=== PATIENT | female | born 1995 | race Caucasian/White ===

== ENCOUNTER 2021-07-30 08:45 | Outpatient (CLI) | payer BC, MEDICAID, SELFPAY ==
--- NOTE | 2021-07-30 08:56 | RAD_ITS ---
STUDY: X-RAY - RIGHT WRIST REASON FOR EXAM: Female, 25 years old. CONTUSION R WRIST -- PT IS TECHNIQUE: 3 view(s) of the wrist were obtained. COMPARISON: None. FINDINGS: Normal visualized distal radius and ulna. Normal radiocarpal articulation. Normal distal radioulnar articulation. Normal carpal bones. Normal carpal articulations. Normal carpometacarpal articulation of the thumb. Normal second through fifth carpometacarpal articulations. Normal visualized metacarpal bones. The soft tissue structures are unremarkable. RAD/Wrist min 3 Views IMPRESSION: Normal x-ray examination of the wrist. Electronically Signed: Josiah Holbrook MD at 13:45 EDT ,
== END 2021-07-30 23:59 | disposition home or self-care (01) ==
LOC: RAD 08:55
PROVIDERS: PCP Family Medicine; Referring Provider Family Medicine; Visit Provider Family Medicine
DX: S60.211A Contusion of right wrist, initial encounter (principal)
CPT/HCPCS: 73110

== ENCOUNTER 2021-08-25 17:00 | Outpatient (CLI) | payer BC, MEDICAID, SELFPAY ==
[2021-08-25] VITALS (13 sets, daily range): BP systolic 122–132; BP diastolic 64–77; PULSE 75–85; TEMP 37–37.7; O2SAT 98; BMI 29.4
[2021-08-25 18:02] LABS: Hematocrit 31.4 % (37-47); Hemoglobin 10.4 g/dL (12.0-15.0); Mean Corp Hgb Conc 33.1 g/dL (32-36); Mean Corpuscular Hgb 29.6 pg (27.0-32.0); Mean Corpuscular Volume 89.5 fL (81-99); Mean Platelet Vol. 10.8 fl (6.2-12.0); Platelet Count 175 K/mm3 (150-450); RBC Distribution Width CV 14.4 % (11.6-14.6); Red Blood Count 3.51 M/mm3 (4.2-5.4); White Blood Count 11.1 K/mm3 (4.4-11.0)
[2021-08-25 18:18] LABS: Protein, Urine (Random) 15.6 mg/dL (<11.9); Protein:Creat Ratio 164 mg/g CRE (0-200)
[2021-08-25 19:13] LABS: AST(SGOT) 20 U/L (15-37); Alanine Aminotransfer ALT/SGPT 19 U/L (13-56); Creatinine, Serum 0.42 mg/dL (0.55-1.02); EST Glomerular Filtration Rate 197 mL/min (>60); Est Glom Filt Rate - Afr Amer 238 mL/min (>60); Estimated Creatinine Clearance 195.02 ml/min; Uric Acid 3.7 mg/dL (2.6-6.0)
--- NOTE | 2021-08-28 09:17 | OB.TRI.HP_ITS ---
HPI - General HPI Narrative XIOMARA FRAGOSO, is a 25-year-old 1 para 0 who presented at 38-5/7 weeks for complete plaints of swelling in her hands and feet. She was sent to labor and delivery to rule out preeclampsia. Maternal Data Information Final [place]: 09/03/21 Gestational age: 38 5/7 PFSH PFSH Home Medications Prenatabs FA 1 tab PO/SL DAILY 08/25/21 [History Last Taken Unknown] iron 325 mg PO/SL QODAY 08/25/21 [History Last Taken Unknown] Allergy/AdvReac Type Severity Reaction Status Date / Time No Known Allergies Allergy Verified 08/08/15 13:10 Social History Smoking Status: Never smoker NST FHR Rate Baby A Baseline: 130 Variability:: Moderate Accelerations:: 15 x 15 Decelerations:: None NST Reactive:: Yes FHR Category:: Category I Uterine Activity:: irreg ctxs Assessment & Plan (1) 38 weeks gestation of : (2) Supervision of normal first in third trimester: PLAN: NST is reactive and category 1. No evidence of preeclampsia. P atient was discharged home to follow-up in the office as needed or as scheduled. (3) Edema during : QUALIFIERS: Trimester: third trimester Qualified Code(s): O12.03 - Gestational edema, third trimester
== END 2021-08-25 19:25 | disposition home or self-care (01) ==
LOC: WPOUT 17:06 → WP 17:07
PROVIDERS: PCP Family Medicine; Referring Provider Advanced Practice Midwife; Visit Provider Advanced Practice Midwife
DX: O12.03 Gestational edema, third trimester (principal); Z3A.38 38 weeks gestation of pregnancy
CPT/HCPCS: 36415; 59025; 59050; 82565; 82570; 84156; 84450; 84460; 84550; 85027; 99218; G0378

== ENCOUNTER 2021-09-05 16:05 | Outpatient (CLI) | payer BC, MEDICAID, SELFPAY ==
[2021-09-05 16:26] VITALS: BP 141/73; PULSE 88; TEMP 37.3; BMI 29.7
[2021-09-05 16:42] VITALS: BP 136/84; PULSE 93
--- NOTE | 2021-09-05 17:39 | OB.TRI.NOTE ---
HPI - General HPI Narrative XIOMARA FRAGOSO, is a 25 F at 40.2 weeks gestation who presents to triage with contractions. She reports having contractions every 6 minutes for the past couple of hours. Denies any loss of fluid or vaginal bleeding. Positive movement. Maternal Data Information [place] Calculator Estimated Delivery Date Method Current WG Current Estimate 09/03/21 Manual 40w 2d PFSH PFSH Home Medications Prenatabs FA 1 tab PO/SL DAILY 08/25/21 [History Last Taken Unknown] iron 325 mg PO/SL QODAY 08/25/21 [History Last Taken Unknown] Allergy/AdvReac Type Severity Reaction Status Date / Time No Known Allergies Allergy Verified 09/05/21 16:27 Social History Smoking Status: Never smoker ROS Eyes Eyes: Denies blurry vision Cardiovascular Cardiovascular: Reports none; Denies chest pain at rest, chest pain with activity or dizziness Respiratory/Chest Respiratory/Chest: Denies cough or dyspnea Gastrointestinal Gastrointestinal: Reports none and other; Denies diarrhea or vomiting Genitourinary Genitourinary: Denies dysuria Musculoskeletal Musculoskeletal: Reports none Integumentary Integumentary: Reports none; Denies rash Neurologic Neurologic: Denies dizziness, headache(s) or other visual disturbances Psychiatric Psychiatric: Reports none Physical Exam Const alert and no apparent distress General Appearance: cooperative Orientation / Consciousness: awake Exam Limitations: no limitations HEENT normocephalic Eyes General Eye: normal appearance of both eyes Neck full ROM Chest inspection of chest normal Resp normal respiratory effort and normal air movement Effort and Inspection: symmetric chest movement Auscultation: clear to auscultation bilaterally Cardio regular rate GI soft to palpation, non-tender and non-distended Inspection: and other Back/Spine normal ROM Extremity full ROM, normal capillary refill and no calf tenderness Skin no rashes or lesions noted Neuro oriented x3 and CN's II-XII intact bilaterally Psych mental status grossly normal NST FHR Rate Baby A Baseline: 155 Variability:: Moderate Accelerations:: None Decelerations:: None NST Reactive:: Yes FHR Category:: Category I Uterine Activity:: irregular Assessment & Plan (1) 40 weeks gestation of : (2) Anemia affecting : QUALIFIERS: Trimester: third trimester Qualified Code(s): O99.013 - Anemia complicating , third trimester (3) Rh negative state in antepartum period: PLAN: NST reactive- Cat. 1 tracing CE unchanged Labor precautions reviewed D/C home with follow up in office this week Dr. Britt notified and is collaborating physician
== END 2021-09-05 19:05 | disposition home or self-care (01) ==
LOC: WPOUT 16:18 → WP 16:19
PROVIDERS: PCP Family Medicine; Referring Provider Advanced Practice Midwife; Visit Provider Advanced Practice Midwife
DX: O99.013 Anemia complicating pregnancy, third trimester (principal); O48.0 Post-term pregnancy; Z3A.40 40 weeks gestation of pregnancy
CPT/HCPCS: 59025; 59050; 99218; G0378

== ENCOUNTER 2021-09-06 02:08 | Inpatient (IN) | payer BC, MEDICAID, SELFPAY ==
[2021-09-06] VITALS (44 sets, daily range): BP systolic 108–161; BP diastolic 57–91; PULSE 59–176; RESP 16; TEMP 36.2–37.7; O2SAT 82–100; BMI 30.4
[2021-09-06 02:06] LABS: ROM Internal Control Test YES-OK TO RESULT pt. (Internal QC)
[2021-09-06 02:08] LABS: ROM Patient Test POSITIVE (Negative)
[2021-09-06] MEDS: Lactated Ringers 1,000 ML 999 ML IV (02:25)
[2021-09-06] MEDS: fentaNYL 100 MCG/2 ML Ampul IV (02:47)
[2021-09-06] MEDS: Ondansetron 4 MG/2 ML Vial IV (02:47)
[2021-09-06 03:00] LABS: Absolute Lymphocyte Count 0.98 X10^3/uL (0.83-4.51); Absolute Neutrophil Count 8.1 X10^3/uL (2.0-7.7); Basophil# 0.03 X10^3/uL; Basophil% 0.3 % (0-1); Eosinophil# 0.03 X10^3/uL; Eosinophils% 0.3 % (0-5); Hematocrit 34.1 % (37-47); Hemoglobin 11.3 g/dL (12.0-15.0); Lymphocyte # 0.98 X10^3/ul (0.83-4.51); Lymphocyte % 9.4 % (19-41); Mean Corp Hgb Conc 33.1 g/dL (32-36); Mean Corpuscular Hgb 29.4 pg (27.0-32.0); Mean Corpuscular Volume 88.8 fL (81-99); Mean Platelet Vol. 11.4 fl (6.2-12.0); Monocyte# 1.17 X10^3/uL; Monocyte% 11.2 % (0-10); NRBC Flagged by Analyzer 0 % (0-5); Neutrophil # 8.08 X10^3/uL (2.7-7.7); Neutrophil % 77.5 % (47-70); Platelet Count 157 K/mm3 (150-450); RBC Distribution Width CV 14.7 % (11.6-14.6); RBC Distribution Width SD 46.7 fl (35.1-43.9); Red Blood Count 3.84 M/mm3 (4.2-5.4); White Blood Count 10.4 K/mm3 (4.4-11.0)
[2021-09-06 03:15] LABS: AST(SGOT) 21 U/L (15-37); Alanine Aminotransfer ALT/SGPT 20 U/L (13-56); Creatinine, Serum 0.55 mg/dL (0.55-1.02); EST Glomerular Filtration Rate 145 mL/min (>60); Est Glom Filt Rate - Afr Amer 175 mL/min (>60); Estimated Creatinine Clearance 143.15 ml/min; Uric Acid 3.5 mg/dL (2.6-6.0)
--- NOTE | 2021-09-06 03:30 | HP.PCM.OB_ITS ---
HPI - General General Date of Admission: 09/06/21 HPI Narrative XIOMARA FRAGOSO, is a 25 F at 40.3 who presents to triage with SROM. Patient discharged from triage earlier this evening for no cervical change and reports went home and felt large gush of fluid. Continues to have contractions every 3-5 minutes. Positive movement. Maternal Data Information [place] Calculator Estimated Delivery Date Method Current WG Current Estimate 09/03/21 Manual 40w 3d PFSH PFSH Medical History no medical history Home Medications Prenatabs FA 1 tab PO/SL DAILY 08/25/21 [History Last Taken Unknown] iron 325 mg PO/SL QODAY 08/25/21 [History Last Taken Unknown] Allergy/AdvReac Type Severity Reaction Status Date / Time No Known Allergies Allergy Verified 09/06/21 01:44 Surgical History no surgical history Social History Smoking Status: Never smoker History Elective abortions Hx Para 0 Spontaneous abortions Hx # Term Pregnancies Ectopic pregnancies Hx # Pregnancies Multiple births # of living children NST FHR Rate Baby A Baseline: 140 Variability:: Moderate Accelerations:: 15 x 15 Decelerations:: None NST Reactive:: Yes FHR Category:: Category I Uterine Activity:: 2-4 ROS Eyes Eyes: Denies blurry vision, change in vision or spots in vision ENT HEENT: Denies dizziness or headache(s) Cardiovascular Cardiovascular: Denies abdominal pain, chest pain or dyspnea Respiratory/Chest Respiratory/Chest: Denies cough, dyspnea, shortness of breath at rest or shortness of breath with exertion Gastrointestinal Gastrointestinal: Denies abdominal pain, diarrhea or vomiting Genitourinary Genitourinary: Denies change in urinary stream, difficulty urinating or dysuria Musculoskeletal Musculoskeletal: Reports none Integumentary Integumentary: Denies rash Neurologic Neurologic: Denies dizziness, headache(s), memory loss or weakness Psychiatric Psychiatric: Reports none Vital Signs Vital Signs Vital Signs: 09/06/21 01:28 09/06/21 01:33 09/06/21 01:59 Pulse Rate 83 73 67 Blood Pressure 148/91 H 161/90 H BP Systolic 148 161 BP Diastolic 91 90 Pulse Ox 99 97 09/06/21 02:12 09/06/21 02:57 09/06/21 03:23 Pulse Rate 66 69 81 Blood Pressure 140/89 H 156/84 H BP Systolic 140 156 BP Diastolic 89 84 Pulse Ox 99 09/06/21 03:28 Pulse Rate 74 Blood Pressure BP Systolic BP Diastolic Pulse Ox 98 Weight Weight: 183 lb Body Mass Index (BMI) 30.4 Physical Exam Const alert, oriented x3 and no apparent distress General Appearance: cooperative Orientation / Consciousness: awake Exam Limitations: no limitations HEENT normocephalic Head and Scalp: normal to inspection Eyes General Eye: normal appearance of both eyes Neck full ROM and no lymphadenopathy Lymph Lymphatic: no lymphadenopathy noted Chest inspection of chest normal Resp normal respiratory effort, normal air movement and clear to auscultation bi laterally Effort and Inspection: able to speak in complete sentences and symmetric chest movement Cardio regular rate and regular rhythm GI normal to inspection, nondistended, normoactive bowel sounds Manual OB Exam: presentation cephalic and dilated 4 Amniotic Fluid: clear amniotic fluid Back/Spine normal ROM Extremity full ROM and no calf tenderness Skin no rashes or lesions noted General Skin Exam: no breakdown Neuro oriented x3 and CN's II-XII intact bilaterally Psych mental status grossly normal and thought process normal Labs Labs Labs: Blood Type Pending Antibody Screen Pending Hct 34.1 % (37-47) L Hgb 11.3 g/dL (12.0-15.0) L Assessment & Plan (1) Rh negative state in antepartum period: (2) 40 weeks gestation of : (3) Spontaneous rupture of amniotic membranes: PLAN: ROM plus- positive Ce- 4/90/-2 Admit to labor and delivery Elevated BP readings- 156/84, 140/89- PIH labs ordered Start IV fluids and titrate per orders GBS negative Epidural when indicated Anticipate Dr. Carrera notified of admission and is collaborating physician (4) Elevated blood pressure reading:
[2021-09-06] MEDS: fentaNYL-bupivacaine (epidural) 100 ML BAG EPIDURAL ×3 (03:40→13:44)
[2021-09-06 05:53] LABS: Protein, Urine (Random) 22.9 mg/dL (<11.9); Protein:Creat Ratio 218 mg/g CRE (0-200)
[2021-09-06] MEDS: Lactated Ringers 1,000 ML 200 ML IV ×2 (06:09→10:48)
--- NOTE | 2021-09-06 10:33 | PN_ITS ---
Progress Note Patient seen at bedside. Comfortable with epidural. Denies any pain. Patient currently in isolation due to COVID-19 positive via rapid and PCR. She denies any symptoms at this time. Physical Exam Const alert and no apparent distress General Appearance: cooperative and comfortable Exam Limitations: no limitations HEENT normocephalic Eyes General Eye: normal appearance of both eyes Neck full ROM General: normal visual inspection Chest Chest: symmetrical chest wall rise Resp normal respiratory effort and normal air movement Effort and Inspection: symmetric chest movement Auscultation: clear to auscultation bilaterally Cardio regular rate and regular rhythm GI normal to inspection, nondistended, normoactive bowel sounds Back/Spine normal ROM Extremity full ROM and no calf tenderness General Extremity: normal exam except as noted Skin no rashes or lesions noted Neuro CN's II-XII intact bilaterally Psych mental status grossly normal Assessment & Plan Assessment/Plan (1) 40 weeks gestation of : (2) Rh negative state in antepartum period: (3) Spontaneous rupture of amniotic membranes: (4) COVID-19 virus RNA test result positive at limit of detection: PLAN: COVID POSITIVE- remain in isolation- 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 1 tracing- NST reactive Start pitocin 2 mu/min and increase per policy Anticipate Dr. Britt updated and is collaborating physician
[2021-09-06] MEDS: Oxytocin 30 units/NS 500 ml 30 UNITS/500 ML IV.SOLN IV (10:42)
[2021-09-06] MEDS: Oxytocin 30 units/NS 500 ml 30 UNITS/500 ML IV.SOLN 334 UNITS IV (14:38)
--- NOTE | 2021-09-06 15:00 | EX.PCM.OBRPT ---
Assessment & Plan (1) COVID-19 virus RNA test result positive at limit of detection: (2) Rh negative state in antepartum period: (3) (spontaneous vaginal delivery): (4) Laceration, obstetrical, first degree: Maternal Data Information [place] Calculator Estimated Delivery Date Method Current WG Current Estimate 09/03/21 Manual 40w 3d Vaginal Delivery Maternal Presentation Maternal Presentation: Spontaneous Rupture of Membranes Maternal Presentation: G1 Po at 40.3 that presented triage with spontaneous rupture of membranes. Labor was augmented with pitocin. Operative Information Date of Procedure: 09/06/21 Pre-Operative Diagnosis: Term gestation, Spontaneous rupture of membranes Post-Operative Diagnosis: Same, live viable female Surgery / Procedure Performed: Spontaneous Vaginal Delivery Type of Anesthesia: Epidural Drain: Zheng to straight drain Estimated Blood Loss: 300 Time of Delivery: 14:36 Findings Description of Procedure: Provided bedside support to patient with pushing. Dr. Dominguez and RT in room for delivery due to meconium fluid. head delivered with maternal effort over intact perineum. Cord around neck easily reduced. With next push, anterior shoulder and then remainder of infant body delivered. Cord around arm and body easily reduced. Vigorous female infant placed on maternal abdomen and was attended to by nursing staff. Pitocin IV started for active management of the third stage of labor. Cord blood collected from 3 vessel cord after clamped and cut by FOB. placed immediately skin to skin with patient. Placenta delivered spontaneously and intact. Fundus firm 1 below U. A first degree vaginal laceration repaired in usual fashion using Vicryl 3-0 Rapide. Hemostasis obtained. Vaginal sweep completed by me. Infant and patient bonding well at this time. Dr. Britt notified of delivery. Presentation: Vertex Amniotic Membrane Rupture Type: Spontaneous Time of Membrane Rupture: 0030 Amniotic Fluid Description: Clear, Lightly stained meconium and - (Meconium fluid noted while pushing and terminal mec at delivery) Placental Delivery Description: Spontaneous Placenta Disposition: [facility] Cord Vessel Description: 3 Vessels Cord Entanglement: Around neck x 1, loose and - (Cord around arm and body x 1 loose) Nuchal Cord Compression: Without compression Infant A Gender: Female (1 minute): 8 (5 minute): 9 Delayed Cord Clamping: Yes Post Vaginal Delivery Medications Given After Delivery: IV Pitocin Episiotomy Description: None Laceration: 1st degree Complication Complications: None
[2021-09-06] MEDS: Acetaminophen 500 MG Tablet 1000 MG PO (16:20)
[2021-09-06] MEDS: Naproxen 500 MG Tablet PO (20:01)
[2021-09-07] VITALS (9 sets, daily range): BP systolic 105–122; BP diastolic 54–67; PULSE 75–90; RESP 16; TEMP 36.1–36.6; O2SAT 97–98
[2021-09-07] MEDS: Naproxen 500 MG Tablet PO (08:02)
[2021-09-07] MEDS: Senna/Docusate Sodium 1 Tablet PO (08:03)
--- NOTE | 2021-09-07 08:56 | PCM.PN.OB ---
Subjective Subjective Patient seen at bedside. Up in room ambulating. Denies pain. Has occasional cough but no other COVID symptoms. Lochia decreasing. Bottle feeding infant. Desires discharge home at 24 hours. Objective Data Objective Data Vital Signs: Vital Signs Temp Pulse Resp BP Pulse Ox 97.7 F L 90 16 120/67 97 09/07/21 07:55 09/07/21 07:55 09/07/21 07:55 09/07/21 07:55 09/07/21 07:55 Oxygen Delivery Method Room Air Weight: 183 lb Body Mass Index (BMI) 30.4 Intake & Output: Intake and Output for Last 24 Hours 09/05/21 09/06/21 09/07/21 23:59 23:59 23:59 Intake Total 4207.87 / 4207.87 Output Total 1920 / 1920 Balance 2287.87 / 2287.87 Lab / Micro Data Result Diagrams: 09/06/21 02:25 09/06/21 02:25 Labs: Laboratory Results - last 24 hr 09/06/21 17:17: Screen NEGATIVE, Baby's Blood Type A POSITIVE, Baby's YEYO NEGATIVE Micro: Microbiology 09/06/21 02:50 Nasal Secretion SARS-CoV-2 Antigen (Rapid) - Final SARS-CoV-2 (COVID 19) ROS Eyes Eyes: Denies blurry vision, change in vision or spots in vision ENT HEENT: Denies dizziness or headache(s) Cardiovascular Cardiovascular: Denies abdominal pain, chest pain or dyspnea Respiratory/Chest Respiratory/Chest: Denies cough, dyspnea, shortness of breath at rest or shortness of breath with exertion Gastrointestinal Gastrointestinal: Denies abdominal pain, diarrhea or vomiting Genitourinary Genitourinary: Denies change in urinary stream, difficulty urinating or dysuria Musculoskeletal Musculoskeletal: Reports none Integumentary Integumentary: Denies rash Neurologic Neurologic: Denies dizziness, headache(s), memory loss or weakness Physical Exam Const alert and no apparent distress General Appearance: cooperative and comfortable Exam Limitations: no limitations HEENT normocephalic Eyes General Eye: normal appearance of both eyes Neck full ROM General: normal visual inspection Chest Chest: symmetrical chest wall rise Resp normal respiratory effort and normal air movement Effort and Inspection: symmetric chest movement Auscultation: clear to auscultation bilaterally Cardio regular rate and regular rhythm GI normal to inspection, nondistended, normoactive bowel sounds Back/Spine normal ROM Extremity full ROM and no calf tenderness General Extremity: normal exam except as noted Skin no rashes or lesions noted Neuro CN's II-XII intact bilaterally Psych mental status grossly normal Assessment & Plan (1) Laceration, obstetrical, first degree: (2) (spontaneous vaginal delivery): (3) COVID-19 virus RNA test result positive at limit of detection: (4) Rh negative state in antepartum period: (5) Anemia affecting : QUALIFIERS: Trimester: third trimester Qualified Code(s): O99.013 - Anemia complicating , third trimester PLAN: PPD 1 Routine care Pain control Bottle feeding infant D/C home after 24 hours and follow up in office
--- NOTE | 2021-09-07 09:03 | PCM.DC ---
Discharge Instructions Diet Discharge Diet: No restrictions Activity May resume sexual activity in: 6-8 weeks Weight Bearing Status: Weight bearing as tolerated Dressing / Incision Call your doctor if you observe: Fever of 101 or Higher, Inability to urinate, Using more than 1 pad per hour, Shortness of breath, Chest pain, Calf discomfort and Uncontrolled pain Follow Up Care Please Follow Up With: Naye Sepulveda CNM When: 2 weeks virtual visit/ 6 weeks in office Test Results: Test results from this visit will be discussed in further detail at your follow-up appointment, if applicable. Discharge Plan Admission Admit Date/Time: 09/06/21 02:08 Primary Reason for Your Visit: Labor and Delivery Attending Provider: Naye Sepulveda Primary Care Provider: Jairo Pérez Discharge Orders/Prescriptions Prescriptions: No Action Prenatabs FA 1 tab PO/SL DAILY RF: 0 iron 325 mg PO/SL QODAY RF: 0 Referrals / Follow Up: Jairo Pérez MD [Primary Care Provider] - Disposition Disposition (needs filled in before D/C Order can be placed): Home, Self Care
--- NOTE | 2021-09-11 15:37 | NURSING ---
on follow up phone call mother states slight headache but not bad , discussed if worsed to let OB know , no other symptoms and baby eating well. Really liked Chen.
== END 2021-09-07 17:15 | disposition home or self-care (01) | DRG 805 ==
LOC: WPOUT 02:13 → WP 02:13
PROVIDERS: Admitting Provider Advanced Practice Midwife; PCP Family Medicine; Visit Provider Advanced Practice Midwife
DX: O98.52 Other viral diseases complicating childbirth (principal); Z37.0 Single live birth; U07.1 COVID-19; O69.81X0 Labor and delivery complicated by cord around neck, without compression, not applicable or unspecified; Z3A.40 40 weeks gestation of pregnancy; O70.0 First degree perineal laceration during delivery; O48.0 Post-term pregnancy; O77.0 Labor and delivery complicated by meconium in amniotic fluid; O26.893 Other specified pregnancy related conditions, third trimester; O99.013 Anemia complicating pregnancy, third trimester
CPT/HCPCS: 59025; 59050; 82565; 82570; 84112; 84156; 84450; 84460; 84550; 85025; 85461; 86850; 86900; 86901; 87426; 87635; 90384; 99218; J7120; G0378; J2405; J2790; U0003; U0005

== ENCOUNTER 2022-02-25 16:03 | Emergency (ER) | payer BC, MEDICAID, SELFPAY ==
[2022-02-25 16:04] VITALS: BP 113/58; PULSE 73; RESP 14; TEMP 36.7; O2SAT 98; BMI 26.6
[2022-02-25 18:02] LABS: Absolute Lymphocyte Count 1.96 X10^3/uL (0.83-4.51); Basophil# 0.03 X10^3/uL; Basophil% 0.3 % (0-1); Eosinophil# 0.06 X10^3/uL; Eosinophils% 0.6 % (0-5); Hematocrit 38.9 % (37-47); Hemoglobin 13.1 g/dL (12.0-15.0); Lymphocyte # 1.96 X10^3/ul (0.83-4.51); Lymphocyte % 20.3 % (19-41); Mean Corp Hgb Conc 33.7 g/dL (32-36); Mean Corpuscular Volume 86.3 fL (81-99); Mean Platelet Vol. 10.2 fl (6.2-12.0); Monocyte% 6.2 % (0-10); NRBC Flagged by Analyzer 0 % (0-5); Neutrophil # 6.95 X10^3/uL (2.7-7.7); Neutrophil % 72.2 % (47-70); Platelet Count 243 K/mm3 (150-450); RBC Distribution Width CV 12.3 % (11.6-14.6); RBC Distribution Width SD 38.5 fl (35.1-43.9); Red Blood Count 4.51 M/mm3 (4.2-5.4); White Blood Count 9.6 K/mm3 (4.4-11.0)
[2022-02-25 18:06] VITALS: RESP 16
[2022-02-25 18:09] LABS: Mucous, Urine 0 SEEN /hpf (<or=2+); Red Blood Cells-Urine 0 SEEN /hpf (0-5)
[2022-02-25 18:12] LABS: Color, Urine Yellow (Yellow); Glucose, Dipstick Normal (Normal); Ketone-Dipstick 15 mg/dl (Negative); Leukocyte Esterase-Dipstick 100 /ul (Negative); Nitrite-Dipstick Positive (Negative); Occult Blood-Urine Negative /ul (Negative); Protein-Dipstick 15 mg/dl (Negative); Urine Bilirubin Dipstick Negative (Negative); Urine Clarity Sl. Cloudy (Clear); Urine Urobilinogen 1 mg/dl (Normal)
[2022-02-25 18:13] LABS: Internal QC Validated? YES +Cl - CLEAR BKGD
[2022-02-25 18:15] LABS: Pregnancy, Serum, hCG Quali. POSITIVE Negative
[2022-02-25 18:19] LABS: Anion Gap 4 (5-15); BUN 8 mg/dL (7-18); BUN/Creat Ratio 13.4 RATIO (10-20); Calcium,Total 9.2 mg/dL (8.5-10.1); Chloride 107 mmol/L (98-107); EST Glomerular Filtration Rate 131 mL/min (>60); Est Glom Filt Rate - Afr Amer 159 mL/min (>60); Estimated Creatinine Clearance 135.35 ml/min; Glucose 113 mg/dL (74-106); Potassium 3.3 mmol/L (3.5-5.1); Sodium Level 136 mmol/L (136-145)
--- NOTE | 2022-02-25 18:19 | US_ITS ---
STUDY: FIRST TRIMESTER OBSTETRICAL ULTRASOUND REASON FOR EXAM: Female, 26 years old. + , RLQ pain TECHNIQUE: Transvaginal US was obtained to better visualized the ovaries. TECHNICAL QUALITY: Adequate. PRIOR ULTRASOUND: None. FINDINGS: There is visualization of a single gestational sac in a normal intrauterine position. The mean sac diameter (MSD) measures 23 mm, indicating an estimated gestational age (EGA) of 7 weeks, 2 days. The gestational sac shape is within normal limits. There is a visualized yolk sac. The yolk sac measures 3.1 mm. The placenta is non-visualized. Due to early gestation, the placenta is not seen. There is visualization of a live embryo. The crown-rump length (CRL) measures 11 mm, indicating an estimated gestational age (EGA) of 7 weeks, 2 days. There is demonstrated cardiac activity with a heart rate of 166 bpm. The estimated gestation age (EGA) by LMP is 6 weeks, 6 days. The estimated date of delivery ([place]) by LMP is 6.15.23. The estimated gestation age (EGA) by US is 7 weeks, 2 days. The estimated date of delivery ([place]) by US is 6.12.23. The uterus measures 10.5 cm. There is no demonstrated uterine fibroid. The cervix is closed. The right ovary measures 3.9 cm. There is no right ovarian cyst. There is no visualized right adnexal mass or complex lesion. The left ovary measures 3.1 cm. Cyst is 25mm. There is no visualized left adnexal mass or complex lesion. There is minimal fluid in the cul de sac. The appendix is not visualized. There are no secondary signs to suggest appendicitis. US/Transvaginal w/Preg US IMPRESSION: There is a single live intrauterine with a heart rate of 166 bpm. There is minimal fluid in the cul de sac. The estimated gestation age (EGA) by US is 7 weeks, 2 days. The estimated date of delivery ([place]) by US is 6.12.23. The appendix is not visualized. There are no secondary signs to suggest appendicitis. Electronically Signed: Maxx Guido MD at 19:44 EDT ,
[2022-02-25 18:26] LABS: Bacteria 2+ /hpf (None Seen); Squamous Epithelial Cells - UA 5-10 SEEN /hpf (5-10); White Blood Cells 0-5 SEEN /hpf (0-5)
--- NOTE | 2022-02-25 18:50 | ED.VIS.FEGU ---
HPI HPI - Female History of Present Illness Chief Complaint: Informant: patient Narrative Narrative: Patient is a G1, P1 presenting with lower abdominal pain and positive test. Patient had 1 week of sharp and constant pain in her right lower quadrant. She is associated nausea. It started when she sat up fast has not gone away. Not take anything for symptoms. Went to her primary care office today where she had a positive test and they sent her to the ER to rule out ectopic . Patient's last menstrual period was January 01. She had her daughter in August of this year and since her periods been irregular she did not think she could get . She is not currently on any control. She denies any urinary symptoms. Denies any vaginal bleeding or discharge. No other complaints at this time. Her CHILDREN'S NURSERY ASSISTANT is through [facility] Medical History Anemia affecting COVID-19 virus RNA test result positive at limit of detection Laceration, obstetrical, first degree Rh negative state in antepartum period (spontaneous vaginal delivery) Home Medications Prenatabs FA 1 tab PO/SL DAILY 08/25/21 [History Last Taken Unknown] iron 325 mg PO/SL QODAY anemia 08/25/21 [History Last Taken Unknown] nitrofurantoin monohydrate/macrocrystals 100 mg capsule (Macrobid) 100 mg PO Q12H 5 days #10 caps 02/25/22 [Rx Last Taken Unknown] vitamin-ferrous fumarate 28 mg iron-folic acid 800 mcg tablet ( Tablet) 1 tab PO DAILY #30 tabs 02/25/22 [Rx Last Taken Unknown] Allergy/AdvReac Type Severity Reaction Status Date / Time No Known Allergies Allergy Verified 02/25/22 16:04 Social History Smoking Status: Current every day smoker tobacco type: e-cigarettes ROS ROS ED Constitutional Constitutional ED: Reports fever(s) and other Details: Temperature of 100.9 earlier today, resolved spontaneously ; Denies chills Eyes Eyes: Denies blurry vision or change in vision ENT ENT ED: Denies sore throat Cardiovascular Cardiovascular: Denies chest pain or palpitations Respiratory/Chest Respiratory/Chest: Denies cough Gastrointestinal Gastrointestinal: Reports abdominal pain and nausea; Denies constipation, diarrhea or vomiting Genitourinary Genitourinary ED: Denies dysuria or hematuria Musculoskeletal Musculoskeletal: Denies arthralgias or myalgias Integumentary Denies rash Neurologic Neurologic: Denies headache(s) or weakness Psychiatric Psychiatric: Denies anxiety Hematologic/Lymphatic Hematologic/Lymphatic: Denies easy bleeding or easy bruising EXAM Physical Exam Const Vital Signs: 02/25/22 16:04 02/25/22 18:06 Temperature 98.1 F Temperature Source Temporal Pulse Rate 73 Respiratory Rate 14 16 Blood Pressure 113/58 L Blood Pressure Mean 76 Pulse Ox 98 Oxygen Delivery Method Room Air Room Air Positive well nourished and well developed General Appearance ED: well developed and NAD HEENT Reports moist mucous membranes Negative for trauma Eyes PERRL and EOMs intact bilaterally Neck supple Chest Wall inspection of chest normal and palpation of chest normal Resp normal respiratory effort and clear to auscultation bilaterally Cardio regular rate, regular rhythm and no murmurs GI normal to inspection, nondistended, normoactive bowel sounds, soft to palpation and non-distended GI Narrative: Mild tenderness palpation in the right inguinal area as well as suprapubic region. No pain at McBurney's point. No peritoneal signs. Auscultation: normoactive bowel sounds Palpation: Negative for guarding or rigid Back/Spine no CVA tenderness Extremity normal to inspection and full ROM Neuro oriented x3 Sensorium / Orientation: alert Motor Exam: Negative for general weakness Psych mental status grossly normal Skin no rashes or lesions noted and no wounds MDM MDM MDM Narrative Medical decision making narrative: Patient is evaluated for lower abdominal pain and positive test in the office. Last menstrual period was beginning of January. Patient has any vaginal bleeding or abnormal discharge. Has had associated nausea. Vital signs are normal. Physical exam is benign. CBC unremarkable as well as her BMP. Quant is significantly elevated and transvaginal ultrasound shows single intrauterine gestation at approximately 7 weeks and 2days with no secondary signs of appendicitis or ectopic noted. Urinalysis does show some findings consistent with UTI with positive nitrates, 0-5 white blood cells, 2+ bacteria and epithelial contamination. Case discussed with her CHILDREN'S NURSERY ASSISTANT, Naye Sepulveda who is aware and can follow-up outpatient. Patient given return precautions. Patient and family verbalized agreement to this plan. She is discharged home in stable condition. Lab Data Attestation: I reviewed the patient's lab results. Labs: Laboratory Results - last 24 hr 02/25/22 02/25/22 02/25/22 17:43 17:43 17:43 WBC 9.6 RBC 4.51 Hgb 13.1 Hct 38.9 MCV 86.3 MCH 29.0 MCHC 33.7 RDW Std Deviation 38.5 RDW Coeff of Remi 12.3 Plt Count 243 MPV 10.2 Immature Gran % (Auto) 0.400 Neut % (Auto) 72.2 H Lymph % (Auto) 20.3 Ness % (Auto) 6.2 Eos % (Auto) 0.6 Baso % (Auto) 0.3 Absolute Neuts (auto) 7.0 Absolute Lymphs (auto) 1.96 Nucleated RBC % 0 Sodium 136 Potassium 3.3 L Chloride 107 Carbon Dioxide 25.0 Anion Gap 4 L BUN 8 Creatinine 0.60 Estim Creat Clear Calc 135.35 Est GFR (MDRD) Af Amer 159 Est GFR (MDRD) Non-Af 131 BUN/Creatinine Ratio 13.4 Glucose 113 H Calcium 9.2 HCG, Quant Serum , Qual POSITIVE H Urine Color Urine Clarity Urine pH Ur Specific [place] Urine Protein Urine Glucose (UA) Urine Ketones Urine Occult Blood Urine Nitrite Urine Bilirubin Urine Urobilinogen Ur Leukocyte Esterase Urine RBC Urine WBC Ur Squamous Epith Cells Urine Bacteria Urine Mucus 02/25/22 02/25/22 17:43 18:05 WBC RBC Hgb Hct MCV MCH MCHC RDW Std Deviation RDW Coeff of Remi Plt Count MPV Immature Gran % (Auto) Neut % (Auto) Lymph % (Auto) Ness % (Auto) Eos % (Auto) Baso % (Auto) Absolute Neuts (auto) Absolute Lymphs (auto) Nucleated RBC % Sodium Potassium Chloride Carbon Dioxide Anion Gap BUN Creatinine Estim Creat Clear Calc Est GFR (MDRD) Af Amer Est GFR (MDRD) Non-Af BUN/Creatinine Ratio Glucose Calcium HCG, Quant 52473 H Serum , Qual Urine Color Yellow Urine Clarity Sl. Cloudy Urine pH 7.0 Ur Specific [place] 1.020 Urine Protein 15 H Urine Glucose (UA) Normal Urine Ketones 15 H Urine Occult Blood Negative Urine Nitrite Positive H Urine Bilirubin Negative Urine Urobilinogen 1 H Ur Leukocyte Esterase 100 H Urine RBC 0 SEEN Urine WBC 0-5 SEEN Ur Squamous Epith Cells 5-10 SEEN Urine Bacteria 2+ Urine Mucus 0 SEEN Radiography Diagnostic Testing: Clinical Impression(s) from Imaging Studies Obstetrics Ultrasound 02/25/22 18:19 IMPRESSION: There is a single live intrauterine with a heart rate of 166 bpm. There is minimal fluid in the cul de sac. The estimated gestation age (EGA) by US is 7 weeks, 2 days. The estimated date of delivery ([place]) by US is 6.12.23. The appendix is not visualized. There are no secondary signs to suggest appendicitis. Electronically Signed: Maxx Guido MD at 19:44 EDT Reading Location ID and State: [facility] / [place] , Service support , Discharge Plan Triage Chief Complaint: ED Provider: Norma Rock Dx/Rx/DC Orders Clinical Impression: First trimester , Right lower quadrant abdominal pain during , UTI (urinary tract infection) Instructions: ED , New Dx, ED Cystitis Female Adult Prescriptions: New nitrofurantoin monohyd/m-cryst [Macrobid] 100 mg capsule 100 mg PO Q12H 5 Days Qty: 10 0RF Rx Instructions: must administer with a meal/food vit-iron fum-folic ac [ Tablet] 28 mg iron- 800 mcg tablet 1 tab PO DAILY Qty: 30 0RF No Action Prenatabs FA 1 tab PO/SL DAILY iron 325 mg PO/SL QODAY Primary Care Provider: Jairo Pérez Referrals: Naye Sepulveda CNM [Med Staff - Adv Practice Prof] - 1-2 Weeks Jairo Pérez MD [Primary Care Provider] - Disposition Disposition: Home, Self Care
[2022-02-25 18:59] LABS: hCG Titer Quant., Serum 61569 mIU/mL (1-3)
[2022-02-25] MEDS: Nitrofurantoin Macrocrystals 100 MG Capsule PO (20:48)
[2022-02-25 20:50] VITALS: BP 128/78; PULSE 78; RESP 16; TEMP 37.2; O2SAT 99
== END 2022-02-25 20:50 | disposition home or self-care (01) ==
PROVIDERS: Emergency Provider Emergency Medicine; PCP Family Medicine; Visit Provider Emergency Medicine
DX: O23.41 Unspecified infection of urinary tract in pregnancy, first trimester (principal); O26.891 Other specified pregnancy related conditions, first trimester; O99.331 Smoking (tobacco) complicating pregnancy, first trimester; R11.0 Nausea; Z3A.01 Less than 8 weeks gestation of pregnancy; F17.290 Nicotine dependence, other tobacco product, uncomplicated; R10.31 Right lower quadrant pain
CPT/HCPCS: 76817; 80048; 81001; 84702; 84703; 85025; 87086; 87088; 99284; A4216

== ENCOUNTER 2022-06-13 09:50 | Outpatient (CLI) | payer BC, MEDICAID, SELFPAY ==
[2022-06-13 10:03] VITALS: BP 116/65; PULSE 90; TEMP 36.4; O2SAT 98
[2022-06-13 10:10] VITALS: BMI 25.9
--- NOTE | 2022-06-13 10:44 | OB.TRI.PN_ITS ---
Progress Notes Progress Note: Presented to labor and delivery for pelvic cramping that shoots down into legs. Pain is not constant but coms and goes, less than 6 times an hour. Pain is cramping. No vaginal discharge, fluid leakage or vaginal bleeding. Denies any nausea, vomiting, diarrhea or constipation. No sick contacts O: Gen: Alert and oriented x3 Heart: RRR no murmur Lungs: clear to auscultation bilaterally Abd: Non tender, no CVAT Cervix: closed, thick and high, no blood Laboratory Studies: FHT 150, no contractions Assessment & Plan (1) Round ligament pain: (2) Musculoskeletal back pain: (3) [place]' contraction: PLAN: Plan 1) Tylenol 500mg PO x 2 2) Flexeril 10mg PO once 3) Reviewed no current signs of PTL or acute abdomen. Discussed likely musculoskeletal and [place] contractions. Reviewed PTL precautions and when to call. If no improvement with pain this weekend to call the office next week. Recommend heat, ice, and human services care specialist for relief. Emotional support provided and patient is agreeable to plan.
[2022-06-13] MEDS: Acetaminophen 500 MG Tablet 1000 MG PO (11:42)
[2022-06-13] MEDS: cycloBENZAPRine HCl 10 MG Tablet PO (11:43)
== END 2022-06-13 11:50 | disposition home or self-care (01) ==
LOC: WPOUT 09:54 → WP 09:55
PROVIDERS: PCP Family Medicine; Referring Provider Advanced Practice Midwife; Visit Provider Advanced Practice Midwife
DX: O47.9 False labor, unspecified (principal); O26.899 Other specified pregnancy related conditions, unspecified trimester; R10.2 Pelvic and perineal pain; O99.891 Other specified diseases and conditions complicating pregnancy; M54.9 Dorsalgia, unspecified; Z3A.00 Weeks of gestation of pregnancy not specified
CPT/HCPCS: 59050; 87086; 87088

== ENCOUNTER 2022-06-29 16:10 | Outpatient (CLI) | payer BC, MEDICAID, SELFPAY ==
[2022-06-29 16:26] VITALS: BP 118/66; PULSE 87
[2022-06-29 16:27] VITALS: PULSE 92; O2SAT 97
[2022-06-29 16:37] VITALS: BMI 26.1
--- NOTE | 2022-07-03 08:47 | OB.TRI.HP_ITS ---
HPI - General HPI Narrative XIOMARA FRAGOSO, is a 26 F at 25.4 who presents for monitoring after a fall. She fell down steps and landed on her side. Denies any direct abdominal trauma. Denies contractions, loss of fluid, vaginal bleeding and has positive movement. Maternal Data Information [place] Calculator Estimated Delivery Date Method Current WG Current Estimate 09/03/21 Manual 83w 2d PFSH PFSH Medical History Anemia affecting COVID-19 virus RNA test result positive at limit of detection Laceration, obstetrical, first degree Rh negative state in antepartum period (spontaneous vaginal delivery) Home Medications nitrofurantoin monohydrate/macrocrystals 100 mg capsule (Macrobid) 100 mg PO Q12H 5 days #10 caps 02/25/22 [Rx Last Taken 06/12/22 21:00] vitamin-ferrous fumarate 28 mg iron-folic acid 800 mcg tablet ( Tablet) 1 tab PO DAILY #30 tabs 02/25/22 [Rx Last Taken 06/29/22] Allergy/AdvReac Type Severity Reaction Status Date / Time No Known Allergies Allergy Verified 06/13/22 10:11 Social History Smoking Status: Current every day smoker tobacco type: e-cigarettes History Elective abortions Hx Para 0 Spontaneous abortions Hx # Term Pregnancies Ectopic pregnancies Hx # Pregnancies Multiple births # of living children Visit Details OB Flowsheet Initial Weight: Not Recorded Date -?-?-?-?-?-?-?-?-?-?-?-?- EGA Weight BP Urine Prot -?-?-?-?--?-?-?-?-?-?-?-?- Glucose FHR FuHt Pres Dilation -?-?-?-?-?-?-?-?-?-?--?-?- Effaced St Visit Note 06/29/22 -?-?-?-?-?-?-?-?-?-?-?-?- 82w 5d 162 lb 118/66 -?-?-?-?-?-?-?-?-?-?-?-?- -?-?-?-?-?-?-?-?-?-?-?-?- ROS Eyes Eyes: Denies blurry vision Cardiovascular Cardiovascular: Reports none; Denies chest pain at rest, chest pain with activity or dizziness Respiratory/Chest Respiratory/Chest: Denies cough or dyspnea Gastrointestinal Gastrointestinal: Reports none and other; Denies diarrhea or vomiting Genitourinary Genitourinary: Denies dysuria Musculoskeletal Musculoskeletal: Reports none Integumentary Integumentary: Reports none; Denies rash Neurologic Neurologic: Denies dizziness, headache(s) or other visual disturbances Psychiatric Psychiatric: Reports none NST FHR Rate Baby A Baseline: 140 Variability:: Moderate Accelerations:: 15 x 15 Decelerations:: None NST Reactive:: Appropriate for gestational age Uterine Activity:: None Assessment & Plan (1) 25 weeks gestation of : (2) Status post fall: PLAN: Plan NST reactive No contractions noted via TOCO and palpation D/C home with follow up in office
== END 2022-06-29 17:10 | disposition home or self-care (01) ==
LOC: WPOUT 16:20 → WP 16:20
PROVIDERS: PCP Family Medicine; Referring Provider Advanced Practice Midwife; Visit Provider Advanced Practice Midwife
DX: Z04.3 Encounter for examination and observation following other accident (principal); O26.893 Other specified pregnancy related conditions, third trimester; O26.93 Pregnancy related conditions, unspecified, third trimester; Z3A.38 38 weeks gestation of pregnancy; O99.334 Smoking (tobacco) complicating childbirth; F17.210 Nicotine dependence, cigarettes, uncomplicated
CPT/HCPCS: 59050; 99221; G0378

== ENCOUNTER 2022-10-09 22:15 | Inpatient (IN) | payer BC, MEDICAID, SELFPAY ==
[2022-10-09] VITALS (20 sets, daily range): BP systolic 115–147; BP diastolic 57–89; PULSE 85–105; TEMP 36.7; O2SAT 98–100; BMI 29.7
[2022-10-09] MEDS: Lactated Ringers 1,000 ML 200 ML IV (22:35)
[2022-10-09] MEDS: LACTATED RINGERS 500 ML 999 ML IV (22:35)
[2022-10-09 22:51] LABS: Absolute Lymphocyte Count 2.27 X10^3/uL (0.83-4.51); Absolute Neutrophil Count 16.2 X10^3/uL (2.0-7.7); Basophil# 0.05 X10^3/uL; Basophil% 0.2 % (0-1); Eosinophil# 0.11 X10^3/uL; Eosinophils% 0.5 % (0-5); Hematocrit 29.4 % (37-47); Hemoglobin 9.2 g/dL (12.0-15.0); Lymphocyte # 2.27 X10^3/ul (0.83-4.51); Mean Corp Hgb Conc 31.3 g/dL (32-36); Mean Corpuscular Hgb 27.5 pg (27.0-32.0); Mean Platelet Vol. 10.6 fl (6.2-12.0); Monocyte# 1.48 X10^3/uL; Monocyte% 7.2 % (0-10); NRBC Flagged by Analyzer 0.1 % (0-5); Neutrophil # 16.15 X10^3/uL (2.7-7.7); Neutrophil % 78.1 % (47-70); Platelet Count 229 K/mm3 (150-450); RBC Distribution Width CV 16.7 % (11.6-14.6); RBC Distribution Width SD 51.3 fl (35.1-43.9); Red Blood Count 3.34 M/mm3 (4.2-5.4); White Blood Count 20.7 K/mm3 (4.4-11.0)
[2022-10-09 23:26] LABS: Syphilis Antibodies Non-reactive
[2022-10-09] MEDS: fentaNYL-bupivacaine (epidural) 100 ML BAG EPIDURAL (23:38)
[2022-10-10] VITALS (33 sets, daily range): BP systolic 110–137; BP diastolic 53–72; PULSE 79–115; RESP 16–18; TEMP 36.8–37.4; O2SAT 97–99
[2022-10-10] MEDS: LACTATED RINGERS 500 ML 999 ML IV (02:08)
[2022-10-10] MEDS: Oxytocin 15 Units/NS 250ml 15 UNITS/250 ML IV.SOLN 83 UNITS IV (02:51)
[2022-10-10] MEDS: Oxytocin 10 UNITS/ML Vial IM (02:51)
--- NOTE | 2022-10-10 03:08 | HP.PCM.OB_ITS ---
HPI - General General Date of Admission: 10/09/22 HPI Narrative XIOMARA FRAGOSO, is a 26 F at 40.2 weeks gestation who presents with contractions that started earlier today. Positive movement. Denies loss of fluid or vaginal bleeding. Patient seen in office earlier today and was 3.5 cm. complicated by anemia, tobacco use, RH negative status, and maternal heart murmur. Maternal Data Information [place] Calculator Estimated Delivery Date Method Current WG Current Estimate 10/08/22 Manual 40w 2d Gestational age: 40.2 PFSH PFSH Medical History (Updated 10/10/22 @ 03:06 by Naye Sepulveda CNM) Anemia affecting COVID-19 virus RNA test result positive at limit of detection Laceration, obstetrical, first degree Rh negative state in antepartum period (spontaneous vaginal delivery) Home Medications nitrofurantoin monohydrate/macrocrystals 100 mg capsule (Macrobid) 100 mg PO Q12H 5 days #10 caps 02/25/22 [Rx Last Taken 06/12/22 21:00] vitamin-ferrous fumarate 28 mg iron-folic acid 800 mcg tablet ( Tablet) 1 tab PO DAILY #30 tabs 02/25/22 [Rx Last Taken 06/29/22] Allergy/AdvReac Type Severity Reaction Status Date / Time No Known Allergies Allergy Verified 06/13/22 10:11 Social History Smoking Status: Current some day smoker tobacco type: e-cigarettes History Elective abortions Hx Para 1 Spontaneous abortions Hx # Term Pregnancies Ectopic pregnancies Hx # Pregnancies Multiple births # of living children Visit Details OB Flowsheet Initial Weight: Not Recorded Date -?-?-?-?-?-?-?-?-?-?-?-?- EGA Weight BP Urine Prot -?-?-?-?-?-?-?-?-?-?-?-?- Glucose FHR FuHt Pres Dilation -?-?-?--?-?-?-?-?-?-?-?-?- Effaced St Visit Note 10/09/22 -?-?-?-?-?-?-?-?-?-?-?-?- 40w 1d 179 lb 2 oz 147/82 141/83 137/72 141/76 146/77 143/89 138/60 126/58 126/59 119/57 115/59 125/58 113/56 119/53 128/56 113/55 126/66 120/66 110/59 127/61 -?-?-?-?-?-?-?-?-?-?-?-?- -?-?-?-?-?-?-?-?-?-?-?-?- ROS Eyes Eyes: Denies blurry vision Cardiovascular Cardiovascular: Reports none; Denies chest pain at rest, chest pain with activity or dizziness Respiratory/Chest Respiratory/Chest: Denies cough or dyspnea Gastrointestinal Gastrointestinal: Reports none and other; Denies diarrhea or vomiting Genitourinary Genitourinary: Denies dysuria Musculoskeletal Musculoskeletal: Reports none Integumentary Integumentary: Reports none; Denies rash Neurologic Neurologic: Denies dizziness, headache(s) or other visual disturbances Psychiatric Psychiatric: Reports none Vital Signs Vital Signs Vital Signs: 10/09/22 22:22 10/09/22 22:22 10/09/22 23:13 Temperature Temperature Source Pulse Rate 90 Blood Pressure 147/82 H 141/83 H BP Systolic 147 141 BP Diastolic 82 83 Pulse Ox 10/09/22 23:13 10/09/22 23:17 10/09/22 23:17 Temperature Temperature Source Pulse Rate 88 86 Blood Pressure 137/72 H BP Systolic 137 BP Diastolic 72 Pulse Ox 10/09/22 23:20 10/09/22 23:20 10/09/22 23:23 Temperature Temperature Source Pulse Rate 95 Blood Pressure 141/76 H BP Systolic 141 BP Diastolic 76 Pulse Ox 100 10/09/22 23:23 10/09/22 23:25 10/09/22 23:25 Temperature Temperature Source Pulse Rate 92 92 Blood Pressure BP Systolic BP Diastolic Pulse Ox 100 10/09/22 23:27 10/09/22 23:27 10/09/22 23:30 Temperature Temperature Source Pulse Rate 90 96 Blood Pressure 146/77 H BP Systolic 146 BP Diastolic 77 Pulse Ox 10/09/22 23:30 10/09/22 23:32 10/09/22 23:32 Temperature Temperature Source Pulse Rate 100 Blood Pressure 143/89 H BP Systolic 143 BP Diastolic 89 Pulse Ox 99 10/09/22 23:35 10/09/22 23:35 10/09/22 23:37 Temperature Temperature Source Pulse Rate 105 H Blood Pressure 138/60 H BP Systolic 138 BP Diastolic 60 Pulse Ox 99 10/09/22 23:37 10/09/22 23:40 10/09/22 23:40 Temperature Temperature Source Pulse Rate 96 92 Blood Pressure BP Systolic BP Diastolic Pulse Ox 99 10/09/22 23:42 10/09/22 23:42 10/09/22 23:45 Temperature Temperature Source Pulse Rate 96 94 Blood Pressure 126/58 H BP Systolic 126 BP Diastolic 58 Pulse Ox 10/09/22 23:45 10/09/22 23:47 10/09/22 23:47 Temperature Temperature Source Pulse Rate 99 Blood Pressure 126/59 H BP Systolic 126 BP Diastolic 59 Pulse Ox 99 10/09/22 23:50 10/09/22 23:50 10/09/22 23:52 Temperature Temperature Source Pulse Rate 92 Blood Pressure 119/57 L BP Systolic 119 BP Diastolic 57 Pulse Ox 98 10/09/22 23:52 10/09/22 23:55 10/09/22 23:55 Temperature Temperature Source Pulse Rate 91 98 Blood Pressure BP Systolic BP Diastolic Pulse Ox 98 10/09/22 23:57 10/09/22 23:57 10/10/22 00:00 Temperature Temperature Source Pulse Rate 85 93 Blood Pressure 115/59 L BP Systolic 115 BP Diastolic 59 Pulse Ox 10/10/22 00:00 10/10/22 00:02 10/10/22 00:02 Temperature Temperature Source Pulse Rate 85 Blood Pressure 125/58 H BP Systolic 125 BP Diastolic 58 Pulse Ox 98 10/10/22 00:05 10/10/22 00:05 10/10/22 00:08 Temperature Temperature Source Pulse Rate 99 Blood Pressure 113/56 L BP Systolic 113 BP Diastolic 56 Pulse Ox 98 10/10/22 00:08 10/10/22 00:10 10/10/22 00:10 Temperature Temperature Source Pulse Rate 88 84 Blood Pressure BP Systolic BP Diastolic Pulse Ox 98 10/10/22 00:12 10/10/22 00:12 10/10/22 00:15 Temperature Temperature Source Pulse Rate 85 84 Blood Pressure 119/53 L BP Systolic 119 BP Diastolic 53 Pulse Ox 10/10/22 00:15 10/10/22 00:17 10/10/22 00:17 Temperature Temperature Source Pulse Rate 104 H Blood Pressure 128/56 H BP Systolic 128 BP Diastolic 56 Pulse Ox 97 10/10/22 00:35 10/10/22 00:35 10/10/22 00:50 Temperature Temperature Source Pulse Rate 92 Blood Pressure 113/55 L 126/66 H BP Systolic 113 126 BP Diastolic 55 66 Pulse Ox 10/10/22 00:50 10/10/22 01:06 10/10/22 01:06 Temperature Temperature Source Pulse Rate 104 H 101 H Blood Pressure 120/66 BP Systolic 120 BP Diastolic 66 Pulse Ox 10/10/22 01:20 10/10/22 01:20 10/09/22 22:31 Temperature Temperature Source Temporal Pulse Rate 89 Blood Pressure 110/59 L BP Systolic 110 BP Diastolic 59 Pulse Ox 10/09/22 22:31 10/10/22 02:12 10/10/22 02:12 Temperature 98.0 F 99.0 F Temperature Source Temporal Pulse Rate Blood Pressure BP Systolic BP Diastolic Pulse Ox Weight Weight: 179 lb 2 oz Body Mass Index (BMI) 29.7 Physical Exam Const alert and no apparent distress General Appearance: cooperative Orientation / Consciousness: awake Exam Limitations: no limitations HEENT normocephalic Eyes General Eye: normal appearance of both eyes Neck full ROM Chest inspection of chest normal Resp normal respiratory effort and normal air movement Effort and Inspection: symmetric chest movement Auscultation: clear to auscultation bilaterally Cardio regular rate GI soft to palpation, non-tender and non-distended Inspection: and other Back/Spine normal ROM Extremity full ROM, normal capillary refill and no calf tenderness Skin no rashes or lesions noted Neuro oriented x3 and CN's II-XII intact bilaterally Psych mental status grossly normal Labs Labs Labs: Blood Type A NEGATIVE Antibody Screen NEGATIVE Hct 29.4 % (37-47) L Hgb 9.2 g/dL (12.0-15.0) L Obstetrics US Syphilis Total Ab Non-reactive Rhogam given: Yes GBS negative Assessment & Plan (1) 40 weeks gestation of : (2) Spontaneous onset of labor: (3) Rh negative state in antepartum period: (4) Anemia affecting : QUALIFIERS: Trimester: third trimester Qualified Code(s): O99.013 - Anemia complicating , third trimester (5) Tobacco use during : PLAN: Plan CE /-1 with bulging bag Admit to labor and delivery Routine labs GBS negative RH negative Epidural when indicated Anticipate Dr. Burton notified of admission and is collaborating physician
--- NOTE | 2022-10-10 03:09 | EX.PCM.OBRPT ---
Assessment & Plan (1) Tobacco use during : (2) Rh negative state in antepartum period: (3) Anemia affecting : QUALIFIERS: Trimester: third trimester Qualified Code(s): O99.013 - Anemia complicating , third trimester (4) (spontaneous vaginal delivery): (5) Spontaneous rupture of amniotic membranes: Maternal Data Information [place] Calculator Estimated Delivery Date Method Current WG Current Estimate 10/08/22 Manual 40w 2d Vaginal Delivery Maternal Presentation Maternal Presentation: at 40.2 that presented in spontaneous labor. Operative Information Date of Procedure: 10/10/22 Pre-Operative Diagnosis: Term gestation, spontaneous onset of labor Post-Operative Diagnosis: , live female Surgery / Procedure Performed: Spontaneous Vaginal Delivery Type of Anesthesia: Epidural Drain: Zheng to straight drain Estimated Blood Loss: 250 Time of Delivery: 02:49 Findings Description of Procedure: Called to bedside for late decelerations. CE- complete dilation 0 station. Positive acceleration with scalp stimulation. With good maternal effort, head delivered over intact perineum followed by anterior shoulder and remainder of body with minimal traction. Vigorous female placed on maternal abdomen and attended to by nursing staff. Pitocin IM given for active management of the third stage of labor. 3 vessel cord clamped and cut by FOB after delay. Cord blood collected and sent. Infant placed skin to skin with patient. Placenta delivered spontaneously and intact. After inspection it was noted that vagina and perineum are intact. Vaginal sweep completed by me. Fundus firm 2 below U. Hemostasis obtained. EBL 250 cc. APGARS 8/9. Patient and infant bonding well at this time. Planning on formula feeding. Dr. Burton notified of delivery. Presentation: Vertex Amniotic Membrane Rupture Type: Spontaneous Time of Membrane Rupture: 0200 Amniotic Fluid Description: Clear Placental Delivery Description: Spontaneous Placenta Disposition: [facility] Cord Vessel Description: 3 Vessels Cord Entanglement: None Infant A Gender: Female (1 minute): 8 (5 minute): 9 Delayed Cord Clamping: Yes Post Vaginal Delivery Medications Given After Delivery: IV Pitocin and IM Pitocin Episiotomy Description: None Laceration: None Complication Complications: None
[2022-10-10] MEDS: Acetaminophen 500 MG Tablet 1000 MG PO ×3 (03:50→20:26)
--- NOTE | 2022-10-10 09:23 | PCM.PN.OB ---
Subjective Subjective Patient seen at bedside. Feeling tired. Denies any pain. Ambulating and voiding without difficulty. Bottle feeding. Lochia minimal Objective Data Objective Data Vital Signs: Vital Signs Temp Pulse Resp BP Pulse Ox O2 Del Method 98.7 F 88 16 121/57 H 98 Room Air 10/10/22 08:33 10/10/22 08:36 10/10/22 08:33 10/10/22 08:36 10/10/22 08:35 10/10/22 08:33 Oxygen Delivery Method Room Air Weight: 179 lb 2 oz Body Mass Index (BMI) 29.7 Intake & Output: Intake and Output for Last 24 Hours 10/08/22 10/09/22 10/10/22 23:59 23:59 23:59 Intake Total 500 / 500 1603.33 / 1603.33 Output Total 1150 / 1150 Balance 500 / 500 453.33 / 453.33 Lab / Micro Data Result Diagrams: 10/09/22 22:35 Labs: Laboratory Results - last 24 hr 10/09/22 22:35: WBC 20.7 H, RBC 3.34 L, Hgb 9.2 L, Hct 29.4 L, MCV 88.0, MCH 27.5, MCHC 31.3 L, RDW Std Deviation 51.3 H, RDW Coeff of Remi 16.7 H, Plt Count 229, MPV 10.6, Immature Gran % (Auto) 3.000 H, Neut % (Auto) 78.1 H, Lymph % (Auto) 11.0 L, [place] % (Auto) 7.2, Eos % (Auto) 0.5, Baso % (Auto) 0.2, Absolute Neuts (auto) 16.2 H, Absolute Lymphs (auto) 2.27, Nucleated RBC % 0.1 10/09/22 22:35: Blood Type A NEGATIVE, Antibody Screen NEGATIVE 10/09/22 22:35: Syphilis Total Ab Non-reactive 10/10/22 05:15: Screen NEGATIVE, Baby's Blood Type O POSITIVE, Baby's YEYO NEGATIVE ROS Eyes Eyes: Denies blurry vision, change in vision or spots in vision ENT HEENT: Denies dizziness or headache(s) Cardiovascular Cardiovascular: Denies abdominal pain, chest pain or dyspnea Respiratory/Chest Respiratory/Chest: Denies cough, dyspnea, shortness of breath at rest or shortness of breath with exertion Gastrointestinal Gastrointestinal: Denies abdominal pain, diarrhea or vomiting Genitourinary Genitourinary: Denies change in urinary stream, difficulty urinating or dysuria Musculoskeletal Musculoskeletal: Reports none Integumentary Integumentary: Denies rash Neurologic Neurologic: Denies dizziness, headache(s), memory loss or weakness Physical Exam Const alert and no apparent distress General Appearance: cooperative and comfortable Exam Limitations: no limitations HEENT normocephalic Eyes General Eye: normal appearance of both eyes Neck full ROM General: normal visual inspection Chest Chest: symmetrical chest wall rise Resp normal respiratory effort and normal air movement Effort and Inspection: symmetric chest movement Auscultation: clear to auscultation bilaterally Cardio regular rate and regular rhythm GI normal to inspection, nondistended, normoactive bowel sounds Back/Spine normal ROM Extremity full ROM and no calf tenderness General Extremity: normal exam except as noted Skin no rashes or lesions noted Neuro CN's II-XII intact bilaterally Psych mental status grossly normal Assessment & Plan (1) (spontaneous vaginal delivery): (2) Tobacco use during : (3) Rh negative state in antepartum period: (4) Anemia affecting : QUALIFIERS: Trimester: third trimester Qualified Code(s): O99.013 - Anemia complicating , third trimester PLAN: Plan Routine care Pain control Redraw HGB level due to anemia Iron PO BID Anticipate discharge home tomorrow
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
[2022-10-10] MEDS: Ferrous Sulfate 325 MG Tablet PO ×2 (11:51→18:19)
--- NOTE | 2022-10-10 20:17 | DCINST_ITS ---
Discharge Instructions Diet Discharge Diet: No restrictions Activity Discharge Activity: Return to Normal Activity, May Shower and May Take a Tub Bath May resume sexual activity in: 4-6 weeks Weight Bearing Status: Weight bearing as tolerated Dressing / Incision Call your doctor if you observe: Fever of 101 or Higher, Inability to urinate, Using more than 1 pad per hour, Shortness of breath, Dizziness, Swelling in the ankles, Chest pain, Calf discomfort and Uncontrolled pain Follow Up Care Please Follow Up With: Naye Sepulveda CNM When: Within 10 days Test Results: Test results from this visit will be discussed in further detail at your follow- up appointment, if applicable. Discharge Plan Admission Admit Date/Time: 10/09/22 22:15 Primary Reason for Your Visit: Labor and Delivery Attending Provider: Naye Sepulveda Primary Care Provider: Jairo Pérez Discharge Orders/Prescriptions Prescriptions: New ferrous sulfate [FeroSul] 325 mg (65 mg iron) Tablet 325 mg PO 1200,1700 Qty: 0 0RF Continued vit-iron fum-folic ac [ Tablet] 28 mg iron- 800 mcg tablet 1 tab PO DAILY Referrals / Follow Up: Jairo Pérez MD [Primary Care Provider] - Disposition Disposition (needs filled in before D/C Order can be placed): Home, Self Care
[2022-10-11 03:21] VITALS: BP 126/70; PULSE 86
[2022-10-11 03:26] VITALS: BP 126/70; PULSE 86; RESP 18
== END 2022-10-11 06:20 | disposition home or self-care (01) | DRG 807 ==
LOC: WPOUT 22:15 → WP 22:15
PROVIDERS: Admitting Provider Advanced Practice Midwife; PCP Family Medicine; Visit Provider Advanced Practice Midwife
DX: O48.0 Post-term pregnancy (principal); Z37.0 Single live birth; D64.9 Anemia, unspecified; F17.290 Nicotine dependence, other tobacco product, uncomplicated; O99.02 Anemia complicating childbirth; O76 Abnormality in fetal heart rate and rhythm complicating labor and delivery; O99.334 Smoking (tobacco) complicating childbirth; Z3A.40 40 weeks gestation of pregnancy
CPT/HCPCS: 59025; 59050; 85025; 85461; 86780; 86850; 86900; 86901; 99221; J7120; G0378; J2790

== ENCOUNTER → 2022-10-19 | Outpatient (CLI) | payer BC, MEDICAID, SELFPAY ==
--- NOTE | 2022-10-19 11:17 | ECHOD_ITS ---
Reason For Study: TACHY Procedure This was a 2D Doppler, Color Flow transthoracic echocardiogram. Exam performed in department. Left Ventricle Normal size and thickness. The left ventricular ejection fraction is 55 %. Normal diastololic function. Right Ventricle Normal right ventricle. Atria The left and right atria are normal. Mitral Valve Mild (1+) mitral valve insufficiency. Tricuspid Valve Mild tricuspid valve insufficiency. Aortic Valve Normal aortic valve. Pulmonic Valve Mild (1+) pulmonic valve insufficiency. Pericardium/Pleural No pericardial effusion. MMode/2D Measurements & Calculations LVIDd: 4.9 cm IVSd: 1.2 cm Ao root diam: 2.5 cm LVIDs: 3.8 cm LVPWd: 1.0 cm RVDd: 3.3 cm FS: 21.6 % LAV(MOD-bp): 55.9 ml LVAd ap4: 34.9 cm2 SV(MOD-sp4): 57.3 ml LAV(MOD-bp) Indexed: 31.1 ml/m2 LVLd ap4: 8.7 cm LAV(MOD-sp2): 55.8 ml EDV(MOD-sp4): 117.1 ml LAV(MOD-sp4): 46.5 ml EDV(sp4-el): 119.0 ml LVAs ap4: 22.9 cm2 LVLs ap4: 8.0 cm ESV(MOD-sp4): 59.8 ml ESV(sp4-el): 55.4 ml EF(MOD-sp4): 48.9 % EF(sp4-el): 53.5 % SV(sp4-el): 63.6 ml LA dimension(2D): 3.3 cm LA A4 area: 18.6 cm2 RA A4 area: 15.4 cm2 Time Measurements MV dec time: 0.22 sec Doppler Measurements & Calculations MV E max willian: 72.6 cm/sec Lat Peak E' Willian: 16.2 cm/sec Med Peak E' Willian: 8.1 cm/sec MV A max willian: 53.0 cm/sec E/E' lat: 4.5 E/E' med: 9.0 MV E/A: 1.4 MV V2 max: 93.7 cm/sec Ao V2 max: 145.6 cm/sec MV max P.5 mmHg MV dec slope: 357.7 cm/sec2 Ao max P.5 mmHg MV V2 mean: 56.8 cm/sec Ao V2 mean: 107.0 cm/sec MV mean P.4 mmHg Ao mean P.2 mmHg MV V2 VTI: 25.8 cm Ao V2 VTI: 29.5 cm AV (velocity ratio): 0.76 LV V1 max: 121.0 cm/sec PA V2 max: 93.6 cm/sec LV V1 max P.9 mmHg PA V2 mean: 71.3 cm/sec LV V1 mean P.2 mmHg LV V1 mean: 83.7 cm/sec LV V1 VTI: 22.5 cm ECHO/Echo Complete Interpretation Summary The left ventricular ejection fraction is 55 %. Mild (1+) mitral valve insufficiency. Mild tricuspid valve insufficiency. Mild (1+) pulmonic valve insufficiency. Ordering Physician: EVITA BENJAMIN Referring Physician: EVITA BENJAMIN Performed By: Mariam Srivastava RCS
== END | disposition home or self-care (01) ==
LOC: CVS 11:16
PROVIDERS: PCP Family Medicine
DX: E16.2 Hypoglycemia, unspecified (principal); R42 Dizziness and giddiness; R00.0 Tachycardia, unspecified; R94.31 Abnormal electrocardiogram [ECG] [EKG]
CPT/HCPCS: 93306

== ENCOUNTER 2024-07-25 04:30 | Emergency (ER) | payer MEDICAID, SELFPAY ==
[2024-07-25 04:31] VITALS: BP 120/55; PULSE 76; RESP 18; TEMP 36.7; O2SAT 99; BMI 27.1
--- NOTE | 2024-07-25 04:33 | EX.ED.DYSGE1 ---
HPI History of Present Illness Chief Complaint: Chest Other Informant: patient Onset/Context/Timing Onset: Today Context: Sudden Onset Timing: Continuous Quality: Sharp Location: Left lower ribs Worsened by: Movement Relieved by: Nothing Narrative Narrative: Patient presents with left rib pain that began today. Patient states it began rather suddenly. Patient states it is constant. Patient states it is over the left lower rib area. Patient describes it as sharp. Patient states it is worse with any movement. Patient denies any trauma or injury. Patient states she also has a rash over this area tonight. Patient denies any new soaps, foods, or other known exposures. Patient denies any shortness of breath. Patient admits to some nausea but denies any vomiting. [facility] Medical History Precordial pain Palpitations Idiopathic hypotension Near syncope Dizziness (spontaneous vaginal delivery) Tobacco use during Spontaneous onset of labor 40 weeks gestation of Laceration, obstetrical, first degree (spontaneous vaginal delivery) COVID-19 virus RNA test result positive at limit of detection Rh negative state in antepartum period Anemia affecting Home Medications ?Medication ?Instructions ?Recorded ?Last Taken ?Type metoprolol succinate 25 mg 25 mg PO DAILY #30 tabs 08/27/23 Unknown Rx tablet,extended release 24 hr acyclovir 800 mg tablet 800 mg PO 5X/DAY #35 TABLETS 07/25/24 Unknown Rx Allergy/AdvReac Type Severity Reaction Status Date / Time No Known Allergies Allergy Verified 08/27/23 10:55 Family History Grandfather Heart disease Social History Smoking Status: Current some day smoker tobacco type: e-cigarettes ROS ROS ED Constitutional Constitutional ED: Denies chills or fever(s) Eyes Eyes: Denies blurry vision or change in vision ENT ENT ED: Denies rhinorrhea or sore throat Cardiovascular Cardiovascular: Reports chest pain; Denies palpitations Respiratory/Chest Respiratory/Chest: Denies cough or dyspnea Gastrointestinal Gastrointestinal: Reports nausea; Denies vomiting Genitourinary Genitourinary ED: Denies dysuria or hematuria Musculoskeletal Musculoskeletal: Denies back pain or neck pain Integumentary Reports rash; Denies abscess Neurologic Neurologic: Denies headache(s) or weakness Allergic/Immunologic Allergic/Immunologic ED: Denies mouth swelling or urticaria EXAM Physical Exam Const Vital Signs: 07/25/24 04:31 Temperature 98.1 F Temperature Source Oral Pulse Rate 76 Respiratory Rate 18 Blood Pressure 120/55 L Blood Pressure Mean 76 Pulse Ox 99 Oxygen Delivery Method Room Air Positive well nourished and well developed General Appearance ED: well developed and NAD HEENT Reports moist mucous membranes Neck supple and no JVD Resp normal respiratory effort and clear to auscultation bilaterally Cardio regular rate and regular rhythm GI non-tender and non-distended Palpation: soft Extremity normal to inspection General Extremety ED: Negative for edema General Extremity: Negative for edema Neuro oriented x3, CN's II-XII intact bilaterally and no sensory deficits noted Sensorium / Orientation: alert Motor Exam: strength 5/5 throughout Psych mental status grossly normal Skin Skin Narrative: There is an erythematous patch she rash along the left T9 dermatome. There are few vesicles noted. There is no discharge or drainage noted. There is no crusting noted. There is some tenderness with palpation over this area. MDM MDM MDM Narrative Medical decision making narrative: Nicotine cessation was discussed. Patient was advised that this is consistent with varicella-zoster. Patient was given a dose of acyclovir here. Patient is given a prescription for acyclovir. Patient was instructed to continue using Tylenol or ibuprofen as needed for pain. Patient was instructed to follow-up with her primary care physician as scheduled. Patient understood and was agreeable with the plan. All questions were answered. Discharge Plan Triage Chief Complaint: Chest Other Other Complaint: Rash ED Provider: Willi Rogers Dx/Rx/DC Orders Clinical Impression: Varicella zoster, Nicotine vapor product user Instructions: ED Shingles (Herpes Zoster) Prescriptions: New acyclovir 800 mg tablet 800 mg PO 5X/DAY Qty: 35 0RF No Action metoprolol succinate 25 mg tablet extended release 24 hr 25 mg PO DAILY Qty: 30 11RF Primary Care Provider: Jairo Pérez Referrals: Jairo Pérez MD [Primary Care Provider] - Keep Sher appointment Print Language: Setswana Disposition Disposition: Home, Self Care
[2024-07-25] MEDS: Acyclovir 800 MG Tablet PO (05:44)
== END 2024-07-25 05:46 | disposition home or self-care (01) ==
LOC: ED 05:10
PROVIDERS: Emergency Provider Emergency Medicine; PCP Family Medicine; Visit Provider Emergency Medicine
DX: B02.9 Zoster without complications (principal); F17.290 Nicotine dependence, other tobacco product, uncomplicated
CPT/HCPCS: 99283

== ENCOUNTER 2024-12-05 21:43 | Emergency (ER) | payer MEDICAID, SELFPAY ==
[2024-12-05 21:43] VITALS: BP 126/71; PULSE 76; RESP 18; TEMP 36.7; O2SAT 96; BMI 28.0
--- NOTE | 2024-12-05 22:00 | EKG12_ITS ---
Test Reason : DYSRHYTHMIA Blood Pressure : */* mmHG Vent. Rate : 77 BPM Atrial Rate : 77 BPM P-R Int : 142 ms QRS Dur : 82 ms QT Int : 366 ms P-R-T Axes : 35 71 40 degrees QTcB Int : 414 ms Normal sinus rhythm Normal ECG Confirmed by WINSTON HERNDON, MOSHE ([id number]), editor in chief MISAEL PALAFOX ([id number]) on 12/06/2024 8:34:10 AM Referred By: HUMAIRA Confirmed By: MOSHE MONTREO MD
--- NOTE | 2024-12-05 22:22 | EDS_ITS ---
HPI History of Present Illness Chief Complaint: Syncope Informant: patient and friend Narrative Narrative: Patient is a 29 female with past medical history of POTS. She states that this evening she went out to [employer] for groceries. She reports that she stays on the second story of the house and she picked up a large amount of groceries and carrying them up the stairs. She states when she reached the top of the stairs she suddenly felt her heart was racing and she noticed black spots in her vision. She states she then felt lightheaded and dizzy and could not longer hold herself up and fell over. She states that after hitting the ground her symptoms resolved quickly and spontaneously. She states she was able to get up and ambulate since that time without issue. She denies any recent bouts of nausea vomiting diarrhea or dysuria. She states there is been no blood loss. She denies any concern for . She states that her smart watch indicated her heart rate increased from 78-180 during this event. She states she feels much better at this time but secondary to the episodes she was asked to be evaluated by family [facility] Medical History Precordial pain Palpitations Idiopathic hypotension Near syncope Dizziness (spontaneous vaginal delivery) Tobacco use during Spontaneous onset of labor 40 weeks gestation of Laceration, obstetrical, first degree (spontaneous vaginal delivery) COVID-19 virus RNA test result positive at limit of detection Rh negative state in antepartum period Anemia affecting Home Medications ?Medication ?Instructions ?Recorded ?Last Taken ?Type metoprolol succinate 25 mg 25 mg PO DAILY #30 tabs Unknown Rx tablet,extended release 24 hr acyclovir 800 mg tablet 800 mg PO 5X/DAY #35 TABLETS 07/25/24 Unknown Rx Allergy/AdvReac Type Severity Reaction Status Date / Time No Known Allergies Allergy Verified 12/05/24 21:44 Family History Grandfather Heart disease Social History (Updated 12/05/24 @ 21:47 by Audrey Joyner) housing: house Smoking Status: Current some day smoker tobacco type: e-cigarettes ROS ROS ED Constitutional Constitutional ED: Denies chills or fever(s) Eyes Eyes: Reports change in vision ENT ENT ED: Denies sore throat Cardiovascular Cardiovascular: Reports palpitations, racing heartbeat and other Details: Positive syncope ; Denies chest pain Respiratory/Chest Respiratory/Chest: Denies cough or dyspnea Gastrointestinal Gastrointestinal: Denies abdominal pain, diarrhea, nausea or vomiting Genitourinary Genitourinary ED: Denies dysuria or hematuria Musculoskeletal Musculoskeletal: Denies back pain, myalgias or neck pain Integumentary Denies rash Neurologic Neurologic: Denies headache(s), paresthesias or weakness Hematologic/Lymphatic Hematologic/Lymphatic: Denies easy bleeding or easy bruising EXAM Physical Exam Const Vital Signs: 12/05/24 21:43 12/05/24 21:47 12/05/24 23:22 Temperature 98.0 F 98 F Temperature Source Oral Pulse Rate 76 75 Respiratory Rate 18 19 H Respiratory Effort Normal Non-Labored Respiratory Pattern Normal Blood Pressure 126/71 H 121/61 H Blood Pressure Mean 89 81 Pulse Ox 96 100 Positive well nourished and well developed General Appearance ED: well developed; Negative for pallor HEENT Reports moist mucous membranes HEENT Narrative: Normocephalic atraumatic No tongue or lip swelling no oral lesions no airway edema or compromise No tongue or cheek biting to suggest seizure activity Eyes PERRL and EOMs intact bilaterally General Eye ED: Negative for pale conjunctiva or scleral icterus Neck supple Resp normal respiratory effort and clear to auscultation bilaterally Cardio regular rate and regular rhythm Rate: other Other Details: Heart is regular rate and rhythm without murmurs rubs or gallops Radial and carotid pulses are equal and symmetric Back/Spine Back/Spine Narrative: No bony deformity or step-off of the thoracic or lumbar spine no midline tenderness to palpation Extremity normal to inspection Neuro oriented x3, CN's II-XII intact bilaterally and no sensory deficits noted Neuro Narrative: GCS of 15 Cranial nerves II through XII are grossly intact without focal neurologic deficit No pronator drift no dysmetria no truncal ataxia NIH stroke scale score of 0 Sensorium / Orientation: alert Motor Exam: strength 5/5 throughout Psych mental status grossly normal Skin no rashes or lesions noted, no wounds and skin turgor normal General Skin Exam: Negative for jaundice or pallor MDM MDM MDM Narrative Medical decision making narrative: The patient presented with stable vitals and the spontaneous resolution of her symptoms. She has a known diagnosis of POTS and her history and exam is most consistent with this especially as her smart watch track that her heart rate went from approximately 80 beats a minute to 180 beats. In order to ensure that the event was not related to acute blood loss anemia acute kidney injury or electrolyte abnormality basic blood work was obtained. Labs revealed no clinically significant finding. Patient was kept on the monitoring specialist and had no tachycardia or cardiac dysrhythmia changes. Therefore at this time as her symptoms have spontaneously resolved her vitals are stable and her overall workup is negative there is no need for further intervention and she is otherwise safe for discharge History & Record Review Discussion w/independent historian: Patient and Family Lab Data Attestation: I reviewed the patient's lab results. Labs: Laboratory Results - last 24 hr 12/05/24 22:01 WBC 8.2 RBC 4.25 Hgb 12.6 Hct 36.0 L MCV 84.7 MCH 29.6 MCHC 35.0 RDW Std Deviation 36.7 RDW Coeff of Remi 12.0 Plt Count 230 MPV 10.4 Immature Gran % (Auto) 0.200 Neut % (Auto) 64.7 Lymph % (Auto) 26.6 Crisp % (Auto) 7.2 Eos % (Auto) 0.9 Baso % (Auto) 0.4 Absolute Neuts (auto) 5.3 Absolute Lymphs (auto) 2.18 Nucleated RBC % 0 Sodium 139 Potassium 3.4 Chloride 104 Carbon Dioxide 23.4 Anion Gap 12 BUN 10 Creatinine 0.61 L Estim Creat Clear Calc 141.54 Est GFR (MDRD) Non-Af 126 BUN/Creatinine Ratio 16.7 Glucose 110 H Calcium 9.8 Magnesium 2.0 Serum , Qual NEGATIVE Discharge Plan Triage Chief Complaint: Syncope ED Provider: Mario Dickens Dx/Rx/DC Orders Clinical Impression: Postural orthostatic tachycardia syndrome [POTS] Instructions: POTS Prescriptions: No Action metoprolol succinate 25 mg tablet extended release 24 hr 25 mg PO DAILY Qty: 30 11RF acyclovir 800 mg tablet 800 mg PO 5X/DAY Qty: 35 0RF Stand Alone Forms: ED Work / School Excuse Primary Care Provider: Jairo Pérez Referrals: Jairo Pérez MD [Primary Care Provider] - Activity Restrictions/Additional Instructions: Your workup today revealed no signs of abnormal heart rhythm or clinically significant lab abnormality. Your history exam and workup indicate you had a syncopal/passing out event secondary to your POTS. Keep yourself well-hydrated eat a high salt diet and wear compression stockings to try and help prevent repeat episodes. Return to the ER should you have any further concerns Print Language: Grenadian Disposition Disposition: Home, Self Care Discharge Date/Time: 12/05/24 23:35
[2024-12-05] MEDS: 0.9% Normal Saline (1000mL) 1,000 ML 999 ML IV (22:28)
--- OUTSIDE RECORDS SUMMARY | 2024-12-05 22:28 | XMS RPT_ITS | CCD ---
Author Organization [facility]ini[facility] Care Team Providers Care Supervisor Lead Refinery Name Role Phone JENNIFER, RUSTY Y Unavailable Unavailable JENNIFER, RUSTY Y Unavailable Unavailable NO REFERRING DR Unavailable Unavailable JENNIFER, RUSTY Y Unavailable Unavailable JENNIFER, RUSTY Y Unavailable Unavailable NO REFERRING DR Unavailable Unavailable JENNIFER, RUSTY Y Unavailable Unavailable JENNIFER, RUSTY Y Unavailable Unavailable NO REFERRING DR Unavailable Unavailable JENNIFER, RUSTY Y Unavailable Unavailable JENNIFER, RUSTY Y Unavailable Unavailable NO REFERRING Unavailable Unavailable Juan Ibarra Attending Unavailable PROVIDER, UNKNOWN Referring Unavailable Jairo Garcia Primary Care Unavailable JAIRO GARCIA Primary Care Unavailabl OPHELIA Ferris Attending Unavailable Unavailable Primary Care Provider Unavailabl e Unavailable Primary Care Provider Unavailabl e Unavailable Primary Care Provider Unavailabl Jairo Blank MD Primary Care Provider Jairo Garcia MD Primary Care Provider PHILOMENA BENOIT Attending Unavailable Dr. Jairo Garcia Primary Care Provider Dr. Jasbir Saab Attending Provider [phone] Unavailable Primary Care Provider Unavailabl e Unavailable Primary Care Provider Unavailabl MARIELLA Murdock Attending Unavailable MOON GARCIA Primary Care Unavailable Moon Garcia MD Primary Care Provider OMAR GUNN Referring Unavailable Dr. Jairo Garcia MD Primary Care Provider [phone] Dr. Willi Rogers DO Emergency Provider [phone] Jairo Garcia Referring Unavailable Malcolm Landa Attending Unavailable Jairo Garcia Primary Care Unavailable Willi Rogers Attending Unavailable Jairo Garcia Primary Care Unavailable JAM, DAVINA Referring Unavailable MOON GARCIA Primary Care Unavailable JAM, DAVINA Referring Unavailable RAHDA, MOON A Primary Care Unavailable JAM, DAVINA Attending Unavailable RADHA, MOON A Primary Care Unavailable RADHA, MOON A Primary Care Unavailable GALINA, NAYE Attending Unavailable PLOTTS, NAYE Referring Unavailable RADHA, MOON A Primary Care Unavailable NAYE SEPULVEDA Attending Unavailable RADHA, MOON A Primary Care Unavailable PLOTNAYE TOVAR Attending Unavailable RADHA, MOON A Primary Care Unavailable MARY MCLAUGHLIN Attending Unavailable JAM, DAVINA Referring Unavailable RADHA, MOON A Primary Care Unavailable Radha HERNDON, [facility] Primary Care Provider RADHA, [facility] Primary Care Unavailabl e TIFFANY TRAN Attending Unavailable Radha , [facility] Primary Care Provider ALEXEY CARR Attending Unavailable RADHA, [facility] Primary Care Unavailabl e OMAR GUNN Attending Unavailable RADHA, JAIRO Primary Care Unavailable EVITA BENJAMIN Attending Unavailable RADHA, JAIRO Primary Care Unavailable GUNNOMAR Attending Unavailable RADHA, JAIRO Primary Care Unavailable ISADAEVITA Attending Unavailable RADHA, JAIRO Primary Care Unavailable GUNNOMAR Attending Unavailable RADHA, JAIRO Primary Care Unavailable JUAN IBARRA Attending Unavailable RADHA, JAIRO Primary Care Unavailable SARMAD CEBALLOS Attending Unavailable RADHA, JAIRO Primary Care Unavailable JUAN IBARRA Attending Unavailable RADHA, JAIRO Primary Care Unavailable RADHA, JAIRO Attending Unavailable RADHA, JAIRO Primary Care Unavailable JUAN IBARRA Attending Unavailable RADHA, JAIRO Primary Care Unavailable GUNNOMAR Attending Unavailable RADHA, JAIRO Primary Care Unavailable GUNNANCAINOOR Attending Unavailable RADHA, JAIRO Primary Care Unavailable RADHA, JAIRO GREG Primary Care Unavailabl e LUIS MIGUEL AMANDA Attending Unava ilable RADHA, [facility] Primary Care Unavailabl e ILAN PHILLIP Attending Unavailab le [facility] Unavailabl e RADHA, JAIRO GREG Primary Care Unavailabl e LUIS MIGUEL AMANDA Attending Unava ilable TIFFANY PIMENTEL Attending Unavailable NO, PHYSICIAN Primary Care Unavailable RADHA, [facility] Primary Care Unavailabl e ELIE, ABDIAS GUTIÉRREZ Diego Attending Unavailable Allergies Allergy Classification Reported Allergen(s) Allergy Type Date of Onset Reaction(s) Facility (16 sources) Wound Dressing Adhesive Propensity to adverse reactions 4 [facility] (1 source) ALLERGIES NOT ON FILE; Translations: [ALLERGIES NOT ON FILE] Propensity to adverse reactions (disorder) [facility] (3 sources) Other; Translations: [OTHER] Propensity to adverse reactions 4 Rash [facility] Medications Current Medications Medication Drug Class(es) Dates Sig (Normalized) Sig (Original) acetaminophen 325 mg / butalbital 50 mg / caffeine 40 mg oral tablet (6 sources) Barbiturate, Central Nervous System Stimulant, Methylxanthine Start: 04-11-2024 End: 04-21-2024 take 1 tablet by mouth every six hours as needed for headache butalbital-acetam inophen-caffeine 50-325-40 MG tablet Indications: Chronic migraine without aura without status migrainosus, not intractable Take 1 tablet by mouth every 6 hours as needed for headaches for up to 10 days. 20 tablet 04/11/2024 04/21/2024 Active Start: 03-25-2022 End: 09-07-2022 take 1 tablet by mouth every four hours as needed for headache wburvsvcbc-zdwlhzwfopsdn-ccpuzaiy 50-325 -40 MG tablet Indications: Migraine without aura and with status migrainosus, not intractable Take 1 tablet by mouth every 4 hours as needed for headaches. 30 tablet 0 03/25/2022 09/07/2022 Discontinued (Med list cleanup) Comment on above: Take 1 tablet by melanie every 4 hours as needed. acyclovir 800 mg oral tablet (13 sources) Herpesvirus Nucleoside Analog DNA Polymerase Inhibitor, Herpes Simplex Virus Nucleoside Analog DNA Polymerase Inhibitor, Herpes Zoster Virus Nucleoside Analog DNA Polymerase Inhibitor Start: 5 take 1 tablet by mouth five times daily acyclovir (Zovirax) 800 MG tablet TAKE 1 TABLET BY MOUTH FIVE TIMES A DAY 07/25/2024 Active [id number] 200 actuat albuterol 0.09 mg/actuat metered dose inhaler (20 sources) beta2-Adrenergic Agonist Start: 5 End: 5 take 2 puff(s) by inhalation every six hours as needed albuterol 108 (90 Base) MCG/ACT inhaler Inhale 2 puffs every 6 hours as needed for shortness of breath. 18 g 1 08/04/2024 01/05/2025 Active Start: 03-03-2024 take 2 puff(s) by in halation every six hours as needed for wheezing albuterol 90 mcg/actuation inhaler Inhale 2 (two) puffs every 6 (six) hours as needed for wheezing . 1 g 03/03/2024 Active Start: 03-03-2024 End: 08-04-2024 take 2 puff(s) by inhalation every six hours as needed albuterol 108 (90 Base) MCG/ACT inhaler Inhale 2 puffs every 6 hours as needed. 03/03/2024 08/04/2024 Discontinued (Reorder) amoxicillin 875 mg / clavulanate 125 mg oral tablet (1 source) Penicillin-class Antibacterial Start: 05-19-2024 End: 05-26-2024 take 1 tablet by mouth twice daily amoxicillin-clavulanate potassium (AUGMENTIN) 875-125 mg per tablet Indications: Pain, dental Take 1 tablet by mouth two times a day for 7 days. 14 tablet 05/19/2024 05/26/2024 Active azithromycin 250 mg oral tablet (7 sources) Macrolide Antimicrobial Start: 03-03-2024 End: 03-08-2024 take 1 tablet by mouth once daily azithromycin (ZITHROMAX) 250 MG tablet Take 1 (one) tablet (250 mg total) by mouth daily . 4 tablet 03/03/2024 Active Start: 07-27-2023 End: 09-13-2023 azithromycin (Zithromax Z-Pa k) 250 MG tablet Take as directed 6 tablet 0 07/27/2023 09/13/2023 Discontinued (Therapy completed) cefdinir 300 mg oral capsule (4 sources) Cephalosporin Antibacterial Start: 03-03-2024 End: 03-08-2024 take 1 capsule by mouth twice daily cefdinir (OMNICEF) 300 MG capsule Take 1 (one) capsule (300 mg total) by mouth 2 (two) times a day . 20 capsule 03/03/2024 Active doxycycline hyclate 100 mg oral capsule (7 sources) Tetracycline-class Drug Start: 03-08-2024 End: 11-13-2024 doxycycline (Vibramycin) 100 MG capsule Indications: Upper respiratory tract infection, unspecified type Take 1 capsule (100 mg) by mouth 2 times daily for 7 days. Take with at least 8 ounces (large glass) of water, do not lie down for 30 minutes after 14 capsule 03/08/2024 03/15/2024 Active fludrocortisone acetate 0.1 mg oral tablet (1 source) Start: 11-08-2024 fludrocortisone (FLORINEF) 0.1 mg tablet 11/08/2024 Active 1.5 ml fremanezumab-vfrm 150 mg/ml auto-injector (20 sources) Start: 09-21-2024 fremanezumab (Ajovy) 225 MG/1.5ML auto-injector Indications: Chronic migraine without aura without status migrainosus, not intractable Inject 1 Pen (225 mg) under the skin every 30 (thirty) days. 1.5 mL 3 09/27/2024 2:16 PM EDT 09/21/2024 Active Start: 03-09-2024 End: 07-03-2024 fremanezumab (Ajovy) 225 MG/ 1.5ML auto-injector Indications: Chronic migraine without aura without status migrainosus, not intractable Inject 1 Pen (225 mg) under the skin every 30 (thirty) days. 1.5 mL 3 07/06/2024 2:00 PM EST 07/05/2024 Active Start: 03-09-2024 inject 225 mg by sub cutaneous injection every month fremanezumab-vfrm subcutaneus auto-injector 225 mg/1.5 mL (AJOVY) Inject 225 mg subcutaneously once every month. 03/09/2024 Active hydrOXYzine hydrochloride 25 mg oral tablet (20 sources) Antihistamine Start: 01-17-2024 take 1 tablet by mouth once daily as needed for sleep hydrOXYzine HCl (Atarax) 25 MG tablet Indications: Difficulty sleeping Take 1 tablet (25 mg) by mouth Nightly as needed (sleep). 30 tablet 01/17/2024 Active Iron (4 sources) Start: 08-25-2021 take 325 mg by mouth every other day iron Active 325 MG SL/PO EVERY OTHER DAY August 25, 2021 5:21pm Start: 08-25-2021 take 325 mg by mouth every other day iron Active 325 MG SL/PO EVERY OTHER DAY August 25, 2021 12:00am naproxen 500 mg oral tablet (1 source) Nonsteroidal Anti-inflammatory Drug Start: 08-08-2015 take 500 mg by mouth twice daily as needed Naproxen Active 500 MG PO TWICE DAILY NEEDED August 08, 2015 4:01pm nitrofurantoin, macrocrystals 25 mg / nitrofurantoin, monohydrate 75 mg oral capsule (13 sources) Nitrofuran Antibacterial Start: 08-30-2024 End: 09-06-2024 take 1 capsule by mouth twice daily nitrofurantoin monohydrate and macrocrystal (MACROBID) 100 mg capsule Take 1 capsule by mouth two times a day for 7 days. 14 capsule 08/30/2024 09/06/2024 Active Start: 06-08-2022 End: 06-15-2022 take 1 capsule by mouth twice daily nitrofurantoin monohydrate and macrocrystal (MACROBID) 100 mg capsule Take 1 capsule by mouth twice daily for 7 days. 14 capsule 0 06/08/2022 06/15/2022 Active Start: 02-25-2022 take 1 capsule by mo [facility] every twelve hours at mealtime Nitrofurantoin Monohyd/M-Cryst (Macrobid) 100 mg capsule Active 100 MG PO Q12H 10 February 25, 2022 12:00am must administer with a meal/food End: 04-30-2022 take 1 capsule by mouth twice daily nitrofurantoin monohydrate and macrocrystal (MACROBID) 100 mg capsule Take 100 mg by mouth twice daily. 0 04/30/2022 Discontinued Comment on above: Take 100 mg by mouth twice daily. Take 1 capsule by mo ut twice daily for 7 days. ofloxacin 3 mg/ml otic solution (1 source) Quinolone Antimicrobial Start: 11-16-19 End: 11-23-19 ofloxacin (FLOXIN) 0.3 % otic solution Indications: Abrasion of ear canal, right, initial encounter Administer 10 (ten) drops to the right ear daily for 7 days . 10 mL 11/15/2024 11/22/2024 Active ondansetron 4 mg disintegrating oral tablet (1 source) Serotonin-3 Receptor Antagonist Start: 11-16-19 End: 11-23-19 take 1 tablet by mouth every eight hours as needed for nausea and nausea ondansetron (ZOFRAN-ODT) 4 MG disintegrating tablet Indications: Nausea Dissolve 1 (one) tablet (4 mg total) on top of tongue every 8 (eight) hours as needed . 20 tablet 11/15/2024 11/22/2024 Active Prenatabs FA (4 sources) Start: 08-26-19 take 1 tablet by mouth once daily Prenatabs FA Active 1 TABLET SL/PO DAILY August 25, 2021 5:21pm Start: 08-25-2021 take 1 tablet by melanie th once daily Prenatabs FA Active 1 TABLET SL/PO DAILY August 25, 2021 12:00am propranolol hydrochloride 20 mg oral tablet (16 sources) beta-Adrenergic Rose Marie Start: 08-24-2024 End: 11-28-2025 take 1 tablet by mouth once daily propranolol (Inderal) 20 MG tablet Indications: POTS (postural orthostatic tachycardia syndrome) Take 1 tablet (20 mg) by mouth daily. 90 tablet 3 11/28/2024 11/28/2025 Active Start: 08-24-2024 End: 08-24-2025 take 1 tablet by mouth twice daily propranoloL (INDERAL) 20 MG tablet Take 1 (one) tablet (20 mg total) by mouth 2 (two) times a day . 08/24/2024 08/24/2025 Active rimegepant 75 mg disintegrating oral tablet (20 sources) Start: 01-20-2024 End: 11-19-2024 take 1 tablet by mouth once daily as needed Rimegepant Sulfate (Nurtec) 75 MG tablet dispersible Indications: Chronic migraine without aura without status migrainosus, not intractable Take 1 tablet (75 mg) by mouth Daily as needed (migraine). 8 tablet 3 10/20/2024 Active topiramate 50 mg oral tablet (20 sources) Start: 09-28-2023 End: 07-03-2024 take 1 tablet by mouth once daily topiramate (TOPAMAX) 50 MG tablet Take 1 (one) tablet (50 mg total) by mouth daily . 01/17/2024 Active triamcinolone acetonide 1 mg/ml topical cream (15 sources) Corticosteroid Start: 08-04-2024 End: 12-02-2024 triamcinolone (Kenalog) 0.1 % cream Indications: Herpes zoster without complication Apply to affected area 1-2 times daily as needed x 7 -14 days. Avoid face and groin. 30 g 08/04/2024 12/02/2024 Active Start: 04-15-2023 End: 08-13-2023 triamcinolone (Kenalog) 0.1 % cream Indications: Dermatitis Apply to affected area 1-2 times daily as needed x 7 days. 30 g 0 04/15/2023 05/10/2023 Discontinued (Therapy completed) valACYclovir 1000 mg oral tablet (1 source) Herpesvirus Nucleoside Analog DNA Polymerase Inhibitor, Herpes Simplex Virus Nucleoside Analog DNA Polymerase Inhibitor, Herpes Zoster Virus Nucleoside Analog DNA Polymerase Inhibitor Start: 07-27-2024 End: 08-03-2024 take 1 tablet by mouth three times daily valACYclovir (Valtrex) 1 g tablet Take 1 tablet (1,000 mg) by mouth 3 times daily for 7 days. 21 tablet 07/27/2024 08/03/2024 Active Completed/Discontinued Medications Medication Drug Class(es) Dates Sig (Normalized) Sig (Original) acetaminophen 500 mg oral tablet (20 sources) Start: 06-10-2021 End: 03-09-2022 take 2 tablets by mouth every six hours as needed acetaminophen (TYLENOL EXTRA STRENGTH) 500 mg tablet Take 2 tablets by mouth every 6 hours as needed (back pain). FOR PAIN. 0 06/10/2021 03/09/2022 Discontinued (Course of therapy completed) acetaminophen (T YLENOL ER) 650 MG CR tablet Take by mouth . Active acetaminophen (T YLENOL ORAL) Take by mouth. Active Acetaminophen (T YLENOL 8 HOUR PO) Take by mouth. Active Acetaminophen (T YLENOL 8 HOUR PO) Take by mouth. 0 Active acetaminophen (T YLENOL ORAL) Take by mouth. 0 Active Comment on above: Take 2 tablets by mo ut every 6 hours as needed (back pain). FOR PAIN. Take by mouth. amitriptyline hydrochloride 10 mg oral tablet (6 sources) Tricyclic Antidepressant Start: End: take 1 tablet by mouth once daily amitriptyline (Elavil) 10 MG tablet Indications: Acute non intractable tension-type headache Take 1 tablet (10 mg) by mouth Nightly. 30 tablet 1 05/10/2023 07/01/2023 Discontinued (Med list cleanup) amoxicillin 500 mg oral capsule (3 sources) Penicillin-class Antibacterial Start: End: take 1 capsule by mouth four times daily amoxicillin (Amoxil) 500 MG capsule TAKE 1 CAPSULE BY MOUTH FOUR TIMES DAILY until gone 0 04/05/2023 05/10/2023 Discontinued (Therapy completed) brompheniramine maleate 0.4 mg/ml / dextromethorphan hydrobromide 2 mg/ml / pseudoephedrine hydrochloride 6 mg/ml oral solution (7 sources) alpha-Adrenergic Agonist, Uncompetitive I-fgvpkt-F-aspartate Receptor Antagonist, Sigma-1 Agonist Start: End: brompheniramine-pseu doephedrine-DM 30-2-10 MG/5ML syrup Take 5 mL by mouth as needed. 03/03/2023 03/15/2024 Discontinued (Therapy completed) cetirizine hydrochloride 10 mg oral tablet (14 sources) Histamine-1 Receptor Antagonist Start: End: take 1 tablet by mouth once daily cetirizine (ZYRTEC) 10 mg tablet Take 1 tablet by mouth once daily. 0 04/30/2022 Active Comment on above: Take 1 tablet by melanie once daily. codeine phosphate 2 mg/ml / guaiFENesin 20 mg/ml oral solution (6 sources) Opioid Agonist Start: End: take 5 mL by mouth every eight hours as needed for cough guaiFENesin-codeine (Robitussin-AC) 100-10 MG/5ML syrup Indications: URI with cough and congestion Take 5 mL by mouth every 8 hours as needed for cough. 75 mL 03/15/2024 08/04/2024 Discontinued (Therapy completed) copper 313 mg drug implant (6 sources) Copper-containing Intrauterine Device Start: End: copper (PARAGARD) 380 square mm intrauterine device 1 Intra Uterine Device by INTRAUTERINE route one time only. 11/30/2022 07/21/2024 Discontinued (Discontinued by Patient) Start: 11-30-2022 End: 11-30-2022 copper intrauterine device 3 80 square mm (PARAGARD) dexamethasone 1 mg/ml / tobramycin 3 mg/ml ophthalmic suspension (1 source) Aminoglycoside Antibacterial, Corticosteroid Start: 11-04-2024 End: 11-04-2024 take 1 dose into the eye(s) every four hours 2 drop, Right Eye, Once, On 11/04/24 at 0025, For 1 dose, Every 4 hours Ethinyl Estradiol / Norethindrone (4 sources) Estrogen Start: 10-28-2021 End: 03-09-2022 take 1 tablet by mouth once daily, then take 0.05 tablet by mouth once Norethindrone Acet-Ethinyl Est (05/22, ,) 1-20 mg-mcg per tablet Indications: Menorrhagia with regular cycle , Encounter for initial prescription of contraceptive pills Take 1 tablet by mouth once daily. 27 tablet 5 10/28/2021 03/09/2022 Discontinued (Course of therapy completed) Start: 10-28-2021 take 1 tablet by melanie th once daily, then take 0.05 tablet by mouth once Norethindrone Acet-Ethinyl Est (,) 1-20 mg-mcg per tablet Indications: Menorrhagia with regular cycle , Encounter for initial prescription of contraceptive pills Take 1 tablet by mouth once daily. 27 tablet 5 10/28/2021 Active Comment on above: Take 1 tablet by melanie th once daily. ferrous sulfate 325 mg oral tablet (17 sources) Start: 10-10-2022 End: 08-27-2023 Ferrous Sulfate (Ferosul) 325 mg (65 mg iron) Tablet Discontinued 325 mg PO 1200,1700 0 October 10, 2022 12:00am August 27, 2023 10:55am Start: 06-13-2021 End: 03-09-2022 ferrous sulfate 325 mg (65 m g iron) tablet Indications: Encounter for supervision of normal first in second trimester , Antepartum anemia Take 1 tablet by mouth daily with breakfast. Every other day 30 tablet 4 06/13/2021 03/09/2022 Discontinued (Course of therapy completed) Comment on above: Take 1 tablet by melanie th daily with breakfast. Every other day iopamidol (Isovue-370) 76 % injection 75 mL (2 sources) Start: 10-28-19 End: 10-28-19 take 75 mL intravenously once as needed 75 mL, IntraVENous, IMG once PRN, contrast, Starting on Iveth 10/28/23 at 1345, For 1 dose magnesium oxide 420 mg oral tablet (11 sources) Start: 04-30-20 End: 09-08-19 magnesium oxide 420 MG tablet Take by mouth daily. 0 04/30/2022 09/07/2022 Discontinued (Med list cleanup) Comment on above: Take 1 tablet by melanie once daily. 24 hr metoprolol succinate 25 mg extended release oral tablet (20 sources) beta-Adrenergic Rose Marie Start: 09-28-19 End: 09-28-19 take 1 tablet by mouth every twenty-four hours metoprolol succinate ER (TOPROL XL) 25 mg 24 hr tablet Take 25 mg by mouth. 09/28/2023 07/03/2024 Discontinued Start: 09-16-2023 End: 09-15-2024 take 1 tablet by mouth once daily metoprolol succinate XL (Toprol-XL) 50 MG 24 hr tablet Indications: Chronic migraine without aura without status migrainosus, not intractable Take 1 tablet (50 mg) by mouth daily. 90 tablet 3 09/16/2023 09/28/2023 Discontinued Start: 08-27-2023 End: 09-16-2023 take 1 tablet by mouth every twenty-four hours metoprolol succinate XL (Toprol-XL) 25 MG 24 hr tablet Take 25 mg by mouth. 0 08/27/2023 09/16/2023 Discontinued (Reorder) Start: 08-27-2023 End: 09-27-2024 take 1 tablet by mouth once daily metoprolol succinate XL (Toprol XL) 25 MG 24 hr tablet Indications: Chronic migraine without aura without status migrainosus, not intractable Take 1 tablet (25 mg) by mouth daily. Do not crush or chew. 90 tablet 3 09/28/2023 03/13/2024 Discontinued (Side effects) midodrine hydrochloride 2.5 mg oral tablet (20 sources) alpha-Adrenergic Agonist Start: 03-16-2024 End: 03-16-2025 take 1 tablet by mouth three times daily midodrine (Proamatine) 2.5 MG tablet Indications: POTS (postural orthostatic tachycardia syndrome) Take 1 tablet (2.5 mg) by mouth 3 times daily. Do not start before March 16, 2024. 90 tablet 3 03/16/2024 08/24/2024 Discontinued Start: 02-08-2024 End: 03-13-2024 midodrine (Proamatine) 5 MG tablet 5 mg twice a day; may hold for BP > 130 mm Hg 90 tablet 2 02/08/2024 03/13/2024 Discontinued (Therapy completed) norethindrone acetate 5 mg o ral tablet (8 sources) Start: 07-03-2024 End: 08-24-2024 norethindrone (Aygestin) 5 M G tablet Take 1 tablet THREE TIMES DAILY until bleeding stops for 24 hours, then 1 tablet TWICE DAILY for 3 days, then 1 tablet daily for 3 days. 07/03/2024 08/24/2024 Discontinued predniSONE 20 mg oral tablet (16 sources) Start: 03-08-2024 End: 08-04-2024 predniSONE (Deltasone) 20 MG tablet Take 3 tabs (60mg) daily for 5 days, then take 2 tabs (40mg) daily for 3 days, then take 1 tab (20mg) daily for 2 days. 23 tablet 07/27/2024 08/04/2024 Discontinued (Therapy completed) Start: 03-03-2024 End: 03-08-2024 take 1 tablet by mouth once daily predniSONE (Deltasone) 50 MG tablet Take 50 mg by mouth daily. 03/03/2024 03/08/2024 Discontinued Wewlrbrp-Zq-Jxf-Fe-FA ( VITAMIN) tab (12 sources) End: 03-09-2022 take 1 tablet by mouth once Uflazjnb-Vl-Xvc-Fe-FA ( VITAMIN) tab Take 1 tablet by mouth. 0 03/09/2022 Discontinued (Course of therapy completed) take 1 tablet by mouth once Pren atal Yppfohsr-Ve-Pzz-Fe-FA ( VITAMIN) tab Take 1 tablet by mouth. 0 Active Comment on above: Take 1 tablet by melanie th. Tkdszfro-Ep-Whh-Fe- FA tab (20 sources) Start: 03-09-2022 End: 10-07-2024 take 1 tablet by mouth once daily Omnmvtmm-Hf-Vey-Fe-FA tab Indications: 9 weeks gestation of Take 1 tablet by mouth once daily. 30 tablet 11 03/09/2022 02/07/2024 Discontinued (Discontinued by Patient) Start: 03-09-2022 take 1 tablet by melanie th once daily Woooeyrn-Sj-Iag-Fe-FA tab Indications: 9 weeks gestation of Take 1 tablet by mouth once daily. 30 tablet 11 03/09/2022 Active Comment on above: Take 1 tablet by melanie th once daily. Vit-Fe Fumarate-FA ( Vitamin Plus Low Iron) 27-1 MG tablet (3 sources) Start: 03-09-2022 End: 12-07-2022 take 1 tablet by mouth in the morning Vit-Fe Fumarate-FA ( Vitamin Plus Low Iron) 27-1 MG tablet Take 1 tablet by mouth in the morning. 0 03/09/2022 12/07/2022 Discontinued (Therapy completed) Start: 03-09-2022 take 1 tablet by melanie th in the morning Vit-Fe Fumarate-FA ( Vitamin Plus Low Iron) 27-1 MG tablet Take 1 tablet by mouth in the morning. 0 03/09/2022 Active Vit-Iron Fum-Folic Ac ( Tablet) 28 mg iron- 800 mcg tablet (5 sources) Start: 10-10-2022 End: 08-27-2023 Vit-Iron Fum-Folic Ac ( Tablet) 28 mg iron- 800 mcg tablet Discontinued 1 {tbl} PO DAILY October 10, 2022 5:37am August 27, 2023 10:55am Start: 10-10-2022 Vit-I dora Fum-Folic Ac ( Tablet) 28 mg iron- 800 mcg tablet Active 1 TABLET PO DAILY October 10, 2022 5:37am Start: 02-25-2022 End: 10-10-2022 Vit-Iron Fum-Folic Ac ( Tablet) 28 mg iron- 800 mcg tablet Discontinued 1 {tbl} PO DAILY February 25, 2022 12:00am October 10, 2022 5:37am Start: 02-25-2022 End: 10-10-2022 Vit-Iron Fum-Folic Ac ( Tablet) 28 mg iron- 800 mcg tablet Discontinued 1 TABLET PO DAILY February 25, 2022 12:00am October 10, 2022 5:37am Start: 02-25-2022 Vit-I dora Fum-Folic Ac ( Tablet) 28 mg iron- 800 mcg tablet Active 1 TABLET PO DAILY February 25, 2022 12:00am rizatriptan 10 mg disintegrating oral tablet (8 sources) Serotonin-1b and Serotonin-1d Receptor Agonist Start: 09-16-2023 End: 09-15-2024 rizatriptan CONTRACT PROCESSOR (Maxalt-CONTRACT PROCESSOR) 10 MG disintegrating tablet Indications: Chronic migraine without aura without status migrainosus, not intractable Take 1 tablet (10 mg) by mouth Once as needed for migraine. May repeat in 2 hours if unresolved. Do not exceed 30 mg in 24 hours. 9 tablet 3 09/16/2023 11/01/2023 Discontinued SUMAtriptan 50 mg oral tablet (8 sources) Serotonin-1b and Serotonin-1d Receptor Agonist Start: 11-01-2023 End: 10-31-2024 SUMAtriptan (Imitrex) 50 MG tablet Indications: Chronic migraine without aura without status migrainosus, not intractable Take 1 tablet (50 mg) by mouth Once as needed for migraine (may repeat x1). May repeat dose once in 2 hours if no relief. Do not exceed 2 doses in 24 hours. 9 tablet 5 11/01/2023 01/20/2024 Discontinued tetracaine hydrochloride 5 mg/ml ophthalmic solution (1 source) [facility] Start: 11-03-2024 End: 11-03-2024 take 1 drop(s) into the eye(s) once 1 drop, Right Eye, Once, On Wed11/03/24 at 2335, For 1 dose Problems Active Problems Problem Classification Problem Date Documented Da te Episodic/Chronic Abdominal pain (2 sources) Pelvic and perineal pain; Translations: [Pelvic and perineal pain] Onset: 07-01-2018 Anxiety disorders (2 sources) Anxiety; Translations: [Anxiety disorder, unspecified] Chronic Blindness and vision defects (1 source) Tunnel vision of bilateral eyes; Translations: [Generalized contraction of visual field, bilateral] Episodic Cardiac dysrhythmias (5 sources) Postural orthostatic tachycardia syndrome ; Translations: [POTS (postural orthostatic tachycardia syndrome)] 12-09-2023 Chronic Complication of device; implant or graft (3 sources) Malposition of intrauterine contraceptive device; Translations: [Displacement of intrauterine contraceptive device, initial encounter] 07-13-2024 Episodic Diabetes mellitus without complication (1 source) Increased glucose level; Translations: [Other abnormal glucose] 11-17-2024 Episodic Disorders of lipid metabolism (20 sources) Pure hypercholesterolemi a; Translations: [Pure hypercholesterolemi a, unspecified] Onset: 02-15-2024 02-15-2024 Chronic Disorders of teeth and jaw (5 sources) Toothache; Translations: [Other specified disorders of teeth and supporting structures] Onset: 08-11-2024 05-19-2024 Episodic Genitourinary symptoms and ill-defined conditions (7 sources) Biliuria; Translations: [Increased frequency of urination] Onset: 12-09-2016 Episodic Headache; including migraine (20 sources) Migraine without aura, not refractory ; Translations: [Migraine without aura, not intractable, with status migrainosus] Onset: 03-25-2022 Resolved: 08-04-2024 03-25-2022 Chronic Headache; including migraine (4 sources) Headache; including migraine; Translations: [Headache, unspecified] Onset: 10-13-2022 Menstrual disorders (7 sources) Irregular menstruation, unspecified; Translations: [Menorrhagia] Onset: 07-01-2018 Chronic Miscellaneous mental health disorders (1 source) depression; Translations: [ depression] Episodic Nonspecific chest pain (5 sources) Precordial pain; Translations: [Precordial pain] 12-07-2022 Episodic Other circulatory disease (1 source) Elevated blood-pressure reading, without diagnosis of hypertension; Translations: [Elevated blood pressure reading without diagnosis of hypertension] Episodic Other complications of ; puerperium affecting management of mother (2 sources) Other complications of the puerperium, not elsewhere classified; Translations: [Oth complications of the puerperium, NEC] Onset: 10-13-2022 Episodic Other complications of (20 sources) Anemia during - baby not yet delivered; Translations: [Anemia complicating , third trimester] Onset: 06-26-2021 06-26-2021 Chronic Other complications of (3 sources) Anemia complicating , unspecified trimester; Translations: [Anemia of mother, unspecified as to episode of care or not applicable] Chronic Other complications of (5 sources) Edema; Translations: [Gestational edema, unspecified trimester] 08-28-2021 Episodic Other complications of (2 sources) Gestational edema, unspecified trimester; Translations: [Edema or excessive weight gain in , without mention of hypertension, unspecified as to episode of care or not applicable] Episodic Other complications of (3 sources) Other specified related conditions, unspecified trimester; Translations: [Other specified complications of , antepartum condition or complication] Episodic Other complications of (3 sources) Right lower quadrant pain; Translations: [Other specified related conditions, unspecified trimester] 03-05-2022 Episodic Other complications of (2 sources) Complication occurring during ; Translations: [Other specified related conditions, unspecified trimester] Episodic Other endocrine disorders (20 sources) Hypoglycemia; Translations: [Hypoglycemia, unspecified] Onset: 10-31-2021 Chronic Other endocrine disorders (2 sources) Polycystic ovary; Translations: [Polycystic ovarian syndrome] 07-13-2024 Chronic Other endocrine disorders (1 source) Polycystic ovarian syndrome; Translations: [Polycystic ovaries] Onset: 07-21-2024 Chronic Other eye disorders (1 source) Disorder of cornea; Translations: [Other specified disorders of cornea, right eye] 11-04-2024 Episodic Other eye disorders (2 sources) Other specified disorders of cornea, right eye; Translations: [Other specified disorders of cornea, right eye] Onset: 11-03-2024 Episodic Other female genital disorders (2 sources) Abnormal uterine and vaginal bleeding, unspecified; Translations: [Abnormal uterine and vaginal bleeding, unspecified] Onset: 07-01-2018 Chronic Other gastrointestinal disorders (20 sources) Malabsorption - iron; Translations: [Intestinal malabsorption, unspecified] Onset: 09-22-2022 Chronic Other injuries and conditions due to external causes (2 sources) History of fall; Translations: [History of falling] 07-03-2022 Episodic Other injuries and conditions due to external causes (1 source) History of falling; Translations: [History of fall] 06-29-2022 Episodic Other lower respiratory disease (3 sources) Dyspnea on exertion; Translations: [Other forms of dyspnea] 12-07-2022 Episodic Other lower respiratory disease (3 sources) Cough; Translations: [Acute cough] 03-08-2024 Episodic Other lower respiratory disease (1 source) Pleurodynia; Translations: [Pleurodynia] Onset: 07-31-2024 Episodic Other nervous system disorders (1 source) Disorder of autonomic nervous system; Translations: [Disorder of the autonomic nervous system, unspecified] 02-10-2024 Chronic Other nervous system disorders (2 sources) Disorder of the autonomic nervous system, unspecified; Translations: [Disorder of the autonomic nervous system, unspecified] Onset: 02-10-2024 Chronic Other nervous system disorders (2 sources) Finding of hand region; Translations: [Tremor, unspecified] 01-17-2024 Episodic Other skin disorders (1 source) Xeroderma; Translations: [Xerosis cutis] 11-15-2024 Episodic Other skin disorders (2 sources) Xerosis cutis; Translations: [Xerosis cutis] Onset: 11-15-2024 Episodic Ovarian cyst (3 sources) Unspecified ovarian cyst, right side; Translations: [Unspecified ovarian cyst, right side] Onset: 07-01-2018 Polyhydramnios and other problems of amniotic cavity (2 sources) Spontaneous rupture of membranes 09-13-2021 Episodic Residual codes; unclassified (15 sources) Insomnia; Translations: [Other insomnia] Onset: 08-04-2024 08-04-2024 Chronic Residual codes; unclassified (1 source) Other insomnia; Translations: [Other insomnia] Onset: 08-04-2024 Chronic Residual codes; unclassified (1 source) Gestation period, 34 weeks; Translations: [34 weeks gestation of ] Episodic Residual codes; unclassified (2 sources) Gestation period, 36 weeks; Translations: [36 weeks gestation of ] Episodic Residual codes; unclassified (2 sources) Gestation period, 37 weeks; Translations: [37 weeks gestation of ] Episodic Residual codes; unclassified (2 sources) Gestation period, 39 weeks; Translations: [39 weeks gestation of ] Episodic Residual codes; unclassified (6 sources) Gestation period, 38 weeks; Translations: [38 weeks gestation of ] Episodic Residual codes; unclassified (7 sources) Gestation period, 40 weeks; Translations: [40 weeks gestation of ] 09-13-2021 Episodic Residual codes; unclassified (2 sources) 38 weeks gestation of ; Translations: [ state, incidental] Episodic Residual codes; unclassified (3 sources) 40 weeks gestation of ; Translations: [ state, incidental] Episodic Residual codes; unclassified (1 source) Gestation period, 9 weeks; Translations: [9 weeks gestation of ] Episodic Residual codes; unclassified (3 sources) Nicotine-filled electronic cigarette user; Translations: [Tobacco use] Episodic Residual codes; unclassified (2 sources) Gestation period, 14 weeks; Translations: [14 weeks gestation of ] Episodic Residual codes; unclassified (1 source) Gestation period, 17 weeks; Translations: [17 weeks gestation of ] Episodic Residual codes; unclassified (2 sources) Gestation period, 20 weeks; Translations: [20 weeks gestation of ] Episodic Residual codes; unclassified (1 source) Gestation period, 22 weeks; Translations: [22 weeks gestation of ] Episodic Residual codes; unclassified (1 source) Gestation period, 23 weeks; Translations: [23 weeks gestation of ] Episodic Residual codes; unclassified (1 source) Gestation period, 26 weeks; Translations: [26 weeks gestation of ] Episodic Residual codes; unclassified (1 source) Gestation period, 28 weeks; Translations: [28 weeks gestation of ] Episodic Residual codes; unclassified (1 source) Gestation period, 33 weeks; Translations: [33 weeks gestation of ] Episodic Residual codes; unclassified (2 sources) Gestation period, 25 weeks; Translations: [25 weeks gestation of ] 07-03-2022 Episodic Residual codes; unclassified (1 source) 25 weeks gestation of ; Translations: [ state, incidental] 06-29-2022 Episodic Residual codes; unclassified (2 sources) Difficulty sleeping ; Translations: [Sleep disorder, unspecified] 01-17-2024 Episodic Residual codes; unclassified (1 source) Influenza vaccination declined; Translations: [Immunization not carried out because of patient refusal] 02-14-2024 Episodic Unclassified (1 source) Unknown / UNK(Unknown) Onset: 12-25-2016 Unclassified (1 source) Malposition of intrauterine contraceptive device 07-14-2024 Unclassified (1 source) Acute cough; Translations: [Acute cough] Onset: 03-08-2024 Past or Other Problems Problem Classification Problem Date Documented Date Episodic/Chronic Abdominal pain (20 sources) Right upper quadrant pain; Translations: [Right lower quadrant pain] Onset: 12-09-2016 Resolved: 02-15-2024 Episodic Allergic reactions (20 sources) Allergic contact dermatitis due to dye; Translations: [Allergic contact dermatitis due to dyes] Onset: 05-21-2021 02-13-2022 Episodic Cardiac dysrhythmias (10 sources) Sinus tachycardia; Translations: [Tachycardia, unspecified] Onset: 08-27-2023 Episodic Comment on above: The patient does rep ort palpitations. When she wore the Holter monitor she triggered for events. There was no ectopy with these events and the patient was in sinus rhythm at a regular rate between 60 and 100. It does not appear that these palpitations that she was experiencing are cardiac in etiology.However, the patient does have SVT noted on her Holter monitor. She did report that there were other episodes where she felt something that was unable to trigger the monitor. Conditions associated with dizziness or vertigo (20 sources) Dizziness; Translations: [Dizziness and giddiness] Onset: 09-02-2022 Resolved: 02-15-2024 Episodic Contraceptive and procreative management (20 sources) Patient encounter status; Translations: [Encounter for initial prescription of contraceptive pills] Onset: 08-07-2022 Resolved: 02-15-2024 Episodic Deficiency and other anemia (20 sources) Iron deficiency anemia secondary to inadequate dietary iron intake; Translations: [Other iron deficiency anemias] Onset: 10-31-2021 Episodic Deficiency and other anemia (2 sources) Other iron deficiency anemias; Translations: [Other iron deficiency anemias] Onset: 04-08-2023 Episodic Early or threatened labor (20 sources) [place] contractions; Translations: [False labor, unspecified] Onset: 04-08-2023 Resolved: 02-15-2024 06-14-2022 Episodic Fever of unknown origin (5 sources) Fever; Translations: [Fever, unspecified] Onset: 03-08-2024 03-08-2024 Episodic Headache; including migraine (20 sources) Occipital headache; Translations: [Headache in back of head] Onset: 04-09-2022 04-09-2022 Episodic Malaise and fatigue (20 sources) Other fatigue; Translations: [Fatigue] Onset: 10-13-2022 04-08-2023 Episodic Mood disorders (20 sources) Mood disorders Onset: 02-14-2024 02-14-2024 Nausea and vomiting (20 sources) Nausea; Translations: [Nausea] Onset: 10-13-2022 04-08-2023 Episodic OB-related trauma to perineum and vulva (20 sources) First degree perineal laceration; Translations: [First degree perineal laceration during delivery] Onset: 04-08-2023 Episodic Other and unspecified benign neoplasm (20 sources) Benign neoplasm of skin of lower limb; Translations: [Other benign neoplasm of skin of left lower limb, including hip] Onset: 10-17-2021 02-13-2022 Episodic Other circulatory disease (20 sources) Elevated blood pressure; Translations: [Elevated blood-pressure reading, without diagnosis of hypertension] Onset: 04-08-2023 09-13-2021 Episodic Other circulatory disease (20 sources) Idiopathic hypotension; Translations: [Idiopathic hypotension] Onset: 10-31-2021 Episodic Other circulatory disease (2 sources) Postural orthostatic tachycardia syndrome ; Translations: [Postural orthostatic tachycardia syndrome (POTS)] Onset: 03-09-2024 Episodic Other circulatory disease (1 source) Idiopathic hypotension; Translations: [Idiopathic hypotension] Onset: 04-08-2023 Episodic Other complications of (15 sources) Anemia of ; Translations: [Anemia complicating , unspecified trimester] Onset: 06-26-2021 Resolved: 10-27-2022 10-19-2022 Chronic Other complications of (20 sources) Anemia in mother complicating , childbirth AND/OR puerperium; Translations: [Anemia complicating , third trimester] Onset: 09-22-2022 Resolved: 02-15-2024 Chronic Other complications of (20 sources) Spotting per vagina in ; Translations: [Spotting complicating , unspecified trimester] Onset: 01-16-2021 Resolved: 04-30-2022 01-16-2021 Episodic Other complications of (20 sources) Maternal tobacco use; Translations: [Smoking (tobacco) complicating , unspecified trimester] Onset: 01-16-2021 Resolved: 04-30-2022 06-26-2021 Episodic Other complications of (20 sources) RhD negative; Translations: [Other specified related conditions, unspecified trimester] Onset: 01-20-2021 Resolved: 10-27-2022 01-20-2021 Episodic Other complications of (20 sources) High risk ; Translations: [Supervision of high risk , unspecified, third trimester] Onset: 06-13-2021 Resolved: 10-27-2022 06-13-2021 Episodic Other complications of (20 sources) Finding of pattern of ; Translations: [Supervision of other high risk pregnancies, unspecified trimester] Onset: 03-05-2022 Resolved: 10-27-2022 Episodic Other complications of (20 sources) H/O: depression; Translations: [H/O depression, currently ] Onset: 03-05-2022 Resolved: 10-27-2022 Episodic Other complications of (20 sources) Urinary tract infection in ; Translations: [Unspecified infection of urinary tract in , unspecified trimester] Onset: 03-05-2022 Resolved: 07-31-2022 Episodic Other complications of (20 sources) Maternal tobacco use in ; Translations: [Smoking (tobacco) complicating , unspecified trimester] Onset: 04-08-2023 10-19-2022 Episodic Other ear and sense organ disorders (20 sources) Bilateral tinnitus; Translations: [Tinnitus, bilateral] Onset: 05-10-2023 05-10-2023 Episodic Other female genital disorders (20 sources) Pain in female genitalia; Translations: [Unspecified condition associated with female genital organs and menstrual cycle] Onset: 04-08-2023 06-14-2022 Episodic Other lower respiratory disease (4 sources) Wheezing; Translations: [Wheezing] Onset: 03-08-2024 03-08-2024 Episodic Other lower respiratory disease (1 source) Wheezing; Translations: [Wheezing] Onset: 03-08-2024 Episodic Other nervous system disorders (20 sources) Abnormal reflex; Translations: [Abnormal reflex] Onset: 02-10-2023 Resolved: 02-15-2024 02-10-2023 Episodic Other nervous system disorders (2 sources) Tremor, unspecified; Translations: [Tremor, unspecified] Onset: 01-17-2024 Episodic Other non-traumatic joint disorders (20 sources) Hip unstable; Translations: [Other instability, unspecified hip] Onset: 02-15-2024 02-15-2024 Episodic Other non-traumatic joint disorders (2 sources) Other instability, unspecified hip; Translations: [Other instability, unspecified hip] Onset: 02-15-2024 Episodic Other and delivery including normal (20 sources) Normal ; Translations: [Encounter for supervision of normal first , third trimester] Onset: 10-16-2022 Resolved: 02-15-2024 Episodic Other screening for suspected conditions (not mental disorders or infectious disease) (4 sources) Electrocardiogram abnormal; Translations: [Abnormal electrocardiogram [ECG] [EKG]] Onset: 02-15-2024 Episodic Other skin disorders (20 sources) Loss of hair; Translations: [Nonscarring hair loss, unspecified] Onset: 02-10-2023 02-10-2023 Episodic Other upper respiratory infections (20 sources) Viral upper respiratory tract infection; Translations: [Acute upper respiratory infection, unspecified] Onset: 07-27-2023 Resolved: 02-15-2024 03-05-2023 Episodic Otitis media and related conditions (2 sources) Otitis media, unspecified, right ear; Translations: [Otitis media, unspecified, right ear] Onset: 04-11-2024 Episodic Pneumonia (except that caused by tuberculosis or sexually transmitted disease) (2 sources) Pneumonia, unspecified organism; Translations: [Pneumonia, unspecified organism] Onset: 03-03-2024 Episodic Residual codes; unclassified (20 sources) FH: Congenital heart disease; Translations: [Family history of other congenital malformations, deformations and chromosomal abnormalities] Onset: 01-16-2021 01-16-2021 Episodic Residual codes; unclassified (2 sources) Immunization not carried out because of patient refusal; Translations: [Immunization not carried out because of patient refusal] Onset: 02-15-2024 Episodic Residual codes; unclassified (2 sources) Sleep disorder, unspecified; Translations: [Sleep disorder, unspecified] Onset: 01-17-2024 Episodic Screening and history of mental health and substance abuse codes (20 sources) History of clinical finding in subject; Translations: [Personal history of nicotine dependence] Onset: 03-05-2022 Episodic Spondylosis; intervertebral disc disorders; other back problems (20 sources) Lumbago with sciatica; Translations: [Lumbago with sciatica, left side] Onset: 04-08-2023 Episodic Superficial injury; contusion (20 sources) Right wrist contusion; Translations: [Contusion of right wrist, initial encounter] Onset: 07-30-2021 02-13-2022 Episodic Syncope (7 sources) Near syncope; Translations: [Syncope and collapse] Onset: 08-27-2023 Episodic Comment on above: The patient's never had italo syncope. She has never fallen and hurt herself and in fact some of these blackout spells occur while she remains standing. She is due to see a neurologist in the near future.She was concerned about this being POTS but given the fact she has never passed completely out she does not have to really sit down to resolve the symptoms and these almost always occur with change in position I do not feel that further evaluation is indicated at this time. I do feel that we should trial her on a beta-rose marie due to the SVT that was documented on her Holter monitor. Thyroid disorders (20 sources) Subacute thyroiditis; Translations: [Thyroiditis, unspecified] Onset: 02-05-2022 Resolved: 02-15-2024 02-13-2022 Chronic Unclassified (1 source) R82.2, R10.11 Onset: 12-25-2016 Unclassified (6 sources) Spontaneous rupture of membranes; Translations: [Spontaneous rupture of amniotic membranes] Unclassified (2 sources) Spontaneous onset of labor; Translations: [Spontaneous onset of labor] 10-19-2022 Unclassified (1 source) Patient encounter status 07-20-2024 Unclassified (1 source) Acute cough; Translations: [Acute cough] Onset: 03-08-2024 Urinary tract infections (20 sources) Acute cystitis without hematuria; Translations: [Urinary tract infectious disease] Onset: 07-27-2018 Resolved: 02-15-2024 03-05-2022 Episodic Viral infection (20 sources) COVID-19; Translations: [COVID-19 virus RNA test result positive at limit of detection] Onset: 04-08-2023 Resolved: 02-15-2024 Episodic Results Test Name Value Interpretation Reference Range Facil ity Office Visiton 11-28-2024 Follow-up visit [id number] Corby Delgado 1995 F Date Provider Department Center 11/28/2024 [id number] None Family History Problem Relation Age of Onset No Known Problems Father High Blood Pressure Mother Family Status - Relation Status Age at Father Alive Mother Alive Level of Service:27113 [place] OFFICE/OUTPATIENT ESTABLISHED MOD MDM 30 MIN Reason for Visit and Comments: Follow-up [020274] - [address] [facility] Progress Noteon 11-28-2024 Progress Note 11/28/2024 CC Headaches Patient ID and HPI Xiomara Delgado is a 29 y.o. Rt handed female with Past medical history of neurogenic POTS with small fiber neuropathy, chronic migraines, hypoglycemia, iron deficiency, maxillary sinusitis, migraines, tobacco abuse who presents to neurology office for follow-up, last seen August 2024 Initial evaluation: September 2023 The patient states that her headaches started when she/he was in high school. He have an injury in high school when she went to tree tipping and it hit her in the head. Migraines have not changed in characteristics. Has different kinds of headaches. The patient was diagnosed with 2 different kinds of headaches including occipital neuralgia and chronic migraines. In regards to sudden onset headaches, CT angiogram was done which did not show any aneurysm. Metoprolol was increased from 25 mg to 50 mg. Rizatriptan caused some chest tightness and was switched to sumatriptan. December 2023 still having significant number of headaches and increasing metoprolol caused low blood pressure. She was started on Topamax. Also complained of other episodes which she has had since she was young but happened more when she was with a second child a few years ago, feels like a hay to the head and everything goes black without confusion or LOC no palpitations, shortness of breath or chest pain. Metoprolol did not help and happens about few times a month and last for few seconds. Happens when she gets up too quickly or sometimes when she stands for long period of time. Testing was ordered for autonomic dysfunction at [facility] which was consistent with POTS with small fiber neuropathy. January 2024, started on Nurtec but still had significant headaches and was started on Ajovy in March 2024. She was also started on midodrine for her POTS which did not work and she was switched to propranolol Interval hx: 11/08/2024, the patient called the office complaining that she did not feel that the propranolol was working and her heart rate was fluctuating which it would drop to 49 and increased to 150s. She felt that she was getting shortness of breath with it. Tried midodrine and metoprolol in the past. The patient was started on fludrocortisone Did have some insurance issues and did not get the medication: fludrocortisone PMHx: has a past medical history of Fibrocystic breast, Heart murmur, Hypoglycemia, and Ovarian cyst. 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 Aura: No Headache description: Holo cranial, throbbing Intensity: 5-10/10 Duration of symptoms: up to 2 days Frequency of headaches: 16-18 total migraine days with 1-2 times a month severe Associated symptoms: photophobia, phonophobia, osmophobia, fatigue, nausea, vomiting, irritability Exacerbating factors: Moderate activity, stress, Alleviating factors: Improved with rest or sleep, dim lighting Things done when pt gets a headache: tylenol 10 days a month Triggers: None Association with menses: No Visual symptoms: Blurry vision Type: Chronic Migraine without aura 2. Left sided occipital pressure, multiple times a day, multiple times a week, lasts for a few seconds 3. Stabbing electric headache, brief, no triggers, any part of the head and radiating to multiple parts, 1-2 times a month Red flags: sudden onset, tinnitus, No focal neurological symptoms, Non positional or precipitation by valsalva, No systemic signs, Does not wake up from sleep Change in headaches characteristic: No Ophthalmology exam: 2 years ago ER visit/missed days at work: 0 Imaging and Pertinent Testing CT angiogram head and neck October 2023 per my independent review does not show any acute intracranial abnormalities, no large aneurysms Autonomic testing: Heart rate response to deep breathing is normal via the mean heart rate range and the E:I ratio (1.26). Heart rate response to the Valsalva Maneuver (VM), as assessed by the Valsalva Ratio (VR), is normal as are the blood pressure responses to phase II and phase IV of the maneuver. During 10 minutes of 70 degrees head-up tilt, heart rate response was exaggerated but blood pressure (BP) responses were normal. The p (more content not included)... Normal [facility] CT MAXILLOFACIAL WITHOUT CON TRASTon 11-26-2024 CT MAXILLOFACIAL WITHOUT CONTRAST EXAMINATION: CT MAXILLOFACIAL WITHOUT CONTRAST HISTORY: ORDERING SYSTEM PROVIDED HISTORY: Concern for locked jaw or jaw dislocation, TECHNOLOGIST PROVIDED HISTORY: Illness/Other Reason for exam: Concern for locked jaw or jaw dislocation Encounter Type: Initial Additional signs and symptoms: pain ORDERING SYSTEM PROVIDED DIAGNOSIS CODES: R68.84 Jaw pain COMPARISON: None TECHNIQUE: CT examination of the facial bones without IV contrast. Dose reduction techniques were achieved by using automated exposure control and/or adjustment of mA and/or kV according to patient size and/or use of iterative reconstruction technique. FINDINGS: Bones: No acute fracture or destructive osseous lesion. Normal configuration of the temporomandibular joints (TMJs) without dislocation. Paranasal sinuses: Mild mucosal thickening in the maxillary sinuses. Orbits: Unremarkable. Intracranial: No large hemorrhage or mass. Extracranial soft tissues: Unremarkable. IMPRESSION: No acute abnormality of the maxillofacial bones. Normal TMJs. Workstation ID: [id number] Dictated by: KRANTHI MEZA on [place] Nov 26, 2024 4:11:40 PM EDT Transcribed by: KRANTHI MEZA on [place] Nov 26, 2024 4:11:40 PM EDT Finalized by: KRANTHI MEZA on WedNov 26, 2024 4:11:40 PM EDT [facility] Comment on above: Order Comment: Injur y/Trauma or Illness?:Illness/Other How long have you had these symptoms (acute/chronic)?:Acute Reason for exam?:Concern for locked jaw or jaw dislocation Type of Exam?:Initial Additional signs and symptoms?:pain ED Prov Noteon 11-26-2024 ED Prov Note ED PROVIDER NOTE [facility] EMERGENCY DEPARTMENT NAME: Xiomara Delgado AGE: 29 y.o. : 1995 VISIT DATE: 11/26/2024 CSN: [id number] PCP: Jairo Garcia MD Chief Complaint Patient presents with Jaw Pain Patient is a 29-year-old female with a past medical history of hyperlipidemia, PCOS and POTS disease and migraines who presents today for concern of jaw pain. Patient states that she had her wisdom tooth removed on Wednesday. Patient states she did not have any significant complications but does state her left lower tooth had some nerve pain associated with it. Patient states has been taking antibiotics and pain medication and denies any fever, inability has secretions drooling or change in voice. Patient states she is having difficulty fully opening her mouth. Patient denies any previous history of TMJ or jaw dislocations. Past Medical History: Diagnosis Date Hyperlipidemia Migraines PCOS (polycystic ovarian syndrome) POTS (postural orthostatic tachycardia syndrome) History reviewed. No pertinent surgical history. History reviewed. No pertinent family history. Social History [1] Previous Medications Medication Sig acetaminophen (TYLENOL ER) 650 MG CR tablet Take by mouth . Ajovy Autoinjector 225 mg/1.5 mL AtIn Inject 1.5 mL (225 mg total) under the skin every 30 (thirty) days . albuterol 90 mcg/actuation inhaler Inhale 2 (two) puffs every 6 (six) hours as needed for wheezing . azithromycin (ZITHROMAX) 250 MG tablet Take 1 (one) tablet (250 mg total) by mouth daily . cefdinir (OMNICEF) 300 MG capsule Take 1 (one) capsule (300 mg total) by mouth 2 (two) times a day . (Patient not taking: Reported on 11/15/2024 .) clindamycin (CLEOCIN) 300 MG capsule Take 1 (one) capsule (300 mg total) by mouth 3 (three) times a day for 10 days . fludrocortisone (FLORINEF) 0.1 mg tablet hydrOXYzine (ATARAX) 25 MG tablet Take 1 (one) tablet (25 mg total) by mouth Prior to discharge from the hospital . ketorolac (TORADOL) 10 mg tablet Take 1 (one) tablet (10 mg total) by mouth every 6 (six) hours as needed . Nurtec ODT 75 mg ODT Dissolve 1 (one) tablet (75 mg total) on top of tongue daily as needed (for migraines) . ondansetron (ZOFRAN-ODT) 4 MG disintegrating tablet Dissolve 1 (one) tablet (4 mg total) on top of tongue every 8 (eight) hours as needed . propranoloL (INDERAL) 20 MG tablet Take 1 (one) tablet (20 mg total) by mouth 2 (two) times a day . topiramate (TOPAMAX) 50 MG tablet Take 1 (one) tablet (50 mg total) by mouth daily . Allergies[2] Review of Systems Constitutional: Negative for chills and fever. HENT: Jaw pain Eyes: Negative for pain. Respiratory: Negative for cough, chest tightness and shortness of breath. Cardiovascular: Negative for chest pain and palpitations. Gastrointestinal: Negative for abdominal pain, nausea and vomiting. Genitourinary: Negative for flank pain. Musculoskeletal: Negative for arthralgias and myalgias. Skin: Negative for rash. Neurological: Negative for dizziness, syncope, light-headedness and headaches. Psychiatric/Behavioral : Negative for agitation. All other systems reviewed and are negative. Patient Vitals for the past 24 hrs: BP Temp Temp src Pulse Resp SpO2 Height Weight 11/26/24 1443 117/72 98.2 degrees F (36.8 degrees C) Temporal 77 16 97 % 5' 4 68 kg (150 lb) Physical Exam Vitals and nursing note reviewed. Constitutional: Appearance: Normal appearance. HENT: Head: Normocephalic. Mouth/Throat: Comments: Patient has decreased ability to open mouth with generalized tenderness to the bilateral TMJ joints with no evidence of jaw dislocation. Eyes: Pupils: Pupils are equal, round, and reactive to light. Cardiovascular: Rate and Rhythm: Normal rate and regular rhythm. Pulses: Normal pulses. Heart sounds: Normal heart sounds. Musculoskeletal: Cervical back: Normal range of motion. Pulmonary: Effort: Pulmonary effort is normal. Breath sounds: Normal breath sounds. Skin: General: Skin is warm. Capillary Refill: Capillary refill takes less than 2 seconds. Neurological: General: No focal deficit present. Mental Status: She is alert. Psychiatric: Mood and Affect: Mood normal. Laboratory & Radiographic Imaging (if done): No results found for this visit on 11/26/24. CT Maxillofacial Without Contrast Final Result No acute abnormality of the maxillofacial bones. Normal TMJs. Workstation ID: [id number] Procedures Medical Decision Making Patient seen and evaluated for concern of jaw pain. X-ray of the mandible did not demonstrate any evidence of TMJ dislocation. Patient has been compliant with antibiotics at this time there is little clinical concern for infection or dry socket. Patient has suspected spasm of the masseter muscles referred to her dentist for further evaluation tomorrow. Patient given a prescription for Flexeril. Patient educated on reaso (more content not included)... [facility] ED Prov Noteon 11-21-2024 ED Prov Note ED PROVIDER NOTE [facility] EMERGENCY DEPARTMENT NAME: Xiomara Delgado AGE: 29 y.o. : 1995 VISIT DATE: 11/21/2024 CSN: [id number] PCP: Jairo Garcia MD Chief Complaint Patient presents with Dental Pain Pt to ER c/o dental pain due to wisdom teeth Chief complaint dental pain History of present illness 29-year-old female who is here with left molar pain wisdom teeth hurt Past Medical History: Diagnosis Date Hyperlipidemia Migraines PCOS (polycystic ovarian syndrome) POTS (postural orthostatic tachycardia syndrome) No past surgical history on file. No family history on file. Social History [1] Previous Medications Medication Sig acetaminophen (TYLENOL ER) 650 MG CR tablet Take by mouth . Ajovy Autoinjector 225 mg/1.5 mL AtIn Inject 1.5 mL (225 mg total) under the skin every 30 (thirty) days . albuterol 90 mcg/actuation inhaler Inhale 2 (two) puffs every 6 (six) hours as needed for wheezing . azithromycin (ZITHROMAX) 250 MG tablet Take 1 (one) tablet (250 mg total) by mouth daily . cefdinir (OMNICEF) 300 MG capsule Take 1 (one) capsule (300 mg total) by mouth 2 (two) times a day . (Patient not taking: Reported on 11/15/2024 .) fludrocortisone (FLORINEF) 0.1 mg tablet hydrOXYzine (ATARAX) 25 MG tablet Take 1 (one) tablet (25 mg total) by mouth Prior to discharge from the hospital . Nurtec ODT 75 mg ODT Dissolve 1 (one) tablet (75 mg total) on top of tongue daily as needed (for migraines) . ondansetron (ZOFRAN-ODT) 4 MG disintegrating tablet Dissolve 1 (one) tablet (4 mg total) on top of tongue every 8 (eight) hours as needed . propranoloL (INDERAL) 20 MG tablet Take 1 (one) tablet (20 mg total) by mouth 2 (two) times a day . topiramate (TOPAMAX) 50 MG tablet Take 1 (one) tablet (50 mg total) by mouth daily . Allergies[2] Review of Systems All other systems reviewed and are negative. No data found. Physical Exam Vitals and nursing note reviewed. Exam conducted with a security tech present. Constitutional: Appearance: Normal appearance. She is normal weight. HENT: Head: Normocephalic and atraumatic. Nose: Nose normal. Mouth/Throat: Comments: Recently treated for the lower molar bilaterally slight decay Neurological: Mental Status: She is alert. Laboratory & Radiographic Imaging (if done): No results found for this visit on 11/21/24. No orders to display Procedures Medical Decision Making Differential diagnosis considered : Dental fracture #2 dental abscess #3 dental carry #4 periodontal disease Clinical Impression: 1. Pain, dental ED Disposition ED Disposition Discharge Condition Stable Comment Xiomara Delgado discharged to home/self care in stable condition. Follow-up Information 1. Jairo Garcia MD. Specialty: Family Medicine [address] [place], [place] [id number] Contact information for after-discharge care Follow-up information has not been specified. New Prescriptions ketorolac (TORADOL) 10 mg tablet Take 1 (one) tablet (10 mg total) by mouth every 6 (six) hours as needed . clindamycin (CLEOCIN) 300 MG capsule Take 1 (one) capsule (300 mg total) by mouth 3 (three) times a day for 10 days . [1] Social History Socioeconomic History Marital status: Single Tobacco Use Smoking status: Former Types: Cigarettes Passive exposure: Current Smokeless tobacco: Never Vaping Use Vaping status: Every Day Substances: Nicotine Substance and Sexual Activity Alcohol use: Not Currently Drug use: Never Social Drivers of Health Financial Resource Strain: Low Risk (02/10/2023) Received from [facility] Overall Financial Resource Strain (CARDIA) Difficulty of Paying Living Expenses: Not hard at all Food Insecurity: No Food Insecurity (02/10/2023) Received from [facility] Hunger Vital Sign Worried About Running Out of Food in the Last Year: Never true Ran Out of Food in the Last Year: Never true Transportation Needs: No Transportation Needs (02/10/2023) Received from [facility] PRAPARE - Transportation Lack of Transportation (Medical): No Lack of Transportation (Non-Medical): No Physical Activity: Inactive (02/10/2023) [facility] Exercise Vital Sign Days of Exercise per Week: 0 days Minutes of Exercise per Session: 0 min Housing Stability: Low Risk (02/10/2023) [facility] Housing Stability Vital Sign Unable to Pay for Housing in the Last Year: No Number of Places Lived in the Last Year: 1 Unstable Housing in the Last Year: No [2] Allergies Allergen Reactions Other Rash Ilan Phillip MD 11/25/24 0829 AUTHENTICATED BY ILAN PHILLIP, ON 11/25/2024 08:29:34 [facility] 36on 11-17-2024 36 Addressed with Clinical Access Center. Normal [facility] 36 S: Patient called e clinical access center with complaint of high blood sugar B: Ongoing weeks. States she is normally hypoglycemic. Does not take any medication for diabetes, A: Patient c/o 145-215 over the past few weeks.Using glucometer to check her glucose. Has been having frequent urination and increase thirst and has been feeling nauseated for the past few weeks. Has not been feeling well fatigued and sleeping more. Denies dizziness, shortness of breath, difficulty breathing or chest pain. No vomiting just nausea. R: Called for 2nd level triage spoke to Juan she stated she will put order in for blood work and have her go to the ED if blood sugar gets high 300-400 or symptoms become worse. Appointment scheduled 11/30/24 Ok 'd to take by Juan. Insurance verified. Instructed to bring medications to [facility]. Home Care advice given. Patient instructed to call back with worsening symptoms, concerns or questions. Patient verbalized understanding. Message to the office for review by the provider and needs recommendation from Provider for treatment going forward. Reason for Disposition Symptoms of high blood sugar (e.g., increased thirst, frequent urination, weight loss) and not able to test blood glucose, and Protocols used: Diabetes - High [facility] 11-07-2024 36 S: Patient spoke wit h CAC nurse regarding arrhythmia B: Onset of symptoms/concern 1 day A: States has had several episodes of arrhythmia. States dropping between 49 and going as high as 150. States when episodes occurs has difficulty breathing. States disrupted sleep. Feels fatigued. Current pulse 84. States when arrhythmia occurs becomes lightheaded. States propranolol ineffective. States was diagnosed with POTS. Denies fever, denies shortness of breath at this time, denies chest pain, denies lightheadedness or dizziness, denies skipped or extra heartbeat at this time. R: Please call patient [phone] to schedule office visit for today or tomorrow or with further recommendations. Patient understands care advice to rest, avoid caffeine, limit alcohol. No further needs at this time. Patient instructed to call back with new or worsening symptoms. Reason for Disposition Heart beating very rapidly (e.g., > 140 / minute) and not present now (Exception: During exercise.) Protocols used: Heart Rate and Heartbeat [facility] Name of caller: Brian min Contact phone number: [phone] Relationship to Patient: patient Provider: Dr. Gunn Practice: Neurology Chief Complaint/Reason for Call: Xiomara called advising medication propranolol (Inderal) 20 MG tablet isn't working well for her to regulate her heart rate. Patient advised she had an episode last night of her heart rate dropping and spiking and also today. Please call patient back and advise. Best time of day caller can be reached: any Patient advised that office/PCP has 24-48 business hours to return their call: Yes [facility] FEMALE PELVIS TRANSVAGon 08-31-2024 FEMALE PELVIS TRANSVAG * * *Final Report* * * DATE OF EXAM: Aug 31 2024 2:22PM U 1060 - FEMALE PELVIS TRANSVAG / PROCEDURE REASON: Pelvic pain in female * * * * Physician Interpretation * * * * EXAMINATION: TRANSVAGINAL AND LIMITED TRANSABDOMINAL FEMALE PELVIC ULTRASOUND CLINICAL HISTORY: Pelvic pain TECHNIQUE: Sonography of the pelvis was performed by transvaginal and transabdominal (limited) techniques. Images were obtained and stored in a permanent archive. MQ: [id number] COMPARISON: None RESULT: Uterus: -Size: 8.0 x 3.9 x 6.3 cm -Orientation: Anteverted -Endometrial echo complex: Evaluation of the endometrium was adequate. Intrauterine device appropriately positioned within the endometrial canal. The endometrial echo complex measured 0.6 cm. -Cervix: Unremarkable. -Adenomyosis assessment: There are no sonographic findings of adenomyosis. -Fibroids: There are no fibroids. Right Ovary: 5.2 x 3.7 x 4.6 cm - Normal sonographic appearance with physiologic follicles and a corpus luteum. Doppler imaging showed normal arterial and venous flow throughout the ovary. Left Ovary: 3.9 x 1.6 x 2.2 cm - Normal sonographic appearance with physiologic follicles. Doppler imaging showed normal arterial and venous flow throughout the ovary. Free Fluid: Small free fluid is likely physiologic. IMPRESSION: IUD in appropriate position. Unremarkable appearance of the uterus and ovaries. Emu Farmer[facility] Transcribe Date/Time: Sep 02 2024 8:30A Dictated by : KRANTHI MONTOYA MD This examination was interpreted and the report reviewed and electronically signed by: KRANTHI MONTOYA MD on Sep 02 2024 8:32AM EST [id number] Normal [facility] BACTERIAL VAGINOSIS NAATon 0 08-30-2024 Lactobacillus crispatus+gasseri+alexsander senii + Gardnerella vaginalis + Atopobium vaginae rRNA CR+probe Ql (Vag fld) Not detected Normal Not detected [facility] Comment on above: Order Comment: Speci men Type: SWABOrdering Facility: [facility] Address: [address] [place] [address] [place] [address] Performed By: #### 3 6902-5, BVAMP ####[facility] LABCLIA [id number] [place] [address] [place] Bacteria Ur Culton 5 Bacteria identified Cx Nom (U) ORGANISM ID: 1 >=100,000 CFU/ml Escherichia coli ORGANISM ID: 1 (ESCHERICHIA COLI) -- ANTIBIOTIC INTERPRETATION GREG STATUS REFERENCE RANGE -- Ampicillin S 8 F Susceptible <=8 , Intermediate >8 , Resistant >16 Cefazolin S <=4 F Susceptible 0-16 , Intermediate <0 or >16 , Resistant >16 For uncomplicated urinary tract infections, cefazolin results can be used to predict susceptibility or resistance to cephalexin. Ceftriaxone S <=1 F Susceptible <=1 , Intermediate >1 , Resistant >=4 Cefepime S <=1 F Susceptible <=2 , Susceptible-Dose Dependent >2 , Resistant >=16 Ertapenem S <=0.5 F Susceptible <=0.5 , Intermediate >.5 , Resistant >1 Meropenem S <=0.25 F Susceptible <=1 , Intermediate >1 , Resistant >2 Ampicillin/Sulbact S <=2 F Susceptible <=8 , Intermediate >8 , Resistant >16 Piperacillin/Tazobac S <=4 F Susceptible <16 , Susceptible-Dose Dependent >=16 , Resistant >=32 Gentamicin S <=1 F Susceptible <=2 , Intermediate >2 , Resistant >=8 Tobramycin S <=1 F Susceptible <4 , Intermediate >=4 , Resistant >=8 Trimeth sulfameth S <=20 F Susceptible <=40 , Resistant >40 Ciprofloxacin S <=0.25 F Susceptible <0.5 , Intermediate >=.5 , Resistant >=1 Nitrofurantoin S <=16 F Susceptible <=32 , Intermediate >32 , Resistant >64 Abnormal [facility] Comment on above: Performed By: #### 6 30-4 ####[facility] LABCLIA [id number] [place] [address] [place] C. trachomatis+N. gonorrhoea e DNA CR+probe Ql (Unsp spec)on 08-30-2024 C. trachomatis rRNA CR+probe Ql (Unsp spec) Not detected Normal Not detected [facility] Comment on above: Order Comment: Speci men Type: SWABOrdering Facility: [facility] Address: [address] [place] [address] Performed By: #### 3 6902-5, BVAMP ####[facility] LABCLIA [id number] [address] [place] N. gonorrhoeae rRNA CR+probe Ql (Unsp spec) Not detected Normal Not detected [facility] Comment on above: Order Comment: Speci men Type: SWABOrdering Facility: [facility] Address: [address] [place] [address] Performed By: #### 3 6902-5, BVAMP ####[facility] LABCLIA [id number] [place] [address] [place] KB/TRICHOMONAS NAATon 0 08-30-2024 C. glabrata RNA CR+probe Ql (Vag fld) Not detected Normal Not detected [facility] Comment on above: Order Comment: Speci men Type: SWABOrdering Facility: [facility] Address: [address] [place] [address] Performed By: #### C VTV ####[facility] LABCLIA [id number] [place] [address] [place] Kb sp DNA CR+probe Ql (Vag fld) Not detected Normal Not detected [facility] Comment on above: Order Comment: Speci men Type: SWABOrdering Facility: [facility] Address: [address] [place] [address] Result Comment: The Kb species group target includes C. albicans, C. tropicalis, C. parapsilosis, and C. dubliniensis. Performed By: #### C VTV ####[facility] LABCLIA [id number] [address] T. vaginalis DNA CR+probe Ql (Unsp spec) Not detected Normal Not detected [facility] Comment on above: Order Comment: Speci men Type: SWABOrdering Facility: [facility] Address: [address] [place] [address] [place] [address] Performed By: #### C VTV ####[facility] LABCLIA [id number] [address] OF [facility] CNOVon 08-30-2024 CNOV Office Visit (OBGYWM ) XIOMARA DELGADO ([id number]) 1995 [facility] Date Time Provider Department 08/30/24 1:30 PM NAYE SEPULVEDA OBGYWM During your visit today, we recorded the following information about you: Blood pressure Weight Last Period 124/80 73.7 kg 08/05/24 Naye Sepulveda APRN.CNM 08/30/2024 2:30 PM Signed Patient declined security tech. Xiomara Rian Danny is a 28 year old female who presents for problem visit pelvic pain for 2 month(s). States pain is a 'dull pain and a sharp pain on right side. Pain with intercourse. Had bleeding 3 weeks after Mirena IUD placement but not now. Concerned that IUD malpositioned. REVIEW OF SYSTEMS Abdomen: No bloating, early satiety, indigestion, or increased flatulence. No abdominal pain, nausea, vomiting, diarrhea, or constipation. Bladder: No dysuria, gross hematuria, POSITIVE FOR pressure at times and difficulty emptying bladder fully Breast: No breast lumps, nipple d/c, overlying skin changes, redness or skin retraction. Expanded ROS: N/A Allergies and current medication updated:Yes SENSITIVE EXAM: The sensitive examination was discussed with the Patient or Patient's Authorized Tape Edge Machine Operator. As applicable, any other physician, advance practice provider, medical student, or other health professional student that will be observing or involved in the sensitive examination for educational or training purposes was discussed with the Patient or Authorized Tape Edge Machine Operator. The Patient or Authorized Tape Edge Machine Operator has agreed to proceed with the sensitive examination. (Sensitive examination includes inspection and/or palpation of the breasts, pelvis, prostate and anorectal regions). EXAM: BP 124/80 Wt 162 lb 6.4 oz (73.7kg) LMP 08/05/2024 GENERAL: pleasant, female in no apparent distress HEENT: Normocephalic and atraumatic NECK: Supple and full range of motion DERMATOLOGY: Normal and without lesions BREAST: deferred CHEST: Normal inspiratory effort ABDOMEN: Deferred PELVIC: external genitalia normal, no vulvar lesions, no cervical lesions, good vaginal support, abnormal discharge large amount of thick yellow discharge, IUD strings visible BIMANUAL: uterus normal size, shape and consistency, no adnexal masses, non-tender, and no cervical motion tenderness NEURO: alert and oriented x3,exam grossly non-focal EXTREMITIES: normal ASSESSMENT AND PLAN: Assessment AND Plan Pelvic pain in female Orders: US FEMALE PELVIS TRANSVAG; Future GONORRHEA/CHLAMYDIA NAAT UA DIP, URINE (POC) BACTERIAL CULTURE, URINE KB/TRICHOMONAS NAAT BACTERIAL VAGINOSIS NAAT Difficulty in urination UA dip- POSITIVE for blood, protein, nitrates, and leukocytes. Start Macrobid 100 mg PO BID x 7 days Send urine for culture Will follow up with patient after results returned Naye Sepulveda APRN.CNM Allergies As of Date: 08/30/2024 (No Known Allergies) Date Reviewed: 08/30/2024 Reviewed by: Richa Scruggs LPN - Fully Assessed Reason for Visit: Problem Visit [Other] Primary Visit Diagnosis:Pelvic pain in female [R10.2] Other Visit Diagnosis:Difficulty in urination [R39.198] Order(s):US FEMALE PELVIS TRANSVAG [[id number]] Order #: [id number] FUTURE GONORRHEA/CHLAMYDIA NAAT [SQGCCT] Order #: [id number]. #:[id number] UA DIP, URINE (POC) [[id number]] Order #: [id number]. #:[id number] BACTERIAL CULTURE, URINE [SQURCUL] Order #: [id number]. #:[id number] KB/TRICHOMONAS NAAT [SQCVTV] Order #: [id number]. #:[id number] BACTERIAL VAGINOSIS NAAT [SQBVAMP] Order #: [id number]. #:[id number] nitrofurantoin monohydrate and macrocrystal (MACROBID) 100 mg capsuleTake 1 capsule by mouth two times a day for 7 days.Disp: 14 capsuleRfl: 0 Prescriptions as of 08/30/2024 - propranolol (INDERAL) 20 mg tablet Take 20 mg by mouth two times a day. - nitrofurantoin monohydrate and macrocrystal (MACROBID) 100 mg capsule Take 1 capsule by mouth two times a day for 7 days. - fremanezumab-vfrm subcutaneus auto-injector 225 mg/1.5 mL (AJOVY) Inject 225 mg subcutaneously once every month. - NURTEC ODT 75 mg disintegrating tablet Take 75 mg by mouth once daily as needed. - hydrOXYzine HCl (ATARAX) 25 mg tablet Take 25 mg by mouth at bedtime as needed. - acetaminophen (TYLENOL ORAL) Take by mouth. Problem List As Of Date 08/30/2024 Noted Resolved Spotting in early [O26.859] 01/16/2021 04/30/2022 Tobacco use during , antepartum [O99.3*01/16/2021 04/30/2022 Family history of congenital heart defect [Z82.*01/16/2021 Patient request for diagnostic testing [Z01.89] 01/16/2021 07/31/2022 Rh negative state in antepartum period [O26.899*01/20/2021 10/27/2022 Supervision of high risk in third tri*06/13/2021 10/27/2022 Anemia during in second trimester [O9*06/26 (more content not included)... Normal [facility] UA DIP, URINE (POC)on 2024 BILIRUBIN UA (POCT) Negative Negative [facility] CLARITY UA (POCT) Slightly Cloudy Cl [facility] COLOR UA (POCT) Other [facility] GLUCOSE UA (POCT) Negative Negative mg/dL [facility] Hemoglobin Ql (U) Trace-intact Abnormal Negative [facility] Interpretation and review of laboratory results Abnormal [facility] KETONE UA (POCT) Negative Negative mg/dL [facility] LEUKOCYTES UA (POCT) Moderate Abnormal Negative [facility] NITRITE UA (POCT) Positive Abnormal Negative [facility] PH UA (POCT) 5.5 4.5 - 8.0 [facility] Protein Ql (U) Trace Abnormal Negative mg/dL [facility] SPECIFIC GRAVITY UA (POCT) 1.02 1.005 - 1.030 [facility] UROBILINOGEN UA (POCT) 1 Normal E.U./dL [facility] Location:[facility], [address] [facility], [place], [place], [address] [place] [address] POINT OF CARE [facility] 36on 08-24-2024 36 Name of Caller: Brian min Contact Reason for Appointment: Patient called stating that she is stuck in traffic and her GPS says she will be to the office by 9:40am. Patients appointment is scheduled for 9:20am with Dr Gunn. Patient asking if she will still be able to be seen and if she needs to reschedule to please call her back to reschedule. 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 Please advise. Office Name: Neurology Medication Refills need, if any: N/A Medication Name: N/A Normal [facility] Office Visiton 08-24-2024 Follow-up visit [id number] Corby Delgado 1995 F Date Provider Department Center 08/24/2024 [id number] GUNN [facility] FERNANDO None Family History Problem Relation Age of Onset No Known Problems Father High Blood Pressure Mother Family Status - Relation Status Age at Father Alive Mother Alive Level of Service:59777 [place] OFFICE/OUTPATIENT ESTABLISHED MOD MDM 30 MIN Reason for Visit and Comments: Follow-up [522030] - Migraine and POTS follow up [facility] Progress Noteon 08-24-2024 Progress Note 08/24/2024 CC Headaches Patient ID and HPI Xiomara Delgado is a 28 y.o. Rt handed female with Past medical history of neurogenic POTS with small fiber neuropathy, chronic migraines, hypoglycemia, iron deficiency, maxillary sinusitis, migraines, tobacco abuse who presents to neurology office for follow-up, last seen March 2024 Initial evaluation: September 2023 The patient states that her headaches started when she/he was in high school. He have an injury in high school when she went to tree tipping and it hit her in the head. Migraines have not changed in characteristics. Has different kinds of headaches. The patient was diagnosed with 2 different kinds of headaches including occipital neuralgia and chronic migraines. In regards to sudden onset headaches, CT angiogram was done which did not show any aneurysm. Metoprolol was increased from 25 mg to 50 mg. Rizatriptan caused some chest tightness and was switched to sumatriptan. December 2023 still having significant number of headaches and increasing metoprolol caused low blood pressure. She was started on Topamax. Also complained of other episodes which she has had since she was young but happened more when she was with a second child a few years ago, feels like a hay to the head and everything goes black without confusion or LOC no palpitations, shortness of breath or chest pain. Metoprolol did not help and happens about few times a month and last for few seconds. Happens when she gets up too quickly or sometimes when she stands for long period of time. Testing was ordered for autonomic dysfunction at [facility] which was consistent with POTS with small fiber neuropathy. January 2024, started on Nurtec but still had significant headaches and was started on Ajovy in March 2024. She was also started on midodrine for her POTS. Interval hx: Doing better POTS symptoms: going well No syncope On a bad day: dizziness: not having as much bad days (once a week, prior to midodrine she had them everyday) Has not filled midodrine since Nov : unsure why Drinking water and salt intake Hardly has headaches: once a month Takes ajovy: no side effects Does not even need the nurtec PMHx: has a past medical history of Fibrocystic breast, Heart murmur, Hypoglycemia, and Ovarian cyst. 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 Aura: No Headache description: Holo cranial, throbbing Intensity: 5-10/10 Duration of symptoms: up to 2 days Frequency of headaches: 16-18 total migraine days with 1-2 times a month severe Associated symptoms: photophobia, phonophobia, osmophobia, fatigue, nausea, vomiting, irritability Exacerbating factors: Moderate activity, stress, Alleviating factors: Improved with rest or sleep, dim lighting Things done when pt gets a headache: tylenol 10 days a month Triggers: None Association with menses: No Visual symptoms: Blurry vision Type: Chronic Migraine without aura 2. Left sided occipital pressure, multiple times a day, multiple times a week, lasts for a few seconds 3. Stabbing electric headache, brief, no triggers, any part of the head and radiating to multiple parts, 1-2 times a month Red flags: sudden onset, tinnitus, No focal neurological symptoms, Non positional or precipitation by valsalva, No systemic signs, Does not wake up from sleep Change in headaches characteristic: No Ophthalmology exam: 2 years ago ER visit/missed days at work: 0 Imaging and Pertinent Testing CT angiogram head and neck October 2023 per my independent review does not show any acute intracranial abnormalities, no large aneurysms Autonomic testing: Heart rate response to deep breathing is normal via the mean heart rate range and the E:I ratio (1.26). Heart rate response to the Valsalva Maneuver (VM), as assessed by the Valsalva Ratio (VR), is normal as are the blood pressure responses to phase II and phase IV of the maneuver. During 10 minutes of 70 degrees head-up tilt, heart rate response was exaggerated but blood pressure (BP) responses were normal. The patient experienced nausea and shortness of breath. QSART responses at the foot and distal leg are low but the responses at th (more content not included)... Normal [facility] ED Prov Noteon 08-11-2024 ED Prov Note ED PROVIDER NOTE [facility] EMERGENCY DEPARTMENT NAME: Xiomara Delgado AGE: 28 y.o. : 1995 VISIT DATE: 08/11/2024 CSN: [id number] PCP: Jairo Garcia MD No chief complaint on file. Patient is a 28-year-old female with no significant past medical history presented for concern of dental pain. Patient states the last 2 days she has had pain in her right upper posterior molar and is concerned about dental infection. Patient states she is getting her wisdom teeth removed in a few weeks. Patient states has been taking [id number] analgesia which provides no relief. Patient denies any tongue elevation or swelling, inability handle secretions, drooling or change in voice. Patient denies any additional constitutional symptoms. Past Medical History: Diagnosis Date Known health problems: none No past surgical history on file. No family history on file. Social History [1] Previous Medications Medication Sig albuterol 90 mcg/actuation inhaler Inhale 2 (two) puffs every 6 (six) hours as needed for wheezing . azithromycin (ZITHROMAX) 250 MG tablet Take 1 (one) tablet (250 mg total) by mouth daily . cefdinir (OMNICEF) 300 MG capsule Take 1 (one) capsule (300 mg total) by mouth 2 (two) times a day . hydrOXYzine (ATARAX) 25 MG tablet Take 1 (one) tablet (25 mg total) by mouth Prior to discharge from the hospital . Nurtec ODT 75 mg ODT Dissolve 1 (one) tablet (75 mg total) on top of tongue daily as needed (for migraines) . topiramate (TOPAMAX) 50 MG tablet Take 1 (one) tablet (50 mg total) by mouth daily . Allergies[2] Review of Systems Constitutional: Negative for chills and fever. HENT: Positive for dental problem. Eyes: Negative for pain. Respiratory: Negative for cough, chest tightness and shortness of breath. Cardiovascular: Negative for chest pain and palpitations. Gastrointestinal: Negative for abdominal pain, nausea and vomiting. Genitourinary: Negative for flank pain. Musculoskeletal: Negative for arthralgias and myalgias. Skin: Negative for rash. Neurological: Negative for dizziness, syncope, light-headedness and headaches. Psychiatric/Behavioral : Negative for agitation. All other systems reviewed and are negative. No data found. Physical Exam Vitals and nursing note reviewed. Constitutional: Appearance: Normal appearance. HENT: Head: Normocephalic. Mouth/Throat: Comments: Right upper posterior molar is cracked and carious with associated gingival erythema with no evidence of periodontal abscess. No tongue elevation or swelling. No difficulty handling secretions. Eyes: Pupils: Pupils are equal, round, and reactive to light. Cardiovascular: Rate and Rhythm: Normal rate and regular rhythm. Pulses: Normal pulses. Heart sounds: Normal heart sounds. Musculoskeletal: Cervical back: Normal range of motion. Pulmonary: Effort: Pulmonary effort is normal. Breath sounds: Normal breath sounds. Skin: General: Skin is warm. Capillary Refill: Capillary refill takes less than 2 seconds. Neurological: General: No focal deficit present. Mental Status: She is alert. Psychiatric: Mood and Affect: Mood normal. Laboratory & Radiographic Imaging (if done): No results found for this visit on 08/11/24. No orders to display Procedures Medical Decision Making Patient seen and evaluated for concern of dental pain. Patient has a dental infection of the right upper molar which require antibiotics. Patient given a dose of clindamycin and a prescription for clindamycin for home and provided appropriate dental clinic follow-up. Patient is not any red flags of dental pain and therefore additional workup was not done. Patient agrees assessment and plan was discharged stable condition. . . Clinical Impression: 1. Pain, dental ED Disposition ED Disposition Discharge Condition Stable Comment Xiomara Delgado discharged to home/self care in stable condition. Follow-up Information 1. Jairo Garcia MD. Specialty: Family Medicine Why: As needed, If symptoms worsen [address] [facility], [address] [facility] [address] [facility] Why: As needed, If symptoms worsen [address] [place] [id number] Contact information for after-discharge care Follow-up information has not been specified. New Prescriptions clindamycin (CLEOCIN) 300 MG capsule Take 1 (one) capsule (300 mg total) by mouth 3 (three) times a day for 7 days . [1] Social History Socioeconomic History Marital status: Single Tobacco Use Smoking status: Every Day Types: Cigarettes Passive exposure: Current Smokeless tobacco: Never Vaping Use Vaping status: Never Used Substance and Sexual Activity Alcohol use: Not Currently Drug use: Never Social Drivers of Health Financial Resource Strain: Low Risk (02/10/2023) Received from [facility] (more content not included)... [facility] 29on 08-04-2024 29 Addended by: SARMAD CEBALLOS on: 08/09/2024 04:35 PM Modules accepted: Level of Service Normal [facility] Office Visiton 08-04-2024 Follow-up visit [id number] Corby Delgado 1995 F Date Provider Department Center 08/04/2024 [id number] CEBALLOS [facility] Family History Problem Relation Age of Onset No Known Problems Father High Blood Pressure Mother Family Status - Relation Status Age at Father Alive Mother Alive Level of Service:88392 [place] OFFICE/OUTPATIENT ESTABLISHED MOD MDM 30 MIN Reason for Visit and Comments: ER Follow-up [831] - [place]-shingles, and for medication check [facility] Progress Noteon 08-04-2024 Progress Note Resolving. Triamcinolone cream for itching twice daily as needed x 7 to 14 days. Normal [facility] Progress Note Continue hydroxyzine 25 mg nightly as needed for sleep. Normal [facility] Progress Note Controlled, continue low-fat low-cholesterol diet. Plan to check cholesterol levels at next visit [facility] Progress Note 08/04/2024 Xiomara A Danny (: 1995) is a 28 y.o. female , Established patient, here for evaluation of the following chief complaint(s): ER Follow-up ([place]-shingles, and for medication check) ASSESSMENT/PLAN: 1. Herpes zoster without complication Assessment & Plan: Resolving. Triamcinolone cream for itching twice daily as needed x 7 to 14 days. Orders: - triamcinolone (Kenalog) 0.1 % cream; Apply to affected area 1-2 times daily as needed x 7 -14 days. Avoid face and groin., Normal 2. Pure hypercholesterolemia Assessment & Plan: Controlled, continue low-fat low-cholesterol diet. Plan to check cholesterol levels at next visit 3. Other insomnia Assessment & Plan: Continue hydroxyzine 25 mg nightly as needed for sleep. Follow up in about 6 months (around 02/03/2025) for Yearly Wellness Visit. SUBJECTIVE/OBJECTIVE: HPI - Xiomara Delgado (: 1995) is a 28 y.o. female , Established patient, here for the evaluation of the following chief complaint(s): ER Follow-up (Leonardo-shingles, and for medication check) And med check Patient presents today for med check and follow-up from the ER. Had shingles rash on the left torso and went to the emergency room. She was started on antiviral medication. Did not have significant improvement and was started on a different antiviral medication. She has completed the antiviral medication and also steroids that Dr. Garcia had sent in for her. She reports the rash is not as painful anymore but is very itchy. She is still taking Tylenol a couple times a day for any discomfort. Migraines-she sees neurology for her migraines and reports they have been controlled Insomnia-reports taking hydroxyzine at night if needed for sleep and that works well. States she only takes it a couple times a week if at all Current Outpatient Medications Medication Sig Dispense Refill Acetaminophen (TYLENOL 8 HOUR PO) Take by mouth. acyclovir (Zovirax) 800 MG tablet TAKE 1 TABLET BY MOUTH FIVE TIMES A DAY fremanezumab (Ajovy) 225 MG/1.5ML auto-injector Inject 1 Pen (225 mg) under the skin every 30 (thirty) days. 1.5 mL 3 hydrOXYzine HCl (Atarax) 25 MG tablet Take 1 tablet (25 mg) by mouth Nightly as needed (sleep). 30 tablet 0 midodrine (Proamatine) 2.5 MG tablet Take 1 tablet (2.5 mg) by mouth 3 times daily. Do not start before March 16, 2024. 90 tablet 3 norethindrone (Aygestin) 5 MG tablet Take 1 tablet THREE TIMES DAILY until bleeding stops for 24 hours, then 1 tablet TWICE DAILY for 3 days, then 1 tablet daily for 3 days. Rimegepant Sulfate (Nurtec) 75 MG tablet dispersible Take 1 tablet (75 mg) by mouth Daily as needed (migraine). 8 tablet 3 albuterol 108 (90 Base) MCG/ACT inhaler Inhale 2 puffs every 6 hours as needed for shortness of breath. 18 g 1 triamcinolone (Kenalog) 0.1 % cream Apply to affected area 1-2 times daily as needed x 7 -14 days. Avoid face and groin. 30 g 0 No current facility-administered medications for this visit. Review of Systems Constitutional: Negative. HENT: Negative. Eyes: Negative. Respiratory: Negative. Cardiovascular: Negative. Gastrointestinal: Negative. Endocrine: Negative. Skin: Positive for rash. Neurological: Positive for headaches (Migraines at baseline sees neurology). Negative for dizziness, weakness and light-headedness. Psychiatric/Behavioral : Negative. Vitals: 08/04/24 0840 BP: 93/67 Pulse: 70 Resp: 18 Temp: 37.4 ?C (99.3 ?F) TempSrc: Infrared SpO2: 98% Weight: 162 lb 9.6 oz (73.8 kg) Physical Exam Constitutional: General: She is not in acute distress. Appearance: Normal appearance. She is not ill-appearing. HENT: Head: Normocephalic and atraumatic. Right Ear: Tympanic membrane normal. Left Ear: Tympanic membrane normal. Nose: Nose normal. Mouth/Throat: Mouth: Mucous membranes are moist. Pharynx: Oropharynx is clear. No posterior oropharyngeal erythema. Eyes: Conjunctiva/sclera: Conjunctivae normal. Neck: Vascular: No carotid bruit. Cardiovascular: Rate and Rhythm: Normal rate and regular rhythm. Pulses: Normal pulses. Heart sounds: Normal heart sounds. Pulmonary: Effort: Pulmonary effort is normal. Breath sounds: Normal breath sounds. Musculoskeletal: Right lower leg: No edema. Left lower leg: No edema. Lymphadenopathy: Cervical: No cervical adenopathy. Skin: General: Skin is warm. Findings: Rash present. Neurological: Mental Status: She is alert and oriented to person, place, and time. An electronic signature was used to authenticate this note. Sarmad Cbeallos, GWENDOLYN - [place] 08/04/2024 12:[address] [facility] Progress Note Patient was identifi ed by name and Date of . [facility] 07-31-2024 36 Pt scheduled 08/03/2024 [facility] [id number] 36 Called patient no answer left detailed voicemail advising to call office back , also advised her that [employer] message was sent and may respond back that way with any further questions. [facility] 07-27-2024 36 I am going to switch her to Valacyclovir 1000 mg 3 times a day for 7 days and I am going to send in a prescription for prednisone she is to take 3 tablets for 5 days 2 tablets for 3 day and 1 tablet for [address] [facility] 36 S: Patient spoke dylon [employer] nurse regarding Shingles whole left side getting worse, painful lift up arm Provider: Radha Practice Name: Cliff REY B: Onset of symptoms/concern 3 days ago. A: Patient states she thinks she has shingles. States rash starts at belly button and wraps around to back. States started with little bumps States now they are big now Rash is very red. States she is on acyclovir now that she got on 07/25 when she was evaluated in ER for symptoms. States rash does not need me to be getting better and states it is very painful. States it is starting to wrap around to back and she is is concerned acyclovir is not helping. Denies itching. R: No appointment available in office today. Patient advised to be evaluated in urgent care as her symptoms are worsening including spreading of rash and severe pain. Patient verbalizes understanding of care advice. No further needs at this time. Patient instructed to call back with new or worsening symptoms. Reason for Disposition SEVERE pain (e.g., excruciating) Protocols used: Shingles (Zoster)-ADULT-[place] [facility] 07-25-2024 36 okay, thank you [facility] 36 S: Patient spoke dylon [employer] nurse regarding spreading rash. B: Onset of symptoms/concern: 1-2 hours ago. Pt had a mirena placed a few days ago. A: Pt has a spreading rash that originated near her belly button and has now spread around to her back. Some portions of the rash is itchy, other potions feel like a burning sensation. Pt's rash looks like red with white heads and blotchy. Pt is able to touch chin to chest. Denies fever, joint pain/swelling, headache, sore throat, ring like appearance. R: Shared home care advice and scheduled pt a SDA with Dr Garcia for 2:00 pm today. Patient understands care advice. No further needs at this time. Patient instructed to call back with new or worsening symptoms. Reason for Disposition Mild widespread rash (Exception: Heat rash lasting 3 days or less.) Protocols used: Rash or Redness - [facility] Summary on 07-25-2024 Emergency Department Summary [facility] Medical Records Department [address] [place] [id number] Emergency Department Summary 07/25/24 MR#: [id number] Acct: [id number] Name: XIOMARA DELGADO Rep #: [id number] : 1995 28 From: Willi Rogers DO PCP: Dr. Jairo Garcia MD Status:DEP ER Location: ED HPI History of Present Illness Chief Complaint: Chest Other Informant: patient Onset/Context/Timing Onset: Today Context: Sudden Onset Timing: Continuous Quality: Sharp Location: Left lower ribs Worsened by: Movement Relieved by: Nothing Narrative Narrative: Patient presents with left rib pain that began today. Patient states it began rather suddenly. Patient states it is constant. Patient states it is over the left lower rib area. Patient describes it as sharp. Patient states it is worse with any movement. Patient denies any trauma or injury. Patient states she also has a rash over this area tonight. Patient denies any new soaps, foods, or other known exposures. Patient denies any shortness of breath. Patient admits to some nausea but denies any vomiting. [facility] Medical History Precordial pain Palpitations Idiopathic hypotension Near syncope Dizziness (spontaneous vaginal delivery) Tobacco use during Spontaneous onset of labor 40 weeks gestation of Laceration, obstetrical, first degree (spontaneous vaginal delivery) COVID-19 virus RNA test result positive at limit of detection Rh negative state in antepartum period Anemia affecting Home Medications ???Medication ???Instructions ???Recorded ???Last Taken ???Type metoprolol succinate 25 mg 25 mg PO DAILY #30 tabs 08/27/23 U nknown Rx tablet,extended release 24 hr acyclovir 800 mg tablet 800 mg PO 5X/DAY #35 TABLETS 07/25 Unknown Rx Allergy/AdvReac Type Severity Reaction Status Date / Time No Known Allergies Allergy Verified 08/27/23 10:55 Family History Grandfather Heart disease Social History Smoking Status: Current some day smoker tobacco type: e-cigarettes ROS ROS ED Constitutional Constitutional ED: Denies chills or fever(s) Eyes Eyes: Denies blurry vision or change in vision ENT ENT ED: Denies rhinorrhea or sore throat Cardiovascular Cardiovascular: Reports chest pain; Denies palpitations Respiratory/Chest Respiratory/Chest: Denies cough or dyspnea Gastrointestinal Gastrointestinal: Reports nausea; Denies vomiting Genitourinary Genitourinary ED: Denies dysuria or hematuria Musculoskeletal Musculoskeletal: Denies back pain or neck pain Integumentary Reports rash; Denies abscess Neurologic Neurologic: Denies headache(s) or weakness Allergic/Immunologic Allergic/Immunologic ED: Denies mouth swelling or urticaria EXAM Physical Exam Const Vital Signs: 07/25/24 04:31 Temperature 98.1 F Temperature Source Oral Pulse Rate 76 Respiratory Rate 18 Blood Pressure 120/55 L Blood Pressure Mean 76 Pulse Ox 99 Oxygen Delivery Method Room Air Positive well nourished and well developed General Appearance ED: well developed and NAD HEENT Reports moist mucous membranes Neck supple and no JVD Resp normal respiratory effort and clear to auscultation bilaterally Cardio regular rate and regular rhythm GI non-tender and non-distended Palpation: soft Extremity normal to inspection General Extremety ED: Negative for edema General Extremity: Negative for edema Neuro oriented x3, CN's II-XII intact bilaterally and no sensory deficits noted Sensorium / Orientation: alert Motor Exam: strength 5/5 throughout Psych mental status grossly normal Skin Skin Narrative: There is an erythematous patch she rash along the left T9 dermatome. There are few vesicles noted. There is no discharge or drainage noted. There is no crusting noted. There is some tenderness with palpation over this area. MDM MDM MDM Narrative Medical decision making narrative: Nicotine cessation was discussed. Patient was advised that this is consistent with varicella- zoster. Patient was given a dose of acyclovir here. Patient is given a prescription for acyclovir. Patient was instructed to continue using Tylenol or ibuprofen as needed for pain. Patient was instructed to follow-up with her primary care physician as scheduled. Patient understood and was agreeable with the plan. All questions were answered. Discharge Plan Triage Chief Complaint: Chest Other Other Complaint: Rash ED Provider: Willi Rogers Dx/Rx/DC Orders Clinical Impression: Varicella zoster, Nicotine vapor product user Instructions: ED Shingles (Herpe (more content not included)... Normal [facility] CNOVon 07-21-2024 CN Office Visit (OBGYWM ) XIOMARA DELGADO ([id number]) 1995 [facility] Date Time Provider Department 07/21/24 11:30 AM NAYE SEPULVEDA OBKELLYWM During your visit today, we recorded the following information about you: Blood pressure Weight 110/62 73 kg Naye Sepulveda APRN.CNM 07/21/2024 12:19 PM Addendum Xiomara Rian Danny is a 28 year old female who presents for problem visit to discuss pelvic ultrasound results. f HPI: Seen yesterday in office for IUD removal and replacement. She was having pelvic pain and irregular bleeding. A pelvic US was completed and IUD (ParaGard) found to be malpositioned. She had ParaGard removed and Mirena IUD placed. Received ultrasound report and had questions over Both ovaries contain multiple small follicular cysts at the periphery of the ovarian stroma. This finding is suggestive of polycystic ovarian syndrome. OB History Gravida2 Para2 Term2 Preterm0 AB0 Living2 SAB0 IAB0 Ectopic0 Multiple0 Live Births2 [employer] History LMP: LMP Unknown, IUD Age at Menarche: Age at First : Age at Menopause: [employer] History Comments: Sexual Activity: Yes; Male; paragard Contraception: I.U.D. PAST MEDICAL HISTORY Diagnosis Date Anemia during in third trimester 06/26/2021 Depression depression Hypoglycemia diagnosed age 9 depression PAST SURGICAL HISTORY Procedure Laterality Date INSERTION OF IUD 11/30/2022 FAMILY HISTORY Problem Relation Age of Onset Hypertension Mother No Known Problems Father No Known Problems Sister No Known Problems Sister No Known Problems Brother No Known Problems Maternal Grandmother Arthritis Paternal Grandmother Hypertension Paternal Grandfather No Known Problems Daughter Social History Tobacco Use Smoking status: Some Days Current packs/day: 1.00 Average packs/day: 1 pack/day for 10.0 years (10.0 ttl pk-yrs) Types: Cigarettes Smokeless tobacco: Never Tobacco comments: 1-2 cigarettes a day Vaping Use Vaping status: Some Days Last attempt to quit: 02/25/2022 Substances: Nicotine, Flavoring Substance Use Topics Alcohol use: Not Currently Comment: on special occasions Drug use: No Current Outpatient Medications Medication Sig copper (PARAGARD) 380 square mm intrauterine device 1 Intra Uterine Device by INTRAUTERINE route one time only. fremanezumab-vfrm subcutaneus auto-injector 225 mg/1.5 mL (AJOVY) Inject 225 mg subcutaneously once every month. midodrine (PROAMATINE) 2.5 mg tablet Take 2.5 mg by mouth three times a day. NURTEC ODT 75 mg disintegrating tablet Take 75 mg by mouth once daily as needed. hydrOXYzine HCl (ATARAX) 25 mg tablet Take 25 mg by mouth at bedtime as needed. acetaminophen (TYLENOL ORAL) Take by mouth. norethindrone (AYGESTIN) 5 mg tablet Take 1 tablet TID until bleeding stops for 24 hours, then 1 tablet BID x 3 days, then 1 tablet daily x 3 days. (Patient not taking: Reported on 07/20/2024) No current facility-administered medications for this visit. Allergies As of Date: 07/21/2024 (No Known Allergies) Fully Assessed 07/21/2024 REVIEW OF SYSTEMS Abdomen: Cramping since placement of IUD yesterday Bladder: No dysuria, gross hematuria, urinary frequency, urinary urgency, or incontinence. Breast: No breast lumps, nipple d/c, overlying skin changes, redness or skin retraction. Expanded ROS: N/A Allergies and current medication updated:Yes SENSITIVE EXAM: Sensitive exam not performed. EXAM: BP 110/62 Wt 161 lb (73.0kg) GENERAL: pleasant, female in no apparent distress HEENT: Normocephalic NECK: Supple and full range of motion DERMATOLOGY: Normal, without lesions, non-icteric, and non-hirsute/ no acne ASSESSMENT AND PLAN: Assessment AND Plan Polycystic ovaries Discussed ultrasound findings and questions answered about PCOS Patient had mother on face time during visit and answered her questions as well Patient education hand outs provided Mirena IUD placed yesterday Support provided- if patient desires in future- will discuss plan of care at that time. She has 2 children and became without difficulty Patient concerned over future diabetes- offered to draw fasting glucose / Hgb A1c - declines RTO PRN / Annual exams Naye Sepulveda APRN.CNM Allergies As of Date: 07/21/2024 (No Known Allergies) Date Reviewed: 07/21/2024 Reviewed by: Kameron Moreira MA - Fully Assessed Reason for Visit: Follow Up [171] Cmt: Pelvic US on 07/13 Primary Visit Diagnosis:Polycystic ovaries [E28.2] Prescriptions as of 07/21/2024 - fremanezumab-vfrm subcutaneus auto-injector 225 mg/1.5 mL (AJOVY) Inject 225 mg subcutaneously once every month. - midodrine (PROAMATINE) 2.5 mg tablet Take 2.5 mg by mouth three times a day. - NURTEC ODT 75 mg disintegrating tablet Take 75 mg by mouth once daily as needed. - (more content not included)... Normal [facility] CNOVon 07-20-2024 CNOV Office Visit (OBGYWM ) XIOMARA DELGADO ([id number]) 1995 [address] [facility] Date Time Provider Department 07/20/24 2:50 PM MARY MCLAUGHLIN OBKELLYWArya During your visit today, we recorded the following information about you: Blood pressure Weight 112/68 73.5 kg Mary Mclaughlin MD 07/20/2024 3:50 PM Signed Xiomara presents today for IUD removal and Mirena IUD insertion for contraception. No LMP recorded (lmp unknown). (Menstrual status: IUD). GC/chlamydia: Not done: no risk factors and/or patient declines screening test: negative Side effects including irregular bleeding were discussed with the patient. The patient understands that it should be removed in 8 years or sooner if the patient desires a . IUD source: office provided IUD lot #: [id number] Exp date: 03/02/2026 UNIVERSAL PROTOCOL / SAFETY CHECKLIST Procedure to be Performed: IUD removal and Mirena IUD insertion Sign In: A Moment of CARE was completed. Appropriate PPE (Personal Protective Equipment) worn by all providers involved with the procedure. Special equipment not required. Patient/Surrogate Stated/Verified: Patient name, Date of , Relevant allergies, and The intended procedure Time Out: Relevant labs, photos, and/or imaging studies have been reviewed. Intended patient and procedure match the source document(s) (e.g. consent, HANDP, associated studies [imaging, pathology]) match the intended patient and procedure. Consent obtained and matches the intended procedure. Yes. Correct side/site is not applicable. Medications required for this procedure are verified. Fire risk assessed and is not applicable. Implants: Correct implant(s) confirmed including size and side. Expiration date(s) reviewed. Sign Out: Specimens: none All instruments, equipment, possible retained foreign bodies are accounted for. Yes. The post-procedure plan of care has been communicated to the patient or surrogate. PROCEDURE: Removal:Insertion: Speculum placed in vagina, IUD string visualized and grasped with ring forceps. Insertion: The cervix was prepped with betadine. The uterus sounded to 8 cm and the uterus is Anteverted. Using sterile technique, the Mirena IUD was inserted without difficulty and the string was cut to 4cm from the external os of the cervix. Patient tolerated procedure well. PLAN: Patient was advised to observe for signs and symptoms of infection including but not limited to fever, malodorous vaginal discharge and/or pain. The patient was told to check the string monthly for accurate placement. Bleeding expectations were reviewed. Follow up for next annual exam or sooner as needed. MD Susan Bradford Tabatha, MA 07/20/2024 2:59 PM Signed POST IUD INSTRUCTIONS You may have irregular bleeding during the first 3 months of use. You may have mild-severe cramping for the next 48 hours. You may use over the counter medication (Motrin, Tylenol) as needed. Your IUD must be removed or replaced based on the following table: IUD Type Removed or replaced within: Kita 3 years Kyleena 5 years Mirena 8 years Liletta 8 years Paragard 10 years Call the office for signs/symptoms of infection such as severe cramping, fever, or unusual bleeding. Check for string placement as instructed by your doctor. If you have any additional questions, please contact the office. Mary Mclaughlin MD 08/02/2024 9:43 AM Signed Addended by: MARY MCLAUGHLIN on: 08/02/2024 09:43 AM Modules accepted: Orders Referring Provider: DAVINA POLK [[id number]] Allergies As of Date: 07/20/2024 (No Known Allergies) Date Reviewed: 07/20/2024 Reviewed by: Mary Mclaughlin MD - Fully Assessed Reason for Visit: Insertion Of IUD [291] IUD Removal [1950] Primary Visit Diagnosis:Malpositione d intrauterine device (IUD), initial encounter [T83.32XA] Other Visit Diagnoses:Encounter for IUD insertion [Z30.430] Encounter for IUD removal [Z30.432] Order(s):UA DIP,URINE HCG (POC) [[id number]] Order #: [id number]. #:[id number] INSERT INTRAUTERINE DEVICE [[id number]] Order #: [id number] [] levonorgestrel 21 mcg/24hr (up to 8 yrs) 52 mg 1 Each intrauterine device (MIRENA)Disp: Rfl: Prescriptions as of 08/02/2024 - fremanezumab-vfrm subcutaneus auto-injector 225 mg/1.5 mL (AJOVY) Inject 225 mg subcutaneously once every month. - midodrine (PROAMATINE) 2.5 mg tablet Take 2.5 mg by mouth three times a day. - NURTEC ODT 75 mg disintegrating tablet Take 75 mg by mouth once daily as needed. - hydrOXYzine HCl (ATARAX) 25 mg tablet Take 25 mg by mouth at bedtime as needed. - acetaminophen (TYLENOL ORAL) Take by mouth. Problem List As Of Date 07/20/2024 Noted Resolved Spotting in early [O26.859] 01/16/2021 04/30/2022 Tobacco use during , antepartum [O99.3*01/16/2021 04/30/2022 Family history of congeni (more content not included)... Normal [facility] UA DIP,URINE HCG (POC)on Beta HCG ( test) Ql (U) Negative Negative [facility] Comment on above: Location:[facility], [address], [place], [address] Line Dancer (POCT) Internal QC OK [facility] Location:[facility], [address], [place], [address] [facility] POINT OF CARE [facility] US Pelvison 07-13-2024 Indication irregular bleeding, Localization of IUD Impression 3D rendering of the uterus demonstrates a malpositioned IUD with the device positioned incorrectly, too low in the cavity for a Paraguard IUD. The uterus is anteverted and measures 86 mm x 35 mm x 48 mm. The endometrial thickness is 4 mm. The right ovary measures 39 mm x 23 mm x 26 mm. The left ovary measures 49 mm x 21 mm x 20 mm. Both ovaries contain multiple small follicular cysts at the periphery of the ovarian stroma. This finding is suggestive of polycystic ovarian syndrome. No adnexal masses were observed. There is no free fluid visualized. Technique: Three dimensional imaging was created on a dedicated stand-alone 3D workstation with images created and archived, and supervised and reviewed by the interpreting physician utilizing images from a US Scan performed on 07/13/24. Duplex scan was performed using B-Mode/julian scale imaging and Doppler spectral analysis and color flow. Recommendations The Paraguard IUD is positioned too low in the endometrial cavity. Recommend removal. Polycystic ovaries. Clinical correlation is recommended. Menstrual History Cycle: LMP date not known. Contraception: Intrauterine contraceptive device Method Transabdominal, transvaginal, 3D ultrasound examination, Color Doppler examination. View: Adequate visualization Uterus Uterus: Visualized Uterus position: anteverted Description of uterine malformations: none Myometrium: normal Endometrium: normal Cervix details: normal Uterus length 86 mm Uterus width 48 mm Uterus height 35 mm Uterus Vol 74.7 cm Endometrial thickness, total 4.0 mm Fibroids: No fibroids identified Polyps: No polyps identified IUCD Position control IUCD type: Paragard. Location: positioned incorrectly, too low in the cavity for a Paraguard IUD. Endometrium - IUCD 3.0 mm 3 mm from fundal endometrium Right Ovary Rt ovary: Visualized Rt ovary morphology: premenopausal polycystic Rt ovary D1 39 mm Rt ovary D2 23 mm Rt ovary D3 26 mm Rt ovary Vol 12.1 cm Rt ovarian cyst(s): No cysts identified Left Ovary Lt ovary: Visualized Lt ovary morphology: premenopausal polycystic Lt ovary D1 49 mm Lt ovary D2 21 mm Lt ovary D3 20 mm Lt ovary Vol 10.5 cm Lt ovarian cyst(s): No cysts identified Cul de Sac Visualized. no free fluid visualized Procedure To characterize the IUD, three dimensional imaging was created on a dedicated stand-alone 3D workstation with images created and archived, and supervised and reviewed by the interpreting physician utilizing images from an ultrasound scan performed today. Performed By: Jaylin Stafford RDMS Read By: Korina Nunez M.D. MATERNAL MEDICINE [facility] Radiology Study observation (narrative) [facility] CBC W Auto Differential pane l (Bld)on 07-03-2024 Basophils (Bld) [#/Vol] 0.04 10*3/uL [facility] Basophils/100 WBC (Bld) 0.6 % [facility] Differential cell count method Nom (Bld) Auto [facility] Eosinophils (Bld) [#/Vol] 0.14 10*3/uL [facility] Eosinophils/100 WBC (Bld) 2.1 % [facility] Erythrocyte distribution width (RBC) [Ratio] 12.9 % 11.5 - 15.0 % [facility] Hematocrit (Bld) [Volume fraction] 39.9 % 36.0 - 46.0 % [facility] Hemoglobin (Bld) [Mass/Vol] 13.4 g/dL 11.5 - 15.5 g/dL [facility] Immature granulocytes (Bld) [#/Vol] NINF [facility] Immature granulocytes/100 WBC (Bld) 0.3 % [facility] Lymphocytes (Bld) [#/Vol] 1.85 10*3/uL [facility] Lymphocytes/100 WBC (Bld) 27.2 % [facility] MCH (RBC) [Entitic mass] 30 pg 26.0 - 34.0 pg [facility] MCHC (RBC) [Mass/Vol] 33.6 g/dL 30.5 - 36.0 g/dL [facility] MCV (RBC) [Entitic vol] 89.3 fL 80.0 - 100.0 fL [facility] Monocytes (Bld) [#/Vol] 0.49 10*3/uL [facility] Monocytes/100 WBC (Bld) 7.2 % [facility] Neutrophils (Bld) [#/Vol] 4.26 10*3/uL [facility] Neutrophils/100 WBC (Bld) 62.6 % [facility] Nucleated RBC (Bld) [#/Vol] [facility] Nucleated RBC/100 WBC (Bld) [Ratio] 0 % /100 WBC [facility] Platelet mean volume (Bld) [Entitic vol] 10.8 fL 9.0 - 12.7 fL [facility] Platelets (Bld) [#/Vol] 203 10*3/uL [facility] RBC (Bld) [#/Vol] 4.47 10*6/uL 3.90 - 5.2 0 m/uL [facility] WBC (Bld) [#/Vol] 6.8 10*3/uL [facility] Basophils (Bld) [#/Vol] 0.04 10*3/uL Normal <0.11 [facility] Comment on above: Order Comment: Speci men Type: BLOOD SPECIMENOrdering Facility: [facility] Address: [address] [place] [address] Performed By: #### 5 7021-8 ####[facility] LABCLIA [id number] [address] Basophils/100 WBC (Bld) 0.6 % Normal [facility] Comment on above: Order Comment: Speci men Type: BLOOD SPECIMENOrdering Facility: [facility] Address: [address] [place] [address] Performed By: #### 5 7021-8 ####[facility] LABCLIA [id number] [place] [address] [place] Differential cell count method Nom (Bld) Auto Normal [facility] Comment on above: Order Comment: Speci men Type: BLOOD SPECIMENOrdering Facility: [facility] Address: [address] [place] [address] Performed By: #### 5 7021-8 ####[facility] LABCLIA [id number] [place] [address] [place] Eosinophils (Bld) [#/Vol] 0.14 10*3/uL Normal <0.46 [facility] Comment on above: Order Comment: Speci men Type: BLOOD SPECIMENOrdering Facility: [facility] Address: [address] [place] [address] Performed By: #### 5 7021-8 ####[facility] LABCLIA [id number] [place] [address] [place] Eosinophils/100 WBC (Bld) 2.1 % Normal [facility] Comment on above: Order Comment: Speci men Type: BLOOD SPECIMENOrdering Facility: [facility] Address: [address] [place] [address] Performed By: #### 5 7021-8 ####[facility] LABCLIA [id number] [place] [address] [place] Erythrocyte distribution width (RBC) [Ratio] 12.9 % Normal 11.5-15.0 [facility] Comment on above: Order Comment: Speci men Type: BLOOD SPECIMENOrdering Facility: [facility] Address: [address] [place] [address] Performed By: #### 5 7021-8 ####[facility] LABCLIA [id number] [place] [address] [place] Hematocrit (Bld) [Volume fraction] 39.9 % Normal 36.0-46.0 [facility] Comment on above: Order Comment: Speci men Type: BLOOD SPECIMENOrdering Facility: [facility] Address: [address] [place] [address] Performed By: #### 5 7021-8 ####[facility] LABCLIA [id number] [place] [address] [place] Hemoglobin (Bld) [Mass/Vol] 13.4 g/dL Normal 11.5-15.5 [facility] Comment on above: Order Comment: Speci men Type: BLOOD SPECIMENOrdering Facility: [facility] Address: [address] [place] [address] Performed By: #### 5 7021-8 ####[facility] LABIA [id number] [address], [place] [address] [place] Immature granulocytes (Bld) [#/Vol] 10*3/uL Normal <0.10 [facility] Comment on above: Order Comment: Speci men Type: BLOOD SPECIMENOrdering Facility: [facility] Address: [address] [place] [address] Performed By: #### 5 7021-8 ####[facility] LABCLIA [id number] [place] [address] [place] Immature granulocytes/100 WBC (Bld) 0.3 % Normal [facility] Comment on above: Order Comment: Speci men Type: BLOOD SPECIMENOrdering Facility: [facility] Address: [address] [place] [address] Performed By: #### 5 7021-8 ####[facility] LABCLIA [id number] [address], [place] [address] [place] Lymphocytes (Bld) [#/Vol] 1.85 10*3/uL Normal 1.00-4.00 [facility] Comment on above: Order Comment: Speci men Type: BLOOD SPECIMENOrdering Facility: [facility] Address: [address] [place] [address] Performed By: #### 5 7021-8 ####[facility] LABIA [id number] [place] [address] [place] Lymphocytes/100 WBC (Bld) 27.2 % Normal [facility] Comment on above: Order Comment: Speci men Type: BLOOD SPECIMENOrdering Facility: [facility] Address: [address] [place] [address] Performed By: #### 5 7021-8 ####[facility] [id number] [place] [address] [place] MCH (RBC) [Entitic mass] 30.0 pg Normal 26.0-34.0 [facility] Comment on above: Order Comment: Speci men Type: BLOOD SPECIMENOrdering Facility: [facility] Address: [address] [place] [address] Performed By: #### 5 7021-8 ####[facility] LABIA [id number] [place] [address] [place] MCHC (RBC) [Mass/Vol] 33.6 g/dL Normal 30.5-36.0 [facility] Comment on above: Order Comment: Speci men Type: BLOOD SPECIMENOrdering Facility: [facility] Address: [address] [place] [address] Performed By: #### 5 7021-8 ####[facility] LABIA [id number] [place] [address] [place] MCV (RBC) [Entitic vol] 89.3 fL Normal 80.0-100.0 [facility] Comment on above: Order Comment: Speci men Type: BLOOD SPECIMENOrdering Facility: [facility] Address: [address] [place] [address] Performed By: #### 5 7021-8 ####[facility] LABCLIA [id number] [address], [place] [address] [place] Monocytes (Bld) [#/Vol] 0.49 10*3/uL Normal <0.87 [facility] Comment on above: Order Comment: Speci men Type: BLOOD SPECIMENOrdering Facility: [facility] Address: [address] [place] [address] Performed By: #### 5 7021-8 ####[facility] LABCLIA [id number] [address], [place] [address] [place] Monocytes/100 WBC (Bld) 7.2 % Normal [facility] Comment on above: Order Comment: Speci men Type: BLOOD SPECIMENOrdering Facility: [facility] Address: [address] [place] [address] Performed By: #### 5 7021-8 ####[facility] LABCLIA [id number] [address], [place] [address] [place] Neutrophils (Bld) [#/Vol] 4.26 10*3/uL Normal 1.45-7.50 [facility] Comment on above: Order Comment: Speci men Type: BLOOD SPECIMENOrdering Facility: [facility] Address: [address] [place] [address] Performed By: #### 5 7021-8 ####[facility] LABCLIA [id number] [address], [facility] [place] Neutrophils/100 WBC (Bld) 62.6 % Normal [facility] Comment on above: Order Comment: Speci men Type: BLOOD SPECIMENOrdering Facility: [facility] Address: [address] [place] [address] Performed By: #### 5 7021-8 ####[facility] LABCLIA [id number] [address] [place] [address] [place] Nucleated RBC (Bld) [#/Vol] 10*3/uL Normal <0.01 [facility] Comment on above: Order Comment: Speci men Type: BLOOD SPECIMENOrdering Facility: [facility] Address: [address] [place] [address] Performed By: #### 5 7021-8 ####[facility] LABCLIA [id number] [place] [address] [place] Nucleated RBC/100 WBC (Bld) [Ratio] 0.0 /100 WBC Normal [facility] Comment on above: Order Comment: Speci men Type: BLOOD SPECIMENOrdering Facility: [facility] Address: [address] [place] [address] Performed By: #### 5 7021-8 ####[facility] LABCLIA [id number] [place] [address] [place] Platelet mean volume (Bld) [Entitic vol] 10.8 fL Normal 9.0-12.7 [facility] Comment on above: Order Comment: Speci men Type: BLOOD SPECIMENOrdering Facility: [facility] Address: [address] [place] [address] Performed By: #### 5 7021-8 ####[facility] LABIA [id number] [place] [address] [place] Platelets (Bld) [#/Vol] 203 10*3/uL Normal 150-400 [facility] Comment on above: Order Comment: Speci men Type: BLOOD SPECIMENOrdering Facility: [facility] Address: [address] [place] [address] Performed By: #### 5 7021-8 ####[facility] LABCLIA [id number] [place] [address] [place] RBC (Bld) [#/Vol] 4.47 10*6/uL Normal 3.90-5.20 [facility] Comment on above: Order Comment: Speci men Type: BLOOD SPECIMENOrdering Facility: [facility] Address: [address] [place] [address] Performed By: #### 5 7021-8 ####[facility] [id number] [place] [address] [place] WBC (Bld) [#/Vol] 6.80 10*3/uL Normal 3.70-11.00 [facility] Comment on above: Order Comment: Speci men Type: BLOOD SPECIMENOrdering Facility: [facility] Address: [address] [place] [address] Performed By: #### 5 7021-8 ####[facility] [id number] [place] [address] [place] CNOVon 07-03-2024 CNOV Office Visit (OBGYWM ) DANNYXIOMARA ([id number]) 1995 [facility] Date Time Provider Department 07/03/24 4:00 PM DAVINA POLK OBKELLYWArya During your visit today, we recorded the following information about you: Blood pressure Weight 126/80 73.3 kg Davina Polk APRN.THERMODYNAMICIST 07/03/2024 4:20 PM Signed Patient declined security tech. Xiomaramello Delgado is a 28 year old female who presents for problem visit bleeding, cramping for 1 month(s). Paraguard IUD placed 11/30/2022. HPI: Patient states that she started her normal menses but bleeding has continued for the past month. She is complaining of heavy bleeding, large blood clots, low back pain, and right side pain. She has bleeding through super tampons. She denies any lightheadedness, dizziness, or shortness of breath. But does state that she feels shaky and her blood sugars have been within normal limits. OB History Gravida2 Para2 Term2 Preterm0 AB0 Living2 SAB0 IAB0 Ectopic0 Multiple0 Live Births2 [employer] History LMP: LMP Unknown, IUD Age at Menarche: Age at First : Age at Menopause: [employer] History Comments: Sexual Activity: Yes; Male; Mirena Contraception: I.U.D. PAST MEDICAL HISTORY Diagnosis Date Anemia during in third trimester 06/26/2021 Depression depression Hypoglycemia diagnosed age 9 depression PAST SURGICAL HISTORY Procedure Laterality Date INSERTION OF IUD 11/30/2022 FAMILY HISTORY Problem Relation Age of Onset Hypertension Mother No Known Problems Father No Known Problems Sister No Known Problems Sister No Known Problems Brother No Known Problems Maternal Grandmother Arthritis Paternal Grandmother Hypertension Paternal Grandfather No Known Problems Daughter Social History Tobacco Use Smoking status: Some Days Current packs/day: 1.00 Average packs/day: 1 pack/day for 10.0 years (10.0 ttl pk-yrs) Types: Cigarettes Smokeless tobacco: Never Tobacco comments: 1-2 cigarettes a day Vaping Use Vaping status: Some Days Last attempt to quit: 02/25/2022 Substances: Nicotine, Flavoring Substance Use Topics Alcohol use: Not Currently Comment: on special occasions Drug use: No Current Outpatient Medications Medication Sig fremanezumab-vfrm subcutaneus auto-injector 225 mg/1.5 mL (AJOVY) Inject 225 mg subcutaneously once every month. midodrine (PROAMATINE) 2.5 mg tablet Take 2.5 mg by mouth three times a day. NURTEC ODT 75 mg disintegrating tablet Take 75 mg by mouth once daily as needed. hydrOXYzine HCl (ATARAX) 25 mg tablet Take 25 mg by mouth at bedtime as needed. acetaminophen (TYLENOL ORAL) Take by mouth. copper (PARAGARD) 380 square mm intrauterine device 1 Intra Uterine Device by INTRAUTERINE route one time only. norethindrone (AYGESTIN) 5 mg tablet Take 1 tablet TID until bleeding stops for 24 hours, then 1 tablet BID x 3 days, then 1 tablet daily x 3 days. No current facility-administered medications for this visit. Allergies As of Date: 07/03/2024 (No Known Allergies) Fully Assessed 07/03/2024 REVIEW OF SYSTEMS See HPI. Expanded ROS: N/A Allergies and current medication updated:Yes SENSITIVE EXAM: The sensitive examination was discussed with the Patient or Patient's Authorized Tape Edge Machine Operator. As applicable, any other physician, advance practice provider, medical student, or other health professional student that will be observing or involved in the sensitive examination for educational or training purposes was discussed with the Patient or Authorized Tape Edge Machine Operator. The Patient or Authorized Tape Edge Machine Operator has agreed to proceed with the sensitive examination. (Sensitive examination includes inspection and/or palpation of the breasts, pelvis, prostate and anorectal regions). EXAM: BP 126/80 Wt 161 lb 9.6 oz (73.3kg) GENERAL: pleasant, female in no apparent distress HEENT: Normocephalic, atraumatic, mucus membranes moist, and no lesions CHEST: Normal inspiratory effort PELVIC: external genitalia normal, normal Bartholin's glands, urethra, [place]'s glands, no vulvar lesions, no cervical lesions, good vaginal support, physiologic discharge present, normal appearing perineal body and perianal region, IUD strings visible BIMANUAL: uterus normal size, shape and consistency, no adnexal masses, non-tender, and no cervical motion tenderness NEURO: alert and oriented x3,exam grossly non-focal EXTREMITIES: normal ASSESSMENT AND PLAN: Assessment AND Plan Irregular bleeding Orders: COMPLETE BLOOD COUNT AND DIFFERENTIAL; Future IRON AND TIBC; Future PELVIC US WHI; Future Will notify patient of test results. Davina Polk, MEDICAL SERVICES ASSISTANT.THERMODYNAMICIST Medical Decision Making: Problems: Moderate: New problem with uncertain prognosis Data: Unique test(s) ordered: 3+ Risk: Moderate: Drug management Medical Decision Making Level: 4 - Mo (more content not included)... Normal [facility] Iron and Iron binding capaci ty panelon 07-03-2024 Interpretation and review of laboratory results Normal [facility] Iron [Mass/Vol] 43 ug/dL 41 - 186 ug/dL [facility] Iron binding capacity [Mass/Vol] 274 ug/dL 232 - 386 ug/dL [facility] Iron saturation [Mass fraction] 15.7 % 15.0 - 57.0 % [facility] Iron [Mass/Vol] 43 ug/dL Normal 41-186 [facility] Comment on above: Order Comment: Speci men Type: BLOOD SPECIMENOrdering Facility: [facility] Address: [address] [place] [id number] Performed By: #### 5 0190-8 ####[facility] LABORATORYCLIA [id number] [address] Iron binding capacity [Mass/Vol] 274 ug/dL Normal 232-386 [facility] Comment on above: Order Comment: Speci men Type: BLOOD SPECIMENOrdering Facility: [facility] Address: [address] [place] [address] Performed By: #### 5 0190-8 ####[facility] LABORATORYCLIA [id number] [address] Iron saturation [Mass fraction] 15.7 % Normal 15.0-57.0 [facility] Comment on above: Order Comment: Speci men Type: BLOOD SPECIMENOrdering Facility: [facility] Address: [address] [place] [address] Performed By: #### 5 0190-8 ####[facility] LABORATORYCLIA [id number] [address] CNOVon 05-19-2024 CNOV Office Visit (UCWSTR ) XIOMARA DELGADO ([id number]) 1995 [facility] Date Time Provider Department 05/19/24 4:30 PM [facility] During your visit today, we recorded the following information about you: Temperature Pulse Respiration Blood pressure 98.2 degrees 84/minute 18/minute 106/73 Weight Last Period 76 kg 04/20/24 Mayad Mclaughlin APRN.THERMODYNAMICIST 05/19/2024 5:00 PM Signed Subjective Patient came in with complaints of left lower dental pain. Patient says it is making her ear uncomfortable. Patient says it has been on and off for several weeks. Patient has been treated already with amoxicillin. Patient does have a dentist appointment next month. Patient denies any fever chills nausea vomiting shortness of breath or chest pain. The history is provided by the patient. No english language arts teacher was used. Dental Problem Review of Systems Constitutional: Negative. Skin: Negative. Objective Physical Exam Constitutional: Appearance: Normal appearance. HENT: Mouth/Throat: Comments: Multiple dental caries noted in the area marked above. Mild redness and swelling noted no dental abscesses noted no trismus noted. No deviation of tongue or uvula noted. Pulmonary: Effort: Pulmonary effort is normal. Neurological: Mental Status: She is alert. PAST MEDICAL HISTORY Diagnosis Date Anemia during in third trimester 06/26/2021 Depression depression Hypoglycemia diagnosed age 9 depression PAST SURGICAL HISTORY Procedure Laterality Date INSERTION OF IUD 11/30/2022 ALLERGIES Patient has no known allergies. MEDICATIONS fremanezumab-vfrm subcutaneus auto-injector 225 mg/1.5 mL (AJOVY) Inject 225 mg subcutaneously once every month. midodrine (PROAMATINE) 2.5 mg tablet Take 2.5 mg by mouth three times a day. NURTEC ODT 75 mg disintegrating tablet Take 75 mg by mouth once daily as needed. hydrOXYzine HCl (ATARAX) 25 mg tablet Take 25 mg by mouth at bedtime as needed. acetaminophen (TYLENOL ORAL) Take by mouth. amoxicillin-clavulanat e potassium (AUGMENTIN) 875-125 mg per tablet Take 1 tablet by mouth two times a day for 7 days. topiramate (TOPAMAX) 50 mg tablet Take 50 mg by mouth. (Patient not taking: Reported on 05/19/2024) metoprolol succinate ER (TOPROL XL) 25 mg 24 hr tablet Take 25 mg by mouth. (Patient not taking: Reported on 05/19/2024) FAMILY HISTORY Problem Relation Age of Onset Hypertension Mother No Known Problems Father No Known Problems Sister No Known Problems Sister No Known Problems Brother No Known Problems Maternal Grandmother Arthritis Paternal Grandmother Hypertension Paternal Grandfather No Known Problems Daughter Social History Tobacco Use Smoking status: Some Days Current packs/day: 1.00 Average packs/day: 1 pack/day for 10.0 years (10.0 ttl pk-yrs) Types: Cigarettes Smokeless tobacco: Never Tobacco comments: 1-2 cigarettes a day Vaping Use Vaping status: Some Days Last attempt to quit: 02/25/2022 Substances: Nicotine, Flavoring Substance Use Topics Alcohol use: Not Currently Comment: on special occasions Drug use: No ASSESSMENT/PLAN: 1. Pain, dental - ICD9: 525.9, ICD10: K08.89 - AMOXICILLIN 875 MG-POTASSIUM CLAVULANATE 125 MG TABLET Patient educated about proper use of medication and supportive therapies. Red flag symptoms were gone over. Patient will follow-up if signs and symptoms seem to be getting worse not better. Patient was agreeable to this care plan. Mayda Mclaughlin APRN.THERMODYNAMICIST Allergies As of Date: 05/19/2024 (No Known Allergies) Date Reviewed: 05/19/2024 Reviewed by: Kate Smalls LPN - Fully Assessed Reason for Visit: Dental Problem [31] Cmt: Left lower back tooth, broken off pain full, appt for dental surgery is being planned painful for awhile Primary Visit Diagnosis:Pain, dental [K08.89] Order(s):amoxicillin-c lavulanate potassium (AUGMENTIN) 875-125 mg per tabletTake 1 tablet by mouth two times a day for 7 days.Disp: 14 tabletRfl: 0 Prescriptions as of 05/19/2024 - fremanezumab-vfrm subcutaneus auto-injector 225 mg/1.5 mL (AJOVY) Inject 225 mg subcutaneously once every month. - midodrine (PROAMATINE) 2.5 mg tablet Take 2.5 mg by mouth three times a day. - NURTEC ODT 75 mg disintegrating tablet Take 75 mg by mouth once daily as needed. - amoxicillin-clavulanat e potassium (AUGMENTIN) 875-125 mg per tablet Take 1 tablet by mouth two times a day for 7 days. - topiramate (TOPAMAX) 50 mg tablet Take 50 mg by mouth. - metoprolol succinate ER (TOPROL XL) 25 mg 24 hr tablet Take 25 mg by mouth. - hydrOXYzine HCl (ATARAX) 25 mg tablet Take 25 mg by mouth at bedtime as needed. - acetaminophen (TYLENOL ORAL) Take by mouth. Problem List As Of Date 05/19/2024 Noted Resolved Spotting in early [O26.859] 01/16/2021 04/30/2022 Tobacco use duri (more content not included)... Normal [facility] 36on 04-13-2024 36 Left message to patient. No answer. The pharmacy stated that medication is ready for moss picker and there is no cost to her. uAfricahart message sent to patient as well. [facility] 36 Attempted to call pharmacy to find out if there is an issue with patient getting the medication. Pharmacy closed at the time. Will try back soon to clarify. [facility] 36on 04-12-2024 36 Name of caller: Brian min Contact phone number: [phone] Relationship to Patient: patient Provider: Dr. Gunn Practice: [facility] Chief Complaint/Reason for Call: In reference to 04/12/24 Patient Message; Xiomara called in regarding emergency room recommendation and states that her GPS took her to [facility] ED. She inquired if she needed to stay or go to [facility] ED. Informed patient to continue care there for prompt treatment and made aware in regards to the facility taking her insurance or not. Please be advised. Best time of day caller can be reached: Any Patient advised that office/PCP has 24-48 business hours to return their call: Yes [facility] ALLIED HEALTH 04-12-2024 ALLIED HEALTH HNO ID: [id number] Author: JOSIE LUCAS RT(Rick) Service: Radiology Author Type: Plant And Machinery Valuer Type: Allied Health Filed: 04/12/2024 14:42 Note Text: Radiology Service Progress Note PATIENT NAME: Xiomara Delgado DATE OF SERVICE: April 12, 2024 TIME: 2:42 PM PATIENT IDENTITY VERIFICATION COMPLETED USING TWO (2) IDENTIFIERS: Name and Date of confirmed by patient verbally and Name and Date of confirmed by identification band. FALL SCREENING: Has the patient had 2 falls in the last year or 1 fall with injury or currently using an Ambulatory Assistive Device (Walker, Cane, Wheelchair, Crutches, etc.)? Emergency Room Patient: Screened in ED PATIENT GENDER DATA: Female. status: : No status: NO. PATIENT RELEVANT IMPLANT DATA REVIEWED: Not Applicable PATIENT PRESENTS WITH AN IMPLANTABLE OR ATTACHED SIGNAL TOWER DIRECTOR: No RADIOLOGY DEPARTMENT: CT; Exam(s) Completed: Brain PERIPHERAL IV DATA: Not applicable SIGNED BY: RT Fatou(R) April 12, 2024 2:42 PM Normal [facility] CT BRAIN WO IVCONon 04-12-20 CT BRAIN WO IVCON * * *Final Report* * * DATE OF EXAM: Apr 12 2024 2:43PM [facility] 0504 - CT BRAIN WO IVCON / PROCEDURE REASON: Headache, sudden, severe * * * * Physician Interpretation * * * * EXAMINATION: CT BRAIN WITHOUT IV CONTRAST CLINICAL HISTORY: Headache, sudden, severe. TECHNIQUE: Serial axial images without IV contrast were obtained from the vertex to the foramen magnum. MQ: [id number]_3 CT Radiation dose: Integrated Dose-Length Product (DLP) for this visit = 810 mGy*cm CT Dose Reduction Employed: Automated exposure control(AEC) and iterative recon COMPARISON: CT brain 09/28/2017. RESULT: Localizer images: Unremarkable. Post-operative change: None. Acute change: No evidence of an acute infarct or other acute parenchymal process. Hemorrhage: No evidence of acute intracranial hemorrhage. ECASS hemorrhagic transformation score: Not Applicable Mass Lesion / Mass Effect: There is no evidence of an intracranial mass or extraaxial fluid collection. No significant mass effect. There is no Chiari I malformation. Chronic change: None apparent. Parenchyma: There is no significant volume loss. The brain parenchyma is otherwise within normal limits for age. Ventricles: The ventricles are within normal limits of size and configuration for age. Paranasal sinuses and skull base: Mild mucosal thickening in some of the bilateral ethmoid air cells. The remaining visualized paranasal sinuses are grossly clear. The skull base and imaged soft tissues are unremarkable. IMPRESSION: No evidence of acute intracranial process. [facility] Transcribe Date/Time: Apr 12 2024 3:37P Dictated by : KELBY MCNEIL MD This examination was interpreted and the report reviewed and electronically signed by: KELBY MCNEIL MD on Apr 12 2024 3:42PM EST [id number] Normal [facility] ED PROV NOTEon 04-12-2024 ED PROV NOTE HNO ID: [id number] Author: MARIELLA ABEL MD Service: Emergency Medicine Author Type: Physician Type: ED Provider Notes Filed: 04/12/2024 16:58 Note Text: ED Provider Note Patient Name: Xiomara Delgado : 1995 SERVICE DATE: 04/12/24 History Patient presents with: Sent By Md: Pt sent by MD for L sided headache. Pt has hx of chronic migraines. Pt had some vision issues yesterday so her neurologist sent her in. HPI 28-year-old female with past medical history as noted below presents the emergency department today for evaluation of headache. Reports left-sided headache for the last 3 days, was not acute or thunderclap in onset. Sees neurologist for chronic migraines. States this feels different than chronic migraines. Has not had associated nausea or vomiting. She went to an urgent care yesterday, was diagnosed with otitis media and was given amoxicillin. Has had upper respiratory symptoms, congestion. Denies significant sinus tenderness or pain. No fever or chills. Headache mainly on the left side, reports some tingling in the left side of her head and face. Denies neck pain or neck stiffness. No head trauma or injury. Denied any visual disturbances to me on evaluation. PAST MEDICAL HISTORY Diagnosis Date Anemia during in third trimester 06/26/2021 Depression depression Hypoglycemia diagnosed age 9 depression PAST SURGICAL HISTORY Procedure Laterality Date INSERTION OF IUD 11/30/2022 FAMILY HISTORY Problem Relation Age of Onset Hypertension Mother No Known Problems Father No Known Problems Sister No Known Problems Sister No Known Problems Brother No Known Problems Maternal Grandmother Arthritis Paternal Grandmother Hypertension Paternal Grandfather No Known Problems Daughter Social History Tobacco Use Smoking status: Some Days Current packs/day: 1.00 Average packs/day: 1 pack/day for 10.0 years (10.0 ttl pk-yrs) Types: Cigarettes Smokeless tobacco: Never Tobacco comments: 1-2 cigarettes a day Vaping Use Vaping status: Some Days Last attempt to quit: 02/25/2022 Substances: Nicotine, Flavoring Substance and Sexual Activity Alcohol use: Not Currently Comment: on special occasions Drug use: No Sexual activity: Yes Partners: Male control/protection: I.U.D. ALLERGIES No Known Allergies Review of Systems Constitutional: Negative for chills, fatigue and fever. HENT: Negative for congestion and sore throat. Eyes: Negative for photophobia, pain and visual disturbance. Respiratory: Negative for cough and shortness of breath. Cardiovascular: Negative for chest pain and palpitations. Gastrointestinal: Negative for nausea and vomiting. Musculoskeletal: Negative for back pain, neck pain and neck stiffness. Neurological: Positive for headaches. Negative for dizziness, seizures, syncope, weakness and light-headedness. Physical Exam Vitals [04/12/24 1312] BP Pulse Temp Temp src Resp SpO2 Weight Height 118/65 87 36.8 ?C (98.2 ?F) Oral 14 99 % 75.8 kg (167 lb) -- Physical Exam Constitutional: General: She is not in acute distress. Appearance: She is not ill-appearing, toxic-appearing or diaphoretic. HENT: Head: Normocephalic and atraumatic. Left Ear: Tympanic membrane and external ear normal. Ears: Comments: Right side otitis media. Effusion present. TM slightly erythematous Nose: Nose normal. No congestion. Comments: No significant sinus pain or pressure Mouth/Throat: Mouth: Mucous membranes are moist. Pharynx: Oropharynx is clear. Eyes: Extraocular Movements: Extraocular movements intact. Conjunctiva/sclera: Conjunctivae normal. Pupils: Pupils are equal, round, and reactive to light. Cardiovascular: Rate and Rhythm: Normal rate. Pulses: Normal pulses. Musculoskeletal: Cervical back: Normal range of motion and neck supple. No tenderness. Skin: General: Skin is warm and dry. Neurological: General: No focal deficit present. Mental Status: She is alert and oriented to person, place, and time. Mental status is at baseline. Cranial Nerves: No cranial nerve deficit. Sensory: No sensory deficit. Motor: No weakness. Coordination: Coordination normal. Gait: Gait normal. Comments: Normal uqdanw-hu-emam and svbm-af-avju coordination. Negative Romberg. Gait is normal without ataxia. Normal strength and sensation in extremities. No facial droop. Cranial nerves intact 04/12/24 1312 04/12/24 1647 BP: 118/65 112/70 Pulse: 87 71 Resp: 14 16 Temp: 36.8 ?C (98.2 ?F) TempSrc: Oral SpO2: 99% 99% Weight: 75.8 kg (167 lb) Diagnostic Testing ED Labs Ordered and Reviewed - No data to display Procedures ED Course / Clinical Impression Clinical Impressions as of 04/12/24 1653 Sinus headache MDM / Disposition / Plan 28-year-old male with history of chronic migraines presents to the emergency department with left-sided heada (more content not included)... Normal [facility] ED Triage Noteon 04-12-2024 ED Triage Note HNO ID: [id number] Author: ANA MARIA LOUIE APRN.CNP Service: Emergency Medicine Author Type: Nurse Practitioner Type: ED Triage Notes Filed: 04/12/2024 13:16 Note Text: ED TRIAGE PROVIDER NOTE Patient Name: Xiomara Delgado Service Date: 04/12/24 BRIEF HPI: This is a 28 year old female who presents to the ED with: Left-sided headache for 3 days with tingling on the left side of her face. She sees a neurologist for chronic migraines. She states that this does feel different. She called her neurologist who sent her in for evaluation. BRIEF EXAM: NAD Awake and Alert Non labored breathing No focal neurological deficits INITIAL WORKUP AND DECISION MAKING: Orders Placed This Encounter CT BRAIN WO IVCON SIGNATURE: Ana Maria Louie APRN.CNP [facility] 36on 04-11-2024 36 Name of caller: Brian min Contact phone number: [phone] Relationship to Patient: patient Provider: Dr Gunn Practice: Neuro Chief Complaint/Reason for Call: Pt states had to go to the ER this morning for pain on left side of their head lasting for the past two days. Pt was told it was an ear infection on her right ear and pt told them I do not have an ear infection and the pain is on my left not right. Please advise as pt feels is not being listened to. Pt took Nurtec last night Best time of day caller can be reached: Any Patient advised that office/PCP has 24-48 business hours to return their call: Yes [facility] ED Prov Noteon 04-11-2024 ED Prov Note ED PROVIDER NOTE [facility] EMERGENCY DEPARTMENT NAME: Xiomara Delgado AGE: 28 y.o. : 1995 VISIT DATE: 04/11/2024 CSN: [id number] PCP: No, Physician Chief Complaint Patient presents with Headache This is a 28-year-old female presenting with headache, sinus congestion and pressure, and ear pain. This has been getting worse since this past . No nausea vomiting fevers or chills. No diarrhea or constipation. No dizziness or lightheadedness. Patient has a history of migraine headaches, and does not think that this is a migraine headache as such, but she is definitely having head pain. No nausea vomiting neck stiffness or photophobia. No numbness tingling or weakness. Headache Past Medical History: Diagnosis Date Known health problems: none History reviewed. No pertinent surgical history. History reviewed. No pertinent family history. Social History Socioeconomic History Marital status: Single Tobacco Use Smoking status: Every Day Types: Cigarettes Passive exposure: Current Smokeless tobacco: Never Vaping Use Vaping status: Never Used Substance and Sexual Activity Alcohol use: Not Currently Drug use: Never Social Drivers of Health Financial Resource Strain: Low Risk (02/10/2023) Received from [facility] Overall Financial Resource Strain (CARDIA) Difficulty of Paying Living Expenses: Not hard at all Food Insecurity: No Food Insecurity (02/10/2023) Received from [facility] Hunger Vital Sign Worried About Running Out of Food in the Last Year: Never true Ran Out of Food in the Last Year: Never true Transportation Needs: No Transportation Needs (02/10/2023) Received from [facility] PRAPARE - Transportation Lack of Transportation (Medical): No Lack of Transportation (Non-Medical): No Physical Activity: Inactive (02/10/2023) Received from [facility] Exercise Vital Sign Days of Exercise per Week: 0 days Minutes of Exercise per Session: 0 min Housing Stability: Low Risk (02/10/2023) Received from [facility] Housing Stability Vital Sign Unable to Pay for Housing in the Last Year: No Number of Places Lived in the Last Year: 1 Unstable Housing in the Last Year: No Previous Medications Medication Sig albuterol 90 mcg/actuation inhaler Inhale 2 (two) puffs every 6 (six) hours as needed for wheezing . azithromycin (ZITHROMAX) 250 MG tablet Take 1 (one) tablet (250 mg total) by mouth daily . cefdinir (OMNICEF) 300 MG capsule Take 1 (one) capsule (300 mg total) by mouth 2 (two) times a day . hydrOXYzine (ATARAX) 25 MG tablet Take 1 (one) tablet (25 mg total) by mouth Prior to discharge from the hospital . Nurtec ODT 75 mg ODT Dissolve 1 (one) tablet (75 mg total) on top of tongue daily as needed (for migraines) . topiramate (TOPAMAX) 50 MG tablet Take 1 (one) tablet (50 mg total) by mouth daily . No Known Allergies Review of Systems Neurological: Positive for headaches. Patient Vitals for the past 24 hrs: BP Temp Pulse Resp SpO2 Height Weight 04/11/24 0919 119/75 98.2 degrees F (36.8 degrees C) 78 18 99 % 5' 4 74.8 kg (165 lb) Physical Exam Vitals and nursing note reviewed. Constitutional: Appearance: Normal appearance. HENT: Head: Normocephalic and atraumatic. Left Ear: Tympanic membrane normal. Ears: Comments: Right TM is erythematous and flat. Nose: Nose normal. Eyes: Extraocular Movements: Extraocular movements intact. Pupils: Pupils are equal, round, and reactive to light. Musculoskeletal: General: Normal range of motion. Cervical back: Normal range of motion and neck supple. Abdominal: Tenderness: There is no abdominal tenderness. There is no rebound. Skin: General: Skin is warm and dry. Neurological: General: No focal deficit present. Mental Status: She is alert and oriented to person, place, and time. Psychiatric: Mood and Affect: Mood normal. Behavior: Behavior normal. Laboratory & Radiographic Imaging (if done): No results found for this visit on 04/11/24. No orders to display Procedures Medical Decision Making It appears this patient has right otitis media and upper respiratory infection. We gave her Toradol for her headache here, and Rx for amoxicillin written. Will discharge to home. . . Clinical Impression: 1. Right otitis media 2. Headache ED Disposition ED Disposition Discharge Condition Stable Comment Xiomara Delgado discharged to home/self care in stable condition. Follow-up Information 1. [facility]. Specialty: Primary Care [facility] [id number] Contact information for after-discharge care Follow-up information has not been specified. Abdias Mccullough DO 04/11/24 0936 AUTHENTICATED BY ABDIAS MCCULLOUGH ON 04/11/2024 09:36:24 Normal [facility] Office Visiton 03-15-2024 Follow-up visit [id number] Corby Delgado 1995 F Date Provider Department Center 03/15/2024 [id number] IBARRA [facility] Family History Problem Relation Age of Onset No Known Problems Father High Blood Pressure Mother Family Status - Relation Status Age at Father Alive Mother Alive Level of Service:69742 [place] OFFICE/OUTPATIENT ESTABLISHED LOW MDM 20 MIN Reason for Visit and Comments: Follow-up [[id number]] - Follow up on URI, states she is still having the cough and tightness in chest when in coughing fit, still doing inhaler but doesn't seem to be helping. States that yesterday she was coughing so bad she started vomiting Normal [facility] Progress Noteon 03-15-2024 Progress Note 03/15/2024 Xiomara Delgado (: 1995) is a 28 y.o. female , Established patient, here for evaluation of the following chief complaint(s): Follow-up (Follow up on URI, states she is still having the cough and tightness in chest when in coughing fit, still doing inhaler but doesn't seem to be helping. States that yesterday she was coughing so bad she started vomiting ) ASSESSMENT/PLAN: 1. URI with cough and congestion - guaiFENesin-codeine (Robitussin-AC) 100-10 MG/5ML syrup; Take 5 mL by mouth every 8 hours as needed for cough., Starting 03/15/2024, Normal - Improving. Lung sounds clear on examination today and no wheezing present. Discussed potential need for repeat imaging and/or a PFT if symptoms persist, but it could be post viral cough due to timeline of symptoms. - Discussed signs and symptoms warranting immediate attention- verbalized understanding. - Discussed signs and symptoms warranting follow up in the office- verbalized understanding. - Will give her cough medication for management of symptoms. Follow up in about 1 week (around 03/22/2024) for follow up if no improvement in symptoms. SUBJECTIVE/OBJECTIVE: HPI - Xiomara presents today for close follow up on her URI. Was in the ER on 03/03/24 due to a cough and not feeling well. She was diagnosed with left lower lobe pneumonia. Was started on Azithromycin, Omnicef, prednisone, an inhaler, and cough syrup. Per her last visit she stated she never got the prednisone. Completed the Azithromycin the day of her appointment (03/08/24). Took a home COVID-19 test on 03/03/24 and it was negative. Negative for influenza A & B on 03/08/24. She was switched to Doxycycline from Omnicef and was started on Prednisone on 03/08/24 due to ongoing and worsening symptoms. States she has a dose or two left of the doxycycline and a few days remaining of the prednisone. Still has a harsh cough. Denies fevers, chills, or shortness of breath. When reviewing her CXR from the ER it did not show any infiltrates, effusions, or pneumothorax. Results at the end of the note. Review of Systems Constitutional: Negative for chills and fever. HENT: Positive for congestion. Respiratory: Positive for shortness of breath. Negative for wheezing. Cardiovascular: Negative for chest pain. Vitals: 03/15/24 1328 03/15/24 1344 BP: 128/76 Pulse: 92 Temp: 36.9 ?C (98.4 ?F) SpO2: 95% Weight: 172 lb 6.4 oz (78.2 kg) Height: 5' 4.5 (1.638 m) Body mass index is 29.14 kg/m?. Physical Exam Constitutional: General: She is not in acute distress. Appearance: She is not ill-appearing or diaphoretic. Cardiovascular: Rate and Rhythm: Normal rate and regular rhythm. Heart sounds: Normal heart sounds. No murmur heard. No friction rub. Pulmonary: Effort: Pulmonary effort is normal. Breath sounds: Normal breath sounds. No wheezing, rhonchi or rales. Musculoskeletal: Cervical back: Neck supple. Lymphadenopathy: Cervical: No cervical adenopathy. Skin: General: Skin is warm and dry. Coloration: Skin is not pale. Findings: No erythema or rash. Neurological: Mental Status: She is alert and oriented to person, place, and time. Psychiatric: Mood and Affect: Mood normal. Behavior: Behavior normal. Thought Content: Thought content normal. Judgment: Judgment normal. Imaging: Imaging Results - XR Chest 1 View (03/03/2024 7:25 PM EDT) Narrative 03/03/2024 8:37 PM EDT EXAMINATION: X ray chest PA/AP HISTORY: Cough COMPARISON: None TECHNIQUE: Chest x-ray PA view portable. FINDINGS: Clear lungs bilaterally. No acute pulmonary infiltrates. Cardiac shadow within normal. Normal hilar shadows. Central mediastinum. No pleural effusions or pneumothorax. Imaging Results - XR Chest 1 View (03/03/2024 7:25 PM EDT) Procedure Note Sukhjinder Estrella MD - 03/03/2024 EXAMINATION: X ray chest PA/AP HISTORY: Cough COMPARISON: None TECHNIQUE: Chest x-ray PA view portable. FINDINGS: Clear lungs bilaterally. No acute pulmonary infiltrates. Cardiac shadow within normal. Normal hilar shadows. Central mediastinum. No pleural effusions or pneumothorax. IMPRESSION: No evidence of acute cardiopulmonary process. An electronic signature was used to authenticate this note. Juan Ibarra APRN - THERMODYNAMICIST 03/15/2024 1:45 PM [facility] Progress Note Patient verified by last name and . Normal [facility] Office Visiton 03-13-2024 Follow-up visit [id number] Corby Delagdo 1995 F Date Provider Department Center 03/13/2024 [id number] [facility] None Family History Problem Relation Age of Onset No Known Problems Father High Blood Pressure Mother Family Status - Relation Status Age at Father Alive Mother Alive Level of Service:55824 [place] OFFICE/OUTPATIENT ESTABLISHED MDM 10 MIN Reason for Visit and Comments: Follow-up [[id number]] - 3 weeks Normal [facility] Progress Noteon 03-13-2024 Progress Note [facility] [address] [facility] [address] Dept: [phone] Dept Loc: [phone] Visit type: Established : 1995 Chief Complaint: Return follow up History of Present Illness: Xiomara Delgado is a 28 yo lady first seen spring 2022 in her 3rd trimester of d/t dizziness and pre-syncope. The pt had longstanding iron deficiency anemia, Hgb in July 10.3 gm/dl. 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 She had not experienced true LOC, and I could not elicit h/o vagal events. Symptoms were generally noted in the third trimester, and had not been experienced with previous baby. The pt c/o dizziness and near syncopal sensation with changes in position. She had noted problems with upright position, c/o tingling, tunnel vision, nausea, and has to sit. No palpitations with episodes. Not vertiginous dizziness, more lightheaded. Duration was minutes for recovery. Echo 2022 noted EF 55%, no WMA; normal R side, no valve disease. The pt delivered via 10/10/2022, but called [facility] on 10/13 with c/o lightheadedness, nausea, headache, abdominal/pelvic pain and urinary frequency. Temp was 99.5. Hgb was 8.7 g/dL; platelet and white count normal; low calcium, low albumin. Normal renal function. [facility] suggested normal post course, no intervention. After delivery, she continued to note SOB, palps, and dizziness. Ambulatory stress followed: 89% MPHR, 9.3 METs, normal EKG, no arrhythmias, normal HR and BP response, normal HRR. She continued to have extensive ++ ROS. In the interim she had gotten an opinion from another human intelligence, who recommended 25 mg metoprolol, and then returned here to review it with me = standard and benign therapy. Her PCP ordered a prolonged monitor early 2023: totally normal with avg HR 80/min and isolated ectopy: no arrhythmia. CTA of the coronaries suggested, d/t normal stress test and unrelenting CP - she would not acquiesce to pre test BB. She returned in February 2024 with CP, dizziness, near syncope, palpitations. Apparently neuro requested TTT at , done recently Feb 10, 2024; at [facility]. During testing she had recalled lightheadedness, and diaphoresis, no LOC. Was not given any info on HR and BP results. At the visit mid Feb 2024, Ms Delgado c/o chest discomfort, b/c she forgets to breathe. This occurs while driving or doing other focused activity, like over-concentration. Palps have continued every once in awhile - not daily - with or without exertion, duration not long - less than one minute. She had stopped the metoprolol d/t fatigue. She reported BP was declining very badly - 90/50 mm Hg that she can recall. The pt said that BB use did not have much impact on the HR overall. States that while standing, HR would escalate to 150's. Note that I have failed to delineate any concerning pathology thus far. Results returned from US TTT: ... 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 Again, the BB would be rx of choice. I have nothing, she was not hypotensive. States she is tired. Comes with both children. States no actual LOC, but recurrent events of everything just goes black. I have failed to find a therapy or actual etiology. [facility] testing suggests she has POTS, which is normally approached with the BB. States she is SOB, but just getting over pneumonia. Past Medical History: Past Medical History: Diagnosis Date Fibrocystic breast Heart murmur at Hypoglycemia Ovarian cyst Past Surgical History No past surgical history on file. Family History Family History Problem Relation Name Age of Onset No Known Problems Father High Blood Pressure Mother Social History Social History Tobacco Use Smoking status: Every Day Current packs/day: 0.00 Average packs/day: 0.5 packs/day for 9.0 years (4.5 ttl pk-yrs) Types: Cigarettes Start date: 06/2014 Last attempt to quit: 06/2023 Years since quittin.7 Smokeless tobacco: Never Vaping Use Vaping status: Every Day Substances: Nicotine Devices: Disposable Substance Use Topics Alcohol use: Not Currently Alcohol/week: 0.0 standard drinks of alcohol Drug use: No Allergies: No Known Allergies Medications: Current Outpatient Medications: Acetaminophen (TYLENOL 8 HOUR PO), Take by mouth., Disp: , Rfl: albuterol 108 (90 Base) MCG/ACT inhaler, Inhale 2 puffs every 6 hours as needed., Disp: , Rfl: brompheniramine-pseudo ephedrine-DM 30-2-10 MG/5ML syrup, Take 5 mL by mouth as needed., Disp: , Rfl: doxycycline (Vibramycin) 100 MG capsule, Take 1 capsule (100 mg) by mouth 2 times daily for 7 days. Take with at least 8 ounces (large glass) of water, do not lie down for 30 minutes afte (more content not included)... [facility] 36on 03-09-2024 36 Will review at follo w up 03/13/24. [facility] Office Visiton 03-09-2024 Follow-up visit [id number] Corby Delgado 1995 F Date Provider Department Center 03/09/2024 [id number], [facility] None Family History Problem Relation Age of Onset No Known Problems Father High Blood Pressure Mother Family Status - Relation Status Age at Father Alive Mother Alive Level of Service:71194 [place] OFFICE/OUTPATIENT ESTABLISHED MOD MDM 30 MIN Reason for Visit and Comments: Follow-up [[id number]] - migraines [facility] Progress Noteon 03-09-2024 Progress Note Assisted patient dylon Echevarria injection in office today. Injected in right upper abdomen. Tolerated well. Assisted out of office with no complaints. [id number] Exp-October 2024 [facility] Progress Note 03/09/2024 CC Headaches Patient ID and HPI Xiomara Delgado is a 28 y.o. Rt handed female with Past medical history of neurogenic POTS with small fiber neuropathy, chronic migraines, hypoglycemia, iron deficiency, maxillary sinusitis, migraines, tobacco abuse who presents to neurology office for follow-up, last seen January 2024 Initial evaluation: September 2023 The patient states that her headaches started when she/he was in high school. He have an injury in high school when she went to tree tipping and it hit her in the head. Migraines have not changed in characteristics. Has different kinds of headaches. The patient was diagnosed with 2 different kinds of headaches including occipital neuralgia and chronic migraines. In regards to sudden onset headaches, CT angiogram was done which did not show any aneurysm. Metoprolol was increased from 25 mg to 50 mg. Rizatriptan caused some chest tightness and was switched to sumatriptan. December 2023 still having significant number of headaches and increasing metoprolol caused low blood pressure. She was started on Topamax. Also complained of other episodes which she has had since she was young but happened more when she was with a second child a few years ago, feels like a hay to the head and everything goes black without confusion or LOC no palpitations, shortness of breath or chest pain. Metoprolol did not help and happens about few times a month and last for few seconds. Happens when she gets up too quickly or sometimes when she stands for long period of time. Testing was ordered for autonomic dysfunction at [facility]. January 2024, started on Nurtec Interval hx: Autonomic testing: Heart rate response to deep breathing is normal via the mean heart rate range and the E:I ratio (1.26). Heart rate response to the Valsalva Maneuver (VM), as assessed by the Valsalva Ratio (VR), is normal as are the blood pressure responses to phase II and phase IV of the maneuver. During 10 minutes of 70 degrees head-up tilt, heart rate response was exaggerated but blood pressure (BP) responses were normal. The patient experienced nausea and shortness of breath. QSART responses at the foot and distal leg are low but the responses at the proximal leg and forearm are normal. This an abnormal cardiovascular autonomic test panel, due the presence of a symptomatic accentuated orthostatic tachycardia, consistent with the diagnosis of Postural Orthostatic Tachycardia Syndrome (POTS). There is no evidence of a significant cardiovagal or cardiovascular adrenergic abnormality on the cardioautonomic reflex tests. Specifically, there is no evidence of orthostatic hypotension. In addition, the QSART findings are consistent with a postganglionic sympathetic sudomotor abnormality like that seen in autonomic/small fiber neuropathy. Headache 15 headache days No changes with Topamax Nurtec: Stops headache 2-4 hours PMHx: has a past medical history of Fibrocystic breast, Heart murmur, Hypoglycemia, and Ovarian cyst. 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 Aura: No Headache description: Holo cranial, throbbing Intensity: 5-10/10 Duration of symptoms: up to 2 days Frequency of headaches: 16-18 total migraine days with 1-2 times a month severe Associated symptoms: photophobia, phonophobia, osmophobia, fatigue, nausea, vomiting, irritability Exacerbating factors: Moderate activity, stress, Alleviating factors: Improved with rest or sleep, dim lighting Things done when pt gets a headache: tylenol 10 days a month Triggers: None Association with menses: No Visual symptoms: Blurry vision Type: Chronic Migraine without aura 2. Left sided occipital pressure, multiple times a day, multiple times a week, lasts for a few seconds 3. Stabbing electric headache, brief, no triggers, any part of the head and radiating to multiple parts, 1-2 times a month Red flags: sudden onset, tinnitus, No focal neurological symptoms, Non positional or precipitation by valsalva, No systemic signs, Does not wake up from sleep Change in headaches characteristic: No Ophthalmology exam: 2 years ago ER visit/missed days at work: 0 (more content not included)... [facility] 29on 03-08-2024 29 Addended by: JUAN IBARRA on: 03/09/2024 08:38 AM Modules accepted: Level of Service [facility] No Panel Informationon 03-08 Inflenza A Ag Negative [facility] Influenza B Ag Negative [facility] Office Visiton 03-08-2024 Follow-up visit [id number] Corby Delgado 1995 F Date Provider Department Center 03/08/2024 [id number] IBARRA [facility] Family History Problem Relation Age of Onset No Known Problems Father High Blood Pressure Mother Family Status - Relation Status Age at Father Alive Mother Alive Level of Service:23859 [place] OFFICE/OUTPATIENT ESTABLISHED MOD MDM 30 MIN Reason for Visit and Comments: ER Follow-up [831] - Was seen in the ER on 03/03 diagnosed with PNA in left lung. States she still feels like she got hit by a bus, and is still having a cough and congestion. States yesterday she was fighting a fever of 102. Did not take tylenol or ibuprofen for fever. [facility] Progress Noteon 03-08-2024 Progress Note 03/08/2024 Xiomara Delgado (: 1995) is a 28 y.o. female , Established patient, here for evaluation of the following chief complaint(s): ER Follow-up (Was seen in the ER on 03/03 diagnosed with PNA in left lung. States she still feels like she got hit by a bus, and is still having a cough and congestion. States yesterday she was fighting a fever of 102. Did not take tylenol or ibuprofen for fever. ) ASSESSMENT/PLAN: 1. Upper respiratory tract infection, unspecified type - predniSONE (Deltasone) 20 MG tablet; Take 3 tablets daily for 5 days, then 2 tablets daily for 3 days, then 1 tablet daily for 2 days., Normal - doxycycline (Vibramycin) 100 MG capsule; Take 1 capsule (100 mg) by mouth 2 times daily for 7 days. Take with at least 8 ounces (large glass) of water, do not lie down for 30 minutes after, Starting 03/08/2024, Until 03/15/2024, Normal - Will switch to a different antibiotic and start her on a tapering prednisone. - Discussed signs and symptoms warranting immediate attention- verbalized understanding. - Will do a close follow up in 1 week. 2. Wheezing - predniSONE (Deltasone) 20 MG tablet; Take 3 tablets daily for 5 days, then 2 tablets daily for 3 days, then 1 tablet daily for 2 days., Normal - Continue inhaler as prescribed. 3. Acute cough - AMB POC RAPID INFLUENZA DNA/RNA - Negative for influenza A and B. 4. Fever, unspecified fever cause - AMB POC RAPID INFLUENZA DNA/RNA - Negative for influenza A and B. Follow up in about 1 week (around 03/15/2024) for follow up on URI. SUBJECTIVE/OBJECTIVE: HELENE Trujillo presents today for follow up from an ER visit on 03/03/24 due to a cough and not feeling well. She was diagnosed with left lower lobe pneumonia. Was started on Azithromycin, Omnicef, prednisone, an inhaler, and cough syrup. States she never got the prednisone. Completed the Azithromycin today. Took a home COVID-19 test on 03/03/24 and it was negative. Is not vaccinated for influenza. Feels she was getting better but symptoms started to get worse yesterday. Woke up with a fever of 102 F. Denies history of asthma or COPD. When reviewing her CXR from the ER it did not show any infiltrates, effusions, or pneumothorax. Results at the end of the note. Review of Systems Constitutional: Positive for chills and fever. HENT: Positive for sore throat. Negative for congestion, ear discharge, ear pain, rhinorrhea, sinus pressure and sinus pain. Respiratory: Positive for cough, chest tightness, shortness of breath and wheezing. Cardiovascular: Negative for chest pain. Gastrointestinal: Negative for abdominal distention, abdominal pain, nausea and vomiting. Vitals: 03/08/24 1318 BP: 136/82 Pulse: 86 Temp: 37.9 ?C (100.2 ?F) SpO2: 97% Weight: 170 lb 12.8 oz (77.5 kg) Height: 5' 9 (1.753 m) Body mass index is 25.22 kg/m?. Physical Exam Constitutional: General: She is not in acute distress. Appearance: She is ill-appearing. She is not diaphoretic. HENT: Head: Normocephalic and atraumatic. Right Ear: Tympanic membrane, ear canal and external ear normal. Left Ear: Tympanic membrane, ear canal and external ear normal. Nose: Nose normal. No congestion or rhinorrhea. Mouth/Throat: Mouth: Mucous membranes are moist. Pharynx: Oropharynx is clear. No oropharyngeal exudate or posterior oropharyngeal erythema. Cardiovascular: Rate and Rhythm: Normal rate and regular rhythm. Heart sounds: Normal heart sounds. No murmur heard. No friction rub. Pulmonary: Effort: Pulmonary effort is normal. No respiratory distress. Breath sounds: Wheezing (bilateral upper lobes) present. No rhonchi or rales. Musculoskeletal: Cervical back: Neck supple. Lymphadenopathy: Cervical: No cervical adenopathy. Skin: General: Skin is warm and dry. Coloration: Skin is pale. Findings: No erythema or rash. Neurological: Mental Status: She is alert and oriented to person, place, and time. Psychiatric: Mood and Affect: Mood normal. Behavior: Behavior normal. Thought Content: Thought content normal. Judgment: Judgment normal. Results: 03/03/2024 8:37 PM EDT No evidence of acute cardiopulmonary process. Workstation ID: [id number] Imaging Results - XR Chest 1 View (03/03/2024 7:25 PM EDT) Narrative 03/03/2024 8:37 PM EDT EXAMINATION: X ray chest PA/AP HISTORY: Cough COMPARISON: None TECHNIQUE: Chest x-ray PA view portable. FINDINGS: Clear lungs bilaterally. No acute pulmonary infiltrates. Cardiac shadow within normal. Normal hilar shadows. Central mediastinum. No pleural effusions or pneumothorax. Imaging Results - XR Chest 1 View (03/03/2024 7:25 PM EDT) Procedure Note Sukhjinder Estrella MD - 03/03/2024 EXAMINATION: X ray chest PA/AP HISTORY: Cough COMPARISON: None TECHNIQUE: Chest x-ray PA view portable. FINDINGS: Clear lungs bilateral (more content not included)... [facility] Progress Note Patient verified by last name and . [facility] 36on 03-06-2024 36 Results are in care everywhere. [facility] ED Prov Noteon 03-03-2024 ED Prov Note HPI: 03/03/2024, Time: @NOWNR@ Xiomaramello Delgado is a 28 y.o. female presenting to the ED for gradual onset of cough and congestion and sinus pressure and some difficulty breathing, beginning last 2 days ago. The complaint has been constant, moderate in severity, and worsened by nothing. Positive malaise ROS: Pertinent positives and negatives are stated within HPI, all other systems reviewed and are negative. - PAST HISTORY - Past Medical History: @[facility]@ Past Surgical History: has no past surgical history on file. Social History: reports that she has been smoking cigarettes. She has been exposed to tobacco smoke. She has never used smokeless tobacco. She reports that she does not currently use alcohol. She reports that she does not use drugs. Family History: family history is not on file. The patient's home medications have been reviewed. Allergies: Patient has no known allergies. ------ RESULTS ----- All laboratory and radiology results have been personally reviewed by myself LABS: No results found for this or any previous visit. RADIOLOGY: Interpreted by Radiologist. XR Chest 1 View (Results Pending) --- NURSING NOTES AND VITALS REVIEWED ----- The nursing notes within the ED encounter and vital signs as below have been reviewed. BP 130/84 (BP Location: Left arm, Patient Position: Sitting) Pulse 97 Temp 99 degrees F (37.2 degrees C) (Temporal) Resp 18 Ht 5' 4 Wt 72.6 kg (160 lb) LMP 02/25/2024 (Approximate) SpO2 100% BMI 27.46 kg/m Oxygen Saturation Interpretation: Normal -------PHYSICAL EXAM Constitutional/General : Alert and oriented x3, frequent bronchospastic cough but no obvious respiratory distress Head: NC/AT Eyes: PERRL, EOMI Mouth: Oropharynx clear, handling secretions, no trismus Neck: Supple, full ROM, no meningeal signs Pulmonary: Lungs scattered wheezing and rhonchi not in respiratory distress Cardiovascular: Regular rate and rhythm, no murmurs, gallops, or rubs. 2+ distal pulses Abdomen: Soft, non tender, non distended, Extremities: Moves all extremities x 4. Warm and well perfused Skin: warm and dry without rash Neurologic: GCS 15, Psych: Normal Affect -------- ED COURSE/MEDICAL DECISION MAKING ------ Medications cefdinir (OMNICEF) capsule 300 mg (has no administration in time range) azithromycin (ZITHROMAX) tablet 500 mg (has no administration in time range) predniSONE (DELTASONE) tablet 60 mg (60 mg Oral Given 03/03/241935) ipratropium-albuteroL (DUO-NEB) 0.5-2.5 mg/3 ml nebulizer solution 3 mL (3 mL Inhalation Given 03/03/241935) benzonatate (TESSALON) capsule 200 mg (200 mg Oral Given 03/03/241935) Medical Decision Making: Will obtain chest x-ray and provide symptomatic relief Counseling: The emergency provider has spoken with the patient and discussed today's results, in addition to providing specific details for the plan of care and counseling regarding the diagnosis and prognosis. Questions are answered at this time and they are agreeable with the plan. IMPRESSION AND DISPOSITION IMPRESSION 1. Pneumonia of left lower lobe due to infectious organism DISPOSITION Disposition: discharged to home Patient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 medication: metoprolol, Topamax Current abortive medication: Sumatriptan Frequency / Severity of attacks: More than 15 headache days Additional narrative: as per HPI Caffeine Intake: 1 large janiya coffee Hydration: not well Exercise: No regular exercise routine (more content not included)... [address] 01-19-2024 36 Name of caller: Brian mechelle Contact phone number: [phone] Relationship to Patient: patient Provider: MD Theo Practice: Neurophysiology and General Neurology Chief Complaint/Reason for Call: Pt called in requesting a letter for her current employer due to having to call off work today because of her migraines. Pt states she was treated by her PCP on Wednesday who did write her off for the past 2 days. Pt states she was still not able to return to work today. Pt states if provider would be able to put it in her My Chart she would be able to print it off. Please advise Best time of day caller can be reached: Any Patient advised that office/PCP has 24-48 business hours to return their call: Yes [facility] 36on 01-18-2024 36 Spoke to Diogo. Explained per Dr. Gunn he cannot fill out the paperwork that was sent to office. He is not treating patient for the condition that the paperwork relates to. The paperwork may need to be filled out by her pcp. Verbalized understanding and he will contact patient to discuss. [facility] 36 Name of caller: Joe copeland Contact phone number: [phone] Relationship to Patient: Employer Provider: Dr Gunn Practice: Neurology Chief Complaint/Reason for Call: Diogo called back stating that he had a call from Tiffany but he had her call back number written down wrong. Diogo stated that he sent a functional job description to office for Dr Gunn to sign stating that patient is okay to work. . Please advise. Best time of day caller can be reached: Any Patient advised that office/PCP has 24-48 business hours to return their call: N/A [facility] 36 ----- Message from GWENDOLYN Ahn CNP sent at 01/18/2024 8:16 AM EDT ----- Blood count is normal. Thyroid function is normal. Normal folate level. Chem panel and blood sugar are normal. Left a message to return call. Patient viewed on [employer]. Sent [employer] message as well. [facility] 36on 01-17-2024 36 Name of caller: Joe copeland Contact phone number: [phone] Relationship to Patient: Employer Provider: Dr. Gunn Practice: Neurology Chief Complaint/Reason for Call: Diogo states that he received a fax back stating that Dr. Gunn is unable to fill out the return to work paperwork for the patient and it said that the patient would have to go to primary care. Diogo states that Dr. Gunn is the one who provided the patient with the work restrictions so is wondering why he is not able to do this for the patient. Please be advised/fill out paperwork if possible. Diogo states he doesn't need any specific health information just needs to know that patient is ok to return to work. Best time of day caller can be reached: any Patient advised that office/PCP has 24-48 business hours to return their call: N/A [facility] 36 Received [facility] paperwo rk for patient to return to work. Per Dr. Gunn, the paperwork will need to be filled out by her pcp. Paperwork faxed back to [employer] to inform them of this. [facility] 36 S: Pt calling CAC fo r shaking B: 3-4 months A: Pt reports intermittent shaking to her hands which is causing insomnia. Last episode was last night. Denies sx at present. R: Appt scheduled for today @ 1420 w/ H. Fred [employer]RAY [employer]. Pt agreeable. Insurance verified. Reason for Disposition New-onset muscle jerks and unexplained and 3 or more times/day Protocols used: Muscle Jerks - Tics - [id number] [facility] Office Visiton 01-17-2024 Follow-up visit [id number] Corby Delgado 1995 F Date Provider Department Center 01/17/2024 [id number] IBARRA [facility] Family History Problem Relation Age of Onset No Known Problems Father High Blood Pressure Mother Family Status - Relation Status Age at Father Alive Mother Alive Level of Service:11130 [place] OFFICE/OUTPATIENT ESTABLISHED MOD MDM 30 MIN Reason for Visit and Comments: Shaking [[id number]] - Bilateral hands shaking over past couple of months when she cannot sleep [facility] Progress Noteon 01-17-2024 Progress Note Patient was verified by name and . [facility] Progress Note 01/17/2024 Xiomara A Danny (: 1995) is a 28 y.o. female , Established patient, here for evaluation of the following chief complaint(s): Shaking (Bilateral hands shaking over past couple of months when she cannot sleep) ASSESSMENT/PLAN: 1. Tremor of both hands - CBC auto differential - T3, free - Folate - T4, free - TSH - Comprehensive metabolic panel - Will notify of blood work results. - Discussed that symptoms appear to be related to sleep deprivation/fatigue. Will have her take Hydroxyzine as needed for sleep and see if symptoms improve with better sleep at night. 2. Difficulty sleeping - hydrOXYzine HCl (Atarax) 25 MG tablet; Take 1 tablet (25 mg) by mouth Nightly as needed (sleep)., Starting 01/17/2024, Normal 3. Chronic migraine without aura without status migrainosus, not intractable - topiramate (Topamax) 50 MG tablet; Take 50 mg by mouth daily., Starting 01/17/2024, Normal - Rx sent for small supply until she can follow back up with specialist. Follow up in 29 days (on 02/15/2024) for Next scheduled follow-up. SUBJECTIVE/OBJECTIVE: HELENE Trujillo presents today with concerns of with both of her hands shaking intermittently. States symptoms only happen when she struggles to sleep. States this happens once every month or so. Other nights it takes her longer to fall asleep but is able to fall asleep after awhile. Once she falls asleep she stays asleep. States she notices the hands shaking when she is holding something. Denies a resting tremor. States she just feels tired all of the time. Is seeing a neurologist for management of migraines and had a refill sent in for her Topiramate but the pharmacy is telling her they did not receive the RX. Requesting to have that filled today if possible. Review of Systems Constitutional: Positive for fatigue. Respiratory: Negative for shortness of breath. Cardiovascular: Negative for chest pain. Neurological: Positive for tremors and headaches. Psychiatric/Behavioral : Positive for sleep disturbance. Vitals: 01/17/24 1416 BP: 108/68 Pulse: 68 SpO2: 98% Weight: 165 lb 12.8 oz (75.2 kg) Height: 5' 6 (1.676 m) Body mass index is 26.76 kg/m?. Physical Exam Constitutional: General: She is not in acute distress. Appearance: She is not ill-appearing or diaphoretic. Eyes: General: No visual field deficit. Neck: Thyroid: No thyroid mass or thyromegaly. Cardiovascular: Rate and Rhythm: Normal rate and regular rhythm. Heart sounds: Normal heart sounds. No murmur heard. No friction rub. Pulmonary: Effort: Pulmonary effort is normal. Musculoskeletal: Cervical back: Neck supple. Skin: General: Skin is warm and dry. Coloration: Skin is not pale. Findings: No erythema or rash. Neurological: Mental Status: She is alert and oriented to person, place, and time. Cranial Nerves: No dysarthria or facial asymmetry. Sensory: Sensation is intact. Motor: Motor function is intact. Coordination: Coordination is intact. Coordination normal. Dkqbtb-Klmn-Rbzeah Test normal. Rapid alternating movements normal. Gait: Gait is intact. Comments: No tremor/hand shaking noted for duration of office visit. Psychiatric: Mood and Affect: Mood normal. Behavior: Behavior normal. Thought Content: Thought content normal. Judgment: Judgment normal. An electronic signature was used to authenticate this note. GWENDOLYN Vences CNP 01/17/2024 2:34 PM Normal [facility] 36on 12-29-2023 36 Name of caller: Brian min Contact phone number: [phone] Relationship to Patient: patient Provider: MD Theo Practice: neuro Chief Complaint/Reason for Call: Xiomara is checking to see if the referral was sent to for the testing doctor wanted her to have. She has not heard from anyone. Please call patient back to advise. Or [employer] message Best time of day caller can be reached: AM Patient advised that office/PCP has 24-48 business hours to return their call: Yes Normal [facility] Office Visiton 12-09-2023 Follow-up visit [id number] Corby Delgado 1995 F Date Provider Department Center 12/09/2023 [id number]-OEIWOMAR GUNN [facility] None Family History Problem Relation Age of Onset No Known Problems Father High Blood Pressure Mother Family Status - Relation Status Age at Father Alive Mother Alive Level of Service:86179 [place] OFFICE/OUTPATIENT ESTABLISHED MOD MDM 30 MIN Reason for Visit and Comments: Follow-up [035491] - Vision blacking out Normal [facility] Progress Noteon 12-09-2023 Progress Note . Patient:Xiomara Delgado AGE: 28 y.o. Birthday:1995 Gender: Female Phone: [phone] Address:[address] [place], [place] [id number] Date:12/09/23 Diagnosis: Autonomic dysfunction Order for autonomic testing including tilt table testing and QSART Omar Gunn MD [facility] [place] [address] Email: [email or web address] Normal [facility] Progress Note 12/09/2023 CC Headaches Patient ID and HPI Xiomara Delgado is a 28 y.o. Rt handed female with Past medical history of hypotension, chronic migraines, hypoglycemia, iron deficiency, maxillary sinusitis, migraines, tobacco abuse who presents to neurology office for follow-up, last seen September 2023 Initial evaluation: September 2023 The patient states that her headaches started when she/he was in high school. He have an injury in high school when she went to [employer] and it hit her in the head. Migraines have not changed in characteristics. Has different kinds of headaches. The patient was diagnosed with 2 different kinds of headaches including occipital neuralgia and chronic migraines. In regards to sudden onset headaches, CT angiogram was done which did not show any aneurysm. Metoprolol was increased from 25 mg to 50 mg. Rizatriptan caused some chest tightness and was switched to sumatriptan. Interval hx: 10-12 headaches a month Increase in Metoprolol caused side effects with low BP Has not taken Sumatriptan: does not take it at work Here to talk about episodes: happened few times when she was younger Happened more when she was with second kid, few years ago Everything goes black briefly , hay to the head No LOC, No confusion No palpitations, No SOB, No CP Metoprolol did not help Frequency: few times a month Duration: few seconds Happens when she stands up too quickly or sometimes when she stands for a long period of time Cut on cigarettes, but vaping now PMHx: has a past medical history of Fibrocystic breast, Heart murmur, Hypoglycemia, and Ovarian cyst. FHx: Grand mother had MS, no hx of brain aneurysm Family History Problem Relation Name Age of Onset No Known Problems Father High Blood Pressure Mother SocHx: Lives with kids, [employer] Social History Tobacco Use Smoking status: Every Day Current packs/day: 0.00 Average packs/day: 0.5 packs/day for 9.0 years (4.5 ttl pk-yrs) Types: Cigarettes Start date: 06/2014 Last attempt to quit: 06/2023 Years since quittin.5 Smokeless tobacco: Never Vaping Use Vaping status: Every Day Substances: Nicotine Devices: Disposable Substance Use Topics Alcohol use: Not Currently Alcohol/week: 0.0 standard drinks of alcohol Drug use: No : No Care Team: Patient Care Team: Jairo Garcia MD as PCP - General Headache Type and Description 1. Aura: No Headache description: Holo cranial, throbbing Intensity: 5-10/10 Duration of symptoms: up to 2 days Frequency of headaches: 16-18 total migraine days with 1-2 times a month severe Associated symptoms: photophobia, phonophobia, osmophobia, fatigue, nausea, vomiting, irritability Exacerbating factors: Moderate activity, stress, Alleviating factors: Improved with rest or sleep, dim lighting Things done when pt gets a headache: tylenol 10 days a month Triggers: None Association with menses: No Visual symptoms: Blurry vision Type: Chronic Migraine without aura 2. Left sided occipital pressure, multiple times a day, multiple times a week, lasts for a few seconds 3. Stabbing electric headache, brief, no triggers, any part of the head and radiating to multiple parts, 1-2 times a month Red flags: sudden onset, tinnitus, No focal neurological symptoms, Non positional or precipitation by valsalva, No systemic signs, Does not wake up from sleep Change in headaches characteristic: No Ophthalmology exam: 2 years ago ER visit/missed days at work: 0 Imaging and Pertinent Testing CT angiogram head and neck October 2023 per my independent review does not show any acute intracranial abnormalities, no large aneurysms Past Therapies for Headache Preventive Rx Details Abortive Rx Details TCAs: Elavil Did not feel right with it NSAIDs: Ibuprofen Naproxen Acetaminophen SSRI/SNRI: Oral Triptans: Rizatriptan Side effects AEDs: IN or SC Triptans: BP: Metoprolol Higher dose of metoprolol caused hypotension Antiemetics: Botox: Gepants: CGRP Mabs: Devices: Antipsychotics: Opioids: Gepants: Ditans: Other: Other: Cycle Breaker: Never used Mini-prophylaxis: Never used Inpatient: Never THERAPIES Physical therapy / OMT - never Chiropractic Manipulation - never Biofeedback / Accupuncture - never Current visit Current preventive medication: metoprolol Current abortive medication: tylenol Frequency / Severity of attacks: 0 Additional narrative: as per HPI Caffeine Intake: 1 large janiya coffee Hydration: not well Exercise: No regular exercise routine Sleep hygiene: Follows regular bedtime and waketime. No shiftwork. Sexually active: Yes; Control: IUD REVIEW OF SYSTEMS Complete ROS was performed and is negative except as documented above. ALLERGIES No Known Allergies CURRENT MEDICATIONS Reviewed as per EHR VITAL SIGNS: BP 125/71 Pulse 85 Temp 37.1 ?C (98.7 (more content not included)... Normal [facility] ECG 12 lead - CLINIC PERFORM EDon 09-13-2023 Sinus Rhythm -RSR(V1) -probably normal for age. Anterior infarct pattern -unusual for this age - may be related to lung disease or body habitus ABNORMAL [facility] 12 Lead EKG performed by [facility] on 08-27-2023 12 Lead EKG performed by [address] [id number] 12 Lead EKG performed by [facility] 08/27/23 1050 MR#: [id number] Acct: [id number] Name: XIOMARA DELGADO Rep #: [id number] : 1995 27 From: Malcolm Landa MD Attending Dr: Dr. Malcolm Landa MD Status: DE P [facility] Ordering Dr: Malcolm Landa MD Date: 08/27/23 Location: [facility] Sex: F C Admitted: BMS/12 Lead EKG performed by [facility] ECG Report Interpretation ----Sinus Rhythm WITHIN NORMAL LIMITSElectronically signed on 08/27/2023 at 12:[address] Malcolm Landa [employer] Version [id number] 08/27/23 1234 Date Malcolm Landa MD CC: Dr. Jairo Garcia MD Date Dictated: 08/27/23 1050 Date Transcribed: 08/27/231049 Emu Farmer: Signed Normal [facility] Cardiology Visit Reporton Cardiology Visit Report [facility] [address] [place] [address] OFFICE VISIT Date of Service: 08/27/23 MR#: [id number] Acct: [id number] Name: XIOMARA DELGADO Rep #: [id number] : 1995 Provider: Dr. Malcolm nevarez MD Age/Sex: 27/F Location: [facility] Status: Signed HPI HPI History of Present Illness Details: Patient comes in today for a second opinion. 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 The patient reports that for several years back when she was a teenager she has had episodes where she blacks out. The first episode occurred when she was a teenager and her mother was brushing her hair and she actually passed out but did not hurt herself. She was evaluated and told that she had vasovagal syncope at that time. The patient has continued to have episodes where she develops tunnel vision everything goes dark that she can hear people talking and she has never fallen. She can even stand up the entire time till the event passes which can be up to 5 minutes. At other times she sits down and it goes away. She has never had an episode when she was exerting herself and almost always occurs when she is changing position. The patient had an echocardiogram done October 2022 her EF was 55% she had mild mitral and pulmonic insufficiency. She had a negative stress test on a Lenard protocol. Holter monitor done June 2023 the predominant rhythm rhythm was sinus maximum heart rate was 173. 4:30 in the afternoon minimum heart rate was 41 bpm and occurred at 5 in the morning. Her average heart rate was 80 there were 16 ventricular ectopic beats less than 1% over 559 supraventricular beats with a burden of less than 1% 3 occurrences of SVT with the fastest episode being 144 the longest was 4 beats. The patient triggered the monitor 4 times and all 4 times the patient was in sinus rhythm with no ectopy. The patient does report that she gets some prodrome with tingling all over and then the tunnel vision start she has also had headaches but these have not been temporally correlated with the blackout spells. EKG in the office today shows normal sinus rhythm at 72 bpm and within normal limits. 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 Accompanied by: Self Is patient in pain?: No Allergies No Known Allergies Allergy (Verified 08/27/23 10:55) Medications metoprolol succinate 25 mg tablet,extended release 24 hr 25 mg PO DAILY #30 tabs 08/27/23 [Rx Confirmed 08/27/23] Ejection fraction %: 55 PFSH Medical History 40 weeks gestation of Anemia affecting COVID-19 virus RNA test result positive at limit of detection Dizziness Idiopathic hypotension Laceration, obstetrical, first degree Near syncope Palpitations Precordial pain Rh negative state in antepartum period Spontaneous onset of labor (spontaneous vaginal delivery) (spontaneous vaginal delivery) Tobacco use during Family History Grandfather Heart disease Social History Smoking Status: Current some day smoker tobacco type: e-cigarettes ROS Const Const: Positive for fatigue and headache(s); Negative for weakness, daytime sleepiness or difficulty sleeping ENT ENT: Positive for headache(s) and dizziness; Negative for Nosebleed/epistaxis Cardio Chest Pain: No Palpitations: No Edema: None Resp Respiratory: Positive for SOB with activity and SOB at rest; Negative for SOB orthopnea SOB lying down or Cough GI GI: Negative nausea, vomiting or heartburn Neuro Neuro: Positive for dizziness, lightheadedness, near syncope and headache(s); Negative for weakness Endo Endo: Positive for fatigue Cardiology Exam Const Appearance: cooperative, healthy appearing, no acute distress and well developed Head Head: normal to inspection Eyes General: appearance normal, both eyes and all related structures Neck Neck: no JVD Carotids: Negative bruit Chest Chest inspection: normal inspection of the chest Auscultation: Bilateral: Clear to Auscultation Cardio Rate: regular rate Rhythm: regular rhythm Heart sounds: S1 normal and S2 normal; Negative rub, gallop or murmur GI GI: normal to inspection Neuro General: patient alert and patient oriented x3 Skin Skin: no rashes or lesions noted Extremities Lower Extremity Edema: None: Bilateral Psych Psychological: normal affect Supplemental Info Supplemental Information (more content not included)... Normal [facility] Cardiac stress study Procedu reOrdered By: Louie Roy on 12-16-2022 Baseline Diastolic BP 69 mmHg [employer] Work Phone: Baseline HR 90 bpm [facility] [employer] Work Phone: Baseline ST Depression 0 mm [facility] [employer] Work Phone: Baseline Systolic BP 111 mmHg [employer] Work Phone: Exercise Duration Seconds 30 sec [facility] [employer] Work Phone: Exercise Duration Time 7 min [facility] [employer] Work Phone: Oxygen saturation in Blood 100 % [facility] [employer] Work Phone: Recovery Stage 1 HR 133 bpm [facility] [employer] Work Phone: Recovery Stage 2 BP 129/81 mmHg [facility] [employer] Work Phone: Recovery Stage 2 HR 100 bpm [facility] [employer] Work Phone: Recovery Stage 3 BP 107/69 mmHg [facility] [employer] Work Phone: Recovery Stage 3 HR 84 bpm [facility] [employer] Work Phone: Recovery Stage 4 BP 107/69 mmHg [facility] [employer] Work Phone: Recovery Stage 4 HR 86 bpm [facility] [employer] Work Phone: Stress Diastolic BP 60 mmHg [facility] [employer] Work Phone: Stress Estimated Workload 9.3 METS [facility] [employer] Work Phone: Stress Peak HR 173 bpm [facility] [employer] Work Phone: Stress Percent HR Achieved 89 % [facility] [employer] Work Phone: Stress Rate Pressure Product 60692 bpm*mmHg [facility] [employer] Work Phone: Stress ST Depression 0 mm [employer] Work Phone: Stress Stage 1 BP 100/42 mmHg [facility] [employer] Work Phone: Stress Stage 1 HR 120 bpm [facility] [employer] Work Phone: Stress Stage 2 BP 130/60 mmHg [facility] [employer] Work Phone: Stress Stage 2 HR 155 bpm [employer] Work Phone: Stress Systolic BP 130 mmHg [employer] Work Phone: Stress Target HR 195 bpm [employer] Phone: Cardiac stress study Procedu reon 12-16-2022 Stress ECG: There we re no arrhythmias during stress. No ST depression was noted. There were no noted arrhythmias during recovery. Conclusion: The stress test is normal. Stress Test: A Lenard protocol stress test was performed. Blood pressure demonstrated a normal response and heart rate demonstrated a normal response to stress. The patient's heart rate recovery was normal. The patient reported no symptoms during the stress test. Resting ECG: The ECG shows normal sinus rhythm. Resting ECG shows no ST-segment deviation. Resting ECG The ECG shows normal sinus rhythm. Stress Findings A Lenard protocol stress test was performed. The patient exercised for 7 min and 30 sec. Jessica rating of perceived exertion was 17. Blood pressure demonstrated a normal response and heart rate demonstrated a normal response to stress. The patient's heart rate recovery was normal. The patient reported no symptoms prior to the stress test. The patient reported no symptoms during the stress test. The test was stopped because the patient experienced fatigue and lightheadedness. Stress ECG There were no arrhythmias during stress. No ST depression was noted. Conclusion: The stress test is normal. CV EPIPHANY HCG QUAL UR B/Oon 11-30-2022 status Negative neg - pos [facility] wade [facility] Quality Check Yes [facility] URINALYSIS WITH CULTURE IF I NDICATEDon 10-14-2022 Appearance (U) Canceled [facility] Comment on above: Order Comment: TEST URINALYSIS WITH CULTURE IF INDICATED WAS CANCELLED, 10/14/2022 01:13 discharged. Performed By: #### U ARFX #### [id number] [place] [address] ASCORBIC ACID Canceled [facility] Comment on above: Order Comment: TEST URINALYSIS WITH CULTURE IF INDICATED WAS CANCELLED, 10/14/2022 01:13 discharged. Result Comment: Conc entrations > = 20 mg/dL of ascorbic acid can be expected to cause strong interference in the reactions testing for glucose, nitrite and blood. It is recommended to discontinue Vitamin C administration and retest in 10 hours. Performed By: #### U ARFX #### [address] [address] Bilirubin Ql (U) Canceled [facility] Comment on above: Order Comment: TEST URINALYSIS WITH CULTURE IF INDICATED WAS CANCELLED, 10/14/2022 01:13 discharged. Performed By: #### U ARFX #### [address] [address] Color (U) Canceled [facility] Comment on above: Order Comment: TEST URINALYSIS WITH CULTURE IF INDICATED WAS CANCELLED, 10/14/2022 01:13 discharged. Performed By: #### U ARFX #### [address] [address] Glucose Ql (U) Canceled [facility] Comment on above: Order Comment: TEST URINALYSIS WITH CULTURE IF INDICATED WAS CANCELLED, 10/14/2022 01:13 discharged. Performed By: #### U ARFX #### [address] [address] Hemoglobin Ql (U) Canceled [facility] Comment on above: Order Comment: TEST URINALYSIS WITH CULTURE IF INDICATED WAS CANCELLED, 10/14/2022 01:13 discharged. Performed By: #### U ARFX #### [address] [address] Ketones Ql (U) Canceled [facility] Comment on above: Order Comment: TEST URINALYSIS WITH CULTURE IF INDICATED WAS CANCELLED, 10/14/2022 01:13 discharged. Performed By: #### U ARFX #### [address] [address] Leukocyte esterase Test strip Ql (U) Canceled [facility] Comment on above: Order Comment: TEST URINALYSIS WITH CULTURE IF INDICATED WAS CANCELLED, 10/14/2022 01:13 discharged. Performed By: #### U ARFX #### [address] [address] Nitrite Ql (U) Canceled [facility] Comment on above: Order Comment: TEST URINALYSIS WITH CULTURE IF INDICATED WAS CANCELLED, 10/14/2022 01:13 discharged. Performed By: #### U ARFX #### [place] [address] pH [facility] Comment on above: Order Comment: TEST URINALYSIS WITH CULTURE IF INDICATED WAS CANCELLED, 10/14/2022 01:13 discharged. Performed By: #### U ARFX #### [place] [address] Protein Ql (U) Canceled [facility] Comment on above: Order Comment: TEST URINALYSIS WITH CULTURE IF INDICATED WAS CANCELLED, 10/14/2022 01:13 discharged. Performed By: #### U ARFX #### [place] [address] Specific gravity (U) [Rel density] [facility]anc[facility] Comment on above: Order Comment: TEST URINALYSIS WITH CULTURE IF INDICATED WAS CANCELLED, 10/14/2022 01:13 discharged. Performed By: #### U ARFX #### [place] [address] UROBILINOGEN Canceled [facility] Comment on above: Order Comment: TEST URINALYSIS WITH CULTURE IF INDICATED WAS CANCELLED, 10/14/2022 01:13 discharged. Performed By: #### U ARFX #### [place] [address] CBC AND DIFFERENTIALon 10-13 % AUTOMATED IMMATURE GRAN 2.5 % High 0.0 - 0.9 [facility] Comment on above: Result Comment: Daisy ture Granulocyte Count (IG) includes promyelocytes, myelocytes and metamyelocytes but does not include bands. Percent differential counts (%) should be interpreted in the context of the absolute cell counts (cells/L). Performed By: #### C BCDF #### [place] [address] Basophils (Bld) [#/Vol] 0.01 10*3/uL Normal 0.00 - 0.10 [facility] Comment on above: Performed By: #### C BCDF #### [address] [address] Basophils/100 WBC (Bld) 0.1 % Normal 0.0 - 2.0 [facility] Comment on above: Performed By: #### C BCDF #### [address] [address] Eosinophils (Bld) [#/Vol] 0.16 10*3/uL Normal 0.00 - 0.70 [facility] Comment on above: Performed By: #### C BCDF #### [address] [address] Eosinophils/100 WBC (Bld) 1.6 % Normal 0.0 - 6.0 [facility] Comment on above: Performed By: #### C BCDF #### [address] [address] Erythrocyte distribution width (RBC) [Ratio] 17.9 % High 11.5 - 14.5 [facility] Comment on above: Performed By: #### C BCDF #### [address] [address] Hematocrit (Bld) [Volume fraction] 27.6 % Low 36.0 - 46.0 [facility] Comment on above: Performed By: #### C BCDF #### [address] [address] Hemoglobin (Bld) [Mass/Vol] 8.7 g/dL Low 12.0 - 16.0 [facility] Comment on above: Performed By: #### C BCDF #### [address] [address] Lymphocytes (Bld) [#/Vol] 2.56 10*3/uL Normal 1.20 - 4.80 [facility] Comment on above: Performed By: #### C BCDF #### [address] [address] Lymphocytes/100 WBC (Bld) 25.2 % Normal 13.0 - 44.0 [facility] Comment on above: Performed By: #### C BCDF #### [address] [address] MCHC (RBC) [Mass/Vol] 31.5 g/dL Low 32.0 - 36.0 [facility] Comment on above: Performed By: #### C BCDF #### [address] [address] MCV (RBC) [Entitic vol] 89 fL Normal 80 - 100 [facility] Comment on above: Performed By: #### C BCDF #### [address] [address] Monocytes (Bld) [#/Vol] 0.53 10*3/uL Normal 0.10 - 1.00 [facility] Comment on above: Performed By: #### C BCDF #### [address] [address] Monocytes/100 WBC (Bld) 5.2 % Normal 2.0 - 10.0 [facility] Comment on above: Performed By: #### C BCDF #### [address] [address] Neutrophils (Bld) [#/Vol] 6.63 10*3/uL Normal 1.20 - 7.70 [facility] Comment on above: Result Comment: Perc ent differential counts (%) should be interpreted in the context of the absolute cell counts (cells/L). Performed By: #### C BCDF #### [address] [address] Neutrophils/100 WBC (Bld) 65.4 % Normal 40.0 - 80.0 [facility] Comment on above: Performed By: #### C BCDF #### [address] [address] Platelets (Bld) [#/Vol] 246 10*3/uL Normal 150 - 450 [facility] Comment on above: Performed By: #### C BCDF #### [address] [address] RBC 3.12 x10E12/L Low 4.00 - 5.20 [facility] Comment on above: Performed By: #### C BCDF #### [address] [address] WBC (Bld) [#/Vol] 10.1 10*3/uL Normal 4.4 - 11.3 [facility] Comment on above: Performed By: #### C BCDF #### [place] [address] COMPREHENSIVE PANELon 2022 Albumin [Mass/Vol] 3.3 g/dL Low 3.4 - 5.0 [facility] Comment on above: Performed By: #### C MP #### [address] [address] ALP [Catalytic activity/Vol] 110 U/L Normal 33 - 110 [facility] Comment on above: Performed By: #### C MP #### [address] [address] ALT [Catalytic activity/Vol] 16 U/L Normal 7 - 45 [facility] Comment on above: Result Comment: Felicita ents treated with Sulfasalazine may generate falsely decreased results for ALT. Performed By: #### C MP #### [address] [address] Anion gap [Moles/Vol] 10 mmol/L Normal 10 - 20 [facility] Comment on above: Performed By: #### C MP #### [address] [address] AST [Catalytic activity/Vol] 18 U/L Normal 9 - 39 [facility] Comment on above: Performed By: #### C MP #### [address] [address] Bilirubin [Mass/Vol] 0.3 mg/dL Normal 0.0 - 1.2 [facility] Comment on above: Performed By: #### C MP #### [address] [address] Calcium [Mass/Vol] 8.3 mg/dL Low 8.6 - 10.3 [facility] Comment on above: Performed By: #### C MP #### [address] [address] Chloride [Moles/Vol] 107 mmol/L Normal 98 - 107 [facility] Comment on above: Performed By: #### C MP #### [address] [address] Creatinine [Mass/Vol] 0.50 mg/dL Normal 0.50 - 1.05 [facility] Comment on above: Performed By: #### C MP #### [address] [address] eGFR FEMALE >90 Normal >90 [facility] Comment on above: Result Comment: CALC ULATIONS OF ESTIMATED GFR ARE PERFORMED USING THE 2020 CKD-EPI STUDY REFIT EQUATION WITHOUT THE RACE VARIABLE FOR THE IDMS-TRACEABLE CREATININE METHODS. https://jasn.asnjournals.org/content/early/ASN.668284 0413 Performed By: #### C MP #### [address] [address] Glucose [Mass/Vol] 108 mg/dL High 74 - 99 [facility] Comment on above: Performed By: #### C MP #### [address] [address] HCO3 (Bld) [Moles/Vol] 24 mmol/L Normal 21 - 32 [facility] Comment on above: Performed By: #### C MP #### [address] [address] Potassium [Moles/Vol] 3.5 mmol/L Normal 3.5 - 5.3 [facility] Comment on above: Performed By: #### C MP #### [address] [address] Protein [Mass/Vol] 6.1 g/dL Low 6.4 - 8.2 [facility] Comment on above: Performed By: #### C MP #### [address] [address] Sodium [Moles/Vol] 137 mmol/L Normal 136 - 145 [facility] Comment on above: Performed By: #### C MP #### [id number] [place] [address] Urea nitrogen [Mass/Vol] 11 mg/dL Normal 6 - 23 [facility] Comment on above: Performed By: #### C MP #### [id number] [place] [address] Provider Note - ED v3on 10-01 Provider Note - ED v3 Provider Note: Results/Vital Signs: Pediatric Clinical Scoring (COLETTE) is no recent COLETTE charted on this account Chart Review: ED NOTES ED NOTES: HPI: Patient is approximately 3 days . She states that she delivered her second child October 10 and on the she passed a large blood clot but has not had further bleeding. She states that since then she has had a headache feels nauseated and lightheaded. She denies any actual vomiting or fever. Medical/Family HX: Denies any chronic medical history Physical Exam I have reviewed the triage vital signs. Const: Well nourished, well developed, appears stated age, no acute distress Eyes: PERRL, EOM intact, no conjunctival injection, vision grossly normal HENT: Neck supple without meningismus , Moist mucous membranes, no pharyengeal swelling or exudate CV: Regular rate and rhythm, Warm, well-perfused extremities. Chest non tender RESP: Lungs clear bilaterally, Unlabored respiratory effort GI: soft, non-tender, non-distended, no masses : MSK: No gross deformities appreciated Back: Non tender, no pain with ROM Skin: Warm, dry. No rashes Neuro: Alert and oriented x4, GCS 15 , environmental conservation officer II-XII grossly intact. Sensation and motor function of extremities grossly intact. Psych: Appropriate mood and affect. I have reviewed and confirmed nurses/medics notes for patient past, social and family history. Portions of this note were dictated by speech recognition. An attempt at proof reading was made to minimize errors. Minor errors in hot mill roller may be present. HISTORY OF PRESENTING ILLNESS XIOMARA is a 26 year old Female and was seen by me at 13-Oct-2022 17:36 for a chief complaint of multiple medical complaints (To ED per wheelchair c/o BRAVO, lightheadedness, abd pain and nausea since vaginal delivery 4 days ago. She denies any issues with or delivery.)(1). Triage Information: Most recent Vital Sign Value Date Temp (F): 98 10-13-2022 17:36 Temp (C): 36.6 10-13-2022 17:36 Heart Rate (beats/min): 97 10-13-2022 17:36 Respirations (breaths/min): 16 10-13-2022 17:36 SpO2 (%): 98 10-13-2022 17:36 BP Systolic (mm Hg): 129 10-13-2022 17:36 BP Diastolic (mm Hg): 76 10-13-2022 17:36 PAST MEDICAL HISTORY ALLERGIES/INTOLERANCES : No Known Allergies HEALTH HISTORY: No documented data. OUTPATIENT MEDICATIONS: Home Medications Review Status for Reconciliation: N/A Med Status: Incomplete Medication History Drug Name: naproxen 500 mg oral tablet Instructions: 1 tab(s) orally 2 times a day Drug Name: IBU 800 mg oral tablet Instructions: 1 tab(s) orally 2 times a day Drug Name: Augmentin 875 mg-125 mg oral tablet Instructions: 1 tab(s) orally every 12 hours Drug Name: Periogard 0.12% mucous membrane liquid Instructions: 15 milliliter(s) orally 2 times a day Drug Name: ibuprofen 600 mg oral tablet Instructions: 1 tab(s) orally every 6 hours SIGNIFICANT EVENTS: Past Medical History Description:denies Past Surgical History Description:denies MDM MDM/ED COURSE: On evaluation patient states her headache is fairly typical for her. She will be treated with 1 L normal saline IV, 15 mg IV Toradol, 50 mg IV Benadryl, and 10 mg IV Reglan. Basic lab work will be initiated. Her blood pressure is stable at 129/76. 1914-on reevaluation patient states that she is feeling better and comfortable with discharge home. Her blood pressure currently is 109/77 with a pulse rate of 82. Patient's lab work shows a hemoglobin of 8.7 and on review of previous records her hemoglobin in September 21 was 9.3. Patient has not provided a urine sample and I discussed with her obtaining this but she denies any urinary complaints and would prefer to be discharged at this time. Patient discharged home as noted below. Differential Diagnoses Considered: Benign headache, preeclampsia, anemia, UTI Chronic Medical Conditions Significantly Affecting Care: None Escalation of Care: Appropriate for discharge home to follow up with PCP Social Determinants of Health Significantly Affecting Care: None that affect their care today Diagnostic testing considered: As above External Records Reviewed: I reviewed recent and relevant outside records including: As above Your work-up in the emergency department shows normal lab work. After medication your headache does seem to be improved and I do feel you are stable for discharge home. At this point, I do not see any concerning issues which would require hospitalization or further evaluation I recommend that you get plenty of rest and fluids, follow-up closely with your family doctor and SEE SUPERVISOR, and otherwise return to the nearest ER for any new or worsening concerns. DISPOSITION Diagnosis/Annotation: ED Dx Name:Headache Code:R51 Name:Fatigue Code:R53.83 Disposition: discharged Type: home CONSU (more content not included)... Normal [facility] Risk Screen - Adult Emergenc n 10-13-2022 Risk Screen - Adult Emergency Preferred Language: Preferred Language: Preferred Language for Discussing Health Care (patient/designee)Engl ale Patient Preferred Pharmacy: Patient Preferred Pharmacy Statement: I have reviewed and updated the patient's preferred pharmacy selection for today's visit. Advanced Directives: Advance Directive/DNRno Family Violence Adult: Abuse Screen: Are you or have you been threatened or abused physically, emotionally, or sexually by anyoneno Learning Assessment (Patient): Learning Assessment (Patient): Patient is Able to be Assessed for Learningyes Factors Influencing Readiness to Learnacuteness of illness Factors that Impact Ability to Learnnone Devices/Methods Used to Communicatenone Learning Preferencesverbal instruction; written material Cultural Considerationsnone Developmental Considerationsnone Mosque Considerationsnone Learning Assessment (Other Learner): Learning Assessment (Other Learner): Other learner availableno Pressure Injury/TB/Substance: Pressure Injury: Pressure Injury Present on Admissionno Do you have a coughno Smoking Statusmoderate user (uses 11-30 cig/day, OR 0.5-1.5 ppd, OR 2-3 cans/pouches loose leaf tobacco per week, OR 0.5-1.5 vape pods per day) Tobacco Cessation Education (provide if tobacco use within the last 12 mos) patient declined Alcohol Usedenies Drug Usedenies Admission Risk Screen: Significant IndicatorsComplete CAGE: CAGE: Is this an injured patient at a Trauma Center ([facility]/[place] [facility]): no Electronic Signatures: Anna Myrick (RN) (Signed 13-Oct-2022 17:39) Authored: Preferred Language, Patient Preferred Pharmacy, Advanced Directives, Family Violence Adult, Learning Assessment (Patient), Learning Assessment (Other Learner), Pressure Injury/TB/Substance, Pressure Injury, CAGE Last Updated: 13-Oct-2022 17:39 by Anna Myrick (RN) [facility] Triage - EDon 10-13-2022 Triage - ED Quick Triage: Are You no Have You Given In The Last 6 Weeksyes Are You Currently Breastfeedingno The patient and/or guardian verbally acknowledges placement for services into the following (when Urgent Care Service hours are operating):emergency department Chart Review: ARRIVAL INFORMATION Mode of Arrival: private vehicle CHIEF COMPLAINT XIOMARA DELGADO is a Female patient with a chief complaint of multiple medical complaints (To ED per wheelchair c/o BRAVO, lightheadedness, abd pain and nausea since vaginal delivery 4 days ago. She denies any issues with or delivery.). Triage Date/Time: 13-Oct-2022 17:31 COLE: 3 Pain Rating (0-10): 5 = Moderate Pain location: abd pain and BRAVO Vital Signs: Temperature: 98.0F ( 36.6C) taken temporal Blood Pressure: 129/76 Mean: Heart Rate: 97 Respiratory Rate: 16 Pulse Oximetry: 98% on room air, no respiratory support. Weight: 160.9 pounds. Calculated 73.0 kg. Prashant Coma Scale: Best Eye Response: (E4) spontaneous Best Motor Response: (M6) obeys commands Best Verbal Response: (V5) oriented Prashant Score: 15 Cough lasting greater than 3 weeks: no Allergies: no Last menstrual period: unknown Patient has homicidal thoughts: no Symptoms Are POSITIVE For: headache, nausea and pain Symptoms Are Negative For: anxiety, chills, diaphoresis, dyspnea, loss of consciousness, numbness, tingling and weakness Risk Screens Suicide Risk Screen In the Past Month: Have you wished you were or wished you could go to sleep and not wake up no In the Past Month: Have you had any actual thoughts of killing yourself no In Your Lifetime: Have you ever done anything, started to do anything, or prepared to do anything to end your life no Gonzalez Fall Scale Screening Has the patient fallen before (or is the patient in the ED as a result of a fall) has not had a fall Does the patient have an impaired gait does not have impaired gait Is the patient cognitively impaired not cognitively impaired Interventions: Gonzalez Fall Interventions: LOW INTERVENTIONS: *patient oriented to surroundings and call system, * patient/family falls education completed and documented, *patients fall status communicated during bedside handoff, *whiteboard updated, *mode of toileting discussed with patient, *bed in low position with brakes locked, *call light in reach, * non-skid footwear TRAVEL HISTORY Travel History Coronavirus Screening: no exposure or symptoms Travel Exposure History: NO travel to International locations in the past 30 days PAIN Pain Scale Used: JOSE Pain Rating (0-10): 5 = Moderate Past Medical History: Past Medical History Reviewedyes Electronic Signatures: Anna Myrick (RN) (Signed 13-Oct-2022 17:38) Entered: Risk Screens, Pain, Travel History, Chart Review, Scores, Past Medical History Authored: Quick Triage, Risk Screens, Pain, Travel History, Chart Review, Scores, Past Medical History Last Updated: 13-Oct-2022 17:38 by Anna Myrick (RN) [facility] Absolute lymphocyte countOrd ered By: Naye Sepulveda on 10-09-2022 Lymphocytes Auto (Unsp spec) [#/Vol] 2.27 10*3/uL 0.83-4.51 [facility] Basophil percentageOrdered B y: Naye Sepulveda on 10-09-2022 Basophils/100 WBC (Bld) 0.2 % 0-1 [facility] Eosinophils/100 WBC (Bld) 0.5 % 0-5 [facility] Neutrophils (Bld) [#/Vol] 16.2 10*3/uL 2.0-7.7 [facility] Neutrophils/100 WBC (Bld) 78.1 % 47-70 [facility] WBC (Bld) [#/Vol] 20.7 10*3/uL 4.4-11.0 [facility] Blood erythrocytes count (nu mber/volume)Ordered By: Naye Sepulveda on 10-09-2022 RBC (Bld) [#/Vol] 3.34 10*6/uL 4.2-5.4 [facility] Blood hemoglobin measurement (mass/volume)Ordered By: Naye Sepulveda on 10-09-2022 Hemoglobin (Bld) [Mass/Vol] 9.2 g/dL 12.0-15.0 [facility] Blood lymphocytes/100 leukoc ytesOrdered By: Naye Sepulveda on 10-09-2022 Lymphocytes/100 WBC (Bld) 11.0 % 19-41 [facility] Blood monocytes/100 leukocyt esOrdered By: Nayesusannah Sepulveda on 10-09-2022 Monocytes/100 WBC (Bld) 7.2 % 0-10 [facility] Blood platelet mean volumeOr dered By: Naye Sepulveda on 10-09-2022 Platelet mean volume (Bld) [Entitic vol] 10.6 fL 6.2-12.0 [facility] Determination of erythrocyte mean corpuscular volume (MCV)Ordered By: Naye Sepulveda on 10-09-2022 MCV (RBC) [Entitic vol] 88.0 fL 81-99 [facility] Hematocrit Auto (Bld) [Volum e fraction]Ordered By: Naye Sepulveda on 10-09-2022 Hematocrit (Bld) [Volume fraction] 29.4 % 37-47 [facility] Laboratory - Hematology and Cell countsOrdered By: Nayesusannah Sepulveda on 10-09-2022 Erythrocyte distribution width (RBC) [Entitic vol] 51.3 fL 35.1-43.9 [facility] Erythrocyte distribution width (RBC) [Ratio] 16.7 % 11.6-14.6 [facility] Immature granulocytes/100 WBC (Bld) 3.000 % 0.0-0.9 [facility] Comment on above: IG% - Immature Granu locytes (promyelocytes, myelocytes and metamyelocytes) > 1% indicates that a LEFT SHIFT is Present. MCH (RBC) [Entitic mass] 27.5 pg 27.0-32.0 [facility] Nucleated RBC/100 WBC (Bld) [Ratio] 0.1 % 0-5 [facility] MCHC Auto (RBC) [Mass/Vol]Or dered By: Nayesusannah Sepulveda on 10-09-2022 MCHC (RBC) [Mass/Vol] 31.3 g/dL 32-36 [facility] Platelets bldOrdered By: Marycarmen Sepulveda on 10-09-2022 Platelets (Bld) [#/Vol] 229 10*3/uL 150-450 [facility] Serum Treponema species anti body detectionOrdered By: Naye Sepulveda on 10-09-2022 Treponema sp Ab Ql (S) Non-Reactive [facility] URINE OB DIP B/Oon 3 Glucose Ql (U) Negative Neg mg/dL [facility] Protein.monoclonal (U) [Mass/Vol] Negative Neg mg/dL [facility] URINE OB DIP B/Oon 3 Glucose Ql (U) Negative Neg mg/dL [facility] Protein.monoclonal (U) [Mass/Vol] Negative Neg mg/dL [facility] FERRITIN BLDon 09-21-2022 Ferritin [Mass/Vol] 10.6 ng/mL Low 14.7 - 2 05.1 ng/mL [facility] Iron and Iron binding capaci ty panelon 09-21-2022 Iron [Mass/Vol] 54 ug/dL 41 - 186 ug/dL [facility] Iron binding capacity [Mass/Vol] High 232 - 386 ug/dL [facility] Iron/TIBC [Molar ratio] Low 15.0 - 57.0 % [facility] URINE OB DIP B/Oon 3 Glucose Ql (U) Negative Neg mg/dL [facility] Protein.monoclonal (U) [Mass/Vol] Negative Neg mg/dL [facility] URINE OB DIP B/Oon 3 Glucose Ql (U) Negative Neg mg/dL [facility] Protein.monoclonal (U) [Mass/Vol] Negative Neg mg/dL [facility] ECG 12 lead - CLINIC PERFORM EDon 09-07-2022 Sinus Tachycardia -Nonspecific ST depression + Nonspecific T-abnormality - nondiagnostic for this age. ABNORMAL [facility] URINE OB DIP B/Oon 3 Glucose Ql (U) Negative Neg mg/dL [facility] Protein.monoclonal (U) [Mass/Vol] Negative Neg mg/dL [facility] URINE OB DIP B/Oon 3 Glucose Ql (U) Negative Neg mg/dL [facility] Protein.monoclonal (U) [Mass/Vol] Negative Neg mg/dL [facility] URINE OB DIP B/Oon 3 Glucose Ql (U) Negative Neg mg/dL [facility] Protein.monoclonal (U) [Mass/Vol] Negative Neg mg/dL [facility] URINE OB DIP B/Oon 3 Glucose Ql (U) Negative Neg mg/dL [facility] Protein.monoclonal (U) [Mass/Vol] Negative Neg mg/dL [facility] BACTERIAL VAGINOSIS AMPLIFIC ATIONon 06-09-2022 Lactobacillus crispatus+gasseri+alexsander senii + Gardnerella vaginalis + Atopobium vaginae rRNA CR+probe Ql (Vag fld) Negative Negative for bacterial vaginosis [facility] C. trachomatis+N. gonorrhoea e DNA CR+probe Ql (Unsp spec)on 06-09-2022 C. trachomatis DNA CR+probe Ql (Unsp spec) Negative Negative for Chlamydia trachomatis by amplificaton [facility] N. gonorrhoeae DNA CR+probe Ql (Unsp spec) Negative Negative for Neisseria gonorrhoeae by amplification [facility] KB / TRICHOMONAS AMPLIF ICATIONon 06-09-2022 C. glabrata RNA CR+probe Ql (Vag fld) Negative Negative for Kb glabrata [facility] Kb albicans, C. dubliniensis, C. parapsilosis, and C. tropicalis RNA CR+probe Ql (Vag fld) Negative Negative for Kb species [facility] T. vaginalis DNA CR+probe Ql (Unsp spec) Negative Negative for Trichomonas vaginalis by amplification [facility] URINE CULTUREon 06-09-2022 Bacteria identified Cx Nom (U) 10,000 -<50,000 CFU/ml Normal urogenital stone [facility] UA DIP, URINE (POC)on 2022 BILIRUBIN UA (POCT) Negative Negative [facility] CLARITY UA (POCT) Clear [facility] COLOR UA (POCT) Yellow [facility] GLUCOSE UA (POCT) Negative Negative mg/dL [facility] HEMOGLOBIN/BLOOD UA (POCT) Negative Negative [facility] KETONE UA (POCT) Negative Negative mg/dL [facility] LEUKOCYTES UA (POCT) Trace Abnormal Negative [facility] NITRITE UA (POCT) Negative Negative [facility] PH UA (POCT) 6.5 4.5 - 8.0 [facility] Protein Ql (U) Negative Negative mg/dL [facility] SPECIFIC GRAVITY UA (POCT) 1.015 1.005 - 1.030 [facility] UROBILINOGEN UA (POCT) 1.0 E.U./dL Normal E.U./dL [facility] OBSTETRIC ULTRASOUND WHIon 0 05-26-2022 [facility] URINE OB DIP B/Oon 3 Glucose Ql (U) Negative Neg mg/dL [facility] Protein.monoclonal (U) [Mass/Vol] Negative Neg mg/dL [facility] URINE OB DIP B/Oon 2 Glucose Ql (U) Negative Neg mg/dL [facility] Protein.monoclonal (U) [Mass/Vol] Negative Neg mg/dL [facility] NUCHAL TRANSLUCENCY WHIon [facility] URINE OB DIP B/Oon 2 Glucose Ql (U) Negative Neg mg/dL [facility] Protein.monoclonal (U) [Mass/Vol] trace Neg mg/dL [facility] Absolute lymphocyte counton 02-25-2022 Lymphocytes Auto (Unsp spec) [#/Vol] 1.96 10*3/uL 0.83-4.51 [facility] Work Phone: Basophil percentageon 2021 Basophil percentage 0-5 SEEN /hpf 0-5 [facility] Work Phone: Basophils/100 WBC (Bld) 0.3 % 0-1 [facility] Work Phone: Chloride [Moles/Vol] 107 mmol/L 98-107 [facility] Work Phone: Eosinophils/100 WBC (Bld) 0.6 % 0-5 [facility] Work Phone: Glucose [Mass/Vol] 113 mg/dL 74-106 [facility] Work Phone: Comment on above: Fasting Glucose resu lt from 100 to 125 mg/dL suggests IMPAIRED HOMEOSTASIS per A.D.A. criteria. Neutrophils (Bld) [#/Vol] 7.0 10*3/uL 2.0-7.7 [facility] Work Phone: [phone] Neutrophils/100 WBC (Bld) 72.2 % 47-70 [facility] Work Phone: Potassium [Moles/Vol] 3.3 mmol/L 3.5-5.1 [facility] Work Phone: Sodium [Moles/Vol] 136 mmol/L 136-145 [facility] Work Phone: WBC (Bld) [#/Vol] 9.6 10*3/uL 4.4-11.0 [facility] Work Phone: Beta hCG serum qualon 2021 Beta HCG ( test) Ql Negative [facility] Work Phone: Comment on above: TEST is *P OSITIVE*CRITICAL VALUE VERIFIED. CALLED TO ARPAN BRITTON02/25/[id number] Davy Chappell.RESULTS READ BACK BY SAME . Previous reported result: NEGATIVE NegativeEdited by: ZULEIKA on 02/25/22:1813 AMENDED REPORT 02/25/221813 [facility] previously reported as: NEGATIVE Negative Bilirubin Test strip Ql (U)o n 02-25-2022 Bilirubin Ql (U) Negative Negative [facility] Work Phone: Blood erythrocytes count (nu mber/volume)on 02-25-2022 RBC (Bld) [#/Vol] 4.51 10*6/uL 4.2-5.4 [facility] Work Phone: Blood hemoglobin measurement (mass/volume)on 02-25-2022 Hemoglobin (Bld) [Mass/Vol] 13.1 g/dL 12.0-15.0 [facility] Work Phone: [phone] Blood lymphocytes/100 leukoc yteson 02-25-2022 Lymphocytes/100 WBC (Bld) 20.3 % 19-41 [facility] Work Phone: [phone] Blood monocytes/100 leukocyt eson 02-25-2022 Monocytes/100 WBC (Bld) 6.2 % 0-10 [facility] Work Phone: Blood platelet mean volumeon 02-25-2022 Platelet mean volume (Bld) [Entitic vol] 10.2 fL 6.2-12.0 [facility] Work Phone: Determination of erythrocyte mean corpuscular volume (MCV)on 02-25-2022 MCV (RBC) [Entitic vol] 86.3 fL 81-99 [facility] Work Phone: Hematocrit Auto (Bld) [Volum e fraction]on 02-25-2022 Hematocrit (Bld) [Volume fraction] 38.9 % 37-47 [facility] Work Phone: Ketones Test strip Ql (U)on 02-25-2022 Ketones Ql (U) 15 mg/dl Negative [facility] Work Phone: Laboratory - Chemistry and C hemistry - challengeon 02-25-2022 CO2 [Moles/Vol] 25.0 mmol/L 21.0-32.0 [facility] Work Phone: Urea nitrogen/Creatinine [Mass ratio] 13.4 mg/mg 10-20 [facility] Work Phone: Laboratory - Hematology and Cell countson 02-25-2022 Erythrocyte distribution width (RBC) [Entitic vol] 38.5 fL 35.1-43.9 [facility] Work Phone: Erythrocyte distribution width (RBC) [Ratio] 12.3 % 11.6-14.6 [facility] Work Phone: Immature granulocytes/100 WBC (Bld) 0.400 % 0.0-0.9 [facility] Work Phone: Comment on above: IG% - Immature Granu locytes (promyelocytes, myelocytes and metamyelocytes) > 1% indicates that a LEFT SHIFT is Present. MCH (RBC) [Entitic mass] 29.0 pg 27.0-32.0 [facility] Work Phone: Nucleated RBC/100 WBC (Bld) [Ratio] 0 % 0-5 [facility] Work Phone: MCHC Auto (RBC) [Mass/Vol]on 02-25-2022 MCHC (RBC) [Mass/Vol] 33.7 g/dL 32-36 [facility] Work Phone: Mucus LM Ql (Urine sed)on Mucus Ql (Urine sed) 0 SEEN /hpf [facility] Work Phone: Nitrite Test strip Ql (U)on 02-25-2022 Nitrite Ql (U) Positive Negative [facility] Work Phone: No Panel Informationon 02-25 Estimated Creatinine Clearance Calc 135.35 ml/min [facility] Work Phone: Estimated GFR (MDRD) Amer 159 mL/min >60 [facility] Work Phone: Comment on above: GFR Calc Estimated GFR (MDRD) Non-Af Amer 131 mL/min >60 [facility] Work Phone: Comment on above: Non- GFR Calc Platelets bldon 02-25-2022 Platelets (Bld) [#/Vol] 243 10*3/uL 150-450 [facility] Work Phone: Protein Test strip Ql (U)on 02-25-2022 Protein Ql (U) 15 mg/dl Negative [facility] Work Phone: Serum or plasma calcium janay urement (mass/volume)on 02-25-2022 Calcium [Mass/Vol] 9.2 mg/dL 8.5-10.1 [facility] Work Phone: Serum or plasma choriogonado tropin detectionon 02-25-2022 HCG ( test) [place]l [address] mIU/mL <4 [facility] Work Phone: Comment on above: hCG levels with Gest ational AgeGestational Age hCG mIU/mL (IU/L)0.2 - 1 week 5 - 501-2 weeks 50 - 5002-3 weeks 100 - 54352-2 weeks 500 - 293550-2 weeks 1000 - 685580-5 weeks 07602 - 100,0006-8 weeks 07442 - 200,0002-3 months 72229 - 100,000 Serum or plasma creatinine m easurement (mass/volume)on 02-25-2022 Creatinine [Mass/Vol] 0.60 mg/dL 0.55-1.02 [facility] Work Phone: Comment on above: The validity of the calculated GFR & GFRAA in patients over 70 years has not been determined. Clinical correlation is essential. Serum or plasma urea nitroge n measurement (mass/volume)on 02-25-2022 Urea nitrogen [Mass/Vol] 8 mg/dL 7-18 [facility] Work Phone: Squamous epithelial cells de tection in urine sediment by light microscopyon 02-25-2022 Epithelial cells.squamous LM Ql (Urine sed) 5-10 SEEN /hpf 5-10 [facility] Work Phone: Thin prep Papanicolaou smear with manual screeningon 02-25-2022 Thin prep Papanicolaou smear with manual screening 4 5-15 [facility] Work Phone: Urine blood detectionon 02-01 RBC Ql (U) Negative Negative [facility] Work Phone: RBC Ql (U) 0 SEEN /hpf 0-5 [facility] Work Phone: Urine clarityon 02-25-2022 Clarity (U) Sl. Cloudy Clear [facility] Work Phone: Urine color determinationon 02-25-2022 Color (U) Yellow Yellow [facility] Work Phone: Urine glucose detectionon Glucose Ql (U) Normal mg/dl Normal [facility] Work Phone: Urine leukocyte esterase det ection by dipstickon 02-25-2022 Leukocyte esterase Test strip Ql (U) 100 /ul Negative [facility] Work Phone: Urine pHon 02-25-2022 pH (U) 7.0 [pH] 5.0 - 8.0 [facility] Work Phone: Urine sediment bacteria coun t by microscopy (number/high power field)on 02-25-2022 Bacteria LM.HPF (Urine sed) [#/Area] 2 /[HPF] None Seen [facility] Work Phone: Urine specific gravity measu rementon 02-25-2022 Specific gravity (U) [Rel density] 1.020 1.002-1.030 [facility] Work Phone: Urobilinogen Auto test strip Ql (U)on 02-25-2022 Urobilinogen Ql (U) 1 mg/dl Normal [facility] Work Phone: Absolute lymphocyte counton 09-06-2021 Lymphocytes Auto (Unsp spec) [#/Vol] 0.98 10*3/uL 0.83-4.51 [facility] Work Phone: Basophil percentageon 2021 Basophils/100 WBC (Bld) 0.3 % 0-1 [facility] Work Phone: Eosinophils/100 WBC (Bld) 0.3 % 0-5 [facility] Work Phone: [phone] Neutrophils (Bld) [#/Vol] 8.1 10*3/uL 2.0-7.7 [facility] Work Phone: Neutrophils/100 WBC (Bld) 77.5 % 47-70 [facility] Work Phone: WBC (Bld) [#/Vol] 10.4 10*3/uL 4.4-11.0 [facility] Work Phone: [phone] Blood erythrocytes count (nu mber/volume)on 09-06-2021 RBC (Bld) [#/Vol] 3.84 10*6/uL 4.2-5.4 [facility] Work Phone: [phone] Blood hemoglobin measurement (mass/volume)on 09-06-2021 Hemoglobin (Bld) [Mass/Vol] 11.3 g/dL 12.0-15.0 [facility] Work Phone: Blood lymphocytes/100 leukoc yteson 09-06-2021 Lymphocytes/100 WBC (Bld) 9.4 % 19-41 [facility] Work Phone: Blood monocytes/100 leukocyt eson 09-06-2021 Monocytes/100 WBC (Bld) 11.2 % 0-10 [facility] Work Phone: Blood platelet mean volumeon 09-06-2021 Platelet mean volume (Bld) [Entitic vol] 11.4 fL 6.2-12.0 [facility] Work Phone: Determination of erythrocyte mean corpuscular volume (MCV)on 09-06-2021 MCV (RBC) [Entitic vol] 88.8 fL 81-99 [facility] Work Phone: Hematocrit Auto (Bld) [Volum e fraction]on 09-06-2021 Hematocrit (Bld) [Volume fraction] 34.1 % 37-47 [facility] Work Phone: Laboratory - Chemistry and C hemistry - challengeon 09-06-2021 ALT [Catalytic activity/Vol] 20 U/L 13-56 [facility] Work Phone: Laboratory - Hematology and Cell countson 09-06-2021 Erythrocyte distribution width (RBC) [Entitic vol] 46.7 fL 35.1-43.9 [facility] Work Phone: Erythrocyte distribution width (RBC) [Ratio] 14.7 % 11.6-14.6 [facility] Work Phone: Immature granulocytes/100 WBC (Bld) 1.300 % 0.0-0.9 [facility] Work Phone: Comment on above: IG% - Immature Granu locytes (promyelocytes, myelocytes and metamyelocytes) > 1% indicates that a LEFT SHIFT is Present. MCH (RBC) [Entitic mass] 29.4 pg 27.0-32.0 [facility] Work Phone: Nucleated RBC/100 WBC (Bld) [Ratio] 0 % 0-5 [facility] Work Phone: Laboratory - Microbiology an d Antimicrobial susceptibilityon 09-06-2021 SARS-CoV-2 (COVID-19) RNA CR+probe Ql (Unsp spec) Detected Not Detect [facility] Work Phone: Comment on above: Normal Reference Ran ge: Not DetectedMethod:(RT-PCR) real-time reverse transcriptase PCRLuminex PATRICIA Instrument*The Food and Drug Administration (FDA) has issued an Emergency Use Authorization (EAU) for the PATRICIA SARS-CoV-2 Assay for the rapid detection of the virus that causes COVID-19. This test has been validated, but the FDAs independent review of this validation is pending.*Negative results do not preclude infection and should not be used as the sole basis for treatment or patient management. Optimum specimen types and timing for peak viral levels during infections caused by SARS-CoV-2 have not been determined. Collection of multiple specimens from the same patient may be necessary to detect the virus. The possibility of a false negative result should be considered if the patient has clinical presentation or has had recent exposure. MCHC Auto (RBC) [Mass/Vol]on 09-06-2021 MCHC (RBC) [Mass/Vol] 33.1 g/dL 32-36 [facility] Work Phone: No Panel Informationon 09-06 Estimated Creatinine Clearance Calc 143.15 ml/min [facility] Work Phone: Estimated GFR (MDRD) Amer 175 mL/min >60 [facility] Work Phone: Comment on above: GFR Calc Estimated GFR (MDRD) Non-Af Amer 145 mL/min >60 [facility] Work Phone: Comment on above: Non- GFR Calc Vaginal Amniotic Fluid Detection Positive Negative [facility] Work Phone: Comment on above: Amniotic fluid prese nt indicates rupture of Membranes. RESULTS CALLED TO Namrata ANDERSON 09/06/21 0206 Shaquille Multani.REPORT READ BACK BY SAME. Platelets bldon 09-06-2021 Platelets (Bld) [#/Vol] 157 10*3/uL 150-450 [facility] Work Phone: SARS-CoV-2 (COVID-19) Ag IA. rapid Ql (Resp)on 09-06-2021 SARS-CoV-2 Antigen (Rapid) SARS-CoV-2 (COVID 19) [facility] Work Phone: Serum or plasma creatinine m easurement (mass/volume)on 09-06-2021 Creatinine [Mass/Vol] 0.55 mg/dL 0.55-1.02 [facility] Work Phone: Comment on above: The validity of the calculated GFR & GFRAA in patients over 70 years has not been determined. Clinical correlation is essential. Serum or plasma uric acid me asurement (mass/volume)on 09-06-2021 Urate [Mass/Vol] 3.5 mg/dL 2.6-6.0 [facility] Work Phone: Comment on above: The drugs N-Acetylcy steine and Metamizole may falsely depress this assay. Thin prep Papanicolaou smear with manual screeningon 09-06-2021 Thin prep Papanicolaou smear with manual screening 21 U/L 15-37 [facility] Work Phone: Urine creatinine measurement (mass/volume)on 09-06-2021 Creatinine (U) [Mass/Vol] 105.00 mg/dL NO RANGE EST. [facility] Work Phone: Urine protein measurement (m ass/volume)on 09-06-2021 Protein (U) [Mass/Vol] 22.9 mg/dL 0.0-11.8 [facility] Work Phone: Urine protein/creatinine mas s ratioon 09-06-2021 Protein/Creatinine (U) [Mass ratio] 218 mg/g CRE 0-200 [facility] Work Phone: URINE OB DIP B/Oon 2 Glucose Ql (U) Negative Neg mg/dL [facility] Protein.monoclonal (U) [Mass/Vol] Negative Neg mg/dL [facility] Basophil percentageon 2021 WBC (Bld) [#/Vol] 11.1 10*3/uL 4.4-11.0 [facility] Work Phone: Blood erythrocytes count (nu mber/volume)on 08-25-2021 RBC (Bld) [#/Vol] 3.51 10*6/uL 4.2-5.4 [facility] Work Phone: Blood hemoglobin measurement (mass/volume)on 08-25-2021 Hemoglobin (Bld) [Mass/Vol] 10.4 g/dL 12.0-15.0 [facility] Work Phone: Blood platelet mean volumeon 08-25-2021 Platelet mean volume (Bld) [Entitic vol] 10.8 fL 6.2-12.0 [facility] Work Phone: Determination of erythrocyte mean corpuscular volume (MCV)on 08-25-2021 MCV (RBC) [Entitic vol] 89.5 fL 81-99 [facility] Work Phone: Hematocrit Auto (Bld) [Volum e fraction]on 08-25-2021 Hematocrit (Bld) [Volume fraction] 31.4 % 37-47 [facility] Work Phone: Laboratory - Chemistry and C hemistry - challengeon 08-25-2021 ALT [Catalytic activity/Vol] 19 U/L 13-56 [facility] Work Phone: Laboratory - Hematology and Cell countson 08-25-2021 Erythrocyte distribution width (RBC) [Entitic vol] 47.0 fL 35.1-43.9 [facility] Work Phone: Erythrocyte distribution width (RBC) [Ratio] 14.4 % 11.6-14.6 [facility] Work Phone: MCH (RBC) [Entitic mass] 29.6 pg 27.0-32.0 [facility] Work Phone: MCHC Auto (RBC) [Mass/Vol]on 08-25-2021 MCHC (RBC) [Mass/Vol] 33.1 g/dL 32-36 [facility] Work Phone: No Panel Informationon 08-25 Estimated Creatinine Clearance Calc 195.02 ml/min [facility] Work Phone: Estimated GFR (MDRD) Amer 238 mL/min >60 [facility] Work Phone: Comment on above: GFR Calc Estimated GFR (MDRD) Non-Af Amer 197 mL/min >60 [facility] Work Phone: Comment on above: Non- GFR Calc Platelets bldon 08-25-2021 Platelets (Bld) [#/Vol] 175 10*3/uL 150-450 [facility] Work Phone: Serum or plasma creatinine m easurement (mass/volume)on 08-25-2021 Creatinine [Mass/Vol] 0.42 mg/dL 0.55-1.02 [facility] [facility] Work Phone: Comment on above: The validity of the calculated GFR & GFRAA in patients over 70 years has not been determined. Clinical correlation is essential. Serum or plasma uric acid me asurement (mass/volume)on 08-25-2021 Urate [Mass/Vol] 3.7 mg/dL 2.6-6.0 [facility] Work Phone: Comment on above: The drugs N-Acetylcy steine and Metamizole may falsely depress this assay. Thin prep Papanicolaou smear with manual screeningon 08-25-2021 Thin prep Papanicolaou smear with manual screening 20 U/L 15-37 [facility] Work Phone: Urine creatinine measurement (mass/volume)on 08-25-2021 Creatinine (U) [Mass/Vol] 95.00 mg/dL NO RANGE EST. [facility] Work Phone: Urine protein measurement (m ass/volume)on 08-25-2021 Protein (U) [Mass/Vol] 15.6 mg/dL 0.0-11.8 [facility] Work Phone: Urine protein/creatinine mas s ratioon 08-25-2021 Protein/Creatinine (U) [Mass ratio] 164 mg/g CRE 0-200 [facility] Work Phone: URINE OB DIP B/Oon 2 Glucose Ql (U) Negative Neg mg/dL [facility] Protein.monoclonal (U) [Mass/Vol] Negative Neg mg/dL [facility] URINE OB DIP B/Oon 2 Glucose Ql (U) Negative Neg mg/dL [facility] Protein.monoclonal (U) [Mass/Vol] Negative Neg mg/dL [facility] CBC panel Auto (Bld)on 07-24 Erythrocyte distribution width (RBC) [Ratio] 13.4 % 11.5 - 15.0 % [facility] Hematocrit (Bld) [Volume fraction] 30.3 % Low 36.0 - 46.0 % [facility] Hemoglobin (Bld) [Mass/Vol] 10.3 g/dL Low 11.5 - 15.5 g/dL [facility] MCH (RBC) [Entitic mass] 30.2 pg 26.0 - 34.0 pg [facility] MCHC (RBC) [Mass/Vol] 34.0 g/dL 30.5 - 36.0 g/dL [facility] MCV (RBC) [Entitic vol] 88.9 fL 80.0 - 100.0 fL [facility] Nucleated RBC (Bld) [#/Vol] 10*3/uL <0.01 k/uL [facility] Platelet mean volume (Bld) [Entitic vol] 9.9 fL 9.0 - 12.7 fL [facility] Platelets (Bld) [#/Vol] 181 10*3/uL 150 - 400 k/uL [facility] RBC (Bld) [#/Vol] 3.41 10*6/uL Low 3.90 - 5.2 0 m/uL [facility] WBC (Bld) [#/Vol] 10.18 10*3/uL 3.70 - 11 .00 k/uL [facility] URINE OB DIP B/Oon 2 Glucose Ql (U) Negative Neg mg/dL [facility] Protein.monoclonal (U) [Mass/Vol] Negative Neg mg/dL [facility] CR Chest PA/LATon 04-01-2021 CR Chest PA/LAT Patient Name: XIOMARA DELGADO Diagnostic Radiology ACCESSION EXAM DATE/TIME PROCEDURE ORDERING PROVIDER [id number] 04/01/2021 09:15 EST CR Chest PA and LAT [id number] BERNARDA ROMERO CPT code 11690 Reason For Exam (CR Chest PA and LAT) See dx Report CLINICAL INFORMATION: Cough. Frontal and lateral views of the chest were obtained. No old examinations were available for comparison at the time of dictation. No acute pulmonary disease is noted. The cardiovascular silhouette is within normal limits. There are no pleural effusions. IMPRESSION: No acute pulmonary disease. Report Dictated on Final Dictating Physician: DO CANTOR ANTHONY Signed Date and Time: 04/01/2021 9:17 am Signed by: DO CANTOR ANTHONY Transcribed Date and Time: 04/01/2021 9:18 Normal [facility] ED NOTEon 02-06-2020 ED NOTE HNO ID: [id number] Author: Kennedi (Rn) RICK Taylor Service: Nursing Author Type: Registered Nurse Type: ED Notes Filed: 02/06/2020 6:09 PM Note Text: Patient presents to ER with complaints of lower abdominal cramping and pain x few weeks. Patient is unsure if she could be . Her period was 11 days late, and started today. Normal [facility] CBC With Platelet and Differ entialon 07-27-2018 Basophils #/vol (Bld) 0.0 10*3/uL Normal 0.0-0.2 [facility] Basophils/100 WBC (Bld) 0.6 % Normal [facility] Eosinophils #/vol (Bld) 0.1 10*3/uL Normal 0.0-0.7 [facility] Eosinophils/100 WBC (Bld) 1.5 % Normal [facility] Erythrocyte distribution width Ratio (RBC) 12.2 % Normal 11.5-14.5 [facility] Hematocrit Volume Fraction (Bld) 40.7 % Normal 37.0-47.0 [facility] Hemoglobin mass conc (Bld) 14.1 g/dL Normal 12.0-16.0 [facility] Lymphocytes #/vol (Bld) 1.5 10*3/uL Normal 1.0-4.8 [facility] Lymphocytes/100 WBC (Bld) 24.1 % Normal [facility] MCH Entitic mass (RBC) 31.5 pg Critically high 27.0-31.3 [facility] MCHC mass conc (RBC) 34.7 % Normal 33.0-37.0 [facility] [place] MCV Entitic volume (RBC) 90.8 fL Normal 82.0-100.0 [facility] Monocytes #/vol (Bld) 0.5 10*3/uL Normal 0.2-0.8 [facility] Monocytes/100 WBC (Bld) 8.2 % Normal [facility] Neutrophils #/vol (Bld) 4.0 10*3/uL Normal 1.4-6.5 [facility] Neutrophils/100 WBC (Bld) 65.6 % Normal [facility] Platelets #/vol (Bld) 191 10*3/uL Normal 130-400 [facility] RBC #/vol (Bld) 4.48 10*6/uL Normal 4.20-5.40 [facility] WBC #/vol (Bld) 6.1 10*3/uL Normal 4.5-11.[address] [facility] [address] ABDOMEN PELVIS WO CONTRAS Ton 07-27-2018 CT ABDOMEN PELVIS WO CONTRAST COMPARISON: None available. HISTORY: rt flank pain h/o rt sided ov cyst COMMENTS: ABD PAIN TECHNIQUE: procedure Thin slice spiral CT was performed from the lung bases through the iliac crests without contrast administration. Contrast enhancement was not employed due to clinician's order. Sagittal and coronal reconstructions were also performed. FINDINGS: Images through the lung bases demonstrate no infiltrates or effusions. Non-contrast images of the liver, gall bladder, pancreas, spleen, adrenals are unremarkable. No hydro-nephrosis, renal calculi or pilo-nephric fluid seen in the kidneys. No aneurysm is visualized. The appendix is not clearly visualized. There is no pericecal stranding seen. No dilated loops of bowel, free air or free fluid seen. The uterus Is unremarkable. A cystic structure seen in the right adnexa that measures 2.2 x 2.8 x 4.6 cm. A moderate amount of free fluid is seen in the posterior pelvis. No destructive bony lesions are evident. IMPRESSION: There is slightly greater amount of free fluid in the pelvis that is thought to be physiologic. A cystic structure is seen in the right adnexa. Fluid could be from the cystic ovary. There is no bowel obstruction or hydronephrosis. The appendix is not clearly seen but no stranding is seen in the expected location or fluid. All CT scans at this facility use dose modulation, iterative reconstruction, and/or weight based dosing when appropriate to reduce radiation dose to as low as reasonably achievable. Interpreted by: Marco Antonio Rodas DO Signed by: Marco Antonio Rodas DO 07/27/18 Final result Normal [facility] Comprehensive Metabolic Pane manuela 07-27-2018 Albumin mass conc 4.6 g/dL Normal 3.5-4.6 [facility] Comment on above: Result Comment: Effe ctive: 06/09/2018 New reference range for this analyte has been established. ALP enzyme act/vol 46 U/L Normal 40-130 [facility] ALT enzyme act/vol 9 U/L Normal 0-33 [facility] Anion gap molar conc 12 mmol/L Normal 9-15 [facility] [place] Comment on above: Result Comment: Eff ctive: 06/09/2018 New reference range for this analyte has been established. AST enzyme act/vol 18 U/L Normal 0-35 [facility] Bilirubin mass conc 0.4 mg/dL Normal 0.2-0.7 [facility] Comment on above: Result Comment: Eff ctive: 06/09/2018 New reference range for this analyte has been established. Calcium mass conc 9.6 mg/dL Normal 8.5-9.9 [facility] Comment on above: Result Comment: Effe ctive: 06/09/2018 New reference range for this analyte has been established. Chloride molar conc 103 mmol/L Normal 95-107 [facility] Comment on above: Result Comment: Eff ctive: 06/09/2018 New reference range for this analyte has been established. CO2 molar conc 25 mmol/L Normal 20-31 [facility] Comment on above: Result Comment: Eff ctive: 06/09/2018 New reference range for this analyte has been established. Creatinine mass conc 0.51 mg/dL Normal 0.50-0.90 [facility] [place] GFR/1.73 sq M predicted among blacks MDRD vol rate/area (S/P/Bld) mL/min/{1.73_m2} Normal >60 [facility] Comment on above: Result Comment: >60 mL/min/1.73m2 EGFR, calc. for ages 18 and older using the MDRD formula (not corrected for weight), is valid for stable renal function. GFR/1.73 sq M.predicted MDRD vol rate/area mL/min/{1.73_m2} Normal >60 [facility] Comment on above: Result Comment: >60 mL/min/1.73m2 EGFR, calc. for ages 18 and older using the MDRD formula (not corrected for weight), is valid for stable renal function. Globulin mass conc (S) 2.6 g/dL Normal 2.3-3.5 [facility] Glucose mass conc 90 mg/dL Normal 70-99 [facility] Comment on above: Result Comment: Effe ctive: 06/09/2018 New reference range for this analyte has been established. Potassium molar conc 4.0 mmol/L Normal 3.4-4.9 [facility] [place] Comment on above: Result Comment: Effe ctive: 06/09/2018 New reference range for this analyte has been established. Protein mass conc 7.2 g/dL Normal 6.3-8.0 [facility] Comment on above: Result Comment: Effe ctive: 06/09/2018 New reference range for this analyte has been established. Sodium molar conc 140 mmol/L Normal 135-144 [facility] Comment on above: Result Comment: Effe ctive: 06/09/2018 New reference range for this analyte has been established. Urea nitrogen mass conc 13 mg/dL Normal 6-20 [facility] Culture, Urineon 07-27-2018 Culture, Urine ORDERED BY: OPHELIA HERNANDEZ SOURCE: Urine Clean Catch COLLECTED: 07/27/18 10:45 ANTIBIOTICS AT [place].: RECEIVED : 07/27/18 17:04 Culture, Urine FINAL 07/29/18 08:21 <50,000 CFU/ml of mixed stone Multiple organisms isolated, no predominance. Culture indicates probable contamination. Please review colony count and clinical indications to determine if a repeat culture is necessary. No further workup to be done. Normal [facility] Comment on above: Performed By: #### C JENNIFER #### [facility] [address] [place] [address] UR HCG Qualitativeon 019 HCG.beta subunit ( test) Ql (U) Negative Normal Detects HC [facility] Urinalysis, reflex to cultur sammy 07-27-2018 Urine Reflexed to Culture YES Normal [facility] Bilirubin Ql (U) Negative Normal Negative [facility] Clarity Nom (U) SL CLOUDY Abnormal Clear [facility] Color Nom (U) Straw Normal Straw/[place] [facility] Glucose Ql (U) Negative Normal Negative [facility] Hemoglobin Ql (U) Negative Normal Negative [facility] Ketones Ql (U) Negative Normal Negative [facility] Leukocyte esterase Test strip Ql (U) TRACE Abnormal Negative [facility] Nitrite Ql (U) Negative Normal Negative [facility] pH (U) 7.5 [pH] Normal 5.0-9.0 [facility] Protein Ql (U) Negative Normal Negative [facility] Specific gravity Relative Density (U) 1.025 Normal 1.005-1.03 [facility] Urine Type voided Normal [facility] Urobilinogen Qn (U) 1.0 {Lili'U}/dL Normal < 2.0 [facility] Urine Microscopicon 07-28-19 19 Bacteria LM.HPF #/area (Urine sed) Few Normal [facility] Epithelial cells LM Ql (Urine sed) 5-10 Normal [facility] RBC #/vol (U) None seen Normal 0-2 [facility] Urine Amorphous 2+ Normal [facility] WBC #/vol (U) 3-5 Normal 0-5 [facility] US Pelvis Completeon 019 US Pelvis Complete Patient Name: XIOMARA DELGADO Ultrasound Exam Date/Time 07/01/2018 17:13:06 EST Exam US Pelvis Complete Ordering Physician PHILOMENA IBARRA HOLLY S Accession Number [id number] CPT4 Codes 46190 () Reason For Exam abdominal pain, vaginal bleeding, irregular menstrual cycles Report Indication: Pelvic pain and irregular menses. Transabdominal ultrasound pelvis was performed. The uterus measures 7.6 x 4.2 x 3 cm. The endometrium measures 8 mm in thickness. The right ovary measures 4.6 x 3.1 x 2.7 cm and the left ovary measures 2.8 x 1.9 x 2.4 cm. There is a 2 x 2 x 1.8 cm complex cystic mass within the right ovary with surrounding blood flow. There is no significant free pelvic fluid. IMPRESSION: 1. 2 cm complex right ovarian cystic mass. Given the appearance, this may represent a corpus luteal cyst. However, other etiologies are not excluded. Correlation with beta-hCG level and short-term follow-up pelvic ultrasound is recommended. Report Dictated on Final Dictated: 07/04/2018 8:34 am Dictating Physician: DO CANTOR ANTHONY Signed Date and Time: 07/04/2018 8:36 am Signed by: DO CANTOR ANTHONY Transcribed Date and Time: 07/04/2018 8:34 Normal [facility] CHEST 2 VIEWSon 09-28-2017 CHEST 2 VIEWS Performed at [facility] APPROVED BY: Leo Chappell MD EXAMINATION: CHEST RADIOGRAPH (2 VIEW FRONTAL & LATERAL) Clinical History: Chest trauma, blunt 3 fell on the left side of the upper body.MQ: [id number]: 05/24/2014, RESULT: Lines, tubes, and devices: None. Lungs and pleura: The costophrenic angles are clear bilaterally. No focal infiltrates are identified. There is no evidence of pneumothorax or pleural effusion. Cardiomediastinal silhouette: The cardiac silhouette, thoracic aorta and mediastinum are unremarkable. The pulmonary vascularity is within normal limits. Other: The bony structures appear to be intact. IMPRESSION: There is no acute disease. Normal [facility] CT CERVICAL SPINE W/O CONTRA STon 09-28-2017 CT CERVICAL SPINE W/O CONTRAST Performed at [facility] APPROVED BY: Leo Chappell MD EXAMINATION: CT CERVICAL SPINE W/O CONTRAST CLINICAL HISTORY: C-spine trauma, NEXUS/CCR positive TECHNIQUE: CT of the cervical spine without IV contrast. Spiral, high resolution axial images were obtained from the skull base to the cervicothoracic junction with sagittal and coronal planar reconstructions.MQ: [id number] CT Radiation dose: Integrated Dose-length Product (DLP) for this visit = 554.72 mGy*cm.CT Dose Reduction Employed: No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 pressure 108 mm[Hg] Juan Ibarra MEDICAL SERVICES ASSISTANT - THERMODYNAMICIST Work Phone: [facility] 12-09-2023 09:42-0400 Body height 165.1 cm Omar Gunn MD Work Phone: [facility] 12-09-2023 09:42-0400 Body mass index (BMI) [Ratio] 27.66 kg/m2 Omar Gunn MD Work Phone: [facility] 12-09-2023 09:42-0400 Body temperature 98.71 [degF] Omar Gunn MD Work Phone: [facility] 12-09-2023 09:42-0400 Body weight 75.39 kg Omar Gunn MD Work Phone: [facility] 12-09-2023 09:42-0400 Diastolic blood pressure 71 mm[Hg] Omar Gunn MD Work Phone: [facility] 12-09-2023 09:42-0400 Heart rate 85 /min Omar Gunn MD Work Phone: [facility] 12-09-2023 09:42-0400 Systolic blood pressure 125 mm[Hg] Omar Gunn MD Work Phone: [facility] 09-16-2023 15:33-0400 Body height 165.1 cm Omar Gunn MD Work Phone: [facility] 09-16-2023 15:33-0400 Body mass index (BMI) [Ratio] 26.96 kg/m2 Omar Gunn MD Work Phone: [facility] 09-16-2023 15:33-0400 Body temperature 98.6 [degF] Omar Gunn MD Work Phone: [facility] 09-16-2023 15:33-0400 Body weight 73.48 kg Omar Gunn MD Work Phone: [facility] 09-16-2023 15:33-0400 Diastolic blood pressure 72 mm[Hg] Omar Gunn MD Work Phone: [facility] 09-16-2023 15:33-0400 Heart rate 78 /min Omar Gunn MD Work Phone: [facility] 09-16-2023 15:33-0400 Systolic blood pressure 118 mm[Hg] Omar Gunn MD Work Phone: [facility] 09-13-2023 10:16-0400 Body height 167.6 cm Evita Benjamin MD Work Phone: [facility] 09-13-2023 10:16-0400 Body mass index (BMI) [Ratio] 26.12 kg/m2 Evita Benjamin MD Work Phone: [facility] 09-13-2023 10:16-0400 Body weight 73.39 kg Evita Benjamin MD Work Phone: [facility] 09-13-2023 10:16-0400 Diastolic blood pressure 62 mm[Hg] Evita Benjamin MD Work Phone: [facility] 09-13-2023 10:16-0400 Heart rate 69 /min Evita Benjamin MD Work Phone: [facility] 09-13-2023 10:16-0400 Systolic blood pressure 106 mm[Hg] Evita Benjamin MD Work Phone: [facility] 07-27-2023 08:23-0400 Body height 167.6 cm Jairo Garcia MD Work Phone: [facility] 07-27-2023 08:23-0400 Body mass index (BMI) [Ratio] 26.28 kg/m2 Jairo Garcia MD Work Phone: [facility] 07-27-2023 08:23-0400 Body temperature 98.8 [degF] Jairo Garcia MD Work Phone: [facility] 07-27-2023 08:23-0400 Body weight 73.85 kg Jairo Garcia MD Work Phone: [facility] 07-27-2023 08:23-0400 Diastolic blood pressure 68 mm[Hg] Jairo Garcia MD Work Phone: [facility] 07-27-2023 08:23-0400 Heart rate 78 /min Jairo Garcia MD Work Phone: [facility] 07-27-2023 08:23-0400 SaO2% (BldA) [Mass fraction] 98 % Jairo Garcia MD Work Phone: [facility] 07-27-2023 08:23-0400 Systolic blood pressure 107 mm[Hg] Jairo Garcia MD Work Phone: [facility] 07-01-2023 07:54-0500 Body mass index (BMI) [Ratio] 25.18 kg/m2 Sarmad Bridenthal MEDICAL SERVICES ASSISTANT - THERMODYNAMICIST Work Phone: [facility] 07-01-2023 07:54-0500 Body temperature 98.6 [degF] Sarmad Bridenthal MEDICAL SERVICES ASSISTANT - THERMODYNAMICIST Work Phone: [facility] 07-01-2023 07:54-0500 Body weight 70.76 kg Sarmad Bridenthal MEDICAL SERVICES ASSISTANT - THERMODYNAMICIST Work Phone: [facility] 07-01-2023 07:54-0500 Diastolic blood pressure 62 mm[Hg] Sarmad Bridenthal MEDICAL SERVICES ASSISTANT - THERMODYNAMICIST Work Phone: [facility] 07-01-2023 07:54-0500 Heart rate 88 /min Sarmad Bridenthal MEDICAL SERVICES ASSISTANT - THERMODYNAMICIST Work Phone: [facility] 07-01-2023 07:54-0500 Respiratory rate 18 /min Sarmad Bridenthal MEDICAL SERVICES ASSISTANT - THERMODYNAMICIST Work Phone: [facility] 07-01-2023 07:54-0500 SaO2% (BldA) [Mass fraction] 99 % Sarmad Bridenthal MEDICAL SERVICES ASSISTANT - THERMODYNAMICIST Work Phone: [facility] 07-01-2023 07:54-0500 Systolic blood pressure 104 mm[Hg] Sarmad Bridenthal MEDICAL SERVICES ASSISTANT - THERMODYNAMICIST Work Phone: [facility] 05-10-2023 10:57-0500 Body mass index (BMI) [Ratio] 24.86 kg/m2 Sarmad Bridenthal MEDICAL SERVICES ASSISTANT - THERMODYNAMICIST Work Phone: [facility] 05-10-2023 10:57-0500 Body temperature 98.2 [degF] Sarmad Bridenthal MEDICAL SERVICES ASSISTANT - THERMODYNAMICIST Work Phone: [facility] 05-10-2023 10:57-0500 Body weight 69.85 kg Sarmad Bridenthal MEDICAL SERVICES ASSISTANT - THERMODYNAMICIST Work Phone: [facility] 05-10-2023 10:57-0500 Diastolic blood pressure 62 mm[Hg] Sarmad Bridenthal MEDICAL SERVICES ASSISTANT - THERMODYNAMICIST Work Phone: [facility] 05-10-2023 10:57-0500 Heart rate 58 /min Sarmad Bridenthal MEDICAL SERVICES ASSISTANT - THERMODYNAMICIST Work Phone: [facility] 05-10-2023 10:57-0500 Respiratory rate 16 /min Sarmad Bridenthal MEDICAL SERVICES ASSISTANT - THERMODYNAMICIST Work Phone: [facility] 05-10-2023 10:57-0500 SaO2% (BldA) [Mass fraction] 98 % Sarmad Bridenthal MEDICAL SERVICES ASSISTANT - THERMODYNAMICIST Work Phone: [facility] 05-10-2023 10:57-0500 Systolic blood pressure 100 mm[Hg] Sarmad Bridenthal MEDICAL SERVICES ASSISTANT - THERMODYNAMICIST Work Phone: [facility] 04-15-2023 15:01-0500 Body mass index (BMI) [Ratio] 24.21 kg/m2 Sarmad Bridenthal MEDICAL SERVICES ASSISTANT - THERMODYNAMICIST Work Phone: [facility] 04-15-2023 15:01-0500 Body temperature 98.4 [degF] Sarmad Bridenthal MEDICAL SERVICES ASSISTANT - THERMODYNAMICIST Work Phone: [facility] 04-15-2023 15:01-0500 Body weight 68.04 kg Asrmad Bridenthal MEDICAL SERVICES ASSISTANT - THERMODYNAMICIST Work Phone: [facility] 04-15-2023 15:01-0500 Diastolic blood pressure 69 mm[Hg] Sarmad Bridenthal MEDICAL SERVICES ASSISTANT - THERMODYNAMICIST Work Phone: [facility] 04-15-2023 15:01-0500 Heart rate 97 /min Sarmad Bridenthal MEDICAL SERVICES ASSISTANT - THERMODYNAMICIST Work Phone: [facility] [employer] 04-15-2023 15:01-0500 Respiratory rate 14 /min Sarmad Bridenthal MEDICAL SERVICES ASSISTANT - THERMODYNAMICIST Work Phone: [facility] [employer] 04-15-2023 15:01-0500 SaO2% (BldA) [Mass fraction] 99 % Sarmad Bridenthal MEDICAL SERVICES ASSISTANT - THERMODYNAMICIST Work Phone: [facility] [employer] 04-15-2023 15:01-0500 Systolic blood pressure 104 mm[Hg] Sarmad Bridenthal MEDICAL SERVICES ASSISTANT - THERMODYNAMICIST Work Phone: [facility] [employer] 03-08-2023 13:08-0500 Body height 167.6 cm Evita Benjamin MD Work Phone: [facility] 03-08-2023 13:08-0500 Body mass index (BMI) [Ratio] 24.34 kg/m2 Evita Benjamin MD Work Phone: [facility] [employer] 03-08-2023 13:08-0500 Body weight 68.4 kg Evita Benjamin MD Work Phone: [facility] [employer] 03-08-2023 13:08-0500 Diastolic blood pressure 66 mm[Hg] Evita Benjamin MD Work Phone: [facility] 03-08-2023 13:08-0500 Heart rate 74 /min Evita Benjamin MD Work Phone: [facility] [employer] 03-08-2023 13:08-0500 SaO2% (BldA) [Mass fraction] 99 % Evita Benjamin MD Work Phone: [facility] 03-08-2023 13:08-0500 Systolic blood pressure 114 mm[Hg] Evita Benjamin MD Work Phone: [facility] 02-10-2023 08:22-0400 Body height 167.6 cm Jairo Garcia MD Work Phone: [facility] [employer] 02-10-2023 08:22-0400 Body mass index (BMI) [Ratio] 24.11 kg/m2 Jairo Garcia MD Work Phone: [facility] 02-10-2023 08:22-0400 Body weight 67.77 kg Jairo Garcia MD Work Phone: [facility] 02-10-2023 08:22-0400 Diastolic blood pressure 72 mm[Hg] Jairo Garcia MD Work Phone: [facility] [employer] 02-10-2023 08:22-0400 Heart rate 69 /min Jairo Garcia MD Work Phone: [facility] 02-10-2023 08:22-0400 SaO2% (BldA) [Mass fraction] 99 % Jairo Garcia MD Work Phone: [facility] 02-10-2023 08:22-0400 Systolic blood pressure 111 mm[Hg] Jairo Garcia MD Work Phone: [facility] 02-04-2023 09:29-0400 Body weight 67.22 kg Naye Sepulveda APRN.CNM Work Phone: [facility] 02-04-2023 09:29-0400 Diastolic blood pressure 62 mm[Hg] Naye Sepulveda APRN.CNArya Work Phone: [facility] 02-04-2023 09:29-0400 Systolic blood pressure 102 mm[Hg] Naye Sepulveda MEDICAL SERVICES ASSISTANT.CNM Work Phone: [facility] 12-16-2022 10:48-0400 Body height 162.6 cm Evita Benjamin MD Work Phone: [facility] [employer] 12-16-2022 10:48-0400 Body mass index (BMI) [Ratio] 24.03 kg/m2 Evita Benjamin MD Work Phone: [facility] [employer] 12-16-2022 10:48-0400 Body weight 63.5 kg Evita Benjamin MD Work Phone: [facility] 12-16-2022 10:48-0400 Diastolic blood pressure 69 mm[Hg] Evita Benjamin MD Work Phone: [facility] 12-16-2022 10:48-0400 Heart rate 95 /min Evita Benjamin MD Work Phone: [facility] 12-16-2022 10:48-0400 Systolic blood pressure 111 mm[Hg] Evita Benjamin MD Work Phone: [facility] 12-07-2022 08:28-0400 Body height 167.6 cm Evita Benjamin MD Work Phone: [facility] 12-07-2022 08:28-0400 Body mass index (BMI) [Ratio] 24.21 kg/m2 Evita Benjamin MD Work Phone: [facility] 12-07-2022 08:28-0400 Body weight 68.04 kg Evita Benjamin MD Work Phone: [facility] 12-07-2022 08:28-0400 Diastolic blood pressure 76 mm[Hg] Evita Benjamin MD Work Phone: [facility] 12-07-2022 08:28-0400 Heart rate 64 /min Evita Benjamin MD Work Phone: [facility] 12-07-2022 08:28-0400 Respiratory rate 16 /min Evita Benjamin MD Work Phone: [facility] [employer] 12-07-2022 08:28-0400 Systolic blood pressure 112 mm[Hg] Evita Benjamin MD Work Phone: [facility] [employer] 11-30-2022 10:14-0400 Body weight 65.23 kg Nadia Burton MD Work Phone: [facility] 11-30-2022 10:14-0400 Diastolic blood pressure 76 mm[Hg] Nadia Burton MD Work Phone: [facility] 11-30-2022 10:14-0400 Systolic blood pressure 112 mm[Hg] Nadia Burton MD Work Phone: [facility] 10-27-2022 15:24-0400 Body weight 67.86 kg Mary Mclaughlin MD Work Phone: [facility] 10-27-2022 15:24-0400 Diastolic blood pressure 70 mm[Hg] Mary Mclaughlin MD Work Phone: [facility] 10-27-2022 15:24-0400 Systolic blood pressure 104 mm[Hg] Mary Mclaughlin MD Work Phone: [facility] 10-11-2022 03:26-0400 Diastolic blood pressure 70 mm[Hg] Dr. Jairo Garcia Work Phone: [facility] 10-11-2022 03:26-0400 Heart rate 86 /min Dr. Jairo Garcia Work Phone: [facility] 10-11-2022 03:26-0400 Respiratory rate 18 /min Dr. Jairo Garcia Work Phone: [facility] 10-11-2022 03:26-0400 Systolic blood pressure 126 mm[Hg] Dr. Jairo Garcia Work Phone: [facility] 10-10-2022 23:31-0400 SaO2% (BldA) [Mass fraction] 98 % Dr. Jairo Garcia Work Phone: [facility] 10-10-2022 20:21-0400 Body temperature 98.6 [degF] Dr. Jairo Garcia Work Phone: [facility] 10-09-2022 22:21-0400 Body height 165.[address] Jairo Garcia Work Phone: [facility] 10-09-2022 22:21-0400 Body mass index (BMI) [Ratio] 29.7 kg/m2 Dr. Jairo Garcia Work Phone: [facility] 10-09-2022 22:21-0400 Body weight 81.[address] Jairo Garcia Work Phone: [facility] 10-06-2022 15:16-0400 Body temperature 97.9 [degF] [facility] Work Phone: [facility] 10-06-2022 15:16-0400 Diastolic blood pressure 65 mm[Hg] [facility] Work Phone: [facility] 10-06-2022 15:16-0400 Heart rate 90 /min [facility] Work Phone: [facility] 10-06-2022 15:16-0400 Respiratory rate 18 /min [facility] Work Phone: [facility] 10-06-2022 15:16-0400 SaO2% (BldA) [Mass fraction] 97 % [facility] Work Phone: [facility] 10-06-2022 15:16-0400 Systolic blood pressure 113 mm[Hg] [facility] Work Phone: [facility] 10-05-2022 12:59-0400 Body weight 79.47 kg Naye Sepulveda MEDICAL SERVICES ASSISTANT.CNM Work Phone: [facility] 10-05-2022 12:59-0400 Diastolic blood pressure 62 mm[Hg] Naye Sepulveda MEDICAL SERVICES ASSISTANT.CNM Work Phone: [facility] 10-05-2022 12:59-0400 Systolic blood pressure 104 mm[Hg] Naye Sepulveda MEDICAL SERVICES ASSISTANT.CNM Work Phone: [facility] 09-30-2022 10:10-0400 Body weight 77.02 kg Naye Plotts MEDICAL SERVICES ASSISTANT.CNM Work Phone: [facility] 09-30-2022 10:10-0400 Diastolic blood pressure 72 mm[Hg] Naye Plotts MEDICAL SERVICES ASSISTANT.CNM Work Phone: [facility] 09-30-2022 10:10-0400 Systolic blood pressure 110 mm[Hg] Naye Plotts MEDICAL SERVICES ASSISTANT.CNM Work Phone: [facility] 09-21-2022 14:53-0400 Body weight 76.93 kg Bernarda Smith MD Work Phone: [facility] 09-21-2022 14:53-0400 Diastolic blood pressure 64 mm[Hg] Bernarda Smith MD Work Phone: [facility] 09-21-2022 14:53-0400 Systolic blood pressure 116 mm[Hg] Bernarda Smith MD Work Phone: [facility] 09-14-2022 16:29-0400 Body weight 77.11 kg Naye Plotts MEDICAL SERVICES ASSISTANT.CNM Work Phone: [facility] 09-14-2022 16:29-0400 Diastolic blood pressure 58 mm[Hg] Naye Plotts MEDICAL SERVICES ASSISTANT.CNM Work Phone: [facility] 09-14-2022 16:29-0400 Systolic blood pressure 104 mm[Hg] Naye Plotts MEDICAL SERVICES ASSISTANT.CNM Work Phone: [facility] 09-07-2022 08:13-0400 Body height 167.6 cm Evita Benjamin MD Work Phone: [facility] [employer] 09-07-2022 08:13-0400 Body mass index (BMI) [Ratio] 27.28 kg/m2 Evita Benjamin MD Work Phone: [facility] 09-07-2022 08:13-0400 Body weight 76.66 kg Evita Benjamin MD Work Phone: [facility] 09-07-2022 08:13-0400 Diastolic blood pressure 58 mm[Hg] Evita Benjamin MD Work Phone: [facility] 09-07-2022 08:13-0400 Heart rate 101 /min Evita Benjamin MD Work Phone: [facility] 09-07-2022 08:13-0400 Respiratory rate 18 /min Evita Benjamin MD Work Phone: [facility] 09-07-2022 08:13-0400 Systolic blood pressure 102 mm[Hg] Evita Benjamin MD Work Phone: [facility] 08-25-2022 13:02-0400 Body weight 74.39 kg Naye Plotts MEDICAL SERVICES ASSISTANT.CNM Work Phone: [facility] 08-25-2022 13:02-0400 Diastolic blood pressure 64 mm[Hg] Naye Plotts MEDICAL SERVICES ASSISTANT.CNM Work Phone: [facility] 08-25-2022 13:02-0400 Systolic blood pressure 110 mm[Hg] Naye Plotts MEDICAL SERVICES ASSISTANT.CNM Work Phone: [facility] 07-21-2022 11:24-0400 Body weight 73.94 kg Naye Plotts MEDICAL SERVICES ASSISTANT.CNM Work Phone: [facility] 07-21-2022 11:24-0400 Diastolic blood pressure 64 mm[Hg] Naye Plotts MEDICAL SERVICES ASSISTANT.CNM Work Phone: [facility] 07-21-2022 11:24-0400 Systolic blood pressure 108 mm[Hg] Naye Plotts MEDICAL SERVICES ASSISTANT.CNM Work Phone: [facility] 07-07-2022 13:25-0500 Body weight 73.57 kg Naye Plotts MEDICAL SERVICES ASSISTANT.CNM Work Phone: [facility] 07-07-2022 13:25-0500 Diastolic blood pressure 62 mm[Hg] Naye Plotts MEDICAL SERVICES ASSISTANT.CNM Work Phone: [facility] 07-07-2022 13:25-0500 Systolic blood pressure 102 mm[Hg] Naye Sepulveda MEDICAL SERVICES ASSISTANT.CNM Work Phone: [facility] 06-29-2022 16:37-0500 Body mass index (BMI) [Ratio] 26.1 kg/m2 Dr. Jairo Garcia Work Phone: [facility] 06-29-2022 16:37-0500 Body weight 73.[address] Jairo Garcia Work Phone: [facility] 06-29-2022 16:27-0500 Heart rate 92 /min Dr. Jairo Garcia Work Phone: [facility] 06-29-2022 16:27-0500 SaO2% (BldA) [Mass fraction] 97 % Dr. Jairo Garcia Work Phone: [facility] 06-29-2022 16:26-0500 Diastolic blood pressure 66 mm[Hg] Dr. Jairo Garcia Work Phone: [facility] 06-29-2022 16:26-0500 Systolic blood pressure 118 mm[Hg] Dr. Jairo Garcia Work Phone: [facility] 06-15-2022 11:34-0500 Body weight 74.39 kg Naye Sepulveda MEDICAL SERVICES ASSISTANT.CNM Work Phone: [facility] 06-15-2022 11:34-0500 Diastolic blood pressure 60 mm[Hg] Naye Sepulveda MEDICAL SERVICES ASSISTANT.CNM Work Phone: [facility] 06-15-2022 11:34-0500 Systolic blood pressure 112 mm[Hg] Naye Sepulveda MEDICAL SERVICES ASSISTANT.CNM Work Phone: [facility] 06-08-2022 14:56-0500 Body weight 73.62 kg Madeleine Pettit APRN.CNM Work Phone: [facility] 06-08-2022 14:56-0500 Diastolic blood pressure 60 mm[Hg] Madeleine Pettit MEDICAL SERVICES ASSISTANT.CNM Work Phone: [facility] 06-08-2022 14:56-0500 Systolic blood pressure 102 mm[Hg] Madeleine Pettit MEDICAL SERVICES ASSISTANT.CNM Work Phone: [facility] 05-26-2022 08:43-0500 Body weight 73.03 kg Naye Plotts MEDICAL SERVICES ASSISTANT.CNM Work Phone: [facility] 05-26-2022 08:43-0500 Diastolic blood pressure 60 mm[Hg] Naye Plotts MEDICAL SERVICES ASSISTANT.CNM Work Phone: [facility] 05-26-2022 08:43-0500 Systolic blood pressure 100 mm[Hg] Naye Plotts MEDICAL SERVICES ASSISTANT.CNM Work Phone: [facility] 04-30-2022 11:27-0500 Body weight 73.03 kg Mary Mclaughlin MD Work Phone: [facility] 04-30-2022 11:27-0500 Diastolic blood pressure 54 mm[Hg] Mary Mclaughlin MD Work Phone: [facility] 04-30-2022 11:27-0500 Systolic blood pressure 110 mm[Hg] Mary Mclaughlin MD Work Phone: [facility] 04-09-2022 10:27-0500 Body weight 72.12 kg Naye Plotts MEDICAL SERVICES ASSISTANT.CNM Work Phone: [facility] 04-09-2022 10:27-0500 Diastolic blood pressure 60 mm[Hg] Naye Plotts MEDICAL SERVICES ASSISTANT.CNM Work Phone: [facility] 04-09-2022 10:27-0500 Systolic blood pressure 98 mm[Hg] Naye Plotts MEDICAL SERVICES ASSISTANT.CNM Work Phone: [facility] 03-09-2022 12:58-0500 Body weight 74.39 kg Naye Plotts MEDICAL SERVICES ASSISTANT.CNM Work Phone: [facility] 03-09-2022 12:58-0500 Diastolic blood pressure 58 mm[Hg] Naye Plotts MEDICAL SERVICES ASSISTANT.CNM Work Phone: [facility] 03-09-2022 12:58-0500 Systolic blood pressure 102 mm[Hg] Naye Plotts MEDICAL SERVICES ASSISTANT.CNM Work Phone: [facility] 02-25-2022 20:50-0400 Body temperature 98.9 [degF] [facility] Work Phone: 02-25-2022 20:50-0400 Diastolic blood pressure 78 mm[Hg] [facility] Work Phone: 02-25-2022 20:50-0400 Heart rate 78 /min [facility] Work Phone: 02-25-2022 20:50-0400 Respiratory rate 16 /min [facility] Work Phone: 02-25-2022 20:50-0400 SaO2% (BldA) [Mass fraction] 99 % [facility] Work Phone: 02-25-2022 20:50-0400 Systolic blood pressure 128 mm[Hg] [facility] Work Phone: 02-25-2022 16:04-0400 Body height 167.64 cm [facility] Work Phone: 02-25-2022 16:04-0400 Body mass index (BMI) [Ratio] 26.6 kg/m2 [facility] Work Phone: 02-25-2022 16:04-0400 Body weight 74.7 kg [facility] Work Phone: 01-20-2022 14:28-0400 Body weight 74.93 kg Naye Plotts MEDICAL SERVICES ASSISTANT.CNM Work Phone: [facility] 01-20-2022 14:28-0400 Diastolic blood pressure 62 mm[Hg] Naye Plotts MEDICAL SERVICES ASSISTANT.CNM Work Phone: [facility] 01-20-2022 14:28-0400 Systolic blood pressure 100 mm[Hg] Naye Plotts MEDICAL SERVICES ASSISTANT.CNM Work Phone: [facility] 10-28-2021 14:23-0400 Body weight 74.21 kg Naye Sepulveda MEDICAL SERVICES ASSISTANT.CNM Work Phone: [facility] 10-28-2021 14:23-0400 Diastolic blood pressure 68 mm[Hg] Naye Sepulveda MEDICAL SERVICES ASSISTANT.CNM Work Phone: [facility] 10-28-2021 14:23-0400 Systolic blood pressure 104 mm[Hg] Naye Sepulveda MEDICAL SERVICES ASSISTANT.CNM Work Phone: [facility] 09-24-2021 16:12-0400 Body weight 72.12 kg Nadia Burton MD Work Phone: [facility] 09-24-2021 16:12-0400 Diastolic blood pressure 64 mm[Hg] Nadia Burton MD Work Phone: [facility] 09-24-2021 16:12-0400 Systolic blood pressure 100 mm[Hg] Nadia Burton MD Work Phone: [facility] 09-07-2021 16:07-0400 Body temperature 97.3 [degF] [facility] Work Phone: 09-07-2021 16:07-0400 Diastolic blood pressure 65 mm[Hg] [facility] Work Phone: 09-07-2021 16:07-0400 Heart rate 78 /min [facility] Work Phone: 09-07-2021 16:07-0400 Respiratory rate 16 /min [facility] Work Phone: 09-07-2021 16:07-0400 SaO2% (BldA) [Mass fraction] 98 % [facility] Work Phone: 09-07-2021 16:07-0400 Systolic blood pressure 122 mm[Hg] [facility] Work Phone: 09-06-2021 01:42-0400 Body height 165.1 cm [facility] Work Phone: 09-06-2021 01:42-0400 Body mass index (BMI) [Ratio] 30.4 kg/m2 [facility] Work Phone: 09-06-2021 01:42-0400 Body weight 83 kg [facility] Work Phone: 09-05-2021 16:42-0400 Diastolic blood pressure 84 mm[Hg] [facility] Work Phone: 09-05-2021 16:42-0400 Heart rate 93 /min [facility] Work Phone: 09-05-2021 16:42-0400 Systolic blood pressure 136 mm[Hg] [facility] Work Phone: 09-05-2021 16:26-0400 Body height 167.64 cm [facility] Work Phone: 09-05-2021 16:26-0400 Body mass index (BMI) [Ratio] 29.7 kg/m2 [facility] Work Phone: 09-05-2021 16:26-0400 Body temperature 99.2 [degF] [facility] Work Phone: 09-05-2021 16:26-0400 Body weight 83.46 kg [facility] Work Phone: 08-27-2021 16:10-0400 Body weight 83.28 kg Bernarda Smith MD Work Phone: [facility] 08-27-2021 16:10-0400 Diastolic blood pressure 68 mm[Hg] Bernarda Smith MD Work Phone: [facility] 08-27-2021 16:10-0400 Systolic blood pressure 108 mm[Hg] Bernarda Smith MD Work Phone: [facility] 08-25-2021 19:17-0400 Body temperature 98.6 [degF] [facility] Work Phone: 08-25-2021 19:17-0400 Heart rate 76 /min [facility] Work Phone: 08-25-2021 19:17-0400 SaO2% (BldA) [Mass fraction] 98 % [facility] Work Phone: 08-25-2021 19:10-0400 Diastolic blood pressure 66 mm[Hg] [facility] Work Phone: 08-25-2021 19:10-0400 Systolic blood pressure 122 mm[Hg] [facility] Work Phone: 08-25-2021 17:21-0400 Body height 167.64 cm [facility] Work Phone: 08-25-2021 17:21-0400 Body mass index (BMI) [Ratio] 29.4 kg/m2 [facility] Work Phone: 08-25-2021 17:21-0400 Body weight 82.61 kg [facility] Work Phone: 08-13-2021 14:07-0400 Body weight 81.19 kg Naye Plotts MEDICAL SERVICES ASSISTANT.CNM Work Phone: [facility] 08-13-2021 14:07-0400 Diastolic blood pressure 68 mm[Hg] Naye Plotts MEDICAL SERVICES ASSISTANT.CNM Work Phone: [facility] 08-13-2021 14:07-0400 Systolic blood pressure 120 mm[Hg] Naye Plotts MEDICAL SERVICES ASSISTANT.CNM Work Phone: [facility] 08-07-2021 08:51-0400 Body weight 78.93 kg Nadia Burton MD Work Phone: [facility] 08-07-2021 08:51-0400 Diastolic blood pressure 64 mm[Hg] Nadia Burton MD Work Phone: [facility] 08-07-2021 08:51-0400 Systolic blood pressure 120 mm[Hg] Nadia Burton MD Work Phone: [facility] 07-24-2021 09:00-0400 Body weight 78.11 kg Bernarda Smith MD Work Phone: [facility] 07-24-2021 09:00-0400 Diastolic blood pressure 60 mm[Hg] Bernarda Smith MD Work Phone: [facility] 07-24-2021 09:00-0400 Systolic blood pressure 104 mm[Hg] Bernarda Smith MD Work Phone: [facility] Encounters Encounter Date Encounter Type Care Provider Facility Start: 11-28-2024 End: 11-28-2024 ambulatory OMAR GUNN [facility] Start: 11-28-2024 End: 11-28-2024 Office outpatient visit 25 minutes Omar Gunn MD Work Phone: [facility] Comment on above: POTS (postural ortho static tachycardia syndrome) Start: 11-26-2024 End: 11-26-2024 Emergency department patient visit [facility] Start: 11-21-2024 End: 11-21-2024 Emergency department patient visit [facility] Start: 11-17-2024 End: 11-17-2024 Orders Only Juan Ngo CNP Work Phone: [facility] Comment on above: Elevated glucose (Pr imary Dx) Start: 11-15-2024 End: 11-15-2024 Office outpatient new 30 minutes Alexey Carr PA-C Work Phone: [facility] Comment on above: Abrasion of ear rey l, right, initial encounter (Primary Dx); Nausea; Dry skin Start: 11-15-2024 End: 11-15-2024 ambulatory ALEXEY CARR [facility] Start: 11-08-2024 End: 11-08-2024 Orders Only Omar Gunn MD Work Phone: [facility] Start: 11-07-2024 End: 11-22-2024 ambulatory Evonne Mix RN [facility] Start: 11-07-2024 End: 11-22-2024 Patient encounter procedure Evonne Mix RN [facility] Communication Start: 11-07-2024 End: 11-24-2024 Telephone encounter Omar Gunn MD Work Phone: [facility] Comment on above: Advice Only Start: 11-03-2024 End: 11-04-2024 Emergency department patient visit Tiffany Tran DO Work Phone: [facility] Comment on above: Corneal irritation, right (Primary Dx) Start: 10-20-2024 End: 10-20-2024 Refill [facility] Comment on above: Chronic migraine wit hout aura without status migrainosus, not intractable Start: 09-06-2024 End: 11-06-2024 Follow-up encounter Naye Sepulveda MEDICAL SERVICES ASSISTANT.CNM Work Phone: OB/Gynecology Start: 08-31-2024 ambulatory NAYE SEPULVEDA Facilit y:[facility] Start: 08-31-2024 End: 08-31-2024 Subsequent hospital visit by physician [facility] Work Phone: Radiology Comment on above: Pelvic pain in femal e [R10.2] Start: 08-30-2024 End: 10-30-2024 Follow-up encounter Naye Sepulveda MEDICAL SERVICES ASSISTANT.CNM Work Phone: OB/Gynecology Start: 08-30-2024 End: 08-30-2024 Patient encounter procedure Naye Sepulveda MEDICAL SERVICES ASSISTANT.CNM Work Phone: OB/Gynecology Comment on above: Pelvic pain in femal e (Primary Dx); Difficulty in urination Start: 08-30-2024 End: 08-30-2024 ambulatory NAYE SEPULVEDA Facility:[facility] Start: 08-25-2024 End: 08-25-2024 Orders Only Omar Gunn MD Work Phone: [facility] Start: 08-24-2024 End: 09-13-2024 Telephone encounter [facility] Comment on above: Appointment Start: 08-24-2024 End: 08-24-2024 ambulatory OMAR GUNN [facility] Start: 08-24-2024 End: 08-24-2024 Office outpatient visit 25 minutes Omar Gunn MD Work Phone: [facility] Comment on above: POTS (postural ortho static tachycardia syndrome) (Primary Dx); Chronic migraine without aura without status migrainosus, not intractable Start: 08-11-2024 End: 08-11-2024 Emergency department patient visit JAIRO GARCIA [facility] Start: 08-04-2024 End: 08-04[facility]: 08-04-[facility]24 End: 08-04-2024 Office outpatient visit 15 minutes Sarmad Orestesольгаal MEDICAL SERVICES ASSISTANT - THERMODYNAMICIST Work Phone: [facility] Comment on above: Herpes zoster withou t complication (Primary Dx); Pure hypercholesterolemia; Other insomnia Start: 08-04-2024 End: 08-04-2024 Office outpatient visit 25 minutes Sarmad Bridenthal MEDICAL SERVICES ASSISTANT - THERMODYNAMICIST Work Phone: [facility] Comment on above: Herpes zoster withou t complication (Primary Dx); Pure hypercholesterolemia; Other insomnia Start: 07-27-2024 End: 07-28-2024 ambulatory Zaida Thompson RN [facility] Communication Start: 07-27-2024 End: 07-28-2024 Patient encounter procedure Zaida Thompson RN [facility] Start: 07-25-2024 End: 07-25-2024 Emergency department patient visit Dr. Jairo Garcia MD Work Phone: -Emergency Department Work Phone: Start: 07-21-2024 End: 07-21-2024 Patient encounter procedure Naye Sepulveda APRN.CNM Work Phone: OB/Gynecology Comment on above: Polycystic ovaries ( Primary Dx) Start: 07-21-2024 End: 07-21-2024 ambulatory NAYE SEPULVEDA Facility:[facility] Start: 07-20-2024 End: 07-20-2024 ambulatory MARY MCLAUGHLIN Facility:[facility] Start: 07-20-2024 End: 07-20-2024 Patient encounter procedure Mary Mclaughlin MD Work Phone: OB/Gynecology Comment on above: Malpositioned intrau terine device (IUD), initial encounter (Primary Dx); Encounter for IUD insertion; Encounter for IUD removal Start: 07-13-2024 End: 07-13-2024 ambulatory Acc[facility] [employer] [employer] Work Phone: OB/Gynecology Start: 07-13-2024 End: 07-13-2024 Patient encounter procedure [employer] [facility]/Gynecolog y Start: 07-04-2024 End: 07-14-2024 Follow-up encounter Sarmad Britt MD Work Phone: OB/Gynecology Comment on above: Malpositioned intrau terine device (IUD), initial encounter (Primary Dx); Encounter for removal and reinsertion of intrauterine contraceptive device (IUD) Start: 07-03-2024 End: 07-03-2024 ambulatory DAVINA POLK Facility:[facility] Start: 07-03-2024 End: 07-05-2024 Patient encounter procedure Davina Jam MEDICAL SERVICES ASSISTANT.THERMODYNAMICIST Work Phone: OB/Gynecology Comment on above: Irregular bleeding ( Primary Dx) Chronic migraine wit hout aura without status migrainosus, not intractable Start: 05-19-2024 End: 05-19-2024 ambulatory MOON GARCIA Facility:[facility] Start: 05-19-2024 End: 05-19-2024 Patient encounter procedure Mayda Mclaughlin MEDICAL SERVICES ASSISTANT.THERMODYNAMICIST Work Phone: [facility] Comment on above: Pain, dental (Primar y Dx) Start: 04-12-2024 End: 04-12-2024 Emergency department patient visit MARIELLA ABEL Facility:[facility] Start: 04-11-2024 End: 04-11-2024 Orders Only Omar Gunn MD Work Phone: [facility] Comment on above: Chronic migraine wit hout aura without status migrainosus, not intractable (Primary Dx) Start: 04-11-2024 End: 04-11-2024 Emergency department patient visit JAIRO GARZA [facility] Start: 03-15-2024 End: 03-15-2024 ambulatory JUANMello IBARRA [facility] Start: 03-15-2024 End: 03-15-2024 Office outpatient visit 15 minutes Juan Ibarra MEDICAL SERVICES ASSISTANT - THERMODYNAMICIST Work Phone: [facility] Comment on above: URI with cough and c ongestion (Primary Dx) Start: 03-13-2024 End: 03-13-2024 Office outpatient visit 10 minutes Evita Benjamin MD Work Phone: [facility] Comment on above: Idiopathic 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); Other fatigue; Pure hypercholesterolemia Start: 03-13-2024 End: 03-13-2024 ambulatory EVITA BENJAMIN [facility] Start: 03-09-2024 End: 03-09-2024 Office outpatient visit 25 minutes Omar Gunn MD [facility] Comment on above: Chronic migraine wit hout aura without status migrainosus, not intractable (Primary Dx); POTS (postural orthostatic tachycardia syndrome) Start: 03-09-2024 End: 03-09-2024 ambulatory OMAR GUNN [facility] Start: 03-08-2024 End: 03-08-2024 Office outpatient visit 15 minutes Juan Ibarra MEDICAL SERVICES ASSISTANT - THERMODYNAMICIST Work Phone: [facility] Comment on above: Upper respiratory tr act infection, unspecified type (Primary Dx); Wheezing; Acute cough; Fever, unspecified fever cause Start: 03-08-2024 End: 03-08-2024 Office outpatient visit 25 minutes Juan Ibarra MEDICAL SERVICES ASSISTANT - THERMODYNAMICIST Work Phone: [facility] Comment on above: Upper respiratory tr act infection, unspecified type (Primary Dx); Wheezing; Acute cough; Fever, unspecified fever cause Start: 03-08-2024 End: 03-08-2024 ambulatory JUAN IBARRA [facility] Start: 03-03-2024 End: 03-03-2024 Emergency department patient visit TIFFANY PIMENTEL [facility] Start: 02-28-2024 End: 03-06-2024 Telephone encounter Evita Benjamin MD Work Phone: [facility] Comment on above: Results (Tilt table) Start: 02-21-2024 End: 02-21-2024 Office outpatient visit 15 minutes Evita Benjamin MD Work Phone: [facility] Comment on above: Idiopathic 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); Dizziness and giddiness; Other fatigue Start: 02-21-2024 End: 02-21-2024 ambulatory EVITA BENJAMIN [facility] Start: 02-16-2024 End: 02-16-2024 Telephone encounter Jairo Garcia MD Work Phone: [facility] Comment on above: Results Start: 02-15-2024 End: 02-15-2024 Patient encounter procedure Jairo Garcia MD Work Phone: [facility] Work Phone: Start: 02-15-2024 End: 02-15-2024 Periodic preventive med est patient 18-39 yrs Jairo Garcia MD Work Phone: [facility] Comment on above: Annual physical exam (Primary Dx); Iron deficiency anemia secondary to inadequate dietary iron intake; Migraine without aura and with status migrainosus, not intractable; Hip instability, unspecified laterality; Pure hypercholesterolemia; Screening for diabetes mellitus; Influenza vaccine refused Start: 02-15-2024 End: 02-15-2024 ambulatory JAIRO RADHA [facility] Start: 02-15-2024 End: 02-15-2024 Encounter for general adult medical examination without abnormal findings JAIRO RADHA [facility] Start: 02-10-2024 End: 02-10-2024 ambulatory [facility] Start: 02-10-2024 End: 02-10-2024 Subsequent hospital visit by physician Mayuri Christianson [employer] [facility] Comment on above: Autonomic dysfunctio n Start: 02-07-2024 End: 02-07-2024 Telephone encounter Evita Benjamin MD Work Phone: [facility] Comment on above: Other (Low BP stoppe d Metoprolol 2 weeks ago.) Start: 02-07-2024 End: 02-07-2024 ambulatory NAYE SEPULVEDA Facility:[facility] Start: 02-07-2024 End: 02-07-2024 Patient encounter procedure Naye Sepulveda MEDICAL SERVICES ASSISTANT.CNM Work Phone: OB/Gynecology Comment on above: Encounter for gyneco logical examination (general) (routine) without abnormal findings (Primary Dx); Encounter for routine checking of intrauterine contraceptive device (IUD); Personal history of contraception Start: 02-07-2024 End: 02-07-2024 Patient encounter status Naye Sepulveda MEDICAL SERVICES ASSISTANT.CNM Work Phone: [facility] Start: 01-20-2024 End: 01-20-2024 Office outpatient visit 25 minutes Omar Gunn MD Work Phone: [facility] Comment on above: Chronic migraine wit hout aura without status migrainosus, not intractable (Primary Dx) Start: 01-20-2024 End: 01-20-2024 [facility] Start: 01-19-2024 End: 01-31-2024 Orders Only Omar Gunn MD Work Phone: [facility] Comment on above: Letter for School/Wo rk Start: 01-17-2024 End: 01-17-2024 Office outpatient visit 25 minutes Juan Ibarra APRN - THERMODYNAMICIST Work Phone: [facility] Comment on above: Tremor of both hands (Primary Dx); Difficulty sleeping; Chronic migraine without aura without status migrainosus, not intractable Start: 01-17-2024 End: 01-17-2024 ambulatory Onedya Dumont RN [facility] Clinical Communication Start: 01-17-2024 End: 01-17-2024 Patient encounter procedure Oneyda Dumont RN [facility] al Communication Start: 12-29-2023 End: 01-17-2024 Telephone encounter Omar Gunn MD Work Phone: [facility] Comment on above: Test Scheduling Start: 12-09-2023 End: 12-09-2023 ambulatory OMAR GUNN [facility] Start: 12-09-2023 End: 12-09-2023 Office outpatient visit 25 minutes Omar Gunn MD Work Phone: [facility] Comment on above: Chronic migraine wit hout aura without status migrainosus, not intractable (Primary Dx); POTS (postural orthostatic tachycardia syndrome) Start: 11-01-2023 End: 11-01-2023 Orders Only Omar Gunn MD Work Phone: [facility] Comment on above: Chronic migraine wit hout aura without status migrainosus, not intractable (Primary Dx) Start: 10-28-2023 End: 10-28-2023 Subsequent hospital visit by physician Jairo Garcia MD Work Phone: [facility] Comment on above: Chronic migraine wit hout aura without status migrainosus, not intractable Start: 09-28-2023 Orders Only Omar Gunn MD Work Phone: [facility] Comment on above: Chronic migraine wit hout aura without status migrainosus, not intractable (Primary Dx) Start: 09-27-2023 ambulatory Arianna Porras RN [facility] Clinical Communication Start: 09-27-2023 Patient encounter procedure Arianna yoo RN [facility] Clinical Communication Start: 09-21-2023 Telephone encounter Omar lewis MD Work Phone: [facility] Comment on above: Return to Work Start: 09-16-2023 End: 09-16-2023 Office outpatient new 45 minutes Omar Gunn MD Work Phone: [facility] Comment on above: Chronic migraine wit hout aura without status migrainosus, not intractable (Primary Dx); Encounter for smoking cessation counseling; Occipital neuralgia of left side Start: 09-13-2023 End: 09-13-2023 Office outpatient visit 25 minutes Evita Benjamin MD Work Phone: [facility] Comment on above: Idiopathic 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); Dizziness and giddiness; Other fatigue Start: 08-27-2023 End: 08-27-2023 ambulatory Jairo Garcia Facility:[facility] Start: 07-27-2023 End: 07-27-2023 Office outpatient visit 15 minutes Jairo Garcia MD Work Phone: [facility] Comment on above: Acute non-recurrent maxillary sinusitis (Primary Dx) Start: 07-26-2023 ambulatory Kenia Montes RN [facility] Clinical Communication Start: 07-26-2023 Patient encounter procedure Kenia Montes RN [facility] Clinical Communication Start: 07-01-2023 End: 07-01-2023 Office outpatient visit 15 minutes Sarmad Christiano MEDICAL SERVICES ASSISTANT - THERMODYNAMICIST Work Phone: [facility] Comment on above: Migraine without aur a and with status migrainosus, not intractable (Primary Dx) Start: 06-05-2023 ambulatory Korina Trivedi RN [facility] Clinical Communication Start: 06-05-2023 Patient encounter procedure Diann Trivedi RN [facility] Clinical Communication Start: 06-03-2023 End: 06-03-2023 Subsequent hospital visit by physician Jairo Garcia MD Work Phone: [facility] Comment on above: Idiopathic hypotensi on; Dizziness and giddiness; Palpitations; Syncope and collapse Start: 05-20-2023 Telephone encounter Evita Benjamin MD Work Phone: [facility] Scheduling Comment on above: scheduling Start: 05-10-2023 End: 05-10-2023 Office outpatient visit 15 minutes Sarmad Christiano MEDICAL SERVICES ASSISTANT - THERMODYNAMICIST Work Phone: [facility] Comment on above: Acute non intractabl e tension-type headache (Primary Dx); Tinnitus, bilateral Start: 04-15-2023 End: 04-15-2023 Office outpatient visit 10 minutes Sarmad Andrewольгаal MEDICAL SERVICES ASSISTANT - THERMODYNAMICIST Work Phone: [facility] Comment on above: Dermatitis (Primary Dx) Start: 04-15-2023 End: 04-15-2023 Office outpatient visit 15 minutes Sarmad Orestesenthal MEDICAL SERVICES ASSISTANT - THERMODYNAMICIST Work Phone: [facility] Comment on above: Dermatitis (Primary Dx) Start: 04-07-2023 ambulatory Kylah Nicole RN [facility] Clinical Communication Start: 04-07-2023 Patient encounter procedure Kylah hale RN [facility] Clinical Communication Start: 03-08-2023 End: 03-08-2023 Office outpatient visit 25 minutes Evita Benjamin MD Work Phone: [facility] Comment on above: Idiopathic 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); Dizziness; Near syncope; Palpitations; Precordial pain Start: 03-05-2023 End: 03-05-2023 Office outpatient visit 15 minutes Kaylee Brand MEDICAL SERVICES ASSISTANT - THERMODYNAMICIST Work Phone: [facility] Comment on above: Viral URI with cough (Primary Dx) Start: 02-10-2023 End: 02-10-2023 Patient encounter procedure Jairo Garcia MD Work Phone: [facility] Work Phone: Start: 02-10-2023 End: 02-10-2023 Periodic preventive med est patient 18-39 yrs Jairo Garcia MD Work Phone: [facility] Comment on above: Annual physical exam (Primary Dx); Iron deficiency anemia secondary to inadequate dietary iron intake; Hair loss; Diminished reflexes on examination; Screening for diabetes mellitus; Screening for lipid disorders Start: 02-04-2023 End: 02-04-2023 Patient encounter procedure Naye Sepulveda MEDICAL SERVICES ASSISTANT.CNM Work Phone: OB/Gynecology Comment on above: Surveillance of prev iously prescribed intrauterine contraceptive device (Primary Dx); Screening for cervical cancer Start: 12-16-2022 End: 12-16-2022 Subsequent hospital visit by physician Evita Benjamin MD Work Phone: [facility] Non-Invasive Cardiology Comment on above: Dizziness; Precordial pain; MORSE (dyspnea on exertion); Palpitations Start: 12-07-2022 End: 12-07-2022 Office outpatient visit 25 minutes Evita Benjamin MD Work Phone: [facility] Comment on above: Dizziness (Primary D x); Idiopathic hypotension; Precordial pain; MORSE (dyspnea on exertion); Palpitations Start: 11-30-2022 End: 11-30-2022 Patient encounter procedure Nadia Burton MD Work Phone: OB/Gynecology Comment on above: Encounter for IUD in sertion (Primary Dx); Screening examination for STD (sexually transmitted disease) Start: 10-27-2022 End: 10-27-2022 Patient encounter procedure Mary Mclaughlin MD Work Phone: OB/Gynecology Comment on above: control counse ling (Primary Dx); care and examination immediately after delivery Start: 10-19-2022 Non-patient / Non-visit Dr. Jesus Work Phone: [facility] Start: 10-19-2022 End: 10-19-[address] Jairo Garcia Work Phone: [facility] Work Phone: Start: 10-19-2022 End: 10-19-[address] Jairo Garcia Work Phone: [facility] Start: 10-13-2022 End: 10-13-2022 Emergency department patient visit PHILOMENA BENOIT Facility:[id number] Start: 10-12-2022 ambulatory Naye gallardo APRN.CNM Work Phone: OB/Gynecology Comment on above: Ob Delivery Note Start: 10-09-2022 End: 10-11-2022 Evaluation and management of inpatient Dr. Jairo Garcia Work Phone: [facility] [place] Start: 10-06-2022 End: 10-06-2022 [address] Work Phone: Hematology/Oncology Comment on above: Maternal iron defici ency anemia complicating , third trimester (Primary Dx); Malabsorption of iron Start: 10-06-2022 Telephone encounter Judith Braswell RNmedical massage therapist [facility] Comment on above: Blood Management Start: 10-05-2022 End: 10-05-2022 Patient encounter procedure Naye Sepulveda APRN.CNM Work Phone: OB/Gynecology Comment on above: Supervision of high risk in third trimester (Primary Dx); 39 weeks gestation of ; anemia during in third trimester Start: 09-30-2022 Telephone encounter Evita Benjamin MD Work Phone: [facility] Comment on above: echo Start: 09-30-2022 End: 09-30-2022 Patient encounter procedure Naye Sepulveda APRN.CNM Work Phone: OB/Gynecology Comment on above: 38 weeks gestation o f (Primary Dx); Anemia during in third trimester Start: 09-22-2022 Orders Only Judith Braswell RN Interna l Medicine [facility] Comment on above: Maternal iron defici ency anemia complicating , third trimester; Malabsorption of iron Results Start: 09-21-2022 End: 09-21-2022 Patient encounter procedure Bernarda Smith MD Work Phone: OB/Gynecology Comment on above: 37 weeks gestation o f (Primary Dx); Anemia during in third trimester Start: 09-14-2022 End: 09-14-2022 Patient encounter procedure Naye Sepulveda APRN.CNM Work Phone: OB/Gynecology Comment on above: 36 weeks gestation o f (Primary Dx) Start: 09-07-2022 End: 09-07-2022 Office outpatient new 45 minutes Evita Benjamin MD Work Phone: [facility] Comment on above: Idiopathic 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); Hypoglycemia; Iron deficiency anemia secondary to inadequate dietary iron intake; Dizziness; Sinus tachycardia; Abnormal EKG Start: 08-25-2022 End: 08-25-2022 Patient encounter procedure Naye Sepulveda APRN.CNM Work Phone: OB/Gynecology Comment on above: 33 weeks gestation o f (Primary Dx); Dizziness; Tunnel vision, bilateral; Pre-syncope Start: 07-21-2022 End: 07-21-2022 Patient encounter procedure Naye Sepulveda APRN.AURELIANO Work Phone: OB/Gynecology Comment on above: 28 weeks gestation o f (Primary Dx); Rh negative state in antepartum period Start: 07-07-2022 End: 07-07-2022 Patient encounter procedure Naye Sepulveda APRN.CNM Work Phone: OB/Gynecology Comment on above: 26 weeks gestation o f (Primary Dx); Short interval between pregnancies affecting , antepartum; Rh negative state in antepartum period Start: 06-29-2022 End: 06-29-[address] Jairo Garcia Work Phone: [facility], Outpatients Start: 06-29-2022 Telephone encounter Naye rodriguez APRN.CNM Work Phone: OB/Gynecology Comment on above: Patient Update Start: 06-15-2022 End: 06-15-2022 Patient encounter procedure Naye Sepulveda APRN.CNM Work Phone: OB/Gynecology Comment on above: Encounter for superv ision of other normal in second trimester (Primary Dx); 23 weeks gestation of ; Generalized abdominal pain; Pain of round ligament affecting , antepartum; Bilateral low back pain with bilateral sciatica, unspecified chronicity Start: 06-08-2022 End: 06-08-2022 Patient encounter procedure Madeleine Pettit APRN.CNM Work Phone: OB/Gynecology Comment on above: 22 weeks gestation o f (Primary Dx); Encounter for supervision of other normal in second trimester; Urine frequency Start: 06-08-2022 Telephone encounter Madeleine Bessy marlow APRN.CNM Work Phone: OB/Gynecology Comment on above: Abdominal Pain Start: 05-26-2022 End: 05-26-2022 Patient encounter procedure Cecille Albarran MD Work Phone: Maternal Medicine Comment on above: Encounter for anatomic survey (Primary Dx); 20 weeks gestation of 20 weeks gestation o f (Primary Dx); Current nicotine vaping on some days; Short interval between pregnancies affecting , antepartum; Pain of round ligament affecting , antepartum Start: 05-14-2022 ambulatory Judith Lara RN NURS E OIL DISPATCHER Comment on above: With Compli cations Start: 04-30-2022 End: 04-30-2022 Patient encounter procedure Mary Mclaughlin MD Work Phone: OB/Gynecology Comment on above: Short interval betwe en pregnancies affecting , antepartum (Primary Dx); 17 weeks gestation of Start: 04-29-2022 Telephone encounter Mary nevarez MD Work Phone: OB/Gynecology Comment on above: Question (OB Questio n) Start: 04-09-2022 End: 04-09-2022 Patient encounter procedure Cecille Albarran MD Work Phone: Maternal Medicine Comment on above: Encounter for (NT) n uchal translucency scan (Primary Dx); 14 weeks gestation of 14 weeks gestation o f (Primary Dx); Headache in back of head Start: 03-09-2022 End: 03-09-2022 Patient encounter procedure Naye Sepulveda APRN.CNM Work Phone: OB/Gynecology Comment on above: 9 weeks gestation of (Primary Dx); Short interval between pregnancies affecting , antepartum; H/O depression, currently ; UTI (urinary tract infection) in , antepartum; Anxiety; Current nicotine vaping on some days Encounter for superv ision of other normal in first trimester (Primary Dx) Start: 03-05-2022 End: 03-05-2022 Nursing evaluation of patient and report Nurse [facility] Work Phone: OB/Gynecology Comment on above: Supervision of high risk , antepartum (Primary Dx); Short interval between pregnancies affecting , antepartum; H/O depression, currently ; UTI (urinary tract infection) in , antepartum; Patient request for diagnostic testing; History of nicotine vaping Start: 03-05-2022 End: 03-05-2022 [facility] Work Phone: [facility] Start: 02-25-2022 End: 02-25-2022 Emergency department patient visit [facility] Start: 01-20-2022 End: 01-20-2022 Patient encounter procedure Naye Sepulveda APRN.CNM Work Phone: OB/Gynecology Comment on above: Anxiety (Primary Dx) ; depression Start: 10-28-2021 End: 10-28-2021 Patient encounter procedure Naye Sepulveda APRN.CNM Work Phone: OB/Gynecology Comment on above: care and examination (Primary Dx); Menorrhagia with regular cycle; Encounter for initial prescription of contraceptive pills Start: 09-24-2021 End: 09-24-2021 Patient encounter procedure Nadia Burton MD Work Phone: OB/Gynecology Comment on above: care and examination immediately after delivery (Primary Dx) Start: 09-08-2021 ambulatory Naye gallardo APRN.CNM Work Phone: OB/Gynecology Comment on above: Ob Delivery Note Start: 09-06-2021 End: 09-07-2021 Evaluation and management of inpatient [facility] Start: 09-05-2021 End: 09-05-2021 Patient encounter procedure [facility], Outpatients Start: 08-27-2021 End: 08-27-2021 Patient encounter procedure Bernarda Smith MD Work Phone: OB/Gynecology Comment on above: 39 weeks gestation o f (Primary Dx); Anemia during in third trimester; Encounter for supervision of normal first in third trimester Start: 08-26-2021 ambulatory [facility] [place] Comment on above: Population Health Na vigation Outreach (ob/peds) Start: 08-25-2021 End: 08-25-2021 Patient encounter procedure [facility] Start: 08-13-2021 End: 08-13-2021 Patient encounter procedure Naye Sepulveda APRN.CNM Work Phone: OB/Gynecology Comment on above: Anemia during pregna ncy in third trimester (Primary Dx); 37 weeks gestation of Start: 08-07-2021 End: 08-07-2021 Patient encounter procedure Nadia Burton MD Work Phone: OB/Gynecology Comment on above: Encounter for superv ision of normal first in third trimester (Primary Dx); Anemia during in third trimester; 36 weeks gestation of Start: 07-30-2021 End: 07-30-2021 Patient encounter procedure [facility] Start: 07-24-2021 End: 07-24-2021 Patient encounter procedure Bernarda Smith MD Work Phone: OB/Gynecology Comment on above: 34 weeks gestation o f (Primary Dx); Tobacco use during , antepartum; Anemia during in third trimester; Supervision of high risk in third trimester Start: 07-16-2021 Telephone encounter Madeleine marlow APRN.CNM Work Phone: OB/Gynecology Comment on above: Orders Start: 01-16-2021 End: 07-31-2022 Patient requested procedure Madeleine Pettit APRN.CNArya Work Phone: [facility] Work Phone: Start: 07-27-2018 End: 07-27-2018 Emergency department patient visit JAIROASIA GARZA [facility] Start: 07-01-2018 Patient encounter procedure Juan Jackman [facility] Start: 12-31-2016 End: 01-01-2017 Ambulatory RUSTY Y JENNIFER Facility:[facility] Start: 12-29-2016 End: 12-30-2016 Ambulatory RUSTY Y JENNIFER Facility:[facility] Start: 12-25-2016 End: 12-26-[address] [facility] Facility:[facility] Start: 12-09-2016 End: 12-10-[address] [facility] Facility:[facility] Procedures Date Procedure Procedure Detail Performing Clinician Start: 08-30-2024 Urnls dip stick/tabl et rgnt auto w/o microscopy Naye Sepulveda MEDICAL SERVICES ASSISTANT.CNM Work Phone: Start: 07-20-2024 UA DIP,URINE HCG (POC) Mary Mclaughlin MD Work Phone: Start: 07-13-2024 Us pelvic nonobstetr ic real-time image complete Davina Ortizcalf MEDICAL SERVICES ASSISTANT.THERMODYNAMICIST Work Phone: Start: 03-08-2024 Infectious agent dna /rna influenza 1st 2 types Juan Ibarra MEDICAL SERVICES ASSISTANT - THERMODYNAMICIST Work Phone: Start: 02-21-2024 Ecg routine ecg w/le ast 12 lds trcg only w/o i&r Evita Benjaimn MD Work Phone: Start: 02-15-2024 Lipid 1996 panel - S inocente or Plasma Jairo Garcia MD Work Phone: Start: 09-13-2023 Ecg routine ecg w/le ast 12 lds w/i&r Evita Benjamin MD Work Phone: Start: 07-27-2023 Adult depression scr eening assessment Jairo Garcia MD Work Phone: Start: 02-10-2023 Adult depression scr eening assessment Jairo Garcia MD Work Phone: Start: 02-10-2023 Lipid 1996 panel - S inocente or Plasma Kaylee Brand MEDICAL SERVICES ASSISTANT - THERMODYNAMICIST Work Phone: Start: 02-04-2023 Microscopic observat ion [Identifier] in Cervix by Cyto stain Jairo Garcia MD Work Phone: Start: 12-16-2022 Cv strs tst xers&/or rx cont ecg trcg only Evita Benjamin MD Work Phone: Start: 11-30-2022 Urine test visual color cmprsn devin Burton MD Work Phone: Start: 10-05-2022 URINE OB DIP B/O Courtn ey Plotts MEDICAL SERVICES ASSISTANT.CNM Work Phone: Start: 09-30-2022 URINE OB DIP B/O Courtn ey Plotts MEDICAL SERVICES ASSISTANT.CNM Work Phone: Start: 09-21-2022 URINE OB DIP B/O Bernarda pena MD Work Phone: Start: 09-14-2022 URINE OB DIP B/O Courtn ey Plotts MEDICAL SERVICES ASSISTANT.CNM Work Phone: Start: 09-07-2022 Ecg routine ecg w/le ast 12 lds w/i&r Evita Benjamin MD Work Phone: Start: 08-25-2022 URINE OB DIP B/O Courtn ey Plotts MEDICAL SERVICES ASSISTANT.CNM Work Phone: Start: 07-21-2022 URINE OB DIP B/O Courtn ey Plotts MEDICAL SERVICES ASSISTANT.CNM Work Phone: Start: 07-07-2022 URINE OB DIP B/O Courtn ey Plotts MEDICAL SERVICES ASSISTANT.CNM Work Phone: Start: 06-15-2022 URINE OB DIP B/O Courtn ey Plotts MEDICAL SERVICES ASSISTANT.CNM Work Phone: Start: 06-08-2022 BACTERIAL VAGINOSIS AMPLIFICATION Madeleine Pettit MEDICAL SERVICES ASSISTANT.CNM Work Phone: Start: 06-08-2022 Iadna chlamydia trac homatis amplified probe tq Madeleine Pettit MEDICAL SERVICES ASSISTANT.CNM Work Phone: Start: 06-08-2022 Urnls dip stick/tabl et rgnt auto w/o microscopy Madeleine Pettit MEDICAL SERVICES ASSISTANT.CNM Work Phone: Start: 05-26-2022 URINE OB DIP B/O Courtn ey Plotts MEDICAL SERVICES ASSISTANT.CNM Work Phone: Start: 05-26-2022 Us preg uterus after 1st trimest 1/ gestation Naye Sepulveda MEDICAL SERVICES ASSISTANT.CNM Work Phone: Start: 04-30-2022 URINE OB DIP B/O Mary Mclaughlin MD Work Phone: Start: 04-09-2022 URINE OB DIP B/O Kaye Sepulveda MEDICAL SERVICES ASSISTANT.CNM Work Phone: Start: 04-09-2022 Us nuchal hurley slucency 1st gestation Naye Sepulveda MEDICAL SERVICES ASSISTANT.CNM Work Phone: Start: 02-25-2022 Transvaginal obstetr ic ultrasonography Start: 02-05-2022 Lipid 1996 panel - S inocente or Plasma Jairo Garcia MD Work Phone: Start: 09-06-2021 Viral antigen assay Start: 08-27-2021 URINE OB DIP B/O Bernarda pena MD Work Phone: Start: 08-13-2021 URINE OB DIP B/O Kaye Sepulveda MEDICAL SERVICES ASSISTANT.CNM Work Phone: Start: 08-07-2021 URINE OB DIP B/O Nadia Burton MD Work Phone: Start: 07-30-2021 Plain x-ray of wrist Start: 07-24-2021 URINE OB DIP B/O Bernarda pena MD Work Phone: Start: 07-27-2018 Ct abdomen & pelvis w/o contrast material JAIRO GARCIA Start: 07-27-2018 Blood count complete auto&auto difrntl wbc JAIRO GARCIA Start: 07-27-2018 Comprehensive metabo lic panel JAIRO GARCIA Start: 07-27-2018 SALINE LOCK IV JAIRO GARCIA Start: 07-27-2018 Culture bacterial quanttative colony count urine JAIRO GARCIA Start: 07-27-2018 Urinalysis microscopic only JAIRO GARCIA Start: 07-27-2018 Urine test visual color cmprsn meths JAIRO GARCIA Start: 07-27-2018 Urnls dip stick/tabl et rgnt auto w/o microscopy JAIRO GARCIA Plan of Treatment Date Care Activity Detail Author Start: 2072 RSV Immunization for Adults (1 - 1-dose 75+ series) RSV Immunization for Adults (1 - 1-dose 75+ series) [facility] Start: 2057 RSV Immunization aged 60 or older (1 - 1-dose 60+ series) RSV Immunization aged 60 or older (1 - 1-dose 60+ series) [facility] Start: 11-21-2047 Zoster Vaccines (1 of 2) Zoster Vaccines (1 of 2) [facility] Start: 06-13-2031 DTaP/Tdap/Td Vaccines (8 - Td or Tdap) DTaP/Tdap/Td Vaccines (8 - Td or Tdap) [facility] Start: 06-13-2031 Tetanus vaccination Tetanus: Every 10yrs [facility] Start: 06-13-2031 Urine microalbumin profile [facility] Start: 02-14-2029 Lipid panel Lipid Panel [facility] Start: 02-11-2028 Lipid panel Lipid Panel [facility] Start: 02-05-2027 Lipid panel Lipid Panel [facility] Start: 02-04-2026 Screening for malignant neoplasm of cervix [facility] Start: 11-17-2025 Diabetes mellitus screening Diabetes Screening [facility] Start: 02-15-2025 Yearly Adult Physical Yearly Adult Physical [facility] Start: 02-14-2025 History and physical examination, annual for health maintenance Wellness Visit [facility] Start: 02-07-2025 End: 02-07-2025 Patient encounter procedure 02/07/2025 10:45 AM EDT Office Visit OB/Gynecology [address] [place] [address] Naye Sepulveda APRN.[facility] [address] [place] [address] Annual OB/Gynecology Comment on above: Annual Start: 02-05-2025 End: 02-05-2025 Patient encounter procedure 02/05/2025 10:20 AM EDT Office Visit [address] [address] Sarmad Ceballos, MEDICAL SERVICES ASSISTANT - THERMODYNAMICIST [address] [facility] [place] [address] [facility] Start: 01-02-2025 End: 01-02-2025 Telemedicine consultation with patient 01/02/2025 1:20 PM EDT Telemedicine [facility] [address] [facility] [address] [place] [phone] Omar Gunn MD [address] [facility] [address] [place] [address] [facility] Start: 01-01-2025 Influenza vaccination [facility] Start: 11-30-2024 End: 11-30-2024 Patient encounter procedure 11/30/2024 1:00 PM EDT Office Visit [facility] [address] [facility] [place] [address] Jairo Garcia MD [address] [facility] [place] [address] [facility] Start: 11-28-2024 End: 11-28-2024 Patient encounter procedure 11/28/2024 2:20 PM EDT Office Visit [facility] [address] [facility] [address] [place] [phone] Omar Gunn MD [address] [facility] [address] [place] [address] [facility] Start: 11-17-2024 End: 11-17-2025 Basic metabolic 1998 panel - Serum or Plasma Basic metabolic panel Lab Routine Elevated glucose Expected: 11/17/2024 (Approximate), Expires: 11/17/2025 [facility] Comment on above: Expected: 11/17/2024 (Approximate), Expi res: 11/17/2025 Start: 11-17-2024 End: 07-18-2026 Hemoglobin A1c measurement Hemoglobin A1c Lab Routine Elevated glucose Expected: 11/17/2024 (Approximate), Expires: 11/17/2025 [facility] Work Phone: Comment on above: Expected: 11/17/2024 (Approximate), Expi res: 11/17/2025 Start: 10-30-2024 Influenza vaccination Influenza Vaccine (#1) [facility] Comment on above: Postponed from 01/02/2024 (Patient Refus ed) Start: 08-31-2024 End: 08-31-2024 Patient encounter procedure 08/31/2024 1:45 PM EDT Appointment Radiology [address] [place], [place] [id number] Pelvic pain in female [R10.2] Radiology Comment on above: Pelvic pain in female [R10.2] Start: 08-15-2024 End: 08-15-2024 Patient encounter procedure 08/15/2024 3:00 PM EDT Office Visit [facility] [address] [facility] [place] [address] Jairo Garcia MD [address] [place] [address] [place] [address] [facility] Start: 08-14-2024 Depression Monitoring Depression Monitoring [facility] Start: 08-03-2024 End: 08-03-2024 Patient encounter procedure 08/03/2024 10:20 AM EDT Office Visit [facility] [address] [facility] [place] [address] [place] [address] Sarmad Ceballos, MEDICAL SERVICES ASSISTANT - THERMODYNAMICIST [address] [facility] [place] [address] [facility] Start: 07-26-2024 Depression Screening Depression Screening [facility] Start: 07-25-2024 [facility] Start: 07-21-2024 End: 07-21-2024 Patient encounter procedure 07/21/2024 11:30 AM EDT Office Visit OB/Gynecology [address] [place] [address] Naye Sepulveda APRN.CNM [address] [place] [address] F/U AFTER US OB/Gynecology Comment on above: F/U AFTER US Start: 07-20-2024 End: 07-20-2024 Patient encounter procedure 07/20/2024 2:50 PM EDT Office Visit OB/Gynecology [address] [place] [address] Mary Mclaughlin MD [address] [place] [address] Remove/Insert malpositioned paraguard OB/Gynecology Comment on above: Remove/Insert malpositioned paraguard Start: 07-10-2024 End: 07-10-2024 Patient encounter procedure 07/10/2024 2:20 PM EDT Office Visit [facility] [address] [place] [address] Omar Gunn MD [address] [facility] [address] [place] [address] [facility] Start: 07-07-2024 End: 07-07-2024 ambulatory 07/07/2024 11:00 AM EST Procedure OB/Gynecology [address] [place], [place] [address] Remote, [facility] [address] [place] [address] Indication for Ultrasound: Abnormal uterine bleeding and Localization of IUD OB/Gynecology Comment on above: Indication for Ultrasound: Abnormal uter ine bleeding and Localization of IUD Start: 07-03-2024 End: 07-03-2025 US Pelvis PELVIC US [facility] Anc Imaging Routine Irregular bleeding Expected: 07/03/2024, Expires: 07/03/2025 [facility] Work Phone: Comment on above: Expected: 07/03/2024, Expires: Start: 05-10-2024 Pneumococcal Vaccine: Pediatrics (0 to 5 Years) and At-Risk Patients (6 to 64 Years) (1 of 2 - PCV) Pneumococcal Vaccine: Pediatrics (0 to 5 Years) and At-Risk Patients (6 to 64 Years) (1 of 2 - PCV) [facility] Comment on above: Postponed from 11/21/2003 (Patient Refus ed) Start: 03-22-2024 End: 03-22-2024 Patient encounter procedure 03/22/2024 2:00 PM EST [facility] [address] [place] [address] [place] [address] Juan Ibarra, MEDICAL SERVICES ASSISTANT - THERMODYNAMICIST [address] [place] [address] [place] [address] [facility] Start: 03-15-2024 End: 03-15-2024 Patient encounter procedure 03/15/2024 1:20 PM EST Office Visit [facility] [place] [address] [place] [address] [place] [address] Juan Ibarra, MEDICAL SERVICES ASSISTANT - THERMODYNAMICIST [address] [place] [address] [place] [address] [facility] Start: 03-13-2024 End: 03-13-2024 Patient encounter procedure 03/13/2024 1:30 PM EST Office Visit [facility] [address] [place] [phone] Evita Benjamin MD [address] [facility] [address] [place], [place] [phone] [facility] Start: 03-09-2024 End: 03-09-2024 Patient encounter procedure 03/09/2024 2:20 PM EST Office Visit [facility] [address] [place] [phone] Omar Gunn MD [address] [place] [address] [facility] Start: 03-08-2024 End: 03-08-2024 Patient encounter procedure 03/08/2024 1:20 PM EST Office Visit [facility] [place] [address] [place] [address] [place] [address] Juan Ibarra, MEDICAL SERVICES ASSISTANT - THERMODYNAMICIST [address] [place] [address] [place] [address] [facility] [place] Start: 02-21-2024 End: 02-21-2024 Patient encounter procedure 02/21/2024 3:30 PM EDT Office Visit [facility] [address] [facility] [address] [place] [phone] Evita Benjamin MD [address] [place] [address] [address] [place], [place] [address] [facility] Start: 02-15-2024 End: 02-15-2024 Patient encounter procedure [facility] Start: 02-15-2024 End: 02-14-2025 CBC panel - Blood by Automated count CBC Lab Routine Iron deficiency anemia secondary to inadequate dietary iron intake Expected: 02/15/2024 (Approximate), Expires: 02/14/2025 [facility] Comment on above: Expected: 02/15/2024 (Approximate), Expi res: 02/14/2025 Start: 02-15-2024 End: 02-14-2025 Comprehensive metabolic 1998 panel - Serum or Plasma Comprehensive metabolic panel Lab Routine Screening for diabetes mellitus Expected: 02/15/2024 (Approximate), Expires: 02/14/2025 [facility] Work Phone: Comment on above: Expected: 02/15/2024 (Approximate), Expi res: 02/14/2025 Start: 02-15-2024 End: 02-14-2025 Lipid 1996 panel - Serum or Plasma Lipid panel Lab Routine Pure hypercholesterolemia Expected: 02/15/2024 (Approximate), Expires: 02/14/2025 [facility] Comment on above: Expected: 02/15/2024 (Approximate), Expi res: 02/14/2025 Start: 02-15-2024 End: 02-14-2025 XR Hip - left 3 Views XR hip left 2 or 3 views Imaging Routine Hip instability, unspecified laterality Expected: 02/15/2024, Expires: 02/14/2025 [facility] Comment on above: Expected: 02/15/2024, Expires: Start: 02-15-2024 End: 02-14-2025 XR Hip - right 3 Views XR hip right 2 or 3 views Imaging Routine Hip instability, unspecified laterality Expected: 02/15/2024, Expires: 02/14/2025 [facility] Comment on above: Expected: 02/15/2024, Expires: Start: 02-11-2024 Depression Screening Depression Screening [facility] Start: 02-02-2024 End: 02-02-2024 Patient encounter procedure [facility] Start: 01-27-2024 Depression Monitoring Depression Monitoring [facility] Start: 01-20-2024 End: 01-20-2024 Patient encounter procedure 01/20/2024 3:40 PM EDT Office Visit [facility] [address] [facility] [address] [place] [phone] Omar Gunn MD [address] [phone] [facility] Start: 01-17-2024 End: 01-16-2025 CBC W Auto Differential panel - Blood CBC auto differential Lab Routine Tremor of both hands Expected: 01/17/2024 (Approximate), Expires: 01/16/2025 [facility] [employer] [facility] Work Phone: Comment on above: Expected: 01/17/2024 (Approximate), Expi res: 01/16/2025 Start: 01-17-2024 End: 01-16-2025 Comprehensive metabolic 1998 panel - Serum or Plasma Comprehensive metabolic panel Lab Routine Tremor of both hands Expected: 01/17/2024 (Approximate), Expires: 01/16/2025 [facility] Comment on above: Expected: 01/17/2024 (Approximate), Expi res: 01/16/2025 Start: 01-17-2024 End: 01-16-2025 Folate [Mass/volume] in Serum or Plasma Folate Lab Routine Tremor of both hands Expected: 01/17/2024 (Approximate), Expires: 01/16/2025 [facility] Comment on above: Expected: 01/17/2024 (Approximate), Expi res: 01/16/2025 Start: 01-17-2024 End: 01-16-2025 Thyrotropin [Units/volume] in Serum or Plasma TSH Lab Routine Tremor of both hands Expected: 01/17/2024 (Approximate), Expires: 01/16/2025 [facility] Comment on above: Expected: 01/17/2024 (Approximate), Expi res: 01/16/2025 Start: 01-17-2024 End: 01-16-2025 Thyroxine (T4) free [Mass/volume] in Serum or Plasma T4, free Lab Routine Tremor of both hands Expected: 01/17/2024 (Approximate), Expires: 01/16/2025 [facility] Comment on above: Expected: 01/17/2024 (Approximate), Expi res: 01/16/2025 Start: 01-17-2024 End: 01-16-2025 Triiodothyronine (T3) Free [Mass/volume] in Serum or Plasma T3, free Lab Routine Tremor of both hands Expected: 01/17/2024 (Approximate), Expires: 01/16/2025 [facility] Comment on above: Expected: 01/17/2024 (Approximate), Expi res: 01/16/2025 Start: 01-02-2024 COVID-19 Vaccine ( season) COVID-19 Vaccine () [facility] Start: 01-02-2024 Covid-19 Vaccine () Covid-19 Vaccine () [facility] Start: 01-02-2024 Influenza vaccination [facility] Start: 12-20-2023 End: 12-20-2023 Patient encounter procedure 12/20/2023 2:00 PM EDT Office Visit [facility] [address] [place] [phone] Omar Gunn MD [address] [place], [place] [phone] [facility] Start: 12-01-2023 End: 12-01-2023 Patient encounter procedure 12/01/2023 1:20 PM EDT Office Visit [facility] [address] [place] [phone] Omar Gunn MD [address] [place], [place] [phone] [facility] Start: 10-31-2023 Influenza vaccination Influenza Vaccine (#1) [facility] Comment on above: Postponed from 01/01/2023 (Patient Refus ed) Start: 10-28-2023 End: 10-28-2023 Patient encounter procedure 10/28/2023 1:30 PM EDT Appointment [facility] [address] [address] [place] [phone] [facility] [address] Start: 10-18-2023 End: 10-18-2023 Patient encounter procedure 10/18/2023 2:20 PM EDT Office Visit [facility] [address] [place] [phone] Omar Gunn MD [address] [place], [place] [phone] [facility] Start: 10-14-2023 Diabetes mellitus screening Diabetes Screening [facility] Start: 09-16-2023 End: 09-16-2023 Patient encounter procedure 09/16/2023 3:20 PM EDT Office Visit [facility] [address] [place] [phone] Omar Gunn MD [address] [place], [place] [phone] [facility] Start: 09-16-2023 End: 09-15-2024 CTA Head vessels WO and W contrast IV CTA head angio w and wo IV contrast Imaging Routine Chronic migraine without aura without status migrainosus, not intractable Expected: 09/16/2023, Expires: 09/15/2024 [facility] [employer] Work Phone: Comment on above: Expected: 09/16/2023, Expires: Start: 07-27-2023 End: 07-27-2023 Patient encounter procedure 07/27/2023 8:15 AM EDT Office Visit [facility] [address] [facility] [address] [place], [place] [phone] Jairo Garcia MD [address] [place] [address] [address] [place], [place] [phone] [facility] Start: 07-01-2023 End: 07-01-2023 Patient encounter procedure 07/01/2023 7:40 AM EST Office Visit [facility] [address] [facility] [address] [place], [place] [phone] Sarmad Ceballos, MEDICAL SERVICES ASSISTANT - THERMODYNAMICIST [address] [facility] [place] [address] [place] [address] [facility] Start: 05-20-2023 End: 08-19-2023 Cardiac holter monitor (8- 15 days) Cardiac holter monitor (8- 15 days) [facility] Cardiac Services Routine Idiopathic hypotension Dizziness and giddiness Palpitations Syncope and collapse Expected: 05/20/2023 (Approximate), Expires: 08/19/2023 [facility] Work Phone: Comment on above: Expected: 05/20/2023 (Approximate), Expi res: 08/19/2023 Start: 04-08-2023 End: 04-08-2023 Patient encounter procedure 04/08/2023 3:40 PM EST Office Visit [facility] [address] [place] [address] [place] [address] Donnamacie Sarmad, MEDICAL SERVICES ASSISTANT - THERMODYNAMICIST [address] [place] [address] [place] [address] [facility] Start: 03-08-2023 End: 09-06-2023 Vamp St[employer]cher (all types: Event, Holter, MCOT) ORDER ALGORITHM Vamp Stitcher (all types: Event, Holter, MCOT) ORDER ALGORITHM CV Cardiac Services Routine Dizziness Near syncope Palpitations Expected: 03/08/2023 (Approximate), Expires: 09/06/2023 [facility] [employer] Work Phone: Comment on above: Expected: 03/08/2023 (Approximate), Expi res: 09/06/2023 Start: 03-08-2023 End: 09-06-2023 CTA Heart and Coronary arteries WO and W contrast IV CTA HEART CORONARY ANGIOGRAM WITH PROV FFR-CT Imaging Routine Dizziness Near syncope Palpitations Precordial pain Expected: 03/08/2023 (Approximate), Expires: 09/06/2023 [facility] [employer] Comment on above: Expected: 03/08/2023 (Approximate), Expi res: 09/06/2023 Start: 03-08-2023 End: 03-08-2023 Patient encounter procedure 03/08/2023 1:00 PM EST Office Visit [facility] [address] [facility] [address] [place] [phone] Evita Benjamin MD [address] [place] [address] [address] [place] [address] [facility] Start: 02-11-2023 PAP TESTING PAP TESTING [facility] Start: 02-10-2023 End: 02-11-2024 CBC panel - Blood by Automated count CBC Lab Routine Iron deficiency anemia secondary to inadequate dietary iron intake Expected: 02/10/2023 (Approximate), Expires: 02/11/2024 [facility] [employer] Comment on above: Expected: 02/10/2023 (Approximate), Expi res: 02/11/2024 Start: 02-10-2023 End: 02-11-2024 Comprehensive metabolic 1998 panel - Serum or Plasma Comprehensive metabolic panel Lab Routine Screening for diabetes mellitus Expected: 02/10/2023 (Approximate), Expires: 02/11/2024 [facility] Comment on above: Expected: 02/10/2023 (Approximate), Expi res: 02/11/2024 Start: 02-10-2023 End: 02-11-2024 Lipid 1996 panel - Serum or Plasma Lipid panel Lab Routine Screening for lipid disorders Expected: 02/10/2023 (Approximate), Expires: 02/11/2024 [facility] Work Phone: Comment on above: Expected: 02/10/2023 (Approximate), Expi res: 02/11/2024 Start: 02-10-2023 End: 02-11-2024 Thyrotropin [Units/volume] in Serum or Plasma TSH Lab Routine Hair loss Diminished reflexes on examination Expected: 02/10/2023 (Approximate), Expires: 02/11/2024 [facility] Comment on above: Expected: 02/10/2023 (Approximate), Expi res: 02/11/2024 Start: 02-10-2023 End: 02-10-2023 Patient encounter procedure [facility] Start: 01-01-2023 Influenza vaccination [facility] Start: 12-18-2022 End: 12-18-2022 Patient encounter procedure 12/18/2022 1:00 PM EDT Appointment [facility] Non-Invasive Cardiology [address] [place] [phone] Evita Benjamin MD [address] [place] [address] [facility] Card[facility] Start: 10-11-2022 Patient discharge [facility] Start: 10-10-2022 Administration of blood product [facility] Start: 10-10-2022 Administration of medication [facility] Start: 10-10-2022 Application of ice collar, cap or bag [facility] Start: 10-10-2022 Catheterization of vein [facility] Start: 10-10-2022 Introduction of urinary catheter [facility] Start: 10-10-2022 Measuring intake and output [facility] Start: 10-10-2022 Notification of physician [facility] Start: 10-10-2022 Procedure discontinued [facility] Start: 10-10-2022 Provision of activity privileges [facility] Start: 10-10-2022 Vital signs measurements [facility] Start: 10-10-2022 [facility] Start: 10-10-2022 Consultation [facility] Start: 10-09-2022 Admission procedure [facility] Start: 09-07-2022 End: 09-07-2024 US Heart Transthoracic Transthoracic echocardiogram (TTE) complete with contrast, bubble, strain, and 3D PRN CV Echocardiography Routine Hypoglycemia Dizziness Sinus tachycardia Abnormal EKG Expected: 09/07/2022 (Approximate), Expires: 09/07/2024 [facility] Work Phone: Comment on above: Expected: 09/07/2022 (Approximate), Expi res: 09/07/2024 Start: 07-21-2022 End: 09-20-2022 TYPE + SCREEN [facility] Work Phone: Comment on above: Expected: 07/21/2022, Expires: 3 Start: 06-29-2022 Nonstress test [facility] Start: 06-29-2022 Obstetric monitoring [facility] Start: 06-29-2022 Vital signs measurements [facility] Start: 06-29-2022 [facility] Start: 06-15-2022 End: 08-15-2022 CBC W Auto Differential panel - Blood CBC + DIFF Lab Routine Encounter for supervision of other normal in second trimester Expected: 06/15/2022, Expires: 08/15/2022 [facility] Work Phone: Comment on above: Expected: 06/15/2022, Expires: 3 Start: 06-15-2022 End: 08-15-2022 GEST GLUC SCREEN, 1-HR, 50 GM, NON-FASTING GEST GLUC SCREEN, 1-HR, 50 GM, NON-FASTING Lab Routine Encounter for supervision of other normal in second trimester Expected: 06/15/2022, Expires: 08/15/2022 [facility] Work Phone: Comment on above: Expected: 06/15/2022, Expires: 3 Start: 06-15-2022 End: 08-15-2022 SYPHILIS TOTAL W/REFLEX SYPHILIS TOTAL W/REFLEX Lab Routine Encounter for supervision of other normal in second trimester Expected: 06/15/2022, Expires: 08/15/2022 [facility] Work Phone: Comment on above: Expected: 06/15/2022, Expires: 3 Start: 06-15-2022 End: 08-15-2022 TYPE + SCREEN TYPE + SCREEN Blood Bank Routine Encounter for supervision of other normal in second trimester Expected: 06/15/2022, Expires: 08/15/2022 [facility] Work Phone: Comment on above: Expected: 06/15/2022, Expires: 3 Start: 05-03-2022 DEPRESSION ASSESSMENT DEPRESSION ASSESSMENT [facility] Start: 04-30-2022 End: 06-30-2022 ALPHA FETOPRO MATERNAL ALPHA FETOPRO MATERNAL Lab Routine Short interval between pregnancies affecting , antepartum 17 weeks gestation of Expected: 04/30/2022, Expires: 06/30/2022 [facility] Work Phone: Comment on above: Expected: 04/30/2022, Expires: 3 Start: 03-09-2022 End: 05-09-2022 CBC panel - Blood by Automated count CBC Lab Routine 9 weeks gestation of Expected: 03/09/2022, Expires: 05/09/2022 [facility] Work Phone: Comment on above: Expected: 03/09/2022, Expires: 3 Start: 03-09-2022 End: 05-09-2022 Chromosome 21 trisomy [Presence] in Blood or Tissue by Cytogenetics [id number] PLUS Lab Routine Encounter for supervision of other normal in first trimester Expected: 03/09/2022, Expires: 05/09/2022 [facility] Work Phone: Comment on above: Expected: 03/09/2022, Expires: 3 Start: 03-09-2022 End: 05-09-2022 Hepatitis B virus surface Ab [Presence] in Serum by Immunoassay HEP B SURF AG SCRN Lab Routine 9 weeks gestation of Expected: 03/09/2022, Expires: 05/09/2022 [facility] Work Phone: Comment on above: Expected: 03/09/2022, Expires: 3 Start: 03-09-2022 End: 05-09-2022 Hepatitis C virus Ab [Presence] in Serum HEP C AB IA W/CONF SCRN Lab Routine 9 weeks gestation of Expected: 03/09/2022, Expires: 05/09/2022 [facility] Work Phone: Comment on above: Expected: 03/09/2022, Expires: 3 Start: 03-09-2022 End: 05-09-2022 HIV 1+2 Ab [Presence] in Serum or Plasma by Immunoassay HIV 1 2 COMBO(AG/AB),WITH REFLEX TO DIFFERENTIATION Lab Routine 9 weeks gestation of Expected: 03/09/2022, Expires: 05/09/2022 [facility] Work Phone: Comment on above: Expected: 03/09/2022, Expires: 3 Start: 03-09-2022 End: 03-09-2023 NUCHAL TRANSLUCENCY WHI NUCHAL TRANSLUCENCY WHI Anc Imaging Routine 9 weeks gestation of Expected: 03/09/2022, Expires: 03/09/2023 [facility] Work Phone: Comment on above: Expected: 03/09/2022, Expires: 3 Start: 03-09-2022 End: 03-09-2023 OBSTETRIC ULTRASOUND WHI OBSTETRIC ULTRASOUND WHI Anc Imaging Routine 9 weeks gestation of Expected: 03/09/2022, Expires: 03/09/2023 [facility] Work Phone: Comment on above: Expected: 03/09/2022, Expires: 3 Start: 03-09-2022 End: 05-09-2022 RUBELLA IGG AB RUBELLA IGG AB Lab Routine 9 weeks gestation of Expected: 03/09/2022, Expires: 05/09/2022 [facility] Work Phone: Comment on above: Expected: 03/09/2022, Expires: 3 Start: 03-09-2022 End: 05-09-2022 SYPHILIS TOTAL W/REFLEX SYPHILIS TOTAL W/REFLEX Lab Routine 9 weeks gestation of Expected: 03/09/2022, Expires: 05/09/2022 [facility] Work Phone: Comment on above: Expected: 03/09/2022, Expires: 3 Start: 03-09-2022 End: 05-09-2022 TYPE + SCREEN TYPE + SCREEN Blood Bank Routine 9 weeks gestation of Expected: 03/09/2022, Expires: 05/09/2022 [facility] Work Phone: Comment on above: Expected: 03/09/2022, Expires: 3 Start: 02-25-2022 [facility] Work Phone: Start: 01-17-2022 CHLAMYDIA SCREENING (18-24) CHLAMYDIA SCREENING (18-24) [facility] Start: 01-17-2022 GC (GONORRHEA) SCREENING (18-24) GC (GONORRHEA) SCREENING (18-24) [facility] Start: 01-01-2022 Influenza vaccination INFLUENZA (#1) [facility] Start: 08-13-2021 End: 10-13-2021 CBC W Auto Differential panel - Blood CBC + DIFF Lab Routine Anemia during in third trimester Expected: 08/13/2021, Expires: 10/13/2021 [facility] Work Phone: Comment on above: Expected: 08/13/2021, Expires: 2 Start: 05-03-2021 DEPRESSION ASSESSMENT DEPRESSION ASSESSMENT [facility] Start: 2018 Screening for malignant neoplasm of cervix [facility] Start: 2016 Pneumococcal vaccination Pneumococcal Vaccine (1 of 2 - PCV) [facility] Start: 2016 Pneumococcal Vaccine: Pediatrics (0 to 5 Years) and At-Risk Patients (6 to 49 Years) (1 of 2 - PCV) Pneumococcal Vaccine: Pediatrics (0 to 5 Years) and At-Risk Patients (6 to 49 Years) (1 of 2 - PCV) [facility] Start: 11-21-2015 Anxiety Screening Anxiety Screening [facility] Start: 11-21-2015 Depression Screening Depression Screening [facility] Start: 11-21-2015 Diabetes mellitus screening Diabetes Screening [facility] Start: 11-21-2015 Hepatitis C screening Hepatitis C Screening [facility] Start: 2012 HIV screening HIV Screening [facility] Start: 11-21-2011 PEDS TO ADULT TRANSITION ANNUAL ASSESSMENT PEDS TO ADULT TRANSITION ANNUAL ASSESSMENT [facility] Start: 2010 Varicella vaccination Varicella Vaccines (1 of 2 - 13+ 2-dose series) [facility] Start: 2009 Adult depression screening assessment [facility] Start: 2009 PEDS TO ADULT TRANSITION INITIAL DISCUSSION PEDS TO ADULT TRANSITION INITIAL DISCUSSION [facility] Start: 11-21-2007 MENINGOCOCCAL B: Consider based on risk (1 of 2 - Risk Bexsero 2-dose series) MENINGOCOCCAL B: Consider based on risk (1 of 2 - Risk Bexsero 2-dose series) [facility] Start: 11-21-2003 PNEUMOCOCCAL (1 - PCV) PNEUMOCOCCAL (1 - PCV) [facility] Start: 11-21-2003 Pneumococcal vaccination [facility] Start: 11-21-2003 Pneumococcal Vaccine: Pediatrics (0 to 5 Years) and At-Risk Patients (6 to 64 Years) (1 - PCV) Pneumococcal Vaccine: Pediatrics (0 to 5 Years) and At-Risk Patients (6 to 64 Years) (1 - PCV) [facility] Start: 02-01-2003 Varicella vaccination Varicella Vaccines (1 of 2 - 2-dose childhood series) [facility] Start: 2002 COVID-19 VACCINE (#1) COVID-19 VACCINE (#1) [facility] Start: 2002 COVID-19 VACCINE (1) [facility] Start: 05-23-1998 COVID-19 VACCINE (#1) COVID-19 VACCINE (#1) [facility] Start: 1997 Yearly Adult Physical Yearly Adult Physical [facility] End: 02-10-2024 Autonomic Testing Autonomic Testing Neurology Routine Autonomic dysfunction Once for 1 Occurrences starting 02/10/2024 until 02/10/2024 [facility] Service Area Work Phone: Comment on above: Once for 1 Occurrences starting 02/10/20 until 02/10/2024 Bacteria identified in Urine by Culture Urine Culture [facility] Work Phone: Bacteria identified in Urine by Culture URINE CULTURE Microbiology Routine 9 weeks gestation of 03/09/2022 1:48 PM [facility] Work Phone: Bacteria identified in Urine by Culture BACTERIAL CULTURE, URINE Microbiology Routine Pelvic pain in female 08/30/2024 2:27 PM EDT [facility] BACTERIAL VAGINOSIS NAAT BACTERIAL VAGINOSIS NAAT Lab Routine Pelvic pain in female 08/30/2024 2:27 PM EDT [facility] KB/TRICHOMONAS NAAT KB/TRICHOMONAS NAAT Lab Routine Pelvic pain in female 08/30/2024 2:27 PM EDT [facility] End: 06-03-2023 Cardiac holter monitor (8- 15 days) [facility] Work Phone: Comment on above: Once for 1 Occurrences starting 06/03/19 until 06/03/2023 Chlamydia trachomatis+Neisseria gonorrhoeae DNA [Presence] in Unspecified specimen by CR with probe detection GC/CHLAMYDIA DNA DET Lab Routine 9 weeks gestation of 03/09/2022 1:48 PM EST [facility] Work Phone: Chlamydia trachomatis+Neisseria gonorrhoeae DNA [Presence] in Unspecified specimen by CR with probe detection GONORRHEA/CHLAMYDIA NAAT Lab Routine Screening examination for STD (sexually transmitted disease) 11/30/2022 10:49 AM EDT [facility] Work Phone: Chlamydia trachomatis+Neisseria gonorrhoeae DNA [Presence] in Unspecified specimen by CR with probe detection GONORRHEA/CHLAMYDIA NAAT Lab Routine Pelvic pain in female 08/30/2024 2:27 PM EDT [facility] End: 10-28-2023 CTA Head vessels WO and W contrast IV [facility] Work Phone: Comment on above: Once for 1 Occurrences starting 10/28/19 24 until 10/28/2023 ECG 12 lead - CLINIC PERFORMED ECG 12 lead - CLINIC PERFORMED CV ECG Routine Dizziness and giddiness 02/21/2024 3:33 PM EDT [facility] Work Phone: Insertion intrauteri ne device iud INSERT INTRAUTERINE DEVICE Procedures Routine control counseling Ordered: 10/27/2022 [facility] Work Phone: Comment on above: Ordered: 10/27/2022 Insertion intrauteri ne device iud INSERT INTRAUTERINE DEVICE Procedures Routine Encounter for removal and reinsertion of intrauterine contraceptive device (IUD) Ordered: 07/14/2024 [facility] Comment on above: Ordered: 07/14/2024 Insertion intrauteri ne device iud INSERT INTRAUTERINE DEVICE Procedures Routine Encounter for IUD insertion Ordered: 07/20/2024 [facility] Work Phone: Comment on above: Ordered: 07/20/2024 PAP TEST PAP TEST Lab [facility] steff Screening for cervical cancer 02/04/2023 10:16 AM EDT [facility] Work Phone: Patient Education [facility] Work Phone: Patient referral [facility] Work Phone: Removal intrauterine device iud REMOVE INTRAUTERINE DEVICE Procedures Routine Malpositioned intrauterine device (IUD), initial encounter Ordered: 07/14/2024 [facility] Work Phone: Comment on above: Ordered: 07/14/2024 ROUTINE, GR OUP B STREP PCR ROUTINE, GROUP B STREP PCR Microbiology Routine 36 weeks gestation of Ordered: 08/07/2021 [facility] Work Phone: Comment on above: Ordered: 08/07/2021 ROUTINE, GR OUP B STREP PCR ROUTINE, GROUP B STREP PCR Microbiology Routine 36 weeks gestation of Ordered: 09/14/2022 [facility] Work Phone: Comment on above: Ordered: 09/14/2022 URINE OB DIP B/O URINE OB DIP B/ O Lab Routine 22 weeks gestation of Encounter for supervision of other normal in second trimester Ordered: 06/08/2022 [facility] Work Phone: Comment on above: Ordered: 06/08/2022 End: 09-29-2025 US Pelvis transvaginal US FEMALE PELVIS TRANSVAG Radiology Routine Pelvic pain in female 1 Occurrences starting 08/30/2024 until 09/29/2025 [facility] Work Phone: Comment on above: 1 Occurrences starting 08/30/2024 until 09/29/2025 US Pelvis transvaginal US FEMALE PELVIS TRANSVAG Radiology Routine Pelvic pain in female 08/31/2024 2:22 PM EDT [facility] Work Phone: [facility] Immunizations Immunization Date Immunization Notes Care Provider Janes caro 07-21-2022 RHO(D) immune globul in- IV or IM Naye Sepulveda MEDICAL SERVICES ASSISTANT.CNM Work Phone: [facility] 06-13-2021 RHO(D) immune globul in - IM Evita Benjamin MD Work Phone: [facility] 06-13-2021 RHO(D) immune globul in- IV or IM Madeleine Pettit MEDICAL SERVICES ASSISTANT.CNM Work Phone: [facility] 06-13-2021 tetanus toxoid, redu sarah diphtheria toxoid, and acellular pertussis vaccine, adsorbed Madeleine Pettit MEDICAL SERVICES ASSISTANT.CNM Work Phone: [facility] 02-10-2021 influenza virus vacc ine, unspecified formulation Evita Benjamin MD Work Phone: [facility] 02-10-2021 influenza, injectabl e, quadrivalent, contains preservative Madeleine Pettit APRN.CNM Work Phone: [facility] 05-25-2018 influenza, injectabl e, quadrivalent, contains preservative Madeleine Pettit APRN.CNM Work Phone: [facility] Work Phone: 05-02-2013 hepatitis A vaccine, pediatric/adolescent dosage, 2 dose schedule Madeleine Pettit APRN.CNM Work Phone: [facility] Work Phone: 05-02-2013 human papilloma viru s vaccine, quadrivalent Madeleine Pettit APRN.CNM Work Phone: [facility] Work Phone: 05-02-2013 influenza virus vacc ine, unspecified formulation Evita Benjamin MD Work Phone: [facility] 05-02-2013 influenza, injectabl e, quadrivalent, preservative free Madeleine Pettit APRN.CNM Work Phone: [facility] Work Phone: 01-22-2011 hepatitis A vaccine, pediatric/adolescent dosage, 2 dose schedule Madeleine Pettit APRN.CNM Work Phone: [facility] Work Phone: 01-22-2011 human papilloma viru s vaccine, quadrivalent Madeleine Pettit APRN.CNM Work Phone: [facility] Work Phone: 01-22-2011 influenza virus vacc ine, unspecified formulation Evita Benjamin MD Work Phone: [facility] 01-22-2011 influenza, seasonal, injectable Madeleine Pettit APRN.CNM Work Phone: [facility] Work Phone: 01-22-2011 meningococcal polysaccharide (groups A, C, Y and W-135) diphtheria toxoid conjugate vaccine (MCV4P) Madeleine Pettit APRN.CNM Work Phone: [facility] Work Phone: 01-22-2011 tetanus toxoid, redu sarah diphtheria toxoid, and acellular pertussis vaccine, adsorbed Madeleine Pettit APRN.CNM Work Phone: [facility] Work Phone: 01-04-2003 DTP-Haemophilus influenzae type b conjugate vaccine Madeleine Pettit APRN.CNM Work Phone: [facility] Work Phone: 01-04-2003 measles, mumps and rubella virus vaccine Madeleine Pettit APRN.CNM Work Phone: [facility] Work Phone: 01-04-2003 meningococcal polysaccharide vaccine (MPSV4) Madeleine Pettit APRN.CNM Work Phone: [facility] Work Phone: 01-04-2003 poliovirus vaccine, inactivated Madeleine Pettit APRN.CNM Work Phone: [facility] Work Phone: 12-02-2000 diphtheria, tetanus toxoids and acellular pertussis vaccine, unspecified formulation Madeleine Pettit APRN.CNM Work Phone: [facility] Work Phone: 12-02-2000 haemophilus influenz ae type b vaccine, conjugate unspecified formulation Madeleine Pettit APRN.CNM Work Phone: [facility] Work Phone: 12-02-2000 poliovirus vaccine, inactivated Madeleine Pettit APRN.CNM Work Phone: [facility] Work Phone: 04-01-1999 hepatitis B vaccine, adult dosage Evita Benjamin MD Work Phone: [facility] 04-01-1999 hepatitis B vaccine, pediatric or pediatric/adolescent dosage Madeleine Pettit APRN.CNM Work Phone: [facility] Work Phone: 04-01-1999 measles, mumps and rubella virus vaccine Madeleine Pettit APRN.CNM Work Phone: [facility] Work Phone: 08-28-1998 diphtheria, tetanus toxoids and acellular pertussis vaccine, unspecified formulation Madeleine Pettit APRN.CNM Work Phone: [facility] Work Phone: 08-28-1998 haemophilus influenz ae type b vaccine, PRP-T conjugate Madeleine Pettit APRN.CNM Work Phone: [facility] Work Phone: 08-08-1998 diphtheria, tetanus toxoids and acellular pertussis vaccine, unspecified formulation Madeleine Pettit APRN.CNM Work Phone: [facility] Work Phone: 06-04-1998 diphtheria, tetanus toxoids and acellular pertussis vaccine, unspecified formulation Madeleine Pettit APRN.CNM Work Phone: [facility] Work Phone: 06-04-1998 haemophilus influenz ae type b vaccine, PRP-T conjugate Madeleine Pettit APRN.CNM Work Phone: [facility] Work Phone: 06-04-1998 trivalent poliovirus vaccine, live, oral Madeleine Pettit APRN.CNM Work Phone: [facility] Work Phone: 01-31-1998 diphtheria, tetanus toxoids and acellular pertussis vaccine, unspecified formulation Madeleine Pettit APRN.CNM Work Phone: [facility] Work Phone: 01-31-1998 haemophilus influenz ae type b vaccine, PRP-T conjugate Madeleine Pettit APRN.CNM Work Phone: [facility] Work Phone: 01-31-1998 trivalent poliovirus vaccine, live, oral Madeleine Pettit APRN.CNM Work Phone: [facility] Work Phone: 01-03-1998 hepatitis B vaccine, adult dosage Evita Benjamin MD Work Phone: [facility] 01-03-1998 hepatitis B vaccine, pediatric or pediatric/adolescent dosage Madeleine Pettit APRN.CNM Work Phone: [facility] Work Phone: 1997 hepatitis B vaccine, adult dosage Evita Benjamin MD Work Phone: [facility] 1997 hepatitis B vaccine, pediatric or pediatric/adolescent dosage Madeleine Pettit APRN.CNM Work Phone: [facility] Work Phone: Payers Date Payer Category Payer Medicaid (Managed Care) 1.2. [id number] 2024 Medicaid HMO [id number] 2023 Self-pay [id number] 2022 Unknown [id number] 2021 Unknown 2021 Medicaid [employer] MEDICAID [id number] 2021-[facility] [phone] [address] [place] [address] Medicaid [id number] 2021 Medicaid [id number] 2018 Unknown [id number] 1997 Unknown [id number] 68 1997 Unknown [id number] 85 1997 Unknown [id number] 1997 Unknown [id number] 245 1997 Unknown [id number] 243 1997 Unknown [id number] 03 1997 Unknown [id number] 02 1997 Unknown [id number] 02 1997 Unknown [id number] 02 1997 Unknown [id number] 02 1997 Unknown [id number] 02 1997 Unknown [id number] 02 Unknown [id number] Unknown [id number] Unknown [id number] 62 Unknown [id number] 62 Social History Date Type Detail Facility Start: 06-10-2021 End: 08-04-2024 Tobacco smoking status WVIS Ex-smoker [facility] Start: 06-10-2021 End: 02-14-2024 Cigarettes smoked current (pack per day) - Reported 1 [facility] Start: 06-10-2021 End: 08-04-2024 Tobacco use and exposure Smokeless tobacco non-user [facility] Start: 07-10-2021 End: 11-28-2024 Alcohol intake Ex-drinker (finding) [facility] Start: 02-06-2020 History SDOH Alcohol Frequency 3 [facility] Start: 01-16-2021 History SDOH Alcohol Comment on special occasions [facility] Start: 01-16-2021 Education 11 [facility] Start: 01-16-2021 End: 01-20-2022 Tobacco Comment 1-2 cigarettes a day [facility] Start: 12-11-2020 [facility] Start: 1995 Sex Assigned At Not on file [facility] Start: 07-14-2021 End: 02-10-2024 Exposure to SARS-CoV-2 (event) Not sure [facility] Start: 08-08-2015 End: 10-09-2022 Tobacco smoking status WVIS Unknown if ever smoked [facility] Start: 1995 Sex Assigned At Female [facility] Start: 06-03-2014 End: 06-03-2023 History of tobacco use Current smoker [facility] Start: 06-03-2014 End: 06-03-2023 History of tobacco use Cigarette Smoker [facility] Start: 03-25-2022 History SDOH Financial 5 [facility] Start: 03-25-2022 History SDOH Food Worry 1 [facility] Start: 03-25-2022 History SDOH Transport Med 2 [facility] Start: 10-05-2022 End: 02-07-2024 Tobacco smoking status NHIS Occasional tobacco smoker [facility] Start: 09-07-2022 End: 02-14-2024 Tobacco use panel [facility] How hard is it for y ou to pay for the very basics like food, housing, medical care, and heating Not hard at all [facility] (I/We) worried adeel er (my/our) food would run out before (I/we) got money to buy more. Never true [facility] How often to you hav e a drink containing alcohol? 2-4 times a month [facility] The thought of keri alicea myself has occurred to me Never [facility] Work Phone: Start: 06-03-2014 End: 02-21-2024 Tobacco smoking status NHIS Smokes tobacco daily [facility] [employer] In the past 12 month s, was there a time when you were not able to pay the mortgage or rent on time? No [facility] Start: 12-01-2021 End: 07-25-2024 Sex Female (finding) [facility] History of tobacco use Passive smoker [facility] Start: 03-03-2024 Gender identity Identifies as female gender (finding) [facility] Start: 03-03-2024 Sexual orientation Heterosexual (finding) [facility] Medical Equipment Procedure Code Equipment Code Equipment Origin al Text Equipment Identifier Dates 1 strip, Right E ye, Once, On Wed11/03/24 at 2335, For 1 dose Start: 11-03-2024 End: 11-03-2024 Goals Date Patient Goal Desired Activity /State Personal health goal Functional Status Date Assessment Result Facility 11-03-2024 [place] - suicide s everity rating scale screener - recent [C-SSRS] [facility] Work Phone: Mental Status Date Assessment Result Facility 07-25-2024 Cognitive function Awake;Alert;A ppropriate;Fol lows Commands [facility] Work Phone: Clinical Notes 01-16-2021 to 11-28-2024 Omar Gunn MD - 11/28/2024 2:20 PM EDTPatient InstructionsAttaAlexey Villanueva PA-C - 11/15/2024 12:33 PM EDTTelephone Encounter - Evonne Mix RN - 11/07/2024 12:35 PM EDT Note Date & Type Note Facility 11-28-2024 History of Present illness Narrative 11/28/2024 CC Headaches Patient ID and HPI Xiomara Delgado is a 29 y.o. Rt handed female with Past medical history of neurogenic POTS with small fiber neuropathy, chronic migraines, hypoglycemia, iron deficiency, maxillary sinusitis, migraines, tobacco abuse who presents to neurology office for follow-up, last seen August 2024 Initial evaluation: September 2023 The patient states that her headaches started when she/he was in high school. He have an injury in high school when she went to tree tipping and it hit her in the head. Migraines have not changed in characteristics. Has different kinds of headaches. The patient was diagnosed with 2 different kinds of headaches including occipital neuralgia and chronic migraines. In regards to sudden onset headaches, CT angiogram was done which did not show any aneurysm. Metoprolol was increased from 25 mg to 50 mg. Rizatriptan caused some chest tightness and was switched to sumatriptan. December 2023 still having significant number of headaches and increasing metoprolol caused low blood pressure. She was started on Topamax. Also complained of other episodes which she has had since she was young but happened more when she was with a second child a few years ago, feels like a hay to the head and everything goes black without confusion or LOC no palpitations, shortness of breath or chest pain. Metoprolol did not help and happens about few times a month and last for few seconds. Happens when she gets up too quickly or sometimes when she stands for long period of time. Testing was ordered for autonomic dysfunction at [facility] which was consistent with POTS with small fiber neuropathy. January 2024, started on Nurtec but still had significant headaches and was started on Ajovy in March 2024. She was also started on midodrine for her POTS which did not work and she was switched to propranolol Interval hx: 11/08/2024, the patient called the office complaining that she did not feel that the propranolol was working and her heart rate was fluctuating which it would drop to 49 and increased to 150s. She felt that she was getting shortness of breath with it. Tried midodrine and metoprolol in the past. The patient was started on fludrocortisone Did have some insurance issues and did not get the medication: fludrocortisone PMHx: has a past medical history of Fibrocystic breast, Heart murmur, Hypoglycemia, and Ovarian cyst. 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 Aura: No Headache description: Holo cranial, throbbing Intensity: 5-10/10 Duration of symptoms: up to 2 days Frequency of headaches: 16-18 total migraine days with 1-2 times a month severe Associated symptoms: photophobia, phonophobia, osmophobia, fatigue, nausea, vomiting, irritability Exacerbating factors: Moderate activity, stress, Alleviating factors: Improved with rest or sleep, dim lighting Things done when pt gets a headache: tylenol 10 days a month Triggers: None Association with menses: No Visual symptoms: Blurry vision Type: Chronic Migraine without aura 2. Left sided occipital pressure, multiple times a day, multiple times a week, lasts for a few seconds 3. Stabbing electric headache, brief, no triggers, any part of the head and radiating to multiple parts, 1-2 times a month Red flags: sudden onset, tinnitus, No focal neurological symptoms, Non positional or precipitation by valsalva, No systemic signs, Does not wake up from sleep Change in headaches characteristic: No Ophthalmology exam: 2 years ago ER visit/missed days at work: 0 Imaging and Pertinent Testing CT angiogram head and neck October 2023 per my independent review does not show any acute intracranial abnormalities, no large aneurysms Autonomic testing: Heart rate response to deep breathing is normal via the mean heart rate range and the E:I ratio (1.26). Heart rate response to the Valsalva Maneuver (VM), as assessed by the Valsalva Ratio (VR), is normal as are the blood pressure responses to phase II and phase IV of the maneuver. During 10 minutes of 70 degrees head-up tilt, heart rate response was exaggerated but blood pressure (BP) responses were normal. The patient experienced nausea and shortness of breath. QSART responses at the foot and distal leg are low but the responses at the proximal leg and forearm are normal. This an abnormal cardiovascular autonomic test panel, due the presence of a symptomatic accentuated orthostatic tachycardia, consistent with the diagnosis of Postural Orthostatic Tachycardia Syndrome (POTS). There is no evidence of a significant cardiovagal or cardiovascular adrenergic abnormality on the cardioautonomic reflex tests. Specifically, there is no evidence of orthostatic hypotension. In addition, the QSART findings are consistent with a postganglionic sympathetic sudomotor abnormality like that seen in autonomic/small fiber neuropathy. Past Therapies for Headache Preventive Rx Details Abortive Rx Details TCAs: Elavil Did not feel right with it NSAIDs: Ibuprofen Naproxen Acetaminophen SSRI/SNRI: Oral Triptans: Rizatriptan Sumatriptan Side effects Does not work AEDs: Topamax No improvement IN or SC Triptans: BP: Metoprolol Higher dose of metoprolol caused hypotension Antiemetics: Botox: Gepants: Nurtec Stops headaches in 2-4 hours CGRP Mabs: Ajovy Devices: Antipsychotics: Opioids: Gepants: Ditans: Other: Other: Cycle Breaker: Never used Mini-prophylaxis: Never used Inpatient: Never THERAPIES Physical therapy / OMT - never Chiropractic Manipulation - never Biofeedback / Accupuncture - never Current visit Current preventive medication: Ajovy Current abortive medication: Nurtec Frequency / Severity of attacks: Rare Additional narrative: as per HPI Caffeine Intake: 1 large janiya coffee Hydration: not well Exercise: No regular exercise routine Sleep hygiene: Follows regular bedtime and waketime. No shiftwork. Sexually active: Yes; Control: IUD REVIEW OF SYSTEMS Complete ROS was performed and is negative except as documented above. ALLERGIES Allergies Allergen Reactions Wound Dressing Adhesive CURRENT MEDICATIONS Reviewed as per EHR VITAL SIGNS: BP 102/62 Pulse 81 Wt 160 lb 6.4 oz (72.8 kg) BMI 27.11 kg/m GENERAL PHYSICAL EXAMINATION: General: No apparent distress Psychiatric: Appropriate mood HEENT: Normocephalic TMJ Exam: No crepitus or popping Cardiovascular: Regular rate Respiratory: Nonlabored breathing Skin: No rash on exposed skin Neurologic: As below NEUROLOGICAL EXAMINATION: Mental status: Alert and oriented x 3, Normal speech without aphasia or dysarthria, Normal attention, concentration, grossly normal recent and remote memory, fund of knowledge is consistent with education. Cranial nerves: Pupils equal, round, reactive to light. Extraocular movements intact. Visual yoon are grossly full. Fundoscopy reveals no papilledema. Face symmetric and with intact facial sensation. Hearing is normal. Palate elevates bilaterally. Tongue is midline. Shoulder shrug is normal bilaterally. Motor: 5/5 in all four extremities. Sensory: Intact to light touch in all four extremities. Reflexes: 2+ in biceps and patella bilaterally. Coordination: Bsizmi-ea-[id number] intact bilaterally; [id number]-pvii intact bilaterally. Gait: Gait and station are normal COUNSELING We reviewed migraine lifestyle factors including appropriate hydration and nutritional factors, stress reduction, sleep hygiene, trigger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 PATIENT GENDER DATA: Assigned female at . status: : No status: NO. PATIENT RELEVANT IMPLANT DATA REVIEWED: Not Applicable PATIENT PRESENTS WITH AN IMPLANTABLE OR ATTACHED SIGNAL TOWER DIRECTOR: No RADIOLOGY DEPARTMENT: Ultrasound PERIPHERAL IV DATA: Not applicable SIGNED BY: Madeleine Oswald RDMS RVT August 31, 2024 3:02 PM [facility] 08-30-2024 Note HNO ID: [id number] Author: NAYE SEPULVEDA APRN.CNM Service: ? Author Type: Straight Slicing Machine Operator Type: Progress Notes Filed: 08/30/2024 14:30 Note Text: Patient declined security tech. Xiomara Delgado is a 28 year old female who presents for problem visit pelvic pain for 2 month(s). States pain is a 'dull pain and a sharp pain on right side. Pain with intercourse. Had bleeding 3 weeks after Mirena IUD placement but not now. Concerned that IUD malpositioned. REVIEW OF SYSTEMS Abdomen: No bloating, early satiety, indigestion, or increased flatulence. No abdominal pain, nausea, vomiting, diarrhea, or constipation. Bladder: No dysuria, gross hematuria, POSITIVE FOR pressure at times and difficulty emptying bladder fully Breast: No breast lumps, nipple d/c, overlying skin changes, redness or skin retraction. Expanded ROS: N/A Allergies and current medication updated:Yes SENSITIVE EXAM: The sensitive examination was discussed with the Patient or Patient's Authorized Tape Edge Machine Operator. As applicable, any other physician, advance practice provider, medical student, or other health professional student that will be observing or involved in the sensitive examination for educational or training purposes was discussed with the Patient or Authorized Tape Edge Machine Operator. The Patient or Authorized Tape Edge Machine Operator has agreed to proceed with the sensitive examination. (Sensitive examination includes inspection and/or palpation of the breasts, pelvis, prostate and anorectal regions). EXAM: BP 124/80 Wt 162 lb 6.4 oz (73.7kg) LMP 08/05/2024 GENERAL: pleasant, female in no apparent distress HEENT: Normocephalic and atraumatic NECK: Supple and full range of motion DERMATOLOGY: Normal and without lesions BREAST: deferred CHEST: Normal inspiratory effort ABDOMEN: Deferred PELVIC: external genitalia normal, no vulvar lesions, no cervical lesions, good vaginal support, abnormal discharge large amount of thick yellow discharge, IUD strings visible BIMANUAL: uterus normal size, shape and consistency, no adnexal masses, non-tender, and no cervical motion tenderness NEURO: alert and oriented x3,exam grossly non-focal EXTREMITIES: normal ASSESSMENT AND PLAN: Assessment AND Plan Pelvic pain in female Orders: US FEMALE PELVIS TRANSVAG; Future GONORRHEA/CHLAMYDIA NAAT UA DIP, URINE (POC) BACTERIAL CULTURE, URINE KB/TRICHOMONAS NAAT BACTERIAL VAGINOSIS NAAT Difficulty in urination UA dip- POSITIVE for blood, protein, nitrates, and leukocytes. Start Macrobid 100 mg PO BID x 7 days Send urine for culture Will follow up with patient after results returned Naye Sepulveda APRN.CNM [facility] 08-30-2024 History of Present illness Narrative Patient declined security tech. Xiomara Delgado is a 28 year old female who presents for problem visit pelvic pain for 2 month(s). States pain is a 'dull pain and a sharp pain on right side. Pain with intercourse. Had bleeding 3 weeks after Mirena IUD placement but not now. Concerned that IUD malpositioned. REVIEW OF SYSTEMS Abdomen: No bloating, early satiety, indigestion, or increased flatulence. No abdominal pain, nausea, vomiting, diarrhea, or constipation. Bladder: No dysuria, gross hematuria, POSITIVE FOR pressure at times and difficulty emptying bladder fully Breast: No breast lumps, nipple d/c, overlying skin changes, redness or skin retraction. Expanded ROS: N/A Allergies and current medication updated:Yes SENSITIVE EXAM: The sensitive examination was discussed with the Patient or Patient's Authorized Tape Edge Machine Operator. As applicable, any other physician, advance practice provider, medical student, or other health professional student that will be observing or involved in the sensitive examination for educational or training purposes was discussed with the Patient or Authorized Tape Edge Machine Operator. The Patient or Authorized Tape Edge Machine Operator has agreed to proceed with the sensitive examination. (Sensitive examination includes inspection and/or palpation of the breasts, pelvis, prostate and anorectal regions). EXAM: BP 124/80 Wt 162 lb 6.4 oz (73.7kg) LMP 08/05/2024 GENERAL: pleasant, female in no apparent distress HEENT: Normocephalic and atraumatic NECK: Supple and full range of motion DERMATOLOGY: Normal and without lesions BREAST: deferred CHEST: Normal inspiratory effort ABDOMEN: Deferred PELVIC: external genitalia normal, no vulvar lesions, no cervical lesions, good vaginal support, abnormal discharge large amount of thick yellow discharge, IUD strings visible BIMANUAL: uterus normal size, shape and consistency, no adnexal masses, non-tender, and no cervical motion tenderness NEURO: alert and oriented x3,exam grossly non-focal EXTREMITIES: normal ASSESSMENT AND PLAN: Assessment & Plan Pelvic pain in female Orders: US FEMALE PELVIS TRANSVAG; Future GONORRHEA/CHLAMYDIA NAAT UA DIP, URINE (POC) BACTERIAL CULTURE, URINE KB/TRICHOMONAS NAAT BACTERIAL VAGINOSIS NAAT Difficulty in urination UA dip- POSITIVE for blood, protein, nitrates, and leukocytes. Start Macrobid 100 mg PO BID x 7 days Send urine for culture Will follow up with patient after results returned Naye Sepulveda APRN.CNM documented in this encounter [facility] 08-24-2024 History of Present illness Narrative 08/24/2024 CC Headaches Patient ID and HPI Xiomara Delgado is a 28 y.o. Rt handed female with Past medical history of neurogenic POTS with small fiber neuropathy, chronic migraines, hypoglycemia, iron deficiency, maxillary sinusitis, migraines, tobacco abuse who presents to neurology office for follow-up, last seen March 2024 Initial evaluation: September 2023 The patient states that her headaches started when she/he was in high school. He have an injury in high school when she went to tree tipping and it hit her in the head. Migraines have not changed in characteristics. Has different kinds of headaches. The patient was diagnosed with 2 different kinds of headaches including occipital neuralgia and chronic migraines. In regards to sudden onset headaches, CT angiogram was done which did not show any aneurysm. Metoprolol was increased from 25 mg to 50 mg. Rizatriptan caused some chest tightness and was switched to sumatriptan. December 2023 still having significant number of headaches and increasing metoprolol caused low blood pressure. She was started on Topamax. Also complained of other episodes which she has had since she was young but happened more when she was with a second child a few years ago, feels like a hay to the head and everything goes black without confusion or LOC no palpitations, shortness of breath or chest pain. Metoprolol did not help and happens about few times a month and last for few seconds. Happens when she gets up too quickly or sometimes when she stands for long period of time. Testing was ordered for autonomic dysfunction at [facility] which was consistent with POTS with small fiber neuropathy. January 2024, started on Nurtec but still had significant headaches and was started on Ajovy in March 2024. She was also started on midodrine for her POTS. Interval hx: Doing better POTS symptoms: going well No syncope On a bad day: dizziness: not having as much bad days (once a week, prior to midodrine she had them everyday) Has not filled midodrine since Nov : unsure why Drinking water and salt intake Hardly has headaches: once a month Takes ajovy: no side effects Does not even need the nurtec PMHx: has a past medical history of Fibrocystic breast, Heart murmur, Hypoglycemia, and Ovarian cyst. 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 Aura: No Headache description: Holo cranial, throbbing Intensity: 5-10/10 Duration of symptoms: up to 2 days Frequency of headaches: 16-18 total migraine days with 1-2 times a month severe Associated symptoms: photophobia, phonophobia, osmophobia, fatigue, nausea, vomiting, irritability Exacerbating factors: Moderate activity, stress, Alleviating factors: Improved with rest or sleep, dim lighting Things done when pt gets a headache: tylenol 10 days a month Triggers: None Association with menses: No Visual symptoms: Blurry vision Type: Chronic Migraine without aura 2. Left sided occipital pressure, multiple times a day, multiple times a week, lasts for a few seconds 3. Stabbing electric headache, brief, no triggers, any part of the head and radiating to multiple parts, 1-2 times a month Red flags: sudden onset, tinnitus, No focal neurological symptoms, Non positional or precipitation by valsalva, No systemic signs, Does not wake up from sleep Change in headaches characteristic: No Ophthalmology exam: 2 years ago ER visit/missed days at work: 0 Imaging and Pertinent Testing CT angiogram head and neck October 2023 per my independent review does not show any acute intracranial abnormalities, no large aneurysms Autonomic testing: Heart rate response to deep breathing is normal via the mean heart rate range and the E:I ratio (1.26). Heart rate response to the Valsalva Maneuver (VM), as assessed by the Valsalva Ratio (VR), is normal as are the blood pressure responses to phase II and phase IV of the maneuver. During 10 minutes of 70 degrees head-up tilt, heart rate response was exaggerated but blood pressure (BP) responses were normal. The patient experienced nausea and shortness of breath. QSART responses at the foot and distal leg are low but the responses at the proximal leg and forearm are normal. This an abnormal cardiovascular autonomic test panel, due the presence of a symptomatic accentuated orthostatic tachycardia, consistent with the diagnosis of Postural Orthostatic Tachycardia Syndrome (POTS). There is no evidence of a significant cardiovagal or cardiovascular adrenergic abnormality on the cardioautonomic reflex tests. Specifically, there is no evidence of orthostatic hypotension. In addition, the QSART findings are consistent with a postganglionic sympathetic sudomotor abnormality like that seen in autonomic/small fiber neuropathy. Past Therapies for Headache Preventive Rx Details Abortive Rx Details TCAs: Elavil Did not feel right with it NSAIDs: Ibuprofen Naproxen Acetaminophen SSRI/SNRI: Oral Triptans: Rizatriptan Sumatriptan Side effects Does not work AEDs: Topamax No improvement IN or SC Triptans: BP: Metoprolol Higher dose of metoprolol caused hypotension Antiemetics: Botox: Gepants: Nurtec Stops headaches in 2-4 hours CGRP Mabs: Ajovy Devices: Antipsychotics: Opioids: Gepants: Ditans: Other: Other: Cycle Breaker: Never used Mini-prophylaxis: Never used Inpatient: Never THERAPIES Physical therapy / OMT - never Chiropractic Manipulation - never Biofeedback / Accupuncture - never Current visit Current preventive medication: Ajovy Current abortive medication: Nurtec Frequency / Severity of attacks: Rare Additional narrative: as per HPI Caffeine Intake: 1 large janiya coffee Hydration: not well Exercise: No regular exercise routine Sleep hygiene: Follows regular bedtime and waketime. No shiftwork. Sexually active: Yes; Control: IUD REVIEW OF SYSTEMS Complete ROS was performed and is negative except as documented above. ALLERGIES Allergies Allergen Reactions Wound Dressing Adhesive CURRENT MEDICATIONS Reviewed as per EHR VITAL SIGNS: BP 118/70 Pulse 74 Wt 74.6 kg (164 lb 8 oz) LMP 08/04/2024 (Exact Date) BMI 27.80 kg/m GENERAL PHYSICAL EXAMINATION: General: No apparent distress Psychiatric: Appropriate mood HEENT: Normocephalic TMJ Exam: No crepitus or popping Cardiovascular: Regular rate Respiratory: Nonlabored breathing Skin: No rash on exposed skin Neurologic: As below NEUROLOGICAL EXAMINATION: Mental status: Alert and oriented x 3, Normal speech without aphasia or dysarthria, Normal attention, concentration, grossly normal recent and remote memory, fund of knowledge is consistent with education. Cranial nerves: Pupils equal, round, reactive to light. Extraocular movements intact. Visual yoon are grossly full. Fundoscopy reveals no papilledema. Face symmetric and with intact facial sensation. Hearing is normal. Palate elevates bilaterally. Tongue is midline. Shoulder shrug is normal bilaterally. Motor: 5/5 in all four extremities. Sensory: Intact to light touch in all four extremities. Reflexes: 2+ in biceps and patella bilaterally. Coordination: [id number] intact bilaterally; [id number] intact bilaterally. Gait: Gait and station are normal COUNSELING We reviewed migraine lifestyle factors including appropriate hydration and nutritional factors, stress reduction, sleep hygiene, trigger avoidance, caffeine avoidance, as well as appropriate use of abortive / prophylactic medications and cycle breakers. We discussed the specific medications prescribed, associated possible side effects, and anticipated length of time to improvement which, at a minimum, would be 3-4 weeks. ADDITIONAL PATIENT INSTRUCTIONS: Chart headaches and abortive medication use. Attention to hydration, frequent small meals, exercise, self-care. Call if using oral abortive treatments more than 2-3/week on average Call if ER visits or missing work or school due to headaches. ASSESSMENT: Xiomara Delgado is a 28 y.o. female presenting with Past medical history of neurogenic POTS with small fiber neuropathy, chronic migraines, hypoglycemia, iron deficiency, maxillary sinusitis, migraines, tobacco abuse who presents to neurology office for follow-up, last seen January 2024 Xiomara was seen today for follow-up. Diagnoses and all orders for this visit: POTS (postural orthostatic tachycardia syndrome) (Primary) - propranolol (Inderal) 20 MG tablet; Take 1 tablet (20 mg) by mouth daily. Chronic migraine without aura without status migrainosus, not intractable PLAN: In terms of her POTS symptoms, she is doing much better with hydration, salt intake but still having bad days about once a week. Still having significant palpitations. We will start her on propranolol 20 mg daily From a migraine standpoint, rarely has any headaches on Ajovy and does not even use Nurtec very often FOLLOW UP No follow-ups on file. Return to office in 4 months Omar Gunn MD Please note: This note was dictated but not read. Notes are transcribed using voice recognition software. Because of this technology there are often unintended grammatical, spelling, and other hot mill roller errors which should be disregarded. documented in this encounter [facility] 08-24-2024 Telephone encounter Note Name of Caller: Xiomara Contact Reason for Appointment: Patient called stating that she is stuck in traffic and her GPS says she will be to the office by 9:40am. Patients appointment is scheduled for 9:20am with Dr Gunn. Patient asking if she will still be able to be seen and if she needs to reschedule to please call her back to reschedule. 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 Please advise. Office Name: Neurology Medication Refills need, if any: N/A Medication Name: N/A [facility] 08-24-2024 Miscellaneous Notes Name of Caller: Xiomara Contact Reason for Appointment: Patient called stating that she is stuck in traffic and her GPS says she will be to the office by 9:40am. Patients appointment is scheduled for 9:20am with Dr Gunn. Patient asking if she will still be able to be seen and if she needs to reschedule to please call her back to reschedule. 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 Please advise. Office Name: Neurology Medication Refills need, if any: N/A Medication Name: N/A documented in this encounter [facility] 08-04-2024 Evaluation + Plan note Associated Problem(s): Herpes zoster without complication Resolving. Triamcinolone cream for itching twice daily as needed x 7 to 14 days. [facility] 08-04-2024 Miscellaneous Notes Associated Problem(s): Herpes zoster without complication Resolving. Triamcinolone cream for itching twice daily as needed x 7 to 14 days. Associated Problem(s): Other insomnia Continue hydroxyzine 25 mg nightly as needed for sleep. Associated Problem(s): Pure hypercholesterolemia Controlled, continue low-fat low-cholesterol diet. Plan to check cholesterol levels at next visit documented in this encounter [facility] 08-04-2024 Miscellaneous Notes Associated Problem(s): Herpes zoster without complication Resolving. Triamcinolone cream for itching twice daily as needed x 7 to 14 days. Associated Problem(s): Other insomnia Continue hydroxyzine 25 mg nightly as needed for sleep. Associated Problem(s): Pure hypercholesterolemia Controlled, continue low-fat low-cholesterol diet. Plan to check cholesterol levels at next visit Addended by: SARMAD CEBALLOS on: 08/09/2024 04:35 PM Modules accepted: Level of Service documented in this encounter [facility] 08-04-2024 Evaluation + Plan note Associated Problem(s): Other insomnia Continue hydroxyzine 25 mg nightly as needed for sleep. [facility] 08-04-2024 Evaluation + Plan note Associated Problem(s): Pure hypercholesterolemia Controlled, continue low-fat low-cholesterol diet. Plan to check cholesterol levels at next visit [facility] 08-04-2024 History of Present illness Narrative Patient was identified by name and Date of . Images from the original note were not included. 08/04/2024 Xiomara Delgado (: 1995) is a 28 y.o. female , Established patient, here for evaluation of the following chief complaint(s): ER Follow-up ([place]-shingles, and for medication check) ASSESSMENT/PLAN: 1. Herpes zoster without complication Assessment & Plan: Resolving. Triamcinolone cream for itching twice daily as needed x 7 to 14 days. Orders: - triamcinolone (Kenalog) 0.1 % cream; Apply to affected area 1-2 times daily as needed x 7 -14 days. Avoid face and groin., Normal 2. Pure hypercholesterolemia Assessment & Plan: Controlled, continue low-fat low-cholesterol diet. Plan to check cholesterol levels at next visit 3. Other insomnia Assessment & Plan: Continue hydroxyzine 25 mg nightly as needed for sleep. Follow up in about 6 months (around 02/03/2025) for Yearly Wellness Visit. SUBJECTIVE/OBJECTIVE: HPI - Xiomara Delgado (: 1995) is a 28 y.o. female , Established patient, here for the evaluation of the following chief complaint(s): ER Follow-up (Leonardo-shingles, and for medication check) And med check Patient presents today for med check and follow-up from the ER. Had shingles rash on the left torso and went to the emergency room. She was started on antiviral medication. Did not have significant improvement and was started on a different antiviral medication. She has completed the antiviral medication and also steroids that Dr. Garcia had sent in for her. She reports the rash is not as painful anymore but is very itchy. She is still taking Tylenol a couple times a day for any discomfort. Migraines-she sees neurology for her migraines and reports they have been controlled Insomnia-reports taking hydroxyzine at night if needed for sleep and that works well. States she only takes it a couple times a week if at all Current Outpatient Medications Medication Sig Dispense Refill Acetaminophen (TYLENOL 8 HOUR PO) Take by mouth. acyclovir (Zovirax) 800 MG tablet TAKE 1 TABLET BY MOUTH FIVE TIMES A DAY fremanezumab (Ajovy) 225 MG/1.5ML auto-injector Inject 1 Pen (225 mg) under the skin every 30 (thirty) days. 1.5 mL 3 hydrOXYzine HCl (Atarax) 25 MG tablet Take 1 tablet (25 mg) by mouth Nightly as needed (sleep). 30 tablet 0 midodrine (Proamatine) 2.5 MG tablet Take 1 tablet (2.5 mg) by mouth 3 times daily. Do not start before March 16, 2024. 90 tablet 3 norethindrone (Aygestin) 5 MG tablet Take 1 tablet THREE TIMES DAILY until bleeding stops for 24 hours, then 1 tablet TWICE DAILY for 3 days, then 1 tablet daily for 3 days. Rimegepant Sulfate (Nurtec) 75 MG tablet dispersible Take 1 tablet (75 mg) by mouth Daily as needed (migraine). 8 tablet 3 albuterol 108 (90 Base) MCG/ACT inhaler Inhale 2 puffs every 6 hours as needed for shortness of breath. 18 g 1 triamcinolone (Kenalog) 0.1 % cream Apply to affected area 1-2 times daily as needed x 7 -14 days. Avoid face and groin. 30 g 0 No current facility-administered medications for this visit. Review of Systems Constitutional: Negative. HENT: Negative. Eyes: Negative. Respiratory: Negative. Cardiovascular: Negative. Gastrointestinal: Negative. Endocrine: Negative. Skin: Positive for rash. Neurological: Positive for headaches (Migraines at baseline sees neurology). Negative for dizziness, weakness and light-headedness. Psychiatric/Behavioral: Negative. Vitals: 08/04/24 0840 BP: 93/67 Pulse: 70 Resp: 18 Temp: 37.4 C (99.3 F) TempSrc: Infrared SpO2: 98% Weight: 162 lb 9.6 oz (73.8 kg) Physical Exam Constitutional: General: She is not in acute distress. Appearance: Normal appearance. She is not ill-appearing. HENT: Head: Normocephalic and atraumatic. Right Ear: Tympanic membrane normal. Left Ear: Tympanic membrane normal. Nose: Nose normal. Mouth/Throat: Mouth: Mucous membranes are moist. Pharynx: Oropharynx is clear. No posterior oropharyngeal erythema. Eyes: Conjunctiva/sclera: Conjunctivae normal. Neck: Vascular: No carotid bruit. Cardiovascular: Rate and Rhythm: Normal rate and regular rhythm. Pulses: Normal pulses. Heart sounds: Normal heart sounds. Pulmonary: Effort: Pulmonary effort is normal. Breath sounds: Normal breath sounds. Musculoskeletal: Right lower leg: No edema. Left lower leg: No edema. Lymphadenopathy: Cervical: No cervical adenopathy. Skin: General: Skin is warm. Findings: Rash present. Neurological: Mental Status: She is alert and oriented to person, place, and time. An electronic signature was used to authenticate this note. GWENDOLYN Bonilla CNP 08/04/2024 12:24 PM documented in this encounter [facility] 08-04-2024 History of Present illness Narrative Patient was identified by name and Date of . Images from the original note were not included. 08/04/2024 Xiomara Delgado (: 1995) is a 28 y.o. female , Established patient, here for evaluation of the following chief complaint(s): ER Follow-up (Leonardo-shingles, and for medication check) ASSESSMENT/PLAN: 1. Herpes zoster without complication Assessment & Plan: Resolving. Triamcinolone cream for itching twice daily as needed x 7 to 14 days. Orders: - triamcinolone (Kenalog) 0.1 % cream; Apply to affected area 1-2 times daily as needed x 7 -14 days. Avoid face and groin., Normal 2. Pure hypercholesterolemia Assessment & Plan: Controlled, continue low-fat low-cholesterol diet. Plan to check cholesterol levels at next visit 3. Other insomnia Assessment & Plan: Continue hydroxyzine 25 mg nightly as needed for sleep. Follow up in about 6 months (around 02/03/2025) for Yearly Wellness Visit. SUBJECTIVE/OBJECTIVE: HPI - Xiomara Delgado (: 1995) is a 28 y.o. female , Established patient, here for the evaluation of the following chief complaint(s): ER Follow-up (Leonardo-shingles, and for medication check) And med check Patient presents today for med check and follow-up from the ER. Had shingles rash on the left torso and went to the emergency room. She was started on antiviral medication. Did not have significant improvement and was started on a different antiviral medication. She has completed the antiviral medication and also steroids that Dr. Garcia had sent in for her. She reports the rash is not as painful anymore but is very itchy. She is still taking Tylenol a couple times a day for any discomfort. Migraines-she sees neurology for her migraines and reports they have been controlled Insomnia-reports taking hydroxyzine at night if needed for sleep and that works well. States she only takes it a couple times a week if at all Current Outpatient Medications Medication Sig Dispense Refill Acetaminophen (TYLENOL 8 HOUR PO) Take by mouth. acyclovir (Zovirax) 800 MG tablet TAKE 1 TABLET BY MOUTH FIVE TIMES A DAY fremanezumab (Ajovy) 225 MG/1.5ML auto-injector Inject 1 Pen (225 mg) under the skin every 30 (thirty) days. 1.5 mL 3 hydrOXYzine HCl (Atarax) 25 MG tablet Take 1 tablet (25 mg) by mouth Nightly as needed (sleep). 30 tablet 0 midodrine (Proamatine) 2.5 MG tablet Take 1 tablet (2.5 mg) by mouth 3 times daily. Do not start before March 16, 2024. 90 tablet 3 norethindrone (Aygestin) 5 MG tablet Take 1 tablet THREE TIMES DAILY until bleeding stops for 24 hours, then 1 tablet TWICE DAILY for 3 days, then 1 tablet daily for 3 days. Rimegepant Sulfate (Nurtec) 75 MG tablet dispersible Take 1 tablet (75 mg) by mouth Daily as needed (migraine). 8 tablet 3 albuterol 108 (90 Base) MCG/ACT inhaler Inhale 2 puffs every 6 hours as needed for shortness of breath. 18 g 1 triamcinolone (Kenalog) 0.1 % cream Apply to affected area 1-2 times daily as needed x 7 -14 days. Avoid face and groin. 30 g 0 No current facility-administered medications for this visit. Review of Systems Constitutional: Negative. HENT: Negative. Eyes: Negative. Respiratory: Negative. Cardiovascular: Negative. Gastrointestinal: Negative. Endocrine: Negative. Skin: Positive for rash. Neurological: Positive for headaches (Migraines at baseline sees neurology). Negative for dizziness, weakness and light-headedness. Psychiatric/Behavioral: Negative. Vitals: 08/04/24 0840 BP: 93/67 Pulse: 70 Resp: 18 Temp: 37.4 C (99.3 F) TempSrc: Infrared SpO2: 98% Weight: 162 lb 9.6 oz (73.8 kg) Physical Exam Constitutional: General: She is not in acute distress. Appearance: Normal appearance. She is not ill-appearing. HENT: Head: Normocephalic and atraumatic. Right Ear: Tympanic membrane normal. Left Ear: Tympanic membrane normal. Nose: Nose normal. Mouth/Throat: Mouth: Mucous membranes are moist. Pharynx: Oropharynx is clear. No posterior oropharyngeal erythema. Eyes: Conjunctiva/sclera: Conjunctivae normal. Neck: Vascular: No carotid bruit. Cardiovascular: Rate and Rhythm: Normal rate and regular rhythm. Pulses: Normal pulses. Heart sounds: Normal heart sounds. Pulmonary: Effort: Pulmonary effort is normal. Breath sounds: Normal breath sounds. Musculoskeletal: Right lower leg: No edema. Left lower leg: No edema. Lymphadenopathy: Cervical: No cervical adenopathy. Skin: General: Skin is warm. Findings: Rash present. Neurological: Mental Status: She is alert and oriented to person, place, and time. An electronic signature was used to authenticate this note. GWENDOLYN Bonilla CNP 08/04/2024 12:24 PM documented in this encounter [facility] 08-04-2024 Note Addended by: SARMAD COTA on: 08/09/2024 04:35 PM Modules accepted: Level of Service [facility] 07-31-2024 Telephone encounter Note Pt scheduled 08/03/2024 [facility] 07-31-2024 Miscellaneous Notes Pt scheduled 08/03/2024 Called patient no answer left detailed voicemail advising to call office back , also advised her that [employer] message was sent and may respond back that way with any further questions. I am going to switch her to Valacyclovir 1000 mg 3 times a day for 7 days and I am going to send in a prescription for prednisone she is to take 3 tablets for 5 days 2 tablets for 3 day and 1 tablet for 2 days. S: Patient spoke with [facility] nurse regarding Shingles whole left side getting worse, painful lift up arm Provider: [facility] Name: Cliff REY B: Onset of symptoms/concern 3 days ago. A: Patient states she thinks she has shingles. States rash starts at belly button and wraps around to back. States started with little bumps States now they are big now Rash is very red. States she is on acyclovir now that she got on 07/25 when she was evaluated in ER for symptoms. States rash does not need me to be getting better and states it is very painful. States it is starting to wrap around to back and she is is concerned acyclovir is not helping. Denies itching. R: No appointment available in office today. Patient advised to be evaluated in urgent care as her symptoms are worsening including spreading of rash and severe pain. Patient verbalizes understanding of care advice. No further needs at this time. Patient instructed to call back with new or worsening symptoms. Reason for Disposition SEVERE pain (e.g., excruciating) Protocols used: Shingles (Zoster)-ADULT-[place] documented in this encounter [facility] 07-28-2024 Telephone encounter Note Called patient no answer left detailed voicemail advising to call office back , also advised her that [employer] message was sent and may respond back that way with any further questions. [facility] 07-27-2024 Telephone encounter Note I am going to switch her to Valacyclovir 1000 mg 3 times a day for 7 days and I am going to send in a prescription for prednisone she is to take 3 tablets for 5 days 2 tablets for 3 day and 1 tablet for 2 days. [facility] 07-27-2024 Telephone encounter Note S: Patient spoke with [facility] nurse regarding Shingles whole left side getting worse, painful lift up arm Provider: [facility] Name: Cliff REY B: Onset of symptoms/concern 3 days ago. A: Patient states she thinks she has shingles. States rash starts at belly button and wraps around to back. States started with little bumps States now they are big now Rash is very red. States she is on acyclovir now that she got on 07/25 when she was evaluated in ER for symptoms. States rash does not need me to be getting better and states it is very painful. States it is starting to wrap around to back and she is is concerned acyclovir is not helping. Denies itching. R: No appointment available in office today. Patient advised to be evaluated in urgent care as her symptoms are worsening including spreading of rash and severe pain. Patient verbalizes understanding of care advice. No further needs at this time. Patient instructed to call back with new or worsening symptoms. Reason for Disposition SEVERE pain (e.g., excruciating) Protocols used: Shingles (Zoster)-ADULT-[place] [facility] 07-21-2024 Note HNO ID: [id number] Author: NAYE SEPULVEDA APRN.CNM Service: ? Author Type: Straight Slicing Machine Operator Type: Progress Notes Filed: 07/21/2024 12:19 Note Text: Xiomara Delgado is a 28 year old female who presents for problem visit to discuss pelvic ultrasound results. f HPI: Seen yesterday in office for IUD removal and replacement. She was having pelvic pain and irregular bleeding. A pelvic US was completed and IUD (ParaGard) found to be malpositioned. She had ParaGard removed and Mirena IUD placed. Received ultrasound report and had questions over Both ovaries contain multiple small follicular cysts at the periphery of the ovarian stroma. This finding is suggestive of polycystic ovarian syndrome. OB History Gravida2 Para2 Term2 Preterm0 AB0 Living2 SAB0 IAB0 Ectopic0 Multiple0 Live Births2 [employer] History LMP: LMP Unknown, IUD Age at Menarche: Age at First : Age at Menopause: [employer] History Comments: Sexual Activity: Yes; Male; paragard Contraception: I.U.D. PAST MEDICAL HISTORY Diagnosis Date Anemia during in third trimester 06/26/2021 Depression depression Hypoglycemia diagnosed age 9 depression PAST SURGICAL HISTORY Procedure Laterality Date INSERTION OF IUD 11/30/2022 FAMILY HISTORY Problem Relation Age of Onset Hypertension Mother No Known Problems Father No Known Problems Sister No Known Problems Sister No Known Problems Brother No Known Problems Maternal Grandmother Arthritis Paternal Grandmother Hypertension Paternal Grandfather No Known Problems Daughter Social History Tobacco Use Smoking status: Some Days Current packs/day: 1.00 Average packs/day: 1 pack/day for 10.0 years (10.0 ttl pk-yrs) Types: Cigarettes Smokeless tobacco: Never Tobacco comments: 1-2 cigarettes a day Vaping Use Vaping status: Some Days Last attempt to quit: 02/25/2022 Substances: Nicotine, Flavoring Substance Use Topics Alcohol use: Not Currently Comment: on special occasions Drug use: No Current Outpatient Medications Medication Sig copper (PARAGARD) 380 square mm intrauterine device 1 Intra Uterine Device by INTRAUTERINE route one time only. fremanezumab-vfrm subcutaneus auto-injector 225 mg/1.5 mL (AJOVY) Inject 225 mg subcutaneously once every month. midodrine (PROAMATINE) 2.5 mg tablet Take 2.5 mg by mouth three times a day. NURTEC ODT 75 mg disintegrating tablet Take 75 mg by mouth once daily as needed. hydrOXYzine HCl (ATARAX) 25 mg tablet Take 25 mg by mouth at bedtime as needed. acetaminophen (TYLENOL ORAL) Take by mouth. norethindrone (AYGESTIN) 5 mg tablet Take 1 tablet TID until bleeding stops for 24 hours, then 1 tablet BID x 3 days, then 1 tablet daily x 3 days. (Patient not taking: Reported on 07/20/2024) No current facility-administered medications for this visit. Allergies As of Date: 07/21/2024 (No Known Allergies) Fully Assessed 07/21/2024 REVIEW OF SYSTEMS Abdomen: Cramping since placement of IUD yesterday Bladder: No dysuria, gross hematuria, urinary frequency, urinary urgency, or incontinence. Breast: No breast lumps, nipple d/c, overlying skin changes, redness or skin retraction. Expanded ROS: N/A Allergies and current medication updated:Yes SENSITIVE EXAM: Sensitive exam not performed. EXAM: BP 110/62 Wt 161 lb (73.0kg) GENERAL: pleasant, female in no apparent distress HEENT: Normocephalic NECK: Supple and full range of motion DERMATOLOGY: Normal, without lesions, non-icteric, and non-hirsute/ no acne ASSESSMENT AND PLAN: Assessment AND Plan Polycystic ovaries Discussed ultrasound findings and questions answered about PCOS Patient had mother on face time during visit and answered her questions as well Patient education hand outs provided Mirena IUD placed yesterday Support provided- if patient desires in future- will discuss plan of care at that time. She has 2 children and became without difficulty Patient concerned over future diabetes- offered to draw fasting glucose / Hgb A1c - declines RTO PRN / Annual exams Naye Sepulveda APRN.[facility] 07-21-2024 History of Present illness Narrative Xiomara Delgado is a 28 year old female who presents for problem visit to discuss pelvic ultrasound results. f HPI: Seen yesterday in office for IUD removal and replacement. She was having pelvic pain and irregular bleeding. A pelvic US was completed and IUD (ParaGard) found to be malpositioned. She had ParaGard removed and Mirena IUD placed. Received ultrasound report and had questions over Both ovaries contain multiple small follicular cysts at the periphery of the ovarian stroma. This finding is suggestive of polycystic ovarian syndrome. OB History Gravida2 Para2 Term2 Preterm0 AB0 Living2 SAB0 IAB0 Ectopic0 Multiple0 Live Births2 [employer] History LMP: LMP Unknown, IUD Age at Menarche: Age at First : Age at Menopause: [employer] History Comments: Sexual Activity: Yes; Male; paragard Contraception: I.U.D. PAST MEDICAL HISTORY Diagnosis Date Anemia during in third trimester 06/26/2021 Depression depression Hypoglycemia diagnosed age 9 depression PAST SURGICAL HISTORY Procedure Laterality Date INSERTION OF IUD 11/30/2022 FAMILY HISTORY Problem Relation Age of Onset Hypertension Mother No Known Problems Father No Known Problems Sister No Known Problems Sister No Known Problems Brother No Known Problems Maternal Grandmother Arthritis Paternal Grandmother Hypertension Paternal Grandfather No Known Problems Daughter Social History Tobacco Use Smoking status: Some Days Current packs/day: 1.00 Average packs/day: 1 pack/day for 10.0 years (10.0 ttl pk-yrs) Types: Cigarettes Smokeless tobacco: Never Tobacco comments: 1-2 cigarettes a day Vaping Use Vaping status: Some Days Last attempt to quit: 02/25/2022 Substances: Nicotine, Flavoring Substance Use Topics Alcohol use: Not Currently Comment: on special occasions Drug use: No Current Outpatient Medications Medication Sig copper (PARAGARD) 380 square mm intrauterine device 1 Intra Uterine Device by INTRAUTERINE route one time only. fremanezumab-vfrm subcutaneus auto-injector 225 mg/1.5 mL (AJOVY) Inject 225 mg subcutaneously once every month. midodrine (PROAMATINE) 2.5 mg tablet Take 2.5 mg by mouth three times a day. NURTEC ODT 75 mg disintegrating tablet Take 75 mg by mouth once daily as needed. hydrOXYzine HCl (ATARAX) 25 mg tablet Take 25 mg by mouth at bedtime as needed. acetaminophen (TYLENOL ORAL) Take by mouth. norethindrone (AYGESTIN) 5 mg tablet Take 1 tablet TID until bleeding stops for 24 hours, then 1 tablet BID x 3 days, then 1 tablet daily x 3 days. (Patient not taking: Reported on 07/20/2024) No current facility-administered medications for this visit. Allergies As of Date: 07/21/2024 (No Known Allergies) Fully Assessed 07/21/2024 REVIEW OF SYSTEMS Abdomen: Cramping since placement of IUD yesterday Bladder: No dysuria, gross hematuria, urinary frequency, urinary urgency, or incontinence. Breast: No breast lumps, nipple d/c, overlying skin changes, redness or skin retraction. Expanded ROS: N/A Allergies and current medication updated:Yes SENSITIVE EXAM: Sensitive exam not performed. EXAM: BP 110/62 Wt 161 lb (73.0kg) GENERAL: pleasant, female in no apparent distress HEENT: Normocephalic NECK: Supple and full range of motion DERMATOLOGY: Normal, without lesions, non-icteric, and non-hirsute/ no acne ASSESSMENT AND PLAN: Assessment & Plan Polycystic ovaries Discussed ultrasound findings and questions answered about PCOS Patient had mother on face time during visit and answered her questions as well Patient education hand outs provided Mirena IUD placed yesterday Support provided- if patient desires in future- will discuss plan of care at that time. She has 2 children and became without difficulty Patient concerned over future diabetes- offered to draw fasting glucose / Hgb A1c - declines RTO PRN / Annual exams Naye Sepulveda APRN.CNM documented in this encounter [facility] 07-20-2024 Instructions Annie Davis MA - 07/20/2024 2:59 PM EDT POST IUD INSTRUCTIONS You may have irregular bleeding during the first 3 months of use. You may have mild-severe cramping for the next 48 hours. You may use over the counter medication (Motrin, Tylenol) as needed. Your IUD must be removed or replaced based on the following table: IUD Type Removed or replaced within: Kita 3 years Forrestena 5 years Mirena 8 years Liletta 8 years Paragard 10 years Call the office for signs/symptoms of infection such as severe cramping, fever, or unusual bleeding. Check for string placement as instructed by your doctor. If you have any additional questions, please contact the office. documented in this encounter [facility] 07-20-2024 Note HNO ID: [id number] Author: MARY MCLAUGHLIN MD Service: ? Author Type: Physician Type: Progress Notes Filed: 07/20/2024 15:50 Note Text: Xiomara presents today for IUD removal and Mirena IUD insertion for contraception. No LMP recorded (lmp unknown). (Menstrual status: IUD). GC/chlamydia: Not done: no risk factors and/or patient declines screening test: negative Side effects including irregular bleeding were discussed with the patient. The patient understands that it should be removed in 8 years or sooner if the patient desires a . IUD source: office provided IUD lot #: [id number] Exp date: 03/02/2026 UNIVERSAL PROTOCOL / SAFETY CHECKLIST Procedure to be Performed: IUD removal and Mirena IUD insertion Sign In: A Moment of CARE was completed. Appropriate PPE (Personal Protective Equipment) worn by all providers involved with the procedure. Special equipment not required. Patient/Surrogate Stated/Verified: Patient name, Date of , Relevant allergies, and The intended procedure Time Out: Relevant labs, photos, and/or imaging studies have been reviewed. Intended patient and procedure match the source document(s) (e.g. consent, HANDP, associated studies [imaging, pathology]) match the intended patient and procedure. Consent obtained and matches the intended procedure. Yes. Correct side/site is not applicable. Medications required for this procedure are verified. Fire risk assessed and is not applicable. Implants: Correct implant(s) confirmed including size and side. Expiration date(s) reviewed. Sign Out: Specimens: none All instruments, equipment, possible retained foreign bodies are accounted for. Yes. The post-procedure plan of care has been communicated to the patient or surrogate. PROCEDURE: Removal:Insertion: Speculum placed in vagina, IUD string visualized and grasped with ring forceps. Insertion: The cervix was prepped with betadine. The uterus sounded to 8 cm and the uterus is Anteverted. Using sterile technique, the Mirena IUD was inserted without difficulty and the string was cut to 4cm from the external os of the cervix. Patient tolerated procedure well. PLAN: Patient was advised to observe for signs and symptoms of infection including but not limited to fever, malodorous vaginal discharge and/or pain. The patient was told to check the string monthly for accurate placement. Bleeding expectations were reviewed. Follow up for next annual exam or sooner as needed. Mary Mclaughiln MD [facility] 07-20-2024 History of Present illness Narrative Xiomara presents today for IUD removal and Mirena IUD insertion for contraception. No LMP recorded (lmp unknown). (Menstrual status: IUD). GC/chlamydia: Not done: no risk factors and/or patient declines screening test: negative Side effects including irregular bleeding were discussed with the patient. The patient understands that it should be removed in 8 years or sooner if the patient desires a . IUD source: office provided IUD lot #: [id number] Exp date: 03/02/2026 UNIVERSAL PROTOCOL / SAFETY CHECKLIST Procedure to be Performed: IUD removal and Mirena IUD insertion Sign In: A Moment of CARE was completed. Appropriate PPE (Personal Protective Equipment) worn by all providers involved with the procedure. Special equipment not required. Patient/Surrogate Stated/Verified: Patient name, Date of , Relevant allergies, and The intended procedure Time Out: Relevant labs, photos, and/or imaging studies have been reviewed. Intended patient and procedure match the source document(s) (e.g. consent, H&P, associated studies [imaging, pathology]) match the intended patient and procedure. Consent obtained and matches the intended procedure. Yes. Correct side/site is not applicable. Medications required for this procedure are verified. Fire risk assessed and is not applicable. Implants: Correct implant(s) confirmed including size and side. Expiration date(s) reviewed. Sign Out: Specimens: none All instruments, equipment, possible retained foreign bodies are accounted for. Yes. The post-procedure plan of care has been communicated to the patient or surrogate. PROCEDURE: Removal:Insertion: Speculum placed in vagina, IUD string visualized and grasped with ring forceps. Insertion: The cervix was prepped with betadine. The uterus sounded to 8 cm and the uterus is Anteverted. Using sterile technique, the Mirena IUD was inserted without difficulty and the string was cut to 4cm from the external os of the cervix. Patient tolerated procedure well. PLAN: Patient was advised to observe for signs and symptoms of infection including but not limited to fever, malodorous vaginal discharge and/or pain. The patient was told to check the string monthly for accurate placement. Bleeding expectations were reviewed. Follow up for next annual exam or sooner as needed. Mary Mclaughlin MD documented in this encounter [facility] 07-14-2024 Telephone encounter Note Patient viewed [employer] message and was already scheduled by PSS. Kim Land RN [facility] 07-14-2024 Miscellaneous Notes Patient viewed [employer] message and was already scheduled by PSS. Kim Land RN Left message to call office. Melyssa Mosqueda RN Please let the patient know that the ultrasound shows that her ParaGard is malpositioned. I have filed an order to remove and replace it. Davina Polk APRN.PHILOMENA documented in this encounter [facility] 07-14-2024 Telephone encounter Note Left message to call office. Melyssa Mosqueda RN [facility] 07-14-2024 Telephone encounter Note Please let the patient know that the ultrasound shows that her ParaGard is malpositioned. I have filed an order to remove and replace it. Davina Polk APRN.PHILOMENA [facility] 07-13-2024 Note HNO ID: [id number] Author: KORINA NUNEZ MD Service: ? Author Type: Physician Type: Progress Notes Filed: 07/13/2024 22:02 Note Text: The patient presents for requested ultrasound. Full report available in the Imaging tab in [employer]. Korina Nunez MD [facility] 07-13-2024 History of Present illness Narrative The patient presents for requested ultrasound. Full report available in the Imaging tab in [employer]. Korina Nunez MD documented in this encounter [facility] 07-03-2024 Note HNO ID: [id number] Author: DAVINA POLK APRN.PHILOMENA Service: ? Author Type: Nurse Practitioner Type: Progress Notes Filed: 07/03/2024 16:20 Note Text: Patient declined security tech. Xiomara Delgado is a 28 year old female who presents for problem visit bleeding, cramping for 1 month(s). Paraguard IUD placed 11/30/2022. HPI: Patient states that she started her normal menses but bleeding has continued for the past month. She is complaining of heavy bleeding, large blood clots, low back pain, and right side pain. She has bleeding through super tampons. She denies any lightheadedness, dizziness, or shortness of breath. But does state that she feels shaky and her blood sugars have been within normal limits. OB History Gravida2 Para2 Term2 Preterm0 AB0 Living2 SAB0 IAB0 Ectopic0 Multiple0 Live Births2 [employer] History LMP: LMP Unknown, IUD Age at Menarche: Age at First : Age at Menopause: [employer] History Comments: Sexual Activity: Yes; Male; Mirena Contraception: I.U.D. PAST MEDICAL HISTORY Diagnosis Date Anemia during in third trimester 06/26/2021 Depression depression Hypoglycemia diagnosed age 9 depression PAST SURGICAL HISTORY Procedure Laterality Date INSERTION OF IUD 11/30/2022 FAMILY HISTORY Problem Relation Age of Onset Hypertension Mother No Known Problems Father No Known Problems Sister No Known Problems Sister No Known Problems Brother No Known Problems Maternal Grandmother Arthritis Paternal Grandmother Hypertension Paternal Grandfather No Known Problems Daughter Social History Tobacco Use Smoking status: Some Days Current packs/day: 1.00 Average packs/day: 1 pack/day for 10.0 years (10.0 ttl pk-yrs) Types: Cigarettes Smokeless tobacco: Never Tobacco comments: 1-2 cigarettes a day Vaping Use Vaping status: Some Days Last attempt to quit: 02/25/2022 Substances: Nicotine, Flavoring Substance Use Topics Alcohol use: Not Currently Comment: on special occasions Drug use: No Current Outpatient Medications Medication Sig fremanezumab-vfrm subcutaneus auto-injector 225 mg/1.5 mL (AJOVY) Inject 225 mg subcutaneously once every month. midodrine (PROAMATINE) 2.5 mg tablet Take 2.5 mg by mouth three times a day. NURTEC ODT 75 mg disintegrating tablet Take 75 mg by mouth once daily as needed. hydrOXYzine HCl (ATARAX) 25 mg tablet Take 25 mg by mouth at bedtime as needed. acetaminophen (TYLENOL ORAL) Take by mouth. copper (PARAGARD) 380 square mm intrauterine device 1 Intra Uterine Device by INTRAUTERINE route one time only. norethindrone (AYGESTIN) 5 mg tablet Take 1 tablet TID until bleeding stops for 24 hours, then 1 tablet BID x 3 days, then 1 tablet daily x 3 days. No current facility-administered medications for this visit. Allergies As of Date: 07/03/2024 (No Known Allergies) Fully Assessed 07/03/2024 REVIEW OF SYSTEMS See HPI. Expanded ROS: N/A Allergies and current medication updated:Yes SENSITIVE EXAM: The sensitive examination was discussed with the Patient or Patient's Authorized Tape Edge Machine Operator. As applicable, any other physician, advance practice provider, medical student, or other health professional student that will be observing or involved in the sensitive examination for educational or training purposes was discussed with the Patient or Authorized Tape Edge Machine Operator. The Patient or Authorized Tape Edge Machine Operator has agreed to proceed with the sensitive examination. (Sensitive examination includes inspection and/or palpation of the breasts, pelvis, prostate and anorectal regions). EXAM: BP 126/80 Wt 161 lb 9.6 oz (73.3kg) GENERAL: pleasant, female in no apparent distress HEENT: Normocephalic, atraumatic, mucus membranes moist, and no lesions CHEST: Normal inspiratory effort PELVIC: external genitalia normal, normal Bartholin's glands, urethra, [place]'s glands, no vulvar lesions, no cervical lesions, good vaginal support, physiologic discharge present, normal appearing perineal body and perianal region, IUD strings visible BIMANUAL: uterus normal size, shape and consistency, no adnexal masses, non-tender, and no cervical motion tenderness NEURO: alert and oriented x3,exam grossly non-focal EXTREMITIES: normal ASSESSMENT AND PLAN: Assessment AND Plan Irregular bleeding Orders: COMPLETE BLOOD COUNT AND DIFFERENTIAL; Future IRON AND TIBC; Future PELVIC US WHI; Future Will notify patient of test results. 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 Xiomara Delgado is a 28 year old female who presents for problem visit bleeding, cramping for 1 month(s). Paraguard IUD placed 11/30/2022. HPI: Patient states that she started her normal menses but bleeding has continued for the past month. She is complaining of heavy bleeding, large blood clots, low back pain, and right side pain. She has bleeding through super tampons. She denies any lightheadedness, dizziness, or shortness of breath. But does state that she feels shaky and her blood sugars have been within normal limits. OB History Gravida2 Para2 Term2 Preterm0 AB0 Living2 SAB0 IAB0 Ectopic0 Multiple0 Live Births2 [employer] History LMP: LMP Unknown, IUD Age at Menarche: Age at First : Age at Menopause: [employer] History Comments: Sexual Activity: Yes; Male; Mirena Contraception: I.U.D. PAST MEDICAL HISTORY Diagnosis Date Anemia during in third trimester 06/26/2021 Depression depression Hypoglycemia diagnosed age 9 depression PAST SURGICAL HISTORY Procedure Laterality Date INSERTION OF IUD 11/30/2022 FAMILY HISTORY Problem Relation Age of Onset Hypertension Mother No Known Problems Father No Known Problems Sister No Known Problems Sister No Known Problems Brother No Known Problems Maternal Grandmother Arthritis Paternal Grandmother Hypertension Paternal Grandfather No Known Problems Daughter Social History Tobacco Use Smoking status: Some Days Current packs/day: 1.00 Average packs/day: 1 pack/day for 10.0 years (10.0 ttl pk-yrs) Types: Cigarettes Smokeless tobacco: Never Tobacco comments: 1-2 cigarettes a day Vaping Use Vaping status: Some Days Last attempt to quit: 02/25/2022 Substances: Nicotine, Flavoring Substance Use Topics Alcohol use: Not Currently Comment: on special occasions Drug use: No Current Outpatient Medications Medication Sig fremanezumab-vfrm subcutaneus auto-injector 225 mg/1.5 mL ([employer]) Inject 225 mg subcutaneously once every month. midodrine (PROAMATINE) 2.5 mg tablet Take 2.5 mg by mouth three times a day. NURTEC ODT 75 mg disintegrating tablet Take 75 mg by mouth once daily as needed. hydrOXYzine HCl (ATARAX) 25 mg tablet Take 25 mg by mouth at bedtime as needed. acetaminophen (TYLENOL ORAL) Take by mouth. copper (PARAGARD) 380 square mm intrauterine device 1 Intra Uterine Device by INTRAUTERINE route one time only. norethindrone (AYGESTIN) 5 mg tablet Take 1 tablet TID until bleeding stops for 24 hours, then 1 tablet BID x 3 days, then 1 tablet daily x 3 days. No current facility-administered medications for this visit. Allergies As of Date: 07/03/2024 (No Known Allergies) Fully Assessed 07/03/2024 REVIEW OF SYSTEMS See HPI. Expanded ROS: N/A Allergies and current medication updated:Yes SENSITIVE EXAM: The sensitive examination was discussed with the Patient or Patient's Authorized Tape Edge Machine Operator. As applicable, any other physician, advance practice provider, medical student, or other health professional student that will be observing or involved in the sensitive examination for educational or training purposes was discussed with the Patient or Authorized Tape Edge Machine Operator. The Patient or Authorized Tape Edge Machine Operator has agreed to proceed with the sensitive examination. (Sensitive examination includes inspection and/or palpation of the breasts, pelvis, prostate and anorectal regions). EXAM: BP 126/80 Wt 161 lb 9.6 oz (73.3kg) GENERAL: pleasant, female in no apparent distress HEENT: Normocephalic, atraumatic, mucus membranes moist, and no lesions CHEST: Normal inspiratory effort PELVIC: external genitalia normal, normal Bartholin's glands, urethra, [place]'s glands, no vulvar lesions, no cervical lesions, good vaginal support, physiologic discharge present, normal appearing perineal body and perianal region, IUD strings visible BIMANUAL: uterus normal size, shape and consistency, no adnexal masses, non-tender, and no cervical motion tenderness NEURO: alert and oriented x3,exam grossly non-focal EXTREMITIES: normal ASSESSMENT AND PLAN: Assessment & Plan Irregular bleeding Orders: COMPLETE BLOOD COUNT AND DIFFERENTIAL; Future IRON AND TIBC; Future PELVIC US WHI; Future Will notify patient of test results. Davina Polk APRN.CNP Medical Decision Making: Problems: Moderate: New problem with uncertain prognosis Data: Unique test(s) ordered: 3+ Risk: Moderate: Drug management Medical Decision Making Level: 4 - Moderate documented in this encounter [facility] 05-19-2024 Note HNO ID: [id number] Author: MAYDA MCLAUGHLIN APRN.PHILOMENA Service: ? Author Type: Nurse Practitioner Type: Progress Notes Filed: 05/19/2024 17:00 Note Text: Subjective Patient came in with complaints of left lower dental pain. Patient says it is making her ear uncomfortable. Patient says it has been on and off for several weeks. Patient has been treated already with amoxicillin. Patient does have a dentist appointment next month. Patient denies any fever chills nausea vomiting shortness of breath or chest pain. The history is provided by the patient. No english language arts teacher was used. Dental Problem Review of Systems Constitutional: Negative. Skin: Negative. Objective Physical Exam Constitutional: Appearance: Normal appearance. HENT: Mouth/Throat: Comments: Multiple dental caries noted in the area marked above. Mild redness and swelling noted no dental abscesses noted no trismus noted. No deviation of tongue or uvula noted. Pulmonary: Effort: Pulmonary effort is normal. Neurological: Mental Status: She is alert. PAST MEDICAL HISTORY Diagnosis Date Anemia during in third trimester 06/26/2021 Depression depression Hypoglycemia diagnosed age 9 depression PAST SURGICAL HISTORY Procedure Laterality Date INSERTION OF IUD 11/30/2022 ALLERGIES Patient has no known allergies. MEDICATIONS fremanezumab-vfrm subcutaneus auto-injector 225 mg/1.5 mL (AJOVY) Inject 225 mg subcutaneously once every month. midodrine (PROAMATINE) 2.5 mg tablet Take 2.5 mg by mouth three times a day. NURTEC ODT 75 mg disintegrating tablet Take 75 mg by mouth once daily as needed. hydrOXYzine HCl (ATARAX) 25 mg tablet Take 25 mg by mouth at bedtime as needed. acetaminophen (TYLENOL ORAL) Take by mouth. amoxicillin-clavulanate potassium (AUGMENTIN) 875-125 mg per tablet Take 1 tablet by mouth two times a day for 7 days. topiramate (TOPAMAX) 50 mg tablet Take 50 mg by mouth. (Patient not taking: Reported on 05/19/2024) metoprolol succinate ER (TOPROL XL) 25 mg 24 hr tablet Take 25 mg by mouth. (Patient not taking: Reported on 05/19/2024) FAMILY HISTORY Problem Relation Age of Onset Hypertension Mother No Known Problems Father No Known Problems Sister No Known Problems Sister No Known Problems Brother No Known Problems Maternal Grandmother Arthritis Paternal Grandmother Hypertension Paternal Grandfather No Known Problems Daughter Social History Tobacco Use Smoking status: Some Days Current packs/day: 1.00 Average packs/day: 1 pack/day for 10.0 years (10.0 ttl pk-yrs) Types: Cigarettes Smokeless tobacco: Never Tobacco comments: 1-2 cigarettes a day Vaping Use Vaping status: Some Days Last attempt to quit: 02/25/2022 Substances: Nicotine, Flavoring Substance Use Topics Alcohol use: Not Currently Comment: on special occasions Drug use: No ASSESSMENT/PLAN: 1. Pain, dental - ICD9: 525.9, ICD10: K08.89 - AMOXICILLIN 875 MG-POTASSIUM CLAVULANATE 125 MG TABLET Patient educated about proper use of medication and supportive therapies. Red flag symptoms were gone over. Patient will follow-up if signs and symptoms seem to be getting worse not better. Patient was agreeable to this care plan. Mayda Mclaughlin APRN.[facility] 05-19-2024 History of Present illness Narrative Images from the original note were not included. Subjective Patient came in with complaints of left lower dental pain. Patient says it is making her ear uncomfortable. Patient says it has been on and off for several weeks. Patient has been treated already with amoxicillin. Patient does have a dentist appointment next month. Patient denies any fever chills nausea vomiting shortness of breath or chest pain. The history is provided by the patient. No english language arts teacher was used. Dental Problem Review of Systems Constitutional: Negative. Skin: Negative. Objective Physical Exam Constitutional: Appearance: Normal appearance. HENT: Mouth/Throat: Comments: Multiple dental caries noted in the area marked above. Mild redness and swelling noted no dental abscesses noted no trismus noted. No deviation of tongue or uvula noted. Pulmonary: Effort: Pulmonary effort is normal. Neurological: Mental Status: She is alert. PAST MEDICAL HISTORY Diagnosis Date Anemia during in third trimester 06/26/2021 Depression depression Hypoglycemia diagnosed age 9 depression PAST SURGICAL HISTORY Procedure Laterality Date INSERTION OF IUD 11/30/2022 ALLERGIES Patient has no known allergies. MEDICATIONS fremanezumab-vfrm subcutaneus auto-injector 225 mg/1.5 mL (AJOVY) Inject 225 mg subcutaneously once every month. midodrine (PROAMATINE) 2.5 mg tablet Take 2.5 mg by mouth three times a day. NURTEC ODT 75 mg disintegrating tablet Take 75 mg by mouth once daily as needed. hydrOXYzine HCl (ATARAX) 25 mg tablet Take 25 mg by mouth at bedtime as needed. acetaminophen (TYLENOL ORAL) Take by mouth. amoxicillin-clavulanate potassium (AUGMENTIN) 875-125 mg per tablet Take 1 tablet by mouth two times a day for 7 days. topiramate (TOPAMAX) 50 mg tablet Take 50 mg by mouth. (Patient not taking: Reported on 05/19/2024) metoprolol succinate ER (TOPROL XL) 25 mg 24 hr tablet Take 25 mg by mouth. (Patient not taking: Reported on 05/19/2024) FAMILY HISTORY Problem Relation Age of Onset Hypertension Mother No Known Problems Father No Known Problems Sister No Known Problems Sister No Known Problems Brother No Known Problems Maternal Grandmother Arthritis Paternal Grandmother Hypertension Paternal Grandfather No Known Problems Daughter Social History Tobacco Use Smoking status: Some Days Current packs/day: 1.00 Average packs/day: 1 pack/day for 10.0 years (10.0 ttl pk-yrs) Types: Cigarettes Smokeless tobacco: Never Tobacco comments: 1-2 cigarettes a day Vaping Use Vaping status: Some Days Last attempt to quit: 02/25/2022 Substances: Nicotine, Flavoring Substance Use Topics Alcohol use: Not Currently Comment: on special occasions Drug use: No ASSESSMENT/PLAN: 1. Pain, dental - ICD9: 525.9, ICD10: K08.89 - AMOXICILLIN 875 MG-POTASSIUM CLAVULANATE 125 MG TABLET Patient educated about proper use of medication and supportive therapies. Red flag symptoms were gone over. Patient will follow-up if signs and symptoms seem to be getting worse not better. Patient was agreeable to this care plan. Mayda Mclaughlin APRN.THERMODYNAMICIST documented in this encounter [facility] 03-15-2024 History of Present illness Narrative Patient verified by last name and . Images from the original note were not included. 03/15/2024 Xiomara Delgado (: 1995) is a 28 y.o. female , Established patient, here for evaluation of the following chief complaint(s): Follow-up (Follow up on URI, states she is still having the cough and tightness in chest when in coughing fit, still doing inhaler but doesn't seem to be helping. States that yesterday she was coughing so bad she started vomiting ) ASSESSMENT/PLAN: 1. URI with cough and congestion - guaiFENesin-codeine (Robitussin-AC) 100-10 MG/5ML syrup; Take 5 mL by mouth every 8 hours as needed for cough., Starting 03/15/2024, Normal - Improving. Lung sounds clear on examination today and no wheezing present. Discussed potential need for repeat imaging and/or a PFT if symptoms persist, but it could be post viral cough due to timeline of symptoms. - Discussed signs and symptoms warranting immediate attention- verbalized understanding. - Discussed signs and symptoms warranting follow up in the office- verbalized understanding. - Will give her cough medication for management of symptoms. Follow up in about 1 week (around 03/22/2024) for follow up if no improvement in symptoms. SUBJECTIVE/OBJECTIVE: HPI - Xiomara presents today for close follow up on her URI. Was in the ER on 03/03/24 due to a cough and not feeling well. She was diagnosed with left lower lobe pneumonia. Was started on Azithromycin, Omnicef, prednisone, an inhaler, and cough syrup. Per her last visit she stated she never got the prednisone. Completed the Azithromycin the day of her appointment (03/08/24). Took a home COVID-19 test on 03/03/24 and it was negative. Negative for influenza A & B on 03/08/24. She was switched to Doxycycline from Omnicef and was started on Prednisone on 03/08/24 due to ongoing and worsening symptoms. States she has a dose or two left of the doxycycline and a few days remaining of the prednisone. Still has a harsh cough. Denies fevers, chills, or shortness of breath. When reviewing her CXR from the ER it did not show any infiltrates, effusions, or pneumothorax. Results at the end of the note. Review of Systems Constitutional: Negative for chills and fever. HENT: Positive for congestion. Respiratory: Positive for shortness of breath. Negative for wheezing. Cardiovascular: Negative for chest pain. Vitals: 03/15/24 1328 03/15/24 1344 BP: 128/76 Pulse: 92 Temp: 36.9 C (98.4 F) SpO2: 95% Weight: 172 lb 6.4 oz (78.2 kg) Height: 5' 4.5 (1.638 m) Body mass index is 29.14 kg/m . Physical Exam Constitutional: General: She is not in acute distress. Appearance: She is not ill-appearing or diaphoretic. Cardiovascular: Rate and Rhythm: Normal rate and regular rhythm. Heart sounds: Normal heart sounds. No murmur heard. No friction rub. Pulmonary: Effort: Pulmonary effort is normal. Breath sounds: Normal breath sounds. No wheezing, rhonchi or rales. Musculoskeletal: Cervical back: Neck supple. Lymphadenopathy: Cervical: No cervical adenopathy. Skin: General: Skin is warm and dry. Coloration: Skin is not pale. Findings: No erythema or rash. Neurological: Mental Status: She is alert and oriented to person, place, and time. Psychiatric: Mood and Affect: Mood normal. Behavior: Behavior normal. Thought Content: Thought content normal. Judgment: Judgment normal. Imaging: Imaging Results - XR Chest 1 View (03/03/2024 7:25 PM EDT) Narrative 03/03/2024 8:37 PM EDT EXAMINATION: X ray chest PA/AP HISTORY: Cough COMPARISON: None TECHNIQUE: Chest x-ray PA view portable. FINDINGS: Clear lungs bilaterally. No acute pulmonary infiltrates. Cardiac shadow within normal. Normal hilar shadows. Central mediastinum. No pleural effusions or pneumothorax. Imaging Results - XR Chest 1 View (03/03/2024 7:25 PM EDT) Procedure Note Sukhjinder Estrella MD - 03/03/2024 EXAMINATION: X ray chest PA/AP HISTORY: Cough COMPARISON: None TECHNIQUE: Chest x-ray PA view portable. FINDINGS: Clear lungs bilaterally. No acute pulmonary infiltrates. Cardiac shadow within normal. Normal hilar shadows. Central mediastinum. No pleural effusions or pneumothorax. IMPRESSION: No evidence of acute cardiopulmonary process. An electronic signature was used to authenticate this note. GWENDOLYN Vences CNP 03/15/2024 1:45 PM documented in this encounter [facility] 03-13-2024 History of Present illness Narrative [facility] [address] [facility] [id number] Dept: [phone] Dept Loc: [phone] Visit type: Established : 1995 Chief Complaint: Return follow up History of Present Illness: Xiomara Green is a 28 yo lady first seen spring 2022 in her 3rd trimester of d/t dizziness and pre-syncope. The pt had longstanding iron deficiency anemia, Hgb in July 10.3 gm/dl. 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 She had not experienced true LOC, and I could not elicit h/o vagal events. Symptoms were generally noted in the third trimester, and had not been experienced with previous baby. The pt c/o dizziness and near syncopal sensation with changes in position. She had noted problems with upright position, c/o tingling, tunnel vision, nausea, and has to sit. No palpitations with episodes. Not vertiginous dizziness, more lightheaded. Duration was minutes for recovery. Echo 2022 noted EF 55%, no WMA; normal R side, no valve disease. The pt delivered via 10/10/2022, but called [facility] on 10/13 with c/o lightheadedness, nausea, headache, abdominal/pelvic pain and urinary frequency. Temp was 99.5. Hgb was 8.7 g/dL; platelet and white count normal; low calcium, low albumin. Normal renal function. [facility] suggested normal post course, no intervention. After delivery, she continued to note SOB, palps, and dizziness. Ambulatory stress followed: 89% MPHR, 9.3 METs, normal EKG, no arrhythmias, normal HR and BP response, normal HRR. She continued to have extensive ++ ROS. In the interim she had gotten an opinion from another human intelligence, who recommended 25 mg metoprolol, and then returned here to review it with me = standard and benign therapy. Her PCP ordered a prolonged monitor early 2023: totally normal with avg HR 80/min and isolated ectopy: no arrhythmia. CTA of the coronaries suggested, d/t normal stress test and unrelenting CP - she would not acquiesce to pre test BB. She returned in February 2024 with CP, dizziness, near syncope, palpitations. Apparently neuro requested TTT at , done recently Feb 10, 2024; at [facility]. During testing she had recalled lightheadedness, and diaphoresis, no LOC. Was not given any info on HR and BP results. At the visit mid Feb 2024, Ms Delgado c/o chest discomfort, b/c she forgets to breathe. This occurs while driving or doing other focused activity, like over-concentration. Palps have continued every once in awhile - not daily - with or without exertion, duration not long - less than one minute. She had stopped the metoprolol d/t fatigue. She reported BP was declining very badly - 90/50 mm Hg that she can recall. The pt said that BB use did not have much impact on the HR overall. States that while standing, HR would escalate to 150's. Note that I have failed to delineate any concerning pathology thus far. Results returned from US TTT: ... 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 Again, the BB would be rx of choice. I have nothing, she was not hypotensive. States she is tired. Comes with both children. States no actual LOC, but recurrent events of everything just goes black. I have failed to find a therapy or actual etiology. [facility] testing suggests she has POTS, which is normally approached with the BB. States she is SOB, but just getting over pneumonia. Past Medical History: Past Medical History: Diagnosis Date Fibrocystic breast Heart murmur at Hypoglycemia Ovarian cyst Past Surgical History No past surgical history on file. Family History Family History Problem Relation Name Age of Onset No Known Problems Father High Blood Pressure Mother Social History Social History Tobacco Use Smoking status: Every Day Current packs/day: 0.00 Average packs/day: 0.5 packs/day for 9.0 years (4.5 ttl pk-yrs) Types: Cigarettes Start date: 06/2014 Last attempt to quit: 06/2023 Years since quittin.7 Smokeless tobacco: Never Vaping Use Vaping status: Every Day Substances: Nicotine Devices: Disposable Substance Use Topics Alcohol use: Not Currently Alcohol/week: 0.0 standard drinks of alcohol Drug use: No Allergies: No Known Allergies Medications: Current Outpatient Medications: Acetaminophen (TYLENOL 8 HOUR PO), Take by mouth., Disp: , Rfl: albuterol 108 (90 Base) MCG/ACT inhaler, Inhale 2 puffs every 6 hours as needed., Disp: , Rfl: viukomnhlylnuvk-stxffzkgctevqdz-HL 30-2-10 MG/5ML syrup, Take 5 mL by mouth as needed., Disp: , Rfl: doxycycline (Vibramycin) 100 MG capsule, Take 1 capsule (100 mg) by mouth 2 times daily for 7 days. Take with at least 8 ounces (large glass) of water, do not lie down for 30 minutes after, Disp: 14 capsule, Rfl: 0 fremanezumab (Ajovy) 225 MG/1.5ML auto-injector, Inject 1 Pen (225 mg) under the skin every 30 (thirty) days., Disp: 1.68 mL, Rfl: 3 hydrOXYzine HCl (Atarax) 25 MG tablet, Take 1 tablet (25 mg) by mouth Nightly as needed (sleep)., Disp: 30 tablet, Rfl: 0 [START ON 03/16/2024] midodrine (Proamatine) 2.5 MG tablet, Take 1 tablet (2.5 mg) by mouth 3 times daily. Do not start before March 16, 2024., Disp: 90 tablet, Rfl: 3 predniSONE (Deltasone) 20 MG tablet, Take 3 tablets daily for 5 days, then 2 tablets daily for 3 days, then 1 tablet daily for 2 days., Disp: 23 tablet, Rfl: 0 Rimegepant Sulfate (Nurtec) 75 MG tablet dispersible, Take 1 tablet (75 mg) by mouth Daily as needed (migraine)., Disp: 8 tablet, Rfl: 3 Review of Systems: Review of Systems Constitutional: Positive for diaphoresis and fatigue (depends on days). Negative for activity change, chills and fever. HENT: Negative for nosebleeds. Eyes: Positive for visual disturbance (sees black when she feels presyncopal; blurry). Respiratory: Positive for shortness of breath (with stairs; enough to cause to stop to recover) and wheezing (with stairs). Negative for apnea, cough and chest tightness. Cardiovascular: Positive for chest pain (occasional) and palpitations (occasional). Negative for leg swelling. In bed; one pillow; no PND; no RF/ SF; no activity limits in youth; no routine dental prophylaxis; no murmur Gastrointestinal: Negative for abdominal distention, abdominal pain, blood in stool, diarrhea, nausea and vomiting. Endocrine: Negative for cold intolerance and heat intolerance. Genitourinary: Negative for hematuria. Musculoskeletal: Positive for gait problem (with dizziness; no falls). Negative for arthralgias and myalgias. Skin: Negative for color change. Allergic/Immunologic: Positive for environmental allergies (nothing OTC). Neurological: Positive for dizziness (with standing or position changes), syncope (feels presyncopal at times) and headaches. Negative for weakness and light-headedness. Hematological: Does not bruise/bleed easily. No blood tx; no DVT, no PE; no miscarraiges Psychiatric/Behavioral: Positive for sleep disturbance (varies; takes Atarax as needed for sleep). Negative for dysphoric mood. The patient is not nervous/anxious. Physical Examination: Vitals: Vitals: 03/13/24 1320 BP: 126/76 BP Location: Left arm Patient Position: Sitting BP Cuff Size: Adult Pulse: 96 SpO2: 96% Weight: 169 lb 12.8 oz (77 kg) Height: 5' 4.5 (1.638 m) Body mass index is 28.7 kg/m . Physical Exam Vitals and nursing note reviewed. Constitutional: Appearance: Normal appearance. She is not ill-appearing. Comments: Appears clearly fatigued, both little ones accompany her today, not tachy Neck: Vascular: No carotid bruit. Comments: ++ jugular venous hum Cardiovascular: Rate and Rhythm: Normal rate and regular rhythm. Heart sounds: No murmur (no murmur today, which I had heard last visit, implying simple flow murmur) heard. No friction rub. No gallop. Comments: 102/64 mm HG L arm sitting Pulmonary: Effort: Pulmonary effort is normal. No respiratory distress. Breath sounds: Normal breath sounds. No stridor. No wheezing, rhonchi or rales. Skin: General: Skin is warm. Coloration: Skin is not pale. Neurological: Mental Status: She is alert. Psychiatric: Mood and Affect: Mood normal. Behavior: Behavior normal. Thought Content: Thought content normal. Laboratory Tests: Lab Results Component Value Date WBC 7.9 02/15/2024 HGB 13.7 02/15/2024 HCT 40.2 02/15/2024 MCV 89.7 02/15/2024 PLT 200 02/15/2024 Lab Results Component Value Date GLUCOSE 87 02/15/2024 CALCIUM 9.5 02/15/2024 NA 138 02/05/2022 K 4.2 02/05/2022 CO2 27 02/15/2024 CL 107 02/05/2022 BUN 8 02/15/2024 CREATININE 0.55 02/15/2024 @LASTCMP@ Lab Results Component Value Date CHOL 158 02/05/2022 Lab Results Component Value Date TRIG 96 02/05/2022 Lab Results Component Value Date HDL 38 (L) 02/05/2022 No results found for: LDLCALC No results found for: BNP Cardiac Tests: ECG: September 2023; NSR; RSR V1, considered normal; anterior infarct pattern August 2022; sinus tach; NSST-T wave changes Last Echo: October 2022; [facility], EF 55%, no WMA; no valve disease Last stress test: December 2022; 89% MPHR, 9.3 METs, normal EKG, no arrhythmias, normal HR and BP response, normal HRR. Last cardiac catheterization: NA Assessment and Plan: 1. Idiopathic hypotension 2. Other fatigue 3. Pure hypercholesterolemia TTT from reported as consistent with neuropathic POTS. Normally, we go with fluids, support hose and BB - she seems unable to tolerate any of this Midodrine rx sent in, but she was told to wait until mid Nov to initiate per neurology. I thought I had ultimately empirically written from the midodrine, but indeed neuro did so. I really don't have much to offer. If the midodrine fails, we usually consider dcoxidopa, but would defer this to neuro Return in 10-12 months. She wants to know work restrictions. From my standpoint, there is really no major physical limitation. documented in this encounter [facility] 03-09-2024 History of Present illness Narrative 03/09/2024 CC Headaches Patient ID and HPI Xiomara Delgado is a 28 y.o. Rt handed female with Past medical history of neurogenic POTS with small fiber neuropathy, chronic migraines, hypoglycemia, iron deficiency, maxillary sinusitis, migraines, tobacco abuse who presents to neurology office for follow-up, last seen January 2024 Initial evaluation: September 2023 The patient states that her headaches started when she/he was in high school. He have an injury in high school when she went to [employer] and it hit her in the head. Migraines have not changed in characteristics. Has different kinds of headaches. The patient was diagnosed with 2 different kinds of headaches including occipital neuralgia and chronic migraines. In regards to sudden onset headaches, CT angiogram was done which did not show any aneurysm. Metoprolol was increased from 25 mg to 50 mg. Rizatriptan caused some chest tightness and was switched to sumatriptan. December 2023 still having significant number of headaches and increasing metoprolol caused low blood pressure. She was started on Topamax. Also complained of other episodes which she has had since she was young but happened more when she was with a second child a few years ago, feels like a hay to the head and everything goes black without confusion or LOC no palpitations, shortness of breath or chest pain. Metoprolol did not help and happens about few times a month and last for few seconds. Happens when she gets up too quickly or sometimes when she stands for long period of time. Testing was ordered for autonomic dysfunction at [facility]. January 2024, started on Nurtec Interval hx: Autonomic testing: Heart rate response to deep breathing is normal via the mean heart rate range and the E:I ratio (1.26). Heart rate response to the Valsalva Maneuver (VM), as assessed by the Valsalva Ratio (VR), is normal as are the blood pressure responses to phase II and phase IV of the maneuver. During 10 minutes of 70 degrees head-up tilt, heart rate response was exaggerated but blood pressure (BP) responses were normal. The patient experienced nausea and shortness of breath. QSART responses at the foot and distal leg are low but the responses at the proximal leg and forearm are normal. This an abnormal cardiovascular autonomic test panel, due the presence of a symptomatic accentuated orthostatic tachycardia, consistent with the diagnosis of Postural Orthostatic Tachycardia Syndrome (POTS). There is no evidence of a significant cardiovagal or cardiovascular adrenergic abnormality on the cardioautonomic reflex tests. Specifically, there is no evidence of orthostatic hypotension. In addition, the QSART findings are consistent with a postganglionic sympathetic sudomotor abnormality like that seen in autonomic/small fiber neuropathy. Headache 15 headache days No changes with Topamax Nurtec: Stops headache 2-4 hours PMHx: has a past medical history of Fibrocystic breast, Heart murmur, Hypoglycemia, and Ovarian cyst. 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 Aura: No Headache description: Holo cranial, throbbing Intensity: 5-10/10 Duration of symptoms: up to 2 days Frequency of headaches: 16-18 total migraine days with 1-2 times a month severe Associated symptoms: photophobia, phonophobia, osmophobia, fatigue, nausea, vomiting, irritability Exacerbating factors: Moderate activity, stress, Alleviating factors: Improved with rest or sleep, dim lighting Things done when pt gets a headache: tylenol 10 days a month Triggers: None Association with menses: No Visual symptoms: Blurry vision Type: Chronic Migraine without aura 2. Left sided occipital pressure, multiple times a day, multiple times a week, lasts for a few seconds 3. Stabbing electric headache, brief, no triggers, any part of the head and radiating to multiple parts, 1-2 times a month Red flags: sudden onset, tinnitus, No focal neurological symptoms, Non positional or precipitation by valsalva, No systemic signs, Does not wake up from sleep Change in headaches characteristic: No Ophthalmology exam: 2 years ago ER visit/missed days at work: 0 Imaging and Pertinent Testing CT angiogram head and neck October 2023 per my independent review does not show any acute intracranial abnormalities, no large aneurysms Past Therapies for Headache Preventive Rx Details Abortive Rx Details TCAs: Elavil Did not feel right with it NSAIDs: Ibuprofen Naproxen Acetaminophen SSRI/SNRI: Oral Triptans: Rizatriptan Sumatriptan Side effects Does not work AEDs: Topamax No improvement IN or SC Triptans: BP: Metoprolol Higher dose of metoprolol caused hypotension Antiemetics: Botox: Gepants: Nurtec Stops headaches in 2-4 hours CGRP Mabs: Devices: Antipsychotics: Opioids: Gepants: Ditans: Other: Other: Cycle Breaker: Never used Mini-prophylaxis: Never used Inpatient: Never THERAPIES Physical therapy / OMT - never Chiropractic Manipulation - never Biofeedback / Accupuncture - never Current visit Current preventive medication: Topamax Current abortive medication: Nurtec Frequency / Severity of attacks: More than 15 headache days Additional narrative: as per HPI Caffeine Intake: 1 large janiya coffee Hydration: not well Exercise: No regular exercise routine Sleep hygiene: Follows regular bedtime and waketime. No shiftwork. Sexually active: Yes; Control: IUD REVIEW OF SYSTEMS Complete ROS was performed and is negative except as documented above. ALLERGIES No Known Allergies CURRENT MEDICATIONS Reviewed as per EHR VITAL SIGNS: BP 122/68 (BP Location: Right arm, Patient Position: Sitting, BP Cuff Size: Adult) Pulse 81 Temp 36.4 C (97.5 F) (Temporal) Ht 5' 4.5 (1.638 m) Wt 171 lb 6.4 oz (77.7 kg) BMI 28.97 kg/m GENERAL PHYSICAL EXAMINATION: General: No apparent distress Psychiatric: Appropriate mood HEENT: Normocephalic TMJ Exam: No crepitus or popping Cardiovascular: Regular rate Respiratory: Nonlabored breathing Skin: No rash on exposed skin Neurologic: As below NEUROLOGICAL EXAMINATION: Mental status: Alert and oriented x 3, Normal speech without aphasia or dysarthria, Normal attention, concentration, grossly normal recent and remote memory, fund of knowledge is consistent with education. Cranial nerves: Pupils equal, round, reactive to light. Extraocular movements intact. Visual yoon are grossly full. Fundoscopy reveals no papilledema. Face symmetric and with intact facial sensation. Hearing is normal. Palate elevates bilaterally. Tongue is midline. Shoulder shrug is normal bilaterally. Motor: 5/5 in all four extremities. Sensory: Intact to light touch in all four extremities. Reflexes: 2+ in biceps and patella bilaterally. Coordination: Jfrovv-oa-onqa intact bilaterally; Ebes-kwuv-ofzc intact bilaterally. Gait: Gait and station are normal COUNSELING We reviewed migraine lifestyle factors including appropriate hydration and nutritional factors, stress reduction, sleep hygiene, trigger avoidance, caffeine avoidance, as well as appropriate use of abortive / prophylactic medications and cycle breakers. We discussed the specific medications prescribed, associated possible side effects, and anticipated length of time to improvement which, at a minimum, would be 3-4 weeks. ADDITIONAL PATIENT INSTRUCTIONS: Chart headaches and abortive medication use. Attention to hydration, frequent small meals, exercise, self-care. Call if using oral abortive treatments more than 2-3/week on average Call if ER visits or missing work or school due to headaches. ASSESSMENT: Xiomara Delgado is a 28 y.o. female presenting with Past medical history of neurogenic POTS with small fiber neuropathy, chronic migraines, hypoglycemia, iron deficiency, maxillary sinusitis, migraines, tobacco abuse who presents to neurology office for follow-up, last seen January 2024 Xiomara was seen today for follow-up. Diagnoses and all orders for this visit: Chronic migraine without aura without status migrainosus, not intractable (Primary) - fremanezumab (Ajovy) 225 MG/1.5ML auto-injector; Inject 1 Pen (225 mg) under the skin every 30 (thirty) days. POTS (postural orthostatic tachycardia syndrome) - midodrine (Proamatine) 2.5 MG tablet; Take 1 tablet (2.5 mg) by mouth 3 times daily. Do not start before March 16, 2024. PLAN: [facility] has started to work current as needed basis. Unfortunately the patient has tried Topamax, metoprolol and Elavil and has not worked for her chronic migraines. We will start her on Ajovy and give her a sample in the office today. For her POTS, we will start her on midodrine, has tried metoprolol which did not work for her. She will start this 1 week after she has taken the Ajovy She will send us paperwork to fill, unfortunately cannot clear her fully given her job FOLLOW UP No follow-ups on file. Return to office in 4 months Omar Gunn MD Please note: This note was dictated but not read. Notes are transcribed using voice recognition software. Because of this technology there are often unintended grammatical, spelling, and other hot mill roller errors which should be disregarded. Assisted patient with Ajovy injection in office today. Injected in right upper abdomen. Tolerated well. Assisted out of office with no complaints. [id number]- [id number] Exp-October 2024 documented in this encounter [facility] 03-09-2024 Telephone encounter Note Will review at follow up 03/13/24. [facility] 03-09-2024 Miscellaneous Notes Will review at follow up 03/13/24. Results are in care everywhere. Pt called to follow up on if office has rec'd tilt table results yet. I advised pt that I checked system and requested from med records. Results are not yet available. She said she did contact ordering doctor for results, but have not yet heard back from them. documented in this encounter [facility] 03-08-2024 History of Present illness Narrative Images from the original note were not included. 03/08/2024 Xiomara Delgado (: 1995) is a 28 y.o. female , Established patient, here for evaluation of the following chief complaint(s): ER Follow-up (Was seen in the ER on 03/03 diagnosed with PNA in left lung. States she still feels like she got hit by a bus, and is still having a cough and congestion. States yesterday she was fighting a fever of 102. Did not take tylenol or ibuprofen for fever. ) ASSESSMENT/PLAN: 1. Upper respiratory tract infection, unspecified type - predniSONE (Deltasone) 20 MG tablet; Take 3 tablets daily for 5 days, then 2 tablets daily for 3 days, then 1 tablet daily for 2 days., Normal - doxycycline (Vibramycin) 100 MG capsule; Take 1 capsule (100 mg) by mouth 2 times daily for 7 days. Take with at least 8 ounces (large glass) of water, do not lie down for 30 minutes after, Starting Wed03/08/2024, Until Wed03/15/2024, Normal - Will switch to a different antibiotic and start her on a tapering prednisone. - Discussed signs and symptoms warranting immediate attention- verbalized understanding. - Will do a close follow up in 1 week. 2. Wheezing - predniSONE (Deltasone) 20 MG tablet; Take 3 tablets daily for 5 days, then 2 tablets daily for 3 days, then 1 tablet daily for 2 days., Normal - Continue inhaler as prescribed. 3. Acute cough - AMB POC RAPID INFLUENZA DNA/RNA - Negative for influenza A and B. 4. Fever, unspecified fever cause - AMB POC RAPID INFLUENZA DNA/RNA - Negative for influenza A and B. Follow up in about 1 week (around 03/15/2024) for follow up on URI. SUBJECTIVE/OBJECTIVE: HELENE Trujillo presents today for follow up from an ER visit on 03/03/24 due to a cough and not feeling well. She was diagnosed with left lower lobe pneumonia. Was started on Azithromycin, Omnicef, prednisone, an inhaler, and cough syrup. States she never got the prednisone. Completed the Azithromycin today. Took a home COVID-19 test on 03/03/24 and it was negative. Is not vaccinated for influenza. Feels she was getting better but symptoms started to get worse yesterday. Woke up with a fever of 102 F. Denies history of asthma or COPD. When reviewing her CXR from the ER it did not show any infiltrates, effusions, or pneumothorax. Results at the end of the note. Review of Systems Constitutional: Positive for chills and fever. HENT: Positive for sore throat. Negative for congestion, ear discharge, ear pain, rhinorrhea, sinus pressure and sinus pain. Respiratory: Positive for cough, chest tightness, shortness of breath and wheezing. Cardiovascular: Negative for chest pain. Gastrointestinal: Negative for abdominal distention, abdominal pain, nausea and vomiting. Vitals: 03/08/24 1318 BP: 136/82 Pulse: 86 Temp: 37.9 C (100.2 F) SpO2: 97% Weight: 170 lb 12.8 oz (77.5 kg) Height: 5' 9 (1.753 m) Body mass index is 25.22 kg/m . Physical Exam Constitutional: General: She is not in acute distress. Appearance: She is ill-appearing. She is not diaphoretic. HENT: Head: Normocephalic and atraumatic. Right Ear: Tympanic membrane, ear canal and external ear normal. Left Ear: Tympanic membrane, ear canal and external ear normal. Nose: Nose normal. No congestion or rhinorrhea. Mouth/Throat: Mouth: Mucous membranes are moist. Pharynx: Oropharynx is clear. No oropharyngeal exudate or posterior oropharyngeal erythema. Cardiovascular: Rate and Rhythm: Normal rate and regular rhythm. Heart sounds: Normal heart sounds. No murmur heard. No friction rub. Pulmonary: Effort: Pulmonary effort is normal. No respiratory distress. Breath sounds: Wheezing (bilateral upper lobes) present. No rhonchi or rales. Musculoskeletal: Cervical back: Neck supple. Lymphadenopathy: Cervical: No cervical adenopathy. Skin: General: Skin is warm and dry. Coloration: Skin is pale. Findings: No erythema or rash. Neurological: Mental Status: She is alert and oriented to person, place, and time. Psychiatric: Mood and Affect: Mood normal. Behavior: Behavior normal. Thought Content: Thought content normal. Judgment: Judgment normal. Results: 03/03/2024 8:37 PM EDT No evidence of acute cardiopulmonary process. Workstation ID: [id number] Imaging Results - XR Chest 1 View (03/03/2024 7:25 PM EDT) Narrative 03/03/2024 8:37 PM EDT EXAMINATION: X ray chest PA/AP HISTORY: Cough COMPARISON: None TECHNIQUE: Chest x-ray PA view portable. FINDINGS: Clear lungs bilaterally. No acute pulmonary infiltrates. Cardiac shadow within normal. Normal hilar shadows. Central mediastinum. No pleural effusions or pneumothorax. Imaging Results - XR Chest 1 View (03/03/2024 7:25 PM EDT) Procedure Note Sukhjinder Estrella MD - 03/03/2024 EXAMINATION: X ray chest PA/AP HISTORY: Cough COMPARISON: None TECHNIQUE: Chest x-ray PA view portable. FINDINGS: Clear lungs bilaterally. No acute pulmonary infiltrates. Cardiac shadow within normal. Normal hilar shadows. Central mediastinum. No pleural effusions or pneumothorax. IMPRESSION: No evidence of acute cardiopulmonary process. An electronic signature was used to authenticate this note. GWENDOLYN Vences CNP 03/08/2024 2:01 PM Patient verified by last name and . documented in this encounter [facility] 03-08-2024 History of Present illness Narrative Images from the original note were not included. 03/08/2024 Xiomara Delgado (: 1995) is a 28 y.o. female , Established patient, here for evaluation of the following chief complaint(s): ER Follow-up (Was seen in the ER on 03/03 diagnosed with PNA in left lung. States she still feels like she got hit by a bus, and is still having a cough and congestion. States yesterday she was fighting a fever of 102. Did not take tylenol or ibuprofen for fever. ) ASSESSMENT/PLAN: 1. Upper respiratory tract infection, unspecified type - predniSONE (Deltasone) 20 MG tablet; Take 3 tablets daily for 5 days, then 2 tablets daily for 3 days, then 1 tablet daily for 2 days., Normal - doxycycline (Vibramycin) 100 MG capsule; Take 1 capsule (100 mg) by mouth 2 times daily for 7 days. Take with at least 8 ounces (large glass) of water, do not lie down for 30 minutes after, Starting Wed03/08/2024, Until Wed03/15/2024, Normal - Will switch to a different antibiotic and start her on a tapering prednisone. - Discussed signs and symptoms warranting immediate attention- verbalized understanding. - Will do a close follow up in 1 week. 2. Wheezing - predniSONE (Deltasone) 20 MG tablet; Take 3 tablets daily for 5 days, then 2 tablets daily for 3 days, then 1 tablet daily for 2 days., Normal - Continue inhaler as prescribed. 3. Acute cough - AMB POC RAPID INFLUENZA DNA/RNA - Negative for influenza A and B. 4. Fever, unspecified fever cause - AMB POC RAPID INFLUENZA DNA/RNA - Negative for influenza A and B. Follow up in about 1 week (around 03/15/2024) for follow up on URI. SUBJECTIVE/OBJECTIVE: HELENE Trujillo presents today for follow up from an ER visit on 03/03/24 due to a cough and not feeling well. She was diagnosed with left lower lobe pneumonia. Was started on Azithromycin, Omnicef, prednisone, an inhaler, and cough syrup. States she never got the prednisone. Completed the Azithromycin today. Took a home COVID-19 test on 03/03/24 and it was negative. Is not vaccinated for influenza. Feels she was getting better but symptoms started to get worse yesterday. Woke up with a fever of 102 F. Denies history of asthma or COPD. When reviewing her CXR from the ER it did not show any infiltrates, effusions, or pneumothorax. Results at the end of the note. Review of Systems Constitutional: Positive for chills and fever. HENT: Positive for sore throat. Negative for congestion, ear discharge, ear pain, rhinorrhea, sinus pressure and sinus pain. Respiratory: Positive for cough, chest tightness, shortness of breath and wheezing. Cardiovascular: Negative for chest pain. Gastrointestinal: Negative for abdominal distention, abdominal pain, nausea and vomiting. Vitals: 03/08/24 1318 BP: 136/82 Pulse: 86 Temp: 37.9 C (100.2 F) SpO2: 97% Weight: 170 lb 12.8 oz (77.5 kg) Height: 5' 9 (1.753 m) Body mass index is 25.22 kg/m . Physical Exam Constitutional: General: She is not in acute distress. Appearance: She is ill-appearing. She is not diaphoretic. HENT: Head: Normocephalic and atraumatic. Right Ear: Tympanic membrane, ear canal and external ear normal. Left Ear: Tympanic membrane, ear canal and external ear normal. Nose: Nose normal. No congestion or rhinorrhea. Mouth/Throat: Mouth: Mucous membranes are moist. Pharynx: Oropharynx is clear. No oropharyngeal exudate or posterior oropharyngeal erythema. Cardiovascular: Rate and Rhythm: Normal rate and regular rhythm. Heart sounds: Normal heart sounds. No murmur heard. No friction rub. Pulmonary: Effort: Pulmonary effort is normal. No respiratory distress. Breath sounds: Wheezing (bilateral upper lobes) present. No rhonchi or rales. Musculoskeletal: Cervical back: Neck supple. Lymphadenopathy: Cervical: No cervical adenopathy. Skin: General: Skin is warm and dry. Coloration: Skin is pale. Findings: No erythema or rash. Neurological: Mental Status: She is alert and oriented to person, place, and time. Psychiatric: Mood and Affect: Mood normal. Behavior: Behavior normal. Thought Content: Thought content normal. Judgment: Judgment normal. Results: 03/03/2024 8:37 PM EDT No evidence of acute cardiopulmonary process. Workstation ID: [id number] Imaging Results - XR Chest 1 View (03/03/2024 7:25 PM EDT) Narrative 03/03/2024 8:37 PM EDT EXAMINATION: X ray chest PA/AP HISTORY: Cough COMPARISON: None TECHNIQUE: Chest x-ray PA view portable. FINDINGS: Clear lungs bilaterally. No acute pulmonary infiltrates. Cardiac shadow within normal. Normal hilar shadows. Central mediastinum. No pleural effusions or pneumothorax. Imaging Results - XR Chest 1 View (03/03/2024 7:25 PM EDT) Procedure Note Sukhjinder Estrella MD - 03/03/2024 EXAMINATION: X ray chest PA/AP HISTORY: Cough COMPARISON: None TECHNIQUE: Chest x-ray PA view portable. FINDINGS: Clear lungs bilaterally. No acute pulmonary infiltrates. Cardiac shadow within normal. Normal hilar shadows. Central mediastinum. No pleural effusions or pneumothorax. IMPRESSION: No evidence of acute cardiopulmonary process. An electronic signature was used to authenticate this note. GWENDOLYN Vences CNP 03/08/2024 2:01 PM Patient verified by last name and . documented in this encounter [facility] 03-08-2024 Miscellaneous Notes Addended by: JUAN IBARRA on: 03/09/2024 08:38 AM Modules accepted: Level of Service documented in this encounter [facility] 03-08-2024 Note Addended by: JUAN IBARRA on: 03/09/2024 08:38 AM Modules accepted: Level of Service [facility] 03-06-2024 Telephone encounter Note Results are in care everywhere. [facility] 03-06-2024 Miscellaneous Notes Results are in care everywhere. Pt called to follow up on if office has rec'd tilt table results yet. I advised pt that I checked system and requested from med records. Results are not yet available. She said she did contact ordering doctor for results, but have not yet heard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 (Exact Date), IUD Age at Menarche: Age at First : Age at Menopause: [employer] History Comments: Sexual Activity: Yes; Male Contraception: I.U.D. PAST MEDICAL HISTORY Diagnosis Date Anemia during in third trimester 06/26/2021 Depression depression Hypoglycemia diagnosed age 9 depression PAST SURGICAL HISTORY Procedure Laterality Date INSERTION OF IUD 11/30/2022 FAMILY HISTORY Problem Relation Age of Onset Hypertension Mother No Known Problems Father No Known Problems Sister No Known Problems Sister No Known Problems Brother No Known Problems Maternal Grandmother Arthritis Paternal Grandmother Hypertension Paternal Grandfather No Known Problems Daughter SOCIAL HISTORY Social History Tobacco Use Smoking status: Some Days Current packs/day: 1.00 Average packs/day: 1 pack/day for 10.0 years (10.0 ttl pk-yrs) Types: Cigarettes Smokeless tobacco: Never Tobacco comments: 1-2 cigarettes a day Vaping Use Vaping status: Some Days Last attempt to quit: 02/25/2022 Substances: Nicotine, Flavoring Substance Use Topics Alcohol use: Not Currently Comment: on special occasions Drug use: No REVIEW OF SYSTEMS Abdomen: No abdominal pain, nausea, vomiting, diarrhea, or constipation. No bloating, early satiety, indigestion, or increased flatulence. Bladder: No dysuria, gross hematuria, urinary frequency, urinary urgency, or incontinence. Breast: No breast lumps, nipple d/c, overlying skin changes, redness or skin retraction. Allergies and current medication updated:Yes SENSITIVE EXAM: The sensitive examination was discussed with the Patient or Patient's Authorized Tape Edge Machine Operator. As applicable, any other physician, advance practice provider, medical student, or other health professional student that will be observing or involved in the sensitive examination for educational or training purposes was discussed with the Patient or Authorized Tape Edge Machine Operator. The Patient or Authorized Tape Edge Machine Operator has agreed to proceed with the sensitive examination. (Sensitive examination includes inspection and/or palpation of the breasts, pelvis, prostate and anorectal regions). EXAM: BP 102/64 Ht 5' 4.75 (1.65m) Wt 167 lb (75.8kg) LMP 02/05/2024 BMI 27.99 kg/(m^2). GENERAL: pleasant, female in no apparent distress HEENT: Normocephalic and atraumatic NECK: Supple and full range of motion DERMATOLOGY: Normal and without lesions BREAST: soft, non-tender, symmetric, no dominant mass, normal nipple-areolar complex, no lymphadenopathy, no nipple discharge, and fibrocystic changes CHEST: Normal inspiratory effort ABDOMEN: soft, non-tender, and no masses PELVIC: external genitalia normal, normal Bartholin's glands, urethra, [place]'s glands, no vulvar lesions, no cervical lesions, good vaginal support, physiologic discharge present, normal appearing perineal body and perianal region, IUD strings visible BIMANUAL: uterus normal size, shape and consistency, no adnexal masses, non-tender, and no cervical motion tenderness RECTOVAGINAL: deferred. NEURO: alert and oriented x3,exam grossly non-focal EXTREMITIES: normal ASSESSMENT/PLAN: 1) Health maintenance: Pap/HPV up to date. 2) Contraception: ParaGard IUD 3) STD screening: Declined STD check. 4) Follow up one year or sooner as needed Naye Sepulveda APRN.CNM documented in this encounter [facility] 01-20-2024 History of Present illness Narrative 01/20/2024 CC Headaches Patient ID and HPI Xiomara Delgado is a 28 y.o. Rt handed female with Past medical history of hypotension, chronic migraines, hypoglycemia, iron deficiency, maxillary sinusitis, migraines, tobacco abuse who presents to neurology office for follow-up, last seen December 2023 Initial evaluation: September 2023 The patient states that her headaches started when she/he was in high school. He have an injury in high school when she went to tree tipping and it hit her in the head. Migraines have not changed in characteristics. Has different kinds of headaches. The patient was diagnosed with 2 different kinds of headaches including occipital neuralgia and chronic migraines. In regards to sudden onset headaches, CT angiogram was done which did not show any aneurysm. Metoprolol was increased from 25 mg to 50 mg. Rizatriptan caused some chest tightness and was switched to sumatriptan. December 2023 still having significant number of headaches and increasing metoprolol caused low blood pressure. She was started on Topamax. Also complained of other episodes which she has had since she was young but happened more when she was with a second child a few years ago, feels like a hay to the head and everything goes black without confusion or LOC no palpitations, shortness of breath or chest pain. Metoprolol did not help and happens about few times a month and last for few seconds. Happens when she gets up too quickly or sometimes when she stands for long period of time. 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 FHx: Grand mother had MS, no hx of brain aneurysm Family History Problem Relation Name Age of Onset No Known Problems Father High Blood Pressure Mother SocHx: Lives with kids, Erum Social History Tobacco Use Smoking status: Every Day Current packs/day: 0.00 Average packs/day: 0.5 packs/day for 9.0 years (4.5 ttl pk-yrs) Types: Cigarettes Start date: 06/2014 Last attempt to quit: 06/2023 Years since quittin.6 Smokeless tobacco: Never Vaping Use Vaping status: Every Day Substances: Nicotine Devices: Disposable Substance Use Topics Alcohol use: Not Currently Alcohol/week: 0.0 standard drinks of alcohol Drug use: No : No Care Team: Patient Care Team: Jairo Garcia MD as PCP - General Headache Type and Description 1. Aura: No Headache description: Holo cranial, throbbing Intensity: 5-10/10 Duration of symptoms: up to 2 days Frequency of headaches: 16-18 total migraine days with 1-2 times a month severe Associated symptoms: photophobia, phonophobia, osmophobia, fatigue, nausea, vomiting, irritability Exacerbating factors: Moderate activity, stress, Alleviating factors: Improved with rest or sleep, dim lighting Things done when pt gets a headache: tylenol 10 days a month Triggers: None Association with menses: No Visual symptoms: Blurry vision Type: Chronic Migraine without aura 2. Left sided occipital pressure, multiple times a day, multiple times a week, lasts for a few seconds 3. Stabbing electric headache, brief, no triggers, any part of the head and radiating to multiple parts, 1-2 times a month Red flags: sudden onset, tinnitus, No focal neurological symptoms, Non positional or precipitation by valsalva, No systemic signs, Does not wake up from sleep Change in headaches characteristic: No Ophthalmology exam: 2 years ago ER visit/missed days at work: 0 Imaging and Pertinent Testing CT angiogram head and neck October 2023 per my independent review does not show any acute intracranial abnormalities, no large aneurysms Past Therapies for Headache Preventive Rx Details Abortive Rx Details TCAs: Elavil Did not feel right with it NSAIDs: Ibuprofen Naproxen Acetaminophen SSRI/SNRI: Oral Triptans: Rizatriptan Sumatriptan Side effects Does not work AEDs: Topamax Just started [place] or [place] Triptans: BP: Metoprolol Higher dose of metoprolol caused hypotension Antiemetics: Botox: Gepants: CGRP Mabs: Devices: Antipsychotics: Opioids: Gepants: Ditans: Other: Other: Cycle Breaker: Never used Mini-prophylaxis: Never used Inpatient: Never THERAPIES Physical therapy / OMT - never Chiropractic Manipulation - never Biofeedback / Accupuncture - never Current visit Current preventive medication: metoprolol, Topamax Current abortive medication: Sumatriptan Frequency / Severity of attacks: More than 15 headache days Additional narrative: as per HPI Caffeine Intake: 1 large janiya coffee Hydration: not well Exercise: No regular exercise routine Sleep hygiene: Follows regular bedtime and waketime. No shiftwork. Sexually active: Yes; Control: IUD REVIEW OF SYSTEMS Complete ROS was performed and is negative except as documented above. ALLERGIES No Known Allergies CURRENT MEDICATIONS Reviewed as per EHR VITAL SIGNS: BP 107/68 Pulse 77 Temp 37.1 C (98.7 F) (Infrared) Wt 165 lb 12.8 oz (75.2 kg) BMI 26.76 kg/m GENERAL PHYSICAL EXAMINATION: General: No apparent distress Psychiatric: Appropriate mood HEENT: Normocephalic TMJ Exam: No crepitus or popping Cardiovascular: Regular rate Respiratory: Nonlabored breathing Skin: No rash on exposed skin Neurologic: As below NEUROLOGICAL EXAMINATION: Mental status: Alert and oriented x 3, Normal speech without aphasia or dysarthria, Normal attention, concentration, grossly normal recent and remote memory, fund of knowledge is consistent with education. Cranial nerves: Pupils equal, round, reactive to light. Extraocular movements intact. Visual yoon are grossly full. Fundoscopy reveals no papilledema. Face symmetric and with intact facial sensation. Hearing is normal. Palate elevates bilaterally. Tongue is midline. Shoulder shrug is normal bilaterally. Motor: 5/5 in all four extremities. Sensory: Intact to light touch in all four extremities. Reflexes: 2+ in biceps and patella bilaterally. Coordination: Ayhglo-qb-eauc intact bilaterally; Pzza-vnvc-cpab intact bilaterally. Gait: Gait and station are normal COUNSELING We reviewed migraine lifestyle factors including appropriate hydration and nutritional factors, stress reduction, sleep hygiene, trigger avoidance, caffeine avoidance, as well as appropriate use of abortive / prophylactic medications and cycle breakers. We discussed the specific medications prescribed, associated possible side effects, and anticipated length of time to improvement which, at a minimum, would be 3-4 weeks. ADDITIONAL PATIENT INSTRUCTIONS: Chart headaches and abortive medication use. Attention to hydration, frequent small meals, exercise, self-care. Call if using oral abortive treatments more than 2-3/week on average Call if ER visits or missing work or school due to headaches. ASSESSMENT: Xiomara Delgado is a 28 y.o. female presenting with Past medical history of hypotension, chronic migraines, hypoglycemia, iron deficiency, maxillary sinusitis, migraines, tobacco abuse who presents to neurology office for follow-up, last seen December 2023 Xiomara was seen today for follow-up. Diagnoses and all orders for this visit: Chronic migraine without aura without status migrainosus, not intractable (Primary) - Rimegepant Sulfate (Nurtec) 75 MG tablet dispersible; Take 1 tablet (75 mg) by mouth Daily as needed (migraine). PLAN: Has tried 2 triptans now, we will start her on Nurtec. Just picked up her Topamax. If this does not start working within 6 weeks, she will let us know and we will start a CGRP antagonist. She has autonomic testing in March coming up. FOLLOW UP No follow-ups on file. Return to office in March Omar Gunn MD Please note: This note was dictated but not read. Notes are transcribed using voice recognition software. Because of this technology there are often unintended grammatical, spelling, and other hot mill roller errors which should be disregarded. documented in this encounter [facility] 01-19-2024 Telephone encounter Note Name of caller: Xiomara Contact phone number: [phone] Relationship to Patient: patient Provider: MD Theo Practice: Neurophysiology and General Neurology Chief Complaint/Reason for Call: Pt called in requesting a letter for her current employer due to having to call off work today because of her migraines. Pt states she was treated by her PCP on Wednesday who did write her off for the past 2 days. Pt states she was still not able to return to work today. Pt states if provider would be able to put it in her My Chart she would be able to print it off. Please advise Best time of day caller can be reached: Any Patient advised that office/PCP has 24-48 business hours to return their call: Yes [facility] 01-19-2024 Miscellaneous Notes Name of caller: Xiomara Contact phone number: [phone] Relationship to Patient: patient Provider: MD Theo Practice: Neurophysiology and General Neurology Chief Complaint/Reason for Call: Pt called in requesting a letter for her current employer due to having to call off work today because of her migraines. Pt states she was treated by her PCP on Wednesday who did write her off for the past 2 days. Pt states she was still not able to return to work today. Pt states if provider would be able to put it in her My Chart she would be able to print it off. Please advise Best time of day caller can be reached: Any Patient advised that office/PCP has 24-48 business hours to return their call: Yes documented in this encounter [facility] 01-17-2024 History of Present illness Narrative Patient was verified by name and . Images from the original note were not included. 01/17/2024 Xiomara Delgado (: 1995) is a 28 y.o. female , Established patient, here for evaluation of the following chief complaint(s): Shaking (Bilateral hands shaking over past couple of months when she cannot sleep) ASSESSMENT/PLAN: 1. Tremor of both hands - CBC auto differential - T3, free - Folate - T4, free - TSH - Comprehensive metabolic panel - Will notify of blood work results. - Discussed that symptoms appear to be related to sleep deprivation/fatigue. Will have her take Hydroxyzine as needed for sleep and see if symptoms improve with better sleep at night. 2. Difficulty sleeping - hydrOXYzine HCl (Atarax) 25 MG tablet; Take 1 tablet (25 mg) by mouth Nightly as needed (sleep)., Starting Wed01/17/2024, Normal 3. Chronic migraine without aura without status migrainosus, not intractable - topiramate (Topamax) 50 MG tablet; Take 50 mg by mouth daily., Starting Wed01/17/2024, Normal - Rx sent for small supply until she can follow back up with specialist. Follow up in 29 days (on 02/15/2024) for Next scheduled follow-up. SUBJECTIVE/OBJECTIVE: HPI - Xiomara presents today with concerns of with both of her hands shaking intermittently. States symptoms only happen when she struggles to sleep. States this happens once every month or so. Other nights it takes her longer to fall asleep but is able to fall asleep after awhile. Once she falls asleep she stays asleep. States she notices the hands shaking when she is holding something. Denies a resting tremor. States she just feels tired all of the time. Is seeing a neurologist for management of migraines and had a refill sent in for her Topiramate but the pharmacy is telling her they did not receive the RX. Requesting to have that filled today if possible. Review of Systems Constitutional: Positive for fatigue. Respiratory: Negative for shortness of breath. Cardiovascular: Negative for chest pain. Neurological: Positive for tremors and headaches. Psychiatric/Behavioral: Positive for sleep disturbance. Vitals: 01/17/24 1416 BP: 108/68 Pulse: 68 SpO2: 98% Weight: 165 lb 12.8 oz (75.2 kg) Height: 5' 6 (1.676 m) Body mass index is 26.76 kg/m . Physical Exam Constitutional: General: She is not in acute distress. Appearance: She is not ill-appearing or diaphoretic. Eyes: General: No visual field deficit. Neck: Thyroid: No thyroid mass or thyromegaly. Cardiovascular: Rate and Rhythm: Normal rate and regular rhythm. Heart sounds: Normal heart sounds. No murmur heard. No friction rub. Pulmonary: Effort: Pulmonary effort is normal. Musculoskeletal: Cervical back: Neck supple. Skin: General: Skin is warm and dry. Coloration: Skin is not pale. Findings: No erythema or rash. Neurological: Mental Status: She is alert and oriented to person, place, and time. Cranial Nerves: No dysarthria or facial asymmetry. Sensory: Sensation is intact. Motor: Motor function is intact. Coordination: Coordination is intact. Coordination normal. Nhbvjz-Griq-Evzzke Test normal. Rapid alternating movements normal. Gait: Gait is intact. Comments: No tremor/hand shaking noted for duration of office visit. Psychiatric: Mood and Affect: Mood normal. Behavior: Behavior normal. Thought Content: Thought content normal. Judgment: Judgment normal. An electronic signature was used to authenticate this note. GWENDOLYN Vences CNP 01/17/2024 2:34 PM documented in this encounter [facility] 01-17-2024 Telephone encounter Note S: Pt calling [facility] for shaking B: 3-4 months A: Pt reports intermittent shaking to her hands which is causing insomnia. Last episode was last night. Denies sx at present. R: Appt scheduled for today @ 1420 w/ [facility]. [facility]. Pt agreeable. Insurance verified. Reason for Disposition New-onset muscle jerks and unexplained and 3 or more times/day Protocols used: Muscle Jerks - Tics - [id number] [facility] 01-17-2024 Miscellaneous Notes S: Pt calling [facility] for shaking B: 3-4 months A: Pt reports intermittent shaking to her hands which is causing insomnia. Last episode was last night. Denies sx at present. R: Appt scheduled for today @ 1420 w/ [facility] [facility]. Pt agreeable. Insurance verified. Reason for Disposition New-onset muscle jerks and unexplained and 3 or more times/day Protocols used: Muscle Jerks - Tics - [id number] documented in this encounter [facility] 12-29-2023 Telephone encounter Note Name of caller: Xiomara Contact phone number: [phone] Relationship to Patient: patient Provider: MD Theo Practice: neuro Chief Complaint/Reason for Call: Xiomara is checking to see if the referral was sent to for the testing doctor wanted her to have. She has not heard from anyone. Please call patient back to advise. Or [employer] message Best time of day caller can be reached: AM Patient advised that office/PCP has 24-48 business hours to return their call: Yes [facility] 12-29-2023 Miscellaneous Notes Name of caller: Xiomara Contact phone number: [phone] Relationship to Patient: patient Provider: MD Theo Practice: neuro Chief Complaint/Reason for Call: Xiomara is checking to see if the referral was sent to for the testing doctor wanted her to have. She has not heard from anyone. Please call patient back to advise. Or MyChart message Best time of day caller can be reached: AM Patient advised that office/PCP has 24-48 business hours to return their call: Yes documented in this encounter [facility] 12-09-2023 History of Present illness Narrative 12/09/2023 CC Headaches Patient ID and HPI Xiomara Delgado is a 28 y.o. Rt handed female with Past medical history of hypotension, chronic migraines, hypoglycemia, iron deficiency, maxillary sinusitis, migraines, tobacco abuse who presents to neurology office for follow-up, last seen September 2023 Initial evaluation: September 2023 The patient states that her headaches started when she/he was in high school. He have an injury in high school when she went to tree tipping and it hit her in the head. Migraines have not changed in characteristics. Has different kinds of headaches. The patient was diagnosed with 2 different kinds of headaches including occipital neuralgia and chronic migraines. In regards to sudden onset headaches, CT angiogram was done which did not show any aneurysm. Metoprolol was increased from 25 mg to 50 mg. Rizatriptan caused some chest tightness and was switched to sumatriptan. Interval hx: 10-12 headaches a month Increase in Metoprolol caused side effects with low BP Has not taken Sumatriptan: does not take it at work Here to talk about episodes: happened few times when she was younger Happened more when she was with second kid, few years ago Everything goes black briefly , hay to the head No LOC, No confusion No palpitations, No SOB, No CP Metoprolol did not help Frequency: few times a month Duration: few seconds Happens when she stands up too quickly or sometimes when she stands for a long period of time Cut on cigarettes, but vaping now PMHx: has a past medical history of Fibrocystic breast, Heart murmur, Hypoglycemia, and Ovarian cyst. FHx: Grand mother had MS, no hx of brain aneurysm Family History Problem Relation Name Age of Onset No Known Problems Father High Blood Pressure Mother SocHx: Lives with Erum pruett Social History Tobacco Use Smoking status: Every Day Current packs/day: 0.00 Average packs/day: 0.5 packs/day for 9.0 years (4.5 ttl pk-yrs) Types: Cigarettes Start date: 06/2014 Last attempt to quit: 06/2023 Years since quittin.5 Smokeless tobacco: Never Vaping Use Vaping status: Every Day Substances: Nicotine Devices: Disposable Substance Use Topics Alcohol use: Not Currently Alcohol/week: 0.0 standard drinks of alcohol Drug use: No : No Care Team: Patient Care Team: Jairo Garcia MD as PCP - General Headache Type and Description 1. Aura: No Headache description: Holo cranial, throbbing Intensity: 5-10/10 Duration of symptoms: up to 2 days Frequency of headaches: 16-18 total migraine days with 1-2 times a month severe Associated symptoms: photophobia, phonophobia, osmophobia, fatigue, nausea, vomiting, irritability Exacerbating factors: Moderate activity, stress, Alleviating factors: Improved with rest or sleep, dim lighting Things done when pt gets a headache: tylenol 10 days a month Triggers: None Association with menses: No Visual symptoms: Blurry vision Type: Chronic Migraine without aura 2. Left sided occipital pressure, multiple times a day, multiple times a week, lasts for a few seconds 3. Stabbing electric headache, brief, no triggers, any part of the head and radiating to multiple parts, 1-2 times a month Red flags: sudden onset, tinnitus, No focal neurological symptoms, Non positional or precipitation by valsalva, No systemic signs, Does not wake up from sleep Change in headaches characteristic: No Ophthalmology exam: 2 years ago ER visit/missed days at work: 0 Imaging and Pertinent Testing CT angiogram head and neck October 2023 per my independent review does not show any acute intracranial abnormalities, no large aneurysms Past Therapies for Headache Preventive Rx Details Abortive Rx Details TCAs: Elavil Did not feel right with it NSAIDs: Ibuprofen Naproxen Acetaminophen SSRI/SNRI: Oral Triptans: Rizatriptan Side effects AEDs: IN or SC Triptans: BP: Metoprolol Higher dose of metoprolol caused hypotension Antiemetics: Botox: Gepants: CGRP Mabs: Devices: Antipsychotics: Opioids: Gepants: Ditans: Other: Other: Cycle Breaker: Never used Mini-prophylaxis: Never used Inpatient: Never THERAPIES Physical therapy / OMT - never Chiropractic Manipulation - never Biofeedback / Accupuncture - never Current visit Current preventive medication: metoprolol Current abortive medication: tylenol Frequency / Severity of attacks: 0 Additional narrative: as per HPI Caffeine Intake: 1 large janiya coffee Hydration: not well Exercise: No regular exercise routine Sleep hygiene: Follows regular bedtime and waketime. No shiftwork. Sexually active: Yes; Control: IUD REVIEW OF SYSTEMS Complete ROS was performed and is negative except as documented above. ALLERGIES No Known Allergies CURRENT MEDICATIONS Reviewed as per EHR VITAL SIGNS: BP 125/71 Pulse 85 Temp 37.1 C (98.7 F) (Infrared) Ht 5' 5 (1.651 m) Wt 166 lb 3.2 oz (75.4 kg) BMI 27.66 kg/m GENERAL PHYSICAL EXAMINATION: General: No apparent distress Psychiatric: Appropriate mood HEENT: Normocephalic TMJ Exam: No crepitus or popping Cardiovascular: Regular rate Respiratory: Nonlabored breathing Skin: No rash on exposed skin Neurologic: As below NEUROLOGICAL EXAMINATION: Mental status: Alert and oriented x 3, Normal speech without aphasia or dysarthria, Normal attention, concentration, grossly normal recent and remote memory, fund of knowledge is consistent with education. Cranial nerves: Pupils equal, round, reactive to light. Extraocular movements intact. Visual yoon are grossly full. Fundoscopy reveals no papilledema. Face symmetric and with intact facial sensation. Hearing is normal. Palate elevates bilaterally. Tongue is midline. Shoulder shrug is normal bilaterally. Motor: 5/5 in all four extremities. Sensory: Intact to light touch in all four extremities. Reflexes: 2+ in biceps and patella bilaterally. Coordination: Ynrdqx-pz-exkg intact bilaterally; Mvuy-gcyn-ycvh intact bilaterally. Gait: Gait and station are normal COUNSELING We reviewed migraine lifestyle factors including appropriate hydration and nutritional factors, stress reduction, sleep hygiene, trigger avoidance, caffeine avoidance, as well as appropriate use of abortive / prophylactic medications and cycle breakers. We discussed the specific medications prescribed, associated possible side effects, and anticipated length of time to improvement which, at a minimum, would be 3-4 weeks. ADDITIONAL PATIENT INSTRUCTIONS: Chart headaches and abortive medication use. Attention to hydration, frequent small meals, exercise, self-care. Call if using oral abortive treatments more than 2-3/week on average Call if ER visits or missing work or school due to headaches. ASSESSMENT: Xiomara Delgado is a 28 y.o. female presenting with Past medical history of hypotension, hypoglycemia, iron deficiency, maxillary sinusitis, migraines, tobacco abuse who presents to neurology office to establish care. Xiomara was seen today for follow-up. Diagnoses and all orders for this visit: Chronic migraine without aura without status migrainosus, not intractable (Primary) - topiramate (Topamax) 50 MG tablet; Take 50 mg by mouth daily. POTS (postural orthostatic tachycardia syndrome) PLAN: In terms of her migraine, increase dose of metoprolol caused worsening of her hypertension. We will start her on Topamax up titration, explained her risk factors including and not limiting to brain fog, paresthesias, kidney stones, defects. She has not tried the sumatriptan and she was instructed to do so at this time. Symptoms of lightheadedness and blacking out of the vision not necessarily neurological. Could be secondary to low blood pressure or POTS. We will send her for autonomic testing at [facility]. Unlikely to be visual aura given the region of the symptoms FOLLOW UP No follow-ups on file. Return in 3 months Omar Gunn MD Please note: This note was dictated but not read. Notes are transcribed using voice recognition software. Because of this technology there are often unintended grammatical, spelling, and other hot mill roller errors which should be disregarded. Images from the original note were not included. . Patient:Xiomara Delgado AGE: 28 y.o. Birthday:1995 Gender: Female Phone: [phone] Address:[address] [place] [address] Date:12/09/23 Diagnosis: Autonomic dysfunction Order for autonomic testing including tilt table testing and QSART Omar Gunn MD [facility] [address] [place] [address] Email: [email or web address] documented in this encounter [facility] 09-27-2023 Telephone encounter Note S: Patient spoke with [facility] nurse regarding low blood pressure B: Onset of symptoms/concern 3 days A: Patient complaining of low blood pressure from Metoprolol succinate(Toprol XL 50 MG. Last dose Wednesday and by 5:30 that evening she felt shaky and had nausea her BP dropped to 82/52. Patient has not taken Metoprolol since last dose Wednesday morning. BP is 137/83 currently. Patient states human intelligence had her on Metoprolol succinate XL 25 mg previously and it was increased to 50 mg 09/16/23 to see if it helped with her headaches. No headaches but blood pressure is dropping low. Patient states no issues with blood pressure on the 25 MG dosage. R: Dr. Gunn messaged spoke to Dr. Gunn advised patient go back to Metoprolol Succinate 25 mg daily and he will address tomorrow in office. Patient informed and verbalized understanding. Patient understands care advice. No further needs at this time. Patient instructed to call back with new or worsening symptoms. Reason for Disposition [1] Fall in systolic BP > 20 mm Hg from normal AND [2] dizzy, lightheaded, or weak Protocols used: Blood Pressure - [id number] [facility] 09-27-2023 Miscellaneous Notes S: Patient spoke with [facility] nurse regarding low blood pressure B: Onset of symptoms/concern 3 days A: Patient complaining of low blood pressure from Metoprolol succinate(Toprol XL 50 MG. Last dose Wednesday and by 5:30 that evening she felt shaky and had nausea her BP dropped to 82/52. Patient has not taken Metoprolol since last dose Wednesday morning. BP is 137/83 currently. Patient states human intelligence had her on Metoprolol succinate XL 25 mg previously and it was increased to 50 mg 09/16/23 to see if it helped with her headaches. No headaches but blood pressure is dropping low. Patient states no issues with blood pressure on the 25 MG dosage. R: Dr. Gunn messaged spoke to Dr. Gunn advised patient go back to Metoprolol Succinate 25 mg daily and he will address tomorrow in office. Patient informed and verbalized understanding. Patient understands care advice. No further needs at this time. Patient instructed to call back with new or worsening symptoms. Reason for Disposition [1] Fall in systolic BP > 20 mm Hg from normal AND [2] dizzy, lightheaded, or weak Protocols used: Blood Pressure - [id number] documented in this encounter [facility] 09-21-2023 Telephone encounter Note Pt scheduled. [facility] 09-21-2023 Miscellaneous Notes Pt scheduled. Name of caller: Xiomara Contact phone number: [phone] Relationship to Patient: patient Provider: Dr Gunn Practice: Neuro Chief Complaint/Reason for Call: Xiomara states her job need an ok to drive note from doctor, please call or MyChart patient back to advise Best time of day caller can be reached: AM Patient advised that office/PCP has 24-48 business hours to return their call: Yes documented in this encounter [facility] 09-21-2023 Telephone encounter Note Name of caller: Xiomara Contact phone number: [phone] Relationship to Patient: patient Provider: Dr Gunn Practice: Neuro Chief Complaint/Reason for Call: Xiomara states her job need an ok to drive note from doctor, please call or MyChart patient back to advise Best time of day caller can be reached: AM Patient advised that office/PCP has 24-48 business hours to return their call: Yes [facility] 09-16-2023 History of Present illness Narrative 09/16/2023 CC Headaches Patient ID and HPI Xiomara Delgado is a 27 y.o. Rt handed female with Past medical history of hypotension, hypoglycemia, iron deficiency, maxillary sinusitis, migraines, tobacco abuse who presents to neurology office to establish care. Initial evaluation: 09/16/2023 The patient states that her headaches started when she/he was in high school. He have an injury in high school when she went to tree tipping and it hit her in the head. Migraines have not changed in characteristics. Has different kinds of headaches. PMHx: has a past medical history of Fibrocystic breast, Heart murmur, Hypoglycemia, and Ovarian cyst. FHx: Grand mother had MS, no hx of brain aneurysm Family History Problem Relation Name Age of Onset No Known Problems Father High Blood Pressure Mother SocHx: Lives with kids, Erum Social History Tobacco Use Smoking status: Every Day Packs/day: 0.50 Years: 9.00 Additional pack years: 0.00 Total pack years: 4.50 Types: Cigarettes Last attempt to quit: 06/2023 Years since quittin.2 Smokeless tobacco: Never Vaping Use Vaping Use: Every day Substances: Nicotine Devices: Disposable Substance Use Topics Alcohol use: Not Currently Alcohol/week: 0.0 standard drinks of alcohol Drug use: No : No Care Team: Patient Care Team: Jairo Garcia MD as PCP - General Headache Type and Description 1. Aura: No Headache description: Holo cranial, throbbing Intensity: 5-10/10 Duration of symptoms: up to 2 days Frequency of headaches: 16-18 total migraine days with 1-2 times a month severe Associated symptoms: photophobia, phonophobia, osmophobia, fatigue, nausea, vomiting, irritability Exacerbating factors: Moderate activity, stress, Alleviating factors: Improved with rest or sleep, dim lighting Things done when pt gets a headache: tylenol 10 days a month Triggers: None Association with menses: No Visual symptoms: Blurry vision Type: Chronic Migraine without aura 2. Left sided occipital pressure, multiple times a day, multiple times a week, lasts for a few seconds 3. Stabbing electric headache, brief, no triggers, any part of the head and radiating to multiple parts, 1-2 times a month Red flags: sudden onset, tinnitus, No focal neurological symptoms, Non positional or precipitation by valsalva, No systemic signs, Does not wake up from sleep Change in headaches characteristic: No Ophthalmology exam: 2 years ago ER visit/missed days at work: 0 Imaging and Pertinent Testing No results found for this or any previous visit. Past Therapies for Headache Preventive Rx Details Abortive Rx Details TCAs: Elavil Did not feel right with it NSAIDs: Ibuprofen Naproxen Acetaminophen SSRI/SNRI: Oral Triptans: AEDs: IN or SC Triptans: BP: Metoprolol Started for heart Antiemetics: Botox: Gepants: CGRP Mabs: Devices: Antipsychotics: Opioids: Gepants: Ditans: Other: Other: Cycle Breaker: Never used Mini-prophylaxis: Never used Inpatient: Never THERAPIES Physical therapy / OMT - never Chiropractic Manipulation - never Biofeedback / Accupuncture - never Current visit Current preventive medication: metoprolol Current abortive medication: tylenol Frequency / Severity of attacks: 0 Additional narrative: as per HPI Caffeine Intake: 1 large janiya coffee Hydration: not well Exercise: No regular exercise routine Sleep hygiene: Follows regular bedtime and waketime. No shiftwork. Sexually active: Yes; Control: None REVIEW OF SYSTEMS Complete ROS was performed and is negative except as documented above. ALLERGIES No Known Allergies CURRENT MEDICATIONS Reviewed as per EHR VITAL SIGNS: BP 118/72 Pulse 78 Temp 37 C (98.6 F) (Infrared) Ht 5' 5 (1.651 m) Wt 162 lb (73.5 kg) BMI 26.96 kg/m GENERAL PHYSICAL EXAMINATION: General: No apparent distress Psychiatric: Appropriate mood HEENT: Normocephalic TMJ Exam: No crepitus or popping Cardiovascular: Regular rate Respiratory: Nonlabored breathing Skin: No rash on exposed skin Neurologic: As below NEUROLOGICAL EXAMINATION: Mental status: Alert and oriented x 3, Normal speech without aphasia or dysarthria, Normal attention, concentration, grossly normal recent and remote memory, fund of knowledge is consistent with education. Cranial nerves: Pupils equal, round, reactive to light. Extraocular movements intact. Visual yoon are grossly full. Fundoscopy reveals no papilledema. Face symmetric and with intact facial sensation. Hearing is normal. Palate elevates bilaterally. Tongue is midline. Shoulder shrug is normal bilaterally. Motor: 5/5 in all four extremities. Sensory: Intact to light touch in all four extremities. Reflexes: 2+ in biceps and patella bilaterally. Coordination: Mnbafg-ia-zipa intact bilaterally; Ptas-ejrz-unri intact bilaterally. Gait: Gait and station are normal COUNSELING We reviewed migraine lifestyle factors including appropriate hydration and nutritional factors, stress reduction, sleep hygiene, trigger avoidance, caffeine avoidance, as well as appropriate use of abortive / prophylactic medications and cycle breakers. We discussed the specific medications prescribed, associated possible side effects, and anticipated length of time to improvement which, at a minimum, would be 3-4 weeks. ADDITIONAL PATIENT INSTRUCTIONS: Chart headaches and abortive medication use. Attention to hydration, frequent small meals, exercise, self-care. Call if using oral abortive treatments more than 2-3/week on average Call if ER visits or missing work or school due to headaches. ASSESSMENT: Xiomara Delgado is a 27 y.o. female presenting with Past medical history of hypotension, hypoglycemia, iron deficiency, maxillary sinusitis, migraines, tobacco abuse who presents to neurology office to establish care. Xiomara was seen today for new patient. Diagnoses and all orders for this visit: Chronic migraine without aura without status migrainosus, not intractable (Primary) - [facility] Neurology - CTA head angio w and wo IV contrast; Future - rizatriptan CONTRACT PROCESSOR (Maxalt-CONTRACT PROCESSOR) 10 MG disintegrating tablet; Take 1 tablet (10 mg) by mouth Once as needed for migraine. May repeat in 2 hours if unresolved. Do not exceed 30 mg in 24 hours. - metoprolol succinate XL (Toprol-XL) 50 MG 24 hr tablet; Take 1 tablet (50 mg) by mouth daily. Encounter for smoking cessation counseling Occipital neuralgia of left side PLAN: The biggest problem that she is having at this time is worsening chronic migraines. There has been change in her headaches significantly with the different kinds of headaches as above and worsening frequency. I would like to get a CT angiogram of the head to rule out an aneurysm given some sudden onset of the brief headaches. She has already been started on metoprolol by her human intelligence. We will increase the metoprolol from 25 mg to 50 and see if this will help her as a preventative. If this does not work, we will decrease it down to 25 and consider Topamax before we can consider Botox versus CGRP medications As an abortive, we will start her on rizatriptan. Explained to the cardiovascular factor and the patient is agreeable. Spent about 5 minutes discussing smoking cessation Does also seem to have occipital neuralgia on the left side but we will hold off on treatment at this time since chronic migraines is her biggest issue at this time FOLLOW UP No follow-ups on file. Return in 3 months I personally spent 45 minutes in time for this patient. During that time I performed a face to face diagnostic evaluation of this patient reviewing labs, imaging studies and the electronic medical record; as well as counseling/coordinating care and provided discussion regarding diagnostic impressions and the plan of care with the consulting team Omar Gunn MD Please note: This note was dictated but not read. Notes are transcribed using voice recognition software. Because of this technology there are often unintended grammatical, spelling, and other hot mill roller errors which should be disregarded. documented in this encounter [facility] 09-13-2023 History of Present illness Narrative [facility] [address] [facility] [id number] Dept: [phone] Dept Loc: [phone] Visit type: Established : 1995 Chief Complaint: 6 months History of Present Illness: Xiomara Delgado is a 27 yo lady seen spring 2022 in her 3rd trimester of d/t dizziness and pre-syncope. The pt had longstanding iron deficiency anemia, Hgb in July 10.3 gm/dl. 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 She had not experienced true LOC, and I could not elicit and h/o vagal events. Symptoms were generally noted in the third trimester, and had not been experienced with previous baby. The pt c/o dizziness and near syncopal sensation with changes in position. She had noted problems with upright position, c/o tingling, tunnel vision, and then nausea, and has to sit. No palpitations with episodes. Not vertiginous dizziness, more lightheaded. Duration was minutes for recovery. No chest sx. Echo reported: EF 55%, no WMA; normal R side, no valve disease. The pt delivered via 10/10/2022, but called [facility] on 10/13 with c/o lightheadedness, nausea, headache, abdominal/pelvic pain and urinary frequency. Temp was 99.5. She had noted abdominal/pelvic pain was more severe than at discharge, rating 5/10 on pain scale. Hgb was 8.7 g/dL; platelet and white count normal; low calcium, low albumin. Normal renal function. TIN PLATER suggested normal post course. After delivery, she continued to note SOB, palps, and dizziness. Ambulatory stress followed: 89% MPHR, 9.3 METs, normal EKG, no arrhythmias, normal HR and BP response, normal HRR. She continued to have extensive ++ ROS, see notation. Pt's mother stated she was aware that blood gets thinner in the winter, which is the reason that the elderly population is encouraged to go to [place] for the warmer weather. I suggested this was not really accurate and I have never come across medical evidence to support this contention. CP, palps and near syncope remained - symptoms were out of proportion to findings on testing. She returns for follow up. Review of the EMR finds no hospital stays or surgery since the last visit. She was recently treated for sinusitis with a course of abx. Apparently saw another human intelligence, recommended 25 mg metoprolol, and she back here to discuss it with me? Her PCP ordered a prolonged monitor back in Jun, totally normal with avg HR 80/min and isolated ectopy: no arrhythmia. Again, symptoms out of proportion to any pathology found. I recommended CTA of the coronaries, d/t normal stress test and unrelenting CP - she would not acquiesce to pre test BB. Not sure what I am supposed to offer at this point? Recurrent BRAVO, last one in the past 24 hours, no neurologic sx with it. MORSE with one one flight of stairs, about a minute for recovery. CP can occur with or without SOB. Location is upper sternal, no radiation; can occur with or without exertion, does not awaken. Severity in general 2-3/10. Notes fatigue as well, thinks this is more in the past 6 months. Past Medical History: Past Medical History: Diagnosis Date Fibrocystic breast Heart murmur at Hypoglycemia Ovarian cyst Past Surgical History No past surgical history on file. Family History Family History Problem Relation Name Age of Onset No Known Problems Father High Blood Pressure Mother Social History Social History Tobacco Use Smoking status: Every Day Packs/day: 0.50 Years: 9.00 Additional pack years: 0.00 Total pack years: 4.50 Types: Cigarettes Last attempt to quit: 06/2023 Years since quittin.2 Smokeless tobacco: Never Vaping Use Vaping Use: Every day Substances: Nicotine Devices: Disposable Substance Use Topics Alcohol use: Not Currently Alcohol/week: 0.0 standard drinks of alcohol Drug use: No Allergies: No Known Allergies Medications: Current Outpatient Medications: Acetaminophen (TYLENOL 8 HOUR PO), Take by mouth., Disp: , Rfl: azithromycin (Zithromax Z-Maurice) 250 MG tablet, Take as directed, Disp: 6 tablet, Rfl: 0 Review of Systems: Review of Systems Constitutional: Positive for diaphoresis and fatigue. Negative for activity change, chills and fever. HENT: Negative for nosebleeds. Eyes: Positive for visual disturbance (sees black when she feels presyncopal). Respiratory: Positive for shortness of breath (with stairs; enough to cause to stop or slow down). Negative for apnea, cough, chest tightness and wheezing. Cardiovascular: Positive for chest pain (occasional; pressure; brief) and palpitations (occasional). Negative for leg swelling. In bed; one pillow; no PND; no RF/ SF; no activity limits in youth; no routine dental prophylaxis; no murmur Gastrointestinal: Negative for abdominal distention, abdominal pain, blood in stool, diarrhea, nausea and vomiting. Endocrine: Negative for cold intolerance and heat intolerance. Genitourinary: Negative for hematuria. Musculoskeletal: Positive for arthralgias (left shoulder) and gait problem. Negative for myalgias. Skin: Negative for color change and rash. Allergic/Immunologic: Positive for environmental allergies (nothing OTC). Neurological: Positive for dizziness (with position changes), syncope (feels presyncopal at times) and headaches (most recent lasdt PM, no assoc nuerologic sx). Negative for weakness and light-headedness. Hematological: Does not bruise/bleed easily. No blood tx; no DVT, no PE; no miscarraiges Psychiatric/Behavioral: Negative for dysphoric mood and sleep disturbance (varies; has young children). The patient is not nervous/anxious. Physical Examination: Vitals: Vitals: 09/13/23 1016 BP: 106/62 BP Location: Left arm Patient Position: Sitting BP Cuff Size: Large adult Pulse: 69 Weight: 161 lb 12.8 oz (73.4 kg) Height: 5' 6 (1.676 m) Body mass index is 26.12 kg/m . Physical Exam Vitals and nursing note reviewed. Constitutional: Appearance: Normal appearance. She is not ill-appearing. Comments: Presents with mother, appears well Neck: Vascular: No carotid bruit. Comments: ++ jugular venous hum Cardiovascular: Rate and Rhythm: Normal rate and regular rhythm. Heart sounds: No murmur (no murmur today, which I had heard last visit, implying simple flow murmur) heard. No friction rub. No gallop. Comments: 110/68 mm HG L Pulmonary: Effort: Pulmonary effort is normal. No respiratory distress. Breath sounds: Normal breath sounds. No stridor. No wheezing, rhonchi or rales. Skin: General: Skin is warm. Coloration: Skin is not pale. Neurological: Mental Status: She is alert. Psychiatric: Mood and Affect: Mood normal. Behavior: Behavior normal. Thought Content: Thought content normal. Laboratory Tests: Lab Results Component Value Date WBC 7.6 02/10/2023 HGB 13.8 02/10/2023 HCT 41.7 02/10/2023 MCV 86.3 02/10/2023 PLT 216 02/10/2023 Lab Results Component Value Date GLUCOSE 93 02/10/2023 CALCIUM 9.8 02/10/2023 NA 138 02/05/2022 K 4.2 02/05/2022 CO2 25 02/10/2023 CL 107 02/05/2022 BUN 14 02/10/2023 CREATININE 0.66 02/10/2023 @LASTCMP@ Lab Results Component Value Date CHOL 158 02/05/2022 Lab Results Component Value Date TRIG 96 02/05/2022 Lab Results Component Value Date HDL 38 (L) 02/05/2022 No results found for: LDLCALC No results found for: BNP Cardiac Tests: ECG: September 2023; NSR; RSR V1, considered normal; anterior infarct pattern August 2022; sinus tach; NSST-T wave changes Last Echo: October 2022; [facility], EF 55%, no WMA; no valve disease Last stress test: December 2022; 89% MPHR, 9.3 METs, normal EKG, no arrhythmias, normal HR and BP response, normal HRR. Last cardiac catheterization: NA Assessment and Plan: 1. Idiopathic hypotension 2. Dizziness and giddiness 3. Other fatigue Again, sx are out of proportion to any identified pathology She needs to decide on a specialist The metoprolol is easy, reasonable, and safe. She would likely know in 10-14 days if improving, but usually a full 4-6 weeks is needed to determine if this will work If symptoms were more a nightly phenomenon, I would consider more coronary spasm, and consider Ca++ channel rose marie at night (young patients usually balk at nitrates) CTA is not unreasonable, she could have coronary anomaly, young enough age, although stress test was normal - this has been declined in the past Return in one year, sooner if new sx arise I would NOT go with a loop recorder - she had a chcf monitor that found nothing, and true LOC is not at all clear documented in this encounter [facility] 07-27-2023 Evaluation + Plan note Associated Problem(s): Acute non-recurrent maxillary sinusitis Zithromax Z-Maurice take as directed. Increase fluids rest Tylenol or Advil saline nasal spray salt water gargles or Listerine gargles [facility] 07-27-2023 Miscellaneous Notes Associated Problem(s): Acute non-recurrent maxillary sinusitis Zithromax Z-Maurice take as directed. Increase fluids rest Tylenol or Advil saline nasal spray salt water gargles or Listerine gargles documented in this encounter [facility] 07-27-2023 History of Present illness Narrative Patient verified by last name and date of . Images from the original note were not included. Patient 07/27/2023 Xiomara Delgado (: 1995) is a 27 y.o. female , Established patient, here for evaluation of the following chief complaint(s): Sore Throat (Losing voice //Started about 3 days ago ) ASSESSMENT/PLAN: 1. Acute non-recurrent maxillary sinusitis Assessment & Plan: Zithromax Z-Maurice take as directed. Increase fluids rest Tylenol or Advil saline nasal spray salt water gargles or Listerine gargles Follow up if symptoms worsen or fail to improve. SUBJECTIVE/OBJECTIVE: HELENE Garcia comes in today complaining of a sore throat, sinus drainage and congestion, slight cough that is nonproductive, losing her voice but she denies any fevers or chills and has been going on for 3 to 4 days. Review of Systems Constitutional: Negative for chills and fever. HENT: Positive for rhinorrhea and sore throat. Negative for ear pain and sinus pressure. Respiratory: Positive for cough. Negative for shortness of breath. Cardiovascular: Negative for chest pain and palpitations. Vitals: 07/27/23 0823 BP: 107/68 Pulse: 78 Temp: 37.1 C (98.8 F) SpO2: 98% Weight: 162 lb 12.8 oz (73.8 kg) Height: 5' 6 (1.676 m) Physical Exam Vitals and nursing note reviewed. Constitutional: General: She is not in acute distress. Appearance: Normal appearance. HENT: Head: Normocephalic and atraumatic. Right Ear: Tympanic membrane, ear canal and external ear normal. Left Ear: Tympanic membrane, ear canal and external ear normal. Nose: Right Sinus: Maxillary sinus tenderness present. No frontal sinus tenderness. Left Sinus: Maxillary sinus tenderness present. No frontal sinus tenderness. Mouth/Throat: Mouth: Mucous membranes are moist. Pharynx: Oropharynx is clear. Eyes: Extraocular Movements: Extraocular movements intact. Pupils: Pupils are equal, round, and reactive to light. Cardiovascular: Rate and Rhythm: Normal rate and regular rhythm. Heart sounds: Normal heart sounds. No murmur heard. Pulmonary: Effort: Pulmonary effort is normal. Breath sounds: Normal breath sounds. Musculoskeletal: Cervical back: Neck supple. Lymphadenopathy: Cervical: No cervical adenopathy. Neurological: Mental Status: She is alert. An electronic signature was used to authenticate this note. Jairo Garcia MD 07/27/2023 9:18 AM documented in this encounter [facility] 07-26-2023 Telephone encounter Note S: Patient spoke with [facility] nurse regarding sore throat B: Onset of symptoms/concern 2 days A: Patient states she has a sore throat with red lump inside her throat. Throat is red, white patches, headache, and moderate pain. Patient fever and rash. Patient is not taking any OTC. R: Appointment scheduled , instructed patient to arrive 15 minutes early, address given, insurance verified, instructed to bring photo ID, insurance info and medication list to the appointment. Advised patient to take Tylenol/Motrin for discomfort and try Cepacol Lozenges. Patient understands care advice. No further needs at this time. Patient instructed to call back with new or worsening symptoms. Reason for Disposition Pus on tonsils (back of throat) and swollen neck lymph nodes ('glands') Protocols used: Sore [id number] [facility] 07-26-2023 Miscellaneous Notes S: Patient spoke with [facility] nurse regarding sore throat B: Onset of symptoms/concern 2 days A: Patient states she has a sore throat with red lump inside her throat. Throat is red, white patches, headache, and moderate pain. Patient fever and rash. Patient is not taking any OTC. R: Appointment scheduled , instructed patient to arrive 15 minutes early, address given, insurance verified, instructed to bring photo ID, insurance info and medication list to the appointment. Advised patient to take Tylenol/Motrin for discomfort and try Cepacol Lozenges. Patient understands care advice. No further needs at this time. Patient instructed to call back with new or worsening symptoms. Reason for Disposition Pus on tonsils (back of throat) and swollen neck lymph nodes ('glands') Protocols used: Sore [id number] documented in this encounter [facility] 07-01-2023 Evaluation + Plan note Associated Problem(s): Migraine without aura and with status migrainosus, not intractable Patient did not tolerate amitriptyline, currently unable to take beta-rose marie (propanolol) for migraine prophylaxis (low HR). Will refer to neurology for further evaluation and treatment. May benefit w/ botox injections [facility] 07-01-2023 Miscellaneous Notes Associated Problem(s): Migraine without aura and with status migrainosus, not intractable Patient did not tolerate amitriptyline, currently unable to take beta-rose marie (propanolol) for migraine prophylaxis (low HR). Will refer to neurology for further evaluation and treatment. May benefit w/ botox injections documented in this encounter [facility] 07-01-2023 History of Present illness Narrative Patient was identified by name and Date of . Images from the original note were not included. 07/01/2023 Xiomara Delgado (: 1995) is a 27 y.o. female , Established patient, here for evaluation of the following chief complaint(s): Follow-up (2 month follow up) ASSESSMENT/PLAN: 1. Migraine without aura and with status migrainosus, not intractable Assessment & Plan: Patient did not tolerate amitriptyline, currently unable to take beta-rose marie (propanolol) for migraine prophylaxis (low HR). Will refer to neurology for further evaluation and treatment. May benefit w/ botox injections Orders: - [facility] [place] Neurology Follow up for with primary care provider as scheduled. SUBJECTIVE/OBJECTIVE: HPI - Xiomara Delgado (: 1995) is a 27 y.o. female , Established patient, here for the evaluation of the following chief complaint(s): Follow-up (2 month follow up) Chronic headache- started amitriptyline - reports she only took it a couple days then stopped didn't feel like myself. Reports since I saw her, daily headaches about the same but is having more migraines than before. Headache (intermittent) started a couple years ago, not throbbing, but pressure on the left occiput. States that it has lasts up to a few seconds only at the longest. No neck pain or stiffness. Happening daily 2-3 times. Unknown trigger. Sometimes will get a migraine afterwards. previously Migraines are usually about 1 time per month- since I saw her 2 months ago- this has increased to 2-3 migraines per month. No change in severity , Migraines last Couple hours to up to a day. Acetaminophen- and or ibuprofen usually will prevent a migraine developing but not the left sided headpain. Does have light sensitivity, nausea with her migraines. Did get eyes checked and glasses re- adjusted- did not help. Last week woke up shaky and weak, felt that way for 2 days row. Reports her glucose was fine 106 when she checked it. and has not had any further episodes, denies any associated chest pain, palpitations,or development of other symptoms. Prior to Admission medications Medication Sig Start Date End Date Taking? Authorizing Provider Acetaminophen (TYLENOL 8 HOUR PO) Take by mouth. Yes Historical Provider, amitriptyline (Elavil) 10 MG tablet Take 1 tablet (10 mg) by mouth Nightly. Patient not taking: Reported on 07/01/2023 05/10/23 07/09/23 GWENDOLYN Tavera CNP Review of Systems Constitutional: Negative for activity change, appetite change, chills, fatigue and fever. HENT: Positive for tinnitus (seeing ENT). Negative for congestion, ear discharge, ear pain, hearing loss, postnasal drip, sinus pressure, sinus pain and sore throat. Respiratory: Negative. Cardiovascular: Negative. Gastrointestinal: Negative. Genitourinary: Negative. Neurological: Positive for headaches. Negative for dizziness, seizures, syncope, facial asymmetry, speech difficulty and weakness. Psychiatric/Behavioral: Negative. Vitals: 07/01/23 0754 BP: 104/62 Pulse: 88 Resp: 18 Temp: 37 C (98.6 F) TempSrc: Infrared SpO2: 99% Weight: 156 lb (70.8 kg) Physical Exam Constitutional: General: She is not in acute distress. Appearance: Normal appearance. She is not ill-appearing. HENT: Mouth/Throat: Mouth: Mucous membranes are moist. Pharynx: Oropharynx is clear. No posterior oropharyngeal erythema. Eyes: Conjunctiva/sclera: Conjunctivae normal. Cardiovascular: Rate and Rhythm: Normal rate and regular rhythm. Pulses: Normal pulses. Heart sounds: Normal heart sounds. Neurological: Mental Status: She is alert and oriented to person, place, and time. An electronic signature was used to authenticate this note. GWENDOLYN Tavera CNP 07/01/2023 8:54 AM documented in this encounter [facility] 06-05-2023 Telephone encounter Note S: The patient is calling the [facility] about a reaction to adhesive on telemetry patches. B: She is wearing a Holter monitor R: Advised that I cannot do anything over the weekend; she should call the cardiac lab on Wednesday (where the Holter was placed). They should be able to provide her with hypoallergenic patches. [facility] 06-05-2023 Miscellaneous Notes S: The patient is calling the [facility] about a reaction to adhesive on telemetry patches. B: She is wearing a Holter monitor R: Advised that I cannot do anything over the weekend; she should call the cardiac lab on Wednesday (where the Holter was placed). They should be able to provide her with hypoallergenic patches. documented in this encounter [facility] 05-20-2023 Telephone encounter Note New order placed. [facility] 05-20-2023 Miscellaneous Notes New order placed. Bhargav Granado called in to schedule a cardiac event monitor, however there is no order under active requests. If pt still needs to have testing done, an order will need to be placed prior to scheduling. Thank you. documented in this encounter [facility] 05-20-2023 Telephone encounter Note Bhargav Granado called in to schedule a cardiac event monitor, however there is no order under active requests. If pt still needs to have testing done, an order will need to be placed prior to scheduling. Thank you. [facility] 05-10-2023 Evaluation + Plan note Associated Problem(s): Tinnitus, bilateral Exam unremarkable. Recommend evaluation by ENT. [facility] 05-10-2023 Miscellaneous Notes Associated Problem(s): Tinnitus, bilateral Exam unremarkable. Recommend evaluation by ENT. Associated Problem(s): Acute non intractable tension-type headache No red flags. Suspected intermittent left posterior headache pain as tension type. Does not precede migraines consistently-so not aura. No neurological deficits noted. Will trial amitriptyline at bedtime for chronic tension type headache as her symptoms occur on a daily basis. Keep headache/symptom diary. documented in this encounter [facility] 05-10-2023 Evaluation + Plan note Associated Problem(s): Acute non intractable tension-type headache No red flags. Suspected intermittent left posterior headache pain as tension type. Does not precede migraines consistently-so not aura. No neurological deficits noted. Will trial amitriptyline at bedtime for chronic tension type headache as her symptoms occur on a daily basis. Keep headache/symptom diary. [facility] 05-10-2023 History of Present illness Narrative Patient was identified by name and Date of . Images from the original note were not included. 05/10/2023 Xiomara Delgado (: 1995) is a 27 y.o. female , Established patient, here for evaluation of the following chief complaint(s): Headache ASSESSMENT/PLAN: 1. Acute non intractable tension-type headache Assessment & Plan: No red flags. Suspected intermittent left posterior headache pain as tension type. Does not precede migraines consistently-so not aura. No neurological deficits noted. Will trial amitriptyline at bedtime for chronic tension type headache as her symptoms occur on a daily basis. Keep headache/symptom diary. Orders: - amitriptyline (Elavil) 10 MG tablet; Take 1 tablet (10 mg) by mouth Nightly., Starting 05/10/2023, Until Wed07/09/2023, Normal 2. Tinnitus, bilateral Assessment & Plan: Exam unremarkable. Recommend evaluation by ENT. Orders: - External referral to ENT Follow up in about 2 months (around 07/09/2023) for Recheck. SUBJECTIVE/OBJECTIVE: HPI - Xiomara Delgado (: 1995) is a 27 y.o. female , Established patient, here for the evaluation of the following chief complaint(s): Headache This headache (intermittent) started a couple years ago, not throbbing, but pressure on the left occiput. States that it has lasted up to a few seconds only at the longest. No neck pain or stiffness. Happening daily 2-3 times. Unknown trigger. Sometimes will get a migraine afterwards. Migraines are usually about 1 time per month. No change in severity or frequency. Migraines last Couple hours to up to a day. Acetaminophen- not helpful- goes away on its own. Does have light sensitivity, nausea with her migraines. Did get eyes checked and glasses re- adjusted- did not help. Also has tinnitus bilaterally as long as she remembers. No ear pain. Prior to Admission medications Medication Sig Start Date End Date Taking? Authorizing Provider Acetaminophen (TYLENOL 8 HOUR PO) Take by mouth. Yes Historical Provider, amoxicillin (Amoxil) 500 MG capsule TAKE 1 CAPSULE BY MOUTH FOUR TIMES DAILY until gone 04/05/23 Historical Provider, triamcinolone (Kenalog) 0.1 % cream Apply to affected area 1-2 times daily as needed x 7 days. Patient not taking: Reported on 05/10/2023 04/15/23 08/13/23 Sarmad Ceballos APRN - THERMODYNAMICIST Review of Systems Constitutional: Negative for activity change, appetite change, chills, fatigue and fever. HENT: Positive for tinnitus. Negative for congestion, ear discharge, ear pain, hearing loss, postnasal drip, sinus pressure, sinus pain and sore throat. Respiratory: Negative. Cardiovascular: Negative. Gastrointestinal: Negative. Genitourinary: Negative. Neurological: Positive for headaches. Negative for dizziness, seizures, syncope, facial asymmetry, speech difficulty and weakness. Psychiatric/Behavioral: Negative. Vitals: 05/10/23 1057 BP: 100/62 Pulse: 58 Resp: 16 Temp: 36.8 C (98.2 F) TempSrc: Infrared SpO2: 98% Weight: 154 lb (69.9 kg) Physical Exam Constitutional: General: She is not in acute distress. Appearance: Normal appearance. She is not ill-appearing. HENT: Head: Normocephalic and atraumatic. Right Ear: Tympanic membrane normal. Left Ear: Tympanic membrane normal. Nose: No congestion or rhinorrhea. Mouth/Throat: Mouth: Mucous membranes are moist. Pharynx: Oropharynx is clear. No posterior oropharyngeal erythema. Eyes: Extraocular Movements: Extraocular movements intact. Conjunctiva/sclera: Conjunctivae normal. Pupils: Pupils are equal, round, and reactive to light. Cardiovascular: Rate and Rhythm: Normal rate and regular rhythm. Pulses: Normal pulses. Heart sounds: Normal heart sounds. Pulmonary: Effort: Pulmonary effort is normal. Breath sounds: Normal breath sounds. Musculoskeletal: Cervical back: No rigidity or tenderness. Lymphadenopathy: Cervical: No cervical adenopathy. Skin: General: Skin is warm and dry. Neurological: General: No focal deficit present. Mental Status: She is alert and oriented to person, place, and time. Coordination: Coordination normal. Gait: Gait normal. An electronic signature was used to authenticate this note. GWENDOLYN Tavera CNP 05/10/2023 1:14 PM documented in this encounter [facility] 04-15-2023 History of Present illness Narrative Patient was identified by name and Date of . Images from the original note were not included. 04/15/2023 Xiomara Delgado (: 1995) is a 27 y.o. female , Established patient, here for evaluation of the following chief complaint(s): Rash (Left leg-x1 month-along with a bruise) ASSESSMENT/PLAN: 1. Dermatitis - triamcinolone (Kenalog) 0.1 % cream; Apply to affected area 1-2 times daily as needed x 7 days., Normal Will treat with topical steroid. This is improving so I highly suspect contact dermatitis, no systemic symptoms Follow up if symptoms worsen or fail to improve. SUBJECTIVE/OBJECTIVE: HPI - Xiomara Delgado (: 1995) is a 27 y.o. female , Established patient, here for the evaluation of the following chief complaint(s): Rash (Left leg-x1 month-along with a bruise) Rash to left inner thigh present x 1 month improving. Previously had a bruise but that has resolved. No known trigger, denies having close contact with heat element or any specific new contact other than possibly from some new pants that she had worn. Denies any itching, no pain. No fever or chills, feels fine otherwise. Prior to Admission medications Medication Sig Start Date End Date Taking? Authorizing Provider Acetaminophen (TYLENOL 8 HOUR PO) Take by mouth. Yes Historical Provider, amoxicillin (Amoxil) 500 MG capsule TAKE 1 CAPSULE BY MOUTH FOUR TIMES DAILY until gone 04/05/23 Yes Historical Provider, Review of Systems Constitutional: Negative. Respiratory: Negative. Cardiovascular: Negative. Skin: Positive for rash. Vitals: 04/15/23 1501 BP: 104/69 Pulse: 97 Resp: 14 Temp: 36.9 C (98.4 F) TempSrc: Infrared SpO2: 99% Weight: 150 lb (68 kg) Physical Exam Constitutional: Appearance: Normal appearance. Pulmonary: Effort: Pulmonary effort is normal. Skin: Findings: Erythema and rash present. Comments: Dry sandpaperlike rash Neurological: Mental Status: She is alert and oriented to person, place, and time. An electronic signature was used to authenticate this note. GWENDOLYN Tavera CNP 04/15/2023 6:37 PM documented in this encounter [facility] 04-15-2023 History of Present illness Narrative Patient was identified by name and Date of . Images from the original note were not included. 04/15/2023 Xiomara Delgado (: 1995) is a 27 y.o. female , Established patient, here for evaluation of the following chief complaint(s): Rash (Left leg-x1 month-along with a bruise) ASSESSMENT/PLAN: 1. Dermatitis - triamcinolone (Kenalog) 0.1 % cream; Apply to affected area 1-2 times daily as needed x 7 days., Normal Will treat with topical steroid. This is improving so I highly suspect contact dermatitis, no systemic symptoms Follow up if symptoms worsen or fail to improve. SUBJECTIVE/OBJECTIVE: HPI - Xiomara Delgado (: 1995) is a 27 y.o. female , Established patient, here for the evaluation of the following chief complaint(s): Rash (Left leg-x1 month-along with a bruise) Rash to left inner thigh present x 1 month improving. Previously had a bruise but that has resolved. No known trigger, denies having close contact with heat element or any specific new contact other than possibly from some new pants that she had worn. Denies any itching, no pain. No fever or chills, feels fine otherwise. Prior to Admission medications Medication Sig Start Date End Date Taking? Authorizing Provider Acetaminophen (TYLENOL 8 HOUR PO) Take by mouth. Yes Historical Provider, amoxicillin (Amoxil) 500 MG capsule TAKE 1 CAPSULE BY MOUTH FOUR TIMES DAILY until gone 04/05/23 Yes Historical Provider, Review of Systems Constitutional: Negative. Respiratory: Negative. Cardiovascular: Negative. Skin: Positive for rash. Vitals: 04/15/23 1501 BP: 104/69 Pulse: 97 Resp: 14 Temp: 36.9 C (98.4 F) TempSrc: Infrared SpO2: 99% Weight: 150 lb (68 kg) Physical Exam Constitutional: Appearance: Normal appearance. Pulmonary: Effort: Pulmonary effort is normal. Skin: Findings: Erythema and rash present. Comments: Dry sandpaperlike rash Neurological: Mental Status: She is alert and oriented to person, place, and time. An electronic signature was used to authenticate this note. GWENDOLYN Tavera CNP 04/15/2023 6:37 PM documented in this encounter [facility] 04-15-2023 Miscellaneous Notes Addended by: SARMAD CEBALLOS on: 04/16/2023 01:42 PM Modules accepted: Level of Service documented in this encounter [facility] 04-15-2023 Note Addended by: SARMAD COTA on: 04/16/2023 01:42 PM Modules accepted: Level of Service [facility] 04-07-2023 Telephone encounter Note Noted. Agree with disposition. [facility] Phone: 04-07-2023 Miscellaneous Notes Noted. Agree with disposition. S: Patient spoke with [facility] nurse regarding rash to left leg. B: Onset of symptoms/concern: started over 1 week, area is getting bigger. A: Patient states she has rash to left thigh down to her knee, it is large area, states it is red and dry looking. Denies drainage. Denies pain. States she has itching/irritation to the rash area when her pants rubs the area. Denies fever. R: Patient understands care advice for rash. COVID screening negative. Office visit scheduled on 04/08/23 at 3:40PM. The location, date, provider, time of appointment were reviewed and insurance verified with the patient. Patient verbalizes understanding. Patient advised to bring photo ID and Insurance card. No further needs at this time. Patient instructed to call back with new or worsening symptoms. Reason for Disposition Patient wants to be seen Protocols used: Rash or Redness - [id number] documented in this encounter [facility] 04-07-2023 Telephone encounter Note S: Patient spoke with [facility] nurse regarding rash to left leg. B: Onset of symptoms/concern: started over 1 week, area is getting bigger. A: Patient states she has rash to left thigh down to her knee, it is large area, states it is red and dry looking. Denies drainage. Denies pain. States she has itching/irritation to the rash area when her pants rubs the area. Denies fever. R: Patient understands care advice for rash. COVID screening negative. Office visit scheduled on 04/08/23 at 3:40PM. The location, date, provider, time of appointment were reviewed and insurance verified with the patient. Patient verbalizes understanding. Patient advised to bring photo ID and Insurance card. No further needs at this time. Patient instructed to call back with new or worsening symptoms. Reason for Disposition Patient wants to be seen Protocols used: Rash or Redness - [id number] [facility] 03-08-2023 History of Present illness Narrative [facility] [address] [facility] [address] Dept: [phone] Dept Loc: [phone] Visit type: Established : 1995 Chief Complaint: 3 months History of Present Illness: Xiomara Delgado is a 27 year old female lady initially seen spring 2022 in her 3rd trimester of d/t dizziness and pre-syncope. The pt had longstanding iron deficiency anemia, Hgb in July 10.3 gm/dl = not bad. It was though that in light of young age, single gestation, and white mother, a bit lower risk for pilo- LV dsyfunction. 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 She had not experienced true LOC, and I could not elicit and h/o vagal events. Symptoms were generally noted in the third trimester, and had not been experienced with previous baby. Dizziness and near syncopal sensation were noted daily with changes in position. She had noted problems with upright position, c/o tingling, tunnel vision, and then nausea, and has to sit. No palpitations with episodes. Not vertiginous dizziness, more lightheaded. Duration was minutes for recovery. No chest sx associated. Echo reported: EF 55%, no WMA; normal R side, no valve disease. The pt delivered via 10/10/2022, but called TIN PLATER on 10/13 with c/o lightheadedness, nausea, headache, abdominal/pelvic pain and urinary frequency. Temp was 99.5. She had noted abdominal/pelvic pain was more severe than at discharge, rating 5/10 on pain scale. Hgb was 8.7 g/dL; platelet and white count normal; low calcium, low albumin. Normal renal function. No intervention required, and follow up with TIN PLATER suggested normal post course. When last seen in the office in Jan 2023, she had continued to report palpitations, extremely variable, hard to say how often; occurring with or without activity; seconds duration. She had been unable to identify if ectopy was fast and irreg or fast and regular? She would occasionally feel out of breath with events, no nausea or diaphoresis. Mother states Discomfort was located mid-sternal and L pectoral area; also present with or w/o exertion. She could not grade severity of symptoms. Fatigue continued. Ambulatory stress: 89% MPHR, 9.3 METs, normal EKG, no arrhythmias, normal HR and BP response, normal HRR. Still ++ ROS, see notation. Chest sx continue despite the changes in weather. Mother states she knows blood gets thinner in the winter, which is the reasoning that the elderly population is encouraged to go to [place] for the warmer weather. I suggested this was not accurate and I have never come across medical evidence to support this. Still with palpitations, sporadic, and unpredictable. Sx of CP and palps are usually separate. State feeling near syncopal as well. Past Medical History: Past Medical History: Diagnosis Date Fibrocystic breast Heart murmur at Hypoglycemia Ovarian cyst Past Surgical History No past surgical history on file. Family History Family History Problem Relation Name Age of Onset No Known Problems Father High Blood Pressure Mother Social History Social History Tobacco Use Smoking status: Every Day Packs/day: .5 Types: Cigarettes Smokeless tobacco: Never Vaping Use Vaping Use: Some days Substances: Nicotine Devices: Disposable Substance Use Topics Alcohol use: Not Currently Alcohol/week: 0.0 standard drinks of alcohol Drug use: No Allergies: No Known Allergies Medications: Current Outpatient Medications: Acetaminophen (TYLENOL 8 HOUR PO), Take by mouth., Disp: , Rfl: Review of Systems: Review of Systems Constitutional: Positive for fatigue. Negative for activity change, chills, diaphoresis and fever. HENT: Negative for nosebleeds. Eyes: Positive for visual disturbance (sees black when she feels presyncopal). Respiratory: Positive for shortness of breath (with stairs). Negative for apnea, cough, chest tightness and wheezing. Cardiovascular: Positive for chest pain (occasional; sharp; brief) and palpitations (occasional). Negative for leg swelling. In bed; one pillow; no PND; no RF/ SF; no activity limits in youth; no routine dental prophylaxis; no murmur Gastrointestinal: Negative for abdominal distention, abdominal pain, blood in stool, diarrhea, nausea and vomiting. Endocrine: Negative for cold intolerance and heat intolerance. Genitourinary: Negative for hematuria. Musculoskeletal: Positive for arthralgias (left shoulder). Negative for gait problem and myalgias. Skin: Negative for color change and rash. Allergic/Immunologic: Positive for environmental allergies (nothing OTC). Neurological: Positive for dizziness (with position changes), syncope (feels presyncopal at times) and headaches (alot of BRAVO). Negative for weakness and light-headedness. Hematological: Does not bruise/bleed easily. No blood tx; no DVT, no PE; no miscarraiges Psychiatric/Behavioral: Negative for dysphoric mood and sleep disturbance (varies; has young children). The patient is not nervous/anxious. Physical Examination: Vitals: Vitals: 03/08/23 1308 BP: 114/66 BP Location: Left arm Patient Position: Sitting BP Cuff Size: Large adult Pulse: 74 SpO2: 99% Weight: 150 lb 12.8 oz (68.4 kg) Height: 5' 6 (1.676 m) Body mass index is 24.34 kg/m . Physical Exam Vitals and nursing note reviewed. Constitutional: Appearance: Normal appearance. She is not ill-appearing. Comments: The pt presents with mother, looks well, able to provide a history Neck: Vascular: No carotid bruit. Comments: ++ jugular venous hum Cardiovascular: Rate and Rhythm: Normal rate and regular rhythm. Heart sounds: No murmur (no murmur today, which I had heard last visit, implying simple flow murmur) heard. No friction rub. No gallop. Comments: 110/64 mm HG sitting, reg cuff Pulmonary: Effort: Pulmonary effort is normal. No respiratory distress. Breath sounds: Normal breath sounds. No stridor. No wheezing, rhonchi or rales. Skin: General: Skin is warm. Coloration: Skin is not pale. Neurological: Mental Status: She is alert. Psychiatric: Mood and Affect: Mood normal. Behavior: Behavior normal. Thought Content: Thought content normal. Laboratory Tests: Lab Results Component Value Date WBC 7.6 02/10/2023 HGB 13.8 02/10/2023 HCT 41.7 02/10/2023 MCV 86.3 02/10/2023 PLT 216 02/10/2023 Lab Results Component Value Date GLUCOSE 93 02/10/2023 CALCIUM 9.8 02/10/2023 NA 138 02/05/2022 K 4.2 02/05/2022 CO2 25 02/10/2023 CL 107 02/05/2022 BUN 14 02/10/2023 CREATININE 0.66 02/10/2023 @LASTCMP@ Lab Results Component Value Date CHOL 158 02/05/2022 Lab Results Component Value Date TRIG 96 02/05/2022 Lab Results Component Value Date HDL 38 (L) 02/05/2022 No results found for: LDLCALC No results found for: BNP Cardiac Tests: ECG: August 2022; sinus tach; NSST-T wave changes Last Echo: October 2022; [facility], EF 55%, no WMA; no valve disease Last stress test: December 2022; 89% MPHR, 9.3 METs, normal EKG, no arrhythmias, normal HR and BP response, normal HRR. Last cardiac catheterization: NA Assessment and Plan: 1. Idiopathic hypotension 2. Dizziness 3. Near syncope 4. Palpitations 5. Precordial pain Thus far, I have not found any immediately concerning pathology. Nevertheless, she continues to have symptoms of worsening dizziness, palpitations, presyncope, and precordial pain. CTA seems reasonable at this point due to the continued chest pain as well as the symptoms of near syncope. She is young enough that a coronary anomaly could be present creating the symptoms, atherosclerotic heart disease would be incredibly rare. Perhaps she has some degree of coronary spasm which may not be seen on CTA, but she could also have myocardial bridging which may be causing palpitations and chest discomfort. This seems like the safest and most reasonable evaluation to delineate the anatomy in a young lady. The palpitations are sporadic and lasts seconds. I am going for an event monitor of about 2 weeks or so to see if I can catch any abnormality. The most likely arrhythmia is sinus tachycardia with good cardiac awareness. But being young and female, some type of atrial tach or SVT is certainly possible. Return in 6 months, sooner if either of the tests above delineated problem. If negative, I would treat her empirically with support hose, salt liberalization, and attention to hydration. I would be more than happy to have her be seen by EP, if any residual questions remain. documented in this encounter [facility] 03-05-2023 History of Present illness Narrative Images from the original note were not included. [facility] [address] [facility] [address] COUNT INCLUDES THE [facility] [address] Dept: [phone] Dept Visit type: Established patient Reason for Visit: Cough Patient was identified and seen today via Telehealth by agreement and consent. I used the following Telehealth technology: Audio and video capabilities. Patient location: Patient Location: Home. This patient encounter is appropriate and reasonable under the circumstances: appropriate complaint for tele visit . The patient has been advised of the potential risks and limitations of this mode of treatment (including but not limited to the absence of in-person examination) and has agreed to be treated in a remote fashion in spite of them. Any and all of the patient's/patient's family's questions on this issue have been answered and I have made no promises or guarantees to the patient. The patient has also been advised to contact this office for worsening conditions or problems, and seek emergency medical treatment and/or call 911 if the patient deems either necessary. The patient stated that they are currently in the state [facility]. If the patient is a minor, permission has been obtained by the parent or guardian for the patient to receive medical care at this visit. Assessment and Plan 1. Viral URI with cough Acute. Upon assessment, viral etiology is most likely. Patient was educated about symptomatic management including increasing fluid intake and rest. Recommended another Covid test today or tomorrow, either at home or at the pharmacy. Will provide work note. Covid guidelines discussed. Continue Tylenol as needed every 6 hours. Dextromethorphan, cough drops, Dayquil for cough as needed. Advised to call the office with any new or worsening symptoms. Patient states understanding of instructions and agrees with plan of care. Follow up if symptoms worsen or fail to improve. Subjective Cough This is a new problem. The current episode started in the past 7 days. The problem has been unchanged. The cough is Non-productive. Associated symptoms include ear pain, nasal congestion, postnasal drip, rhinorrhea and a sore throat. Pertinent negatives include no chest pain, chills, fever, myalgias or shortness of breath. -She has had a non-productive cough, sore throat, fatigue, runny nose, nasal congestion -Ongoing for the past 2 days -She was seen at and was dx with a double ear infection and was given ear drops. She has not started these yet -She also tested negative for Covid. Her partner recently tested positive for Covid -She has been taking Tylenol as needed -She has been out of work since Wednesday and will need a work note. -No fever, chills, chest pain, shortness of breath Review of Systems Constitutional: Positive for fatigue. Negative for chills and fever. HENT: Positive for congestion, ear pain, postnasal drip, rhinorrhea and sore throat. Respiratory: Positive for cough. Negative for shortness of breath. Cardiovascular: Negative for chest pain. Musculoskeletal: Negative for myalgias. No Known Allergies Current Outpatient Medications Medication Sig Dispense Refill Acetaminophen (TYLENOL 8 HOUR PO) Take by mouth. No current facility-administered medications for this visit. Past Medical History: Diagnosis Date Fibrocystic breast Heart murmur at Hypoglycemia Ovarian cyst Social History Tobacco Use Smoking status: Every Day Packs/day: .5 Types: Cigarettes Smokeless tobacco: Never Substance Use Topics Alcohol use: Not Currently Alcohol/week: 0.0 standard drinks of alcohol No past surgical history on file. Family History Problem Relation Name Age of Onset No Known Problems Father High Blood Pressure Mother Objective There were no vitals taken for this visit. Physical Exam Constitutional: General: She is not in acute distress. Appearance: Normal appearance. She is not ill-appearing, toxic-appearing or diaphoretic. HENT: Head: Normocephalic and atraumatic. Pulmonary: Effort: Pulmonary effort is normal. No respiratory distress. Neurological: Mental Status: She is alert and oriented to person, place, and time. Psychiatric: Mood and Affect: Mood normal. Behavior: Behavior normal. Physical exam is limited due to tele health visit. Patient is alert and oriented, is in no acute distress and is speaking in complete sentences. Data Reviewed and Summarized Labs: Imaging/Testing: GWENDOLYN Hercules CNP documented in this encounter [facility] 02-10-2023 Evaluation + Plan note Associated Problem(s): Hair loss We will check thyroid level. [facility] 02-10-2023 Evaluation + Plan note Associated Problem(s): Iron deficiency anemia secondary to inadequate dietary iron intake Significant, has been almost 6 months since his been rechecked. [facility] 02-10-2023 Miscellaneous Notes Associated Problem(s): Hair loss We will check thyroid level. Associated Problem(s): Iron deficiency anemia secondary to inadequate dietary iron intake Significant, has been almost 6 months since his been rechecked. Associated Problem(s): Diminished reflexes on examination Significantly diminished or absent reflexes, will get TSH to check thyroid level. documented in this encounter [facility] 02-10-2023 Evaluation + Plan note Associated Problem(s): Diminished reflexes on examination Significantly diminished or absent reflexes, will get TSH to check thyroid level. [facility] 02-10-2023 History of Present illness Narrative Patient verified by last name and date of . Images from the original note were not included. 02/10/2023 Xiomara Delgado (: 1995) is a 27 y.o. female , Established patient, here for evaluation of the following chief complaint(s): Annual Exam, Blood Work, and Health Maintenance (Flu vaccine- refuse/Covid vaccine- will not get them ) ASSESSMENT/PLAN: 1. Annual physical exam 2. Iron deficiency anemia secondary to inadequate dietary iron intake Assessment & Plan: Significant, has been almost 6 months since his been rechecked. Orders: - CBC 3. Hair loss Assessment & Plan: We will check thyroid level. Orders: - TSH 4. Diminished reflexes on examination Assessment & Plan: Significantly diminished or absent reflexes, will get TSH to check thyroid level. Orders: - TSH 5. Screening for diabetes mellitus - Comprehensive metabolic panel 6. Screening for lipid disorders - Lipid panel Follow up in about 1 year (around 02/11/2024). SUBJECTIVE/OBJECTIVE: HELENE Garcia comes in today for an annual exam, she had a baby 4 months ago and she said she was having episodes of passing out while she was and was referred to a human intelligence who has been working her up for syncope. She says she has had a stress test and is waiting to have a gallery director placed. She also had severe iron deficiency anemia during her and was transfused with 2 units and in August her hemoglobin was still 9.3 so we will recheck that today. She says her migraines are present but not real bad and they are tolerable. She says she has been having a lot of hair loss and then we discussed hormonal fluctuations but also problems with thyroid so we will check a thyroid level. She has no other complaints at this time, see ROS. Review of Systems Constitutional: Negative for chills and fever. Respiratory: Negative for shortness of breath. Cardiovascular: Negative for chest pain and palpitations. Gastrointestinal: Negative for abdominal pain, blood in stool, constipation and diarrhea. Genitourinary: Negative for dyspareunia, dysuria, frequency, hematuria and urgency. Neurological: Negative for weakness and numbness. Psychiatric/Behavioral: Negative for dysphoric mood. The patient is not nervous/anxious. Vitals: 02/10/23 0822 BP: 111/72 Pulse: 69 SpO2: 99% Weight: 149 lb 6.4 oz (67.8 kg) Height: 5' 6 (1.676 m) Physical Exam Vitals and nursing note reviewed. Constitutional: General: She is not in acute distress. Appearance: Normal appearance. HENT: Head: Normocephalic. Right Ear: Tympanic membrane, ear canal and external ear normal. Left Ear: Tympanic membrane, ear canal and external ear normal. Mouth/Throat: Mouth: Mucous membranes are moist. Pharynx: Oropharynx is clear. Eyes: Extraocular Movements: Extraocular movements intact. Pupils: Pupils are equal, round, and reactive to light. Neck: Thyroid: No thyroid mass or thyromegaly. Cardiovascular: Rate and Rhythm: Normal rate and regular rhythm. Heart sounds: Normal heart sounds. No murmur heard. Pulmonary: Effort: Pulmonary effort is normal. Breath sounds: Normal breath sounds. Abdominal: General: Bowel sounds are normal. Palpations: Abdomen is soft. Musculoskeletal: General: Normal range of motion. Cervical back: Normal range of motion. Lymphadenopathy: Cervical: No cervical adenopathy. Skin: General: Skin is warm and dry. Neurological: General: No focal deficit present. Mental Status: She is alert and oriented to person, place, and time. Deep Tendon Reflexes: Reflexes abnormal. Reflex Scores: Tricep reflexes are 1+ on the right side and 1+ on the left side. Bicep reflexes are 1+ on the right side and 1+ on the left side. Patellar reflexes are 0 on the right side and 0 on the left side. Psychiatric: Mood and Affect: Mood normal. An electronic signature was used to authenticate this note. Jairo Garcia MD 02/10/2023 8:49 AM documented in this encounter [facility] 02-04-2023 History of Present illness Narrative Xiomara Delgado presents today for IUD check. She had a Paraguard placed on 11/30/2022. She has had heavy bleeding, and longer periods since placement. Last month had period that lasted around 17 days. REVIEW OF SYSTEMS: PAIN ASSESSMENT: Negative for pain, history of chronic pain, or current treatment for a chronic pain condition. GENERAL: No weight loss, malaise or fevers, Negative for malaise, fever TIN PLATER: Negative for abnormal vaginal bleeding, abnormal vaginal discharge PHYSICAL EXAMINATION: BP 102/62 Wt 148 lb 3.2 oz (67.2kg) LMP 01/04/2022 ABDOMEN:soft, non-tender, no masses, no hepatosplenomegaly, and no lymphadenopathy EXTERNAL GENITALIA: Normal genitalia and Bartholins, Urethra, Sken'e normal CERVIX: smooth, no lesions and IUD strings visualized. IUD strings visible. UTERUS: normal size and non-tender ADNEXA: negative for tenderness or masses IMPRESSION/PLAN: IUD correctly positioned. Patient counseled regarding monthly string check. Follow up for annual exam or sooner if needed. PAP collected- due Naye Sepulveda APRN.CNM documented in this encounter [facility] 12-07-2022 History of Present illness Narrative [facility] [address] [facility] [address] Dept: [phone] Dept Loc: [phone] Visit type: Established : 1995 Chief Complaint: Chief Complaint Patient presents with Follow-up 3 month History of Present Illness: Xiomara Delgado is a 27 yo lady seen spring 2022 in her 3rd trimester of d/t dizziness and pre-syncope. The pt had longstanding iron deficiency anemia, Hgb in July 10.3 gm/dl. It was though that in light of young age, single gestation, and white mother, a bit lower risk for pilo- LV dsyfunction. Records had reported h/o idiopathic hypotension, I had seen BP's 100-115 mm Hg systolic, not impressive for a young woman, and not impressive in . She had not experienced true LOC, and I could not elicit vagal events. Symptoms were generally noted in the third trimester, and had not been experienced with previous baby. Dizziness and near syncopal sensation were noted daily, and with changes in position. She had noted problems with upright position, c/o tingling, tunnel vision, and then nausea, and has to sit. No real notation of palps when this occurs. Not vertiginous dizziness, more lightheaded. Duration is minutes for recovery. No chest sx associated. Echo done at [facility]: EF 55%, no WMA; normal R side, no valve disease. The pt delivered via 10/10/2022, but called [facility] on 10/13 with c/o lightheadedness, nausea, headache, abdominal/pelvic pain and urinary frequency. Temp was 99.5. She had noted abdominal/pelvic pain was more severe than at discharge, rating 5/10 on pain scale. She went to a facility for evaluation, of which I can only see part of the record. Hgb 8.7 g/dL; platelet and white count normal; low calcium, low albumin. Normal renal function. No intervention required, and follow up with [facility] suggested normal post course. She returns for follow up with cardiology. Still has palps, out of the blue every once in awhile; extremely variable, hard to say how often, per the pt. Can occur with or without activity. Seconds duration; cannot tell if the ectopy is fast and irreg or fast and regular. Unable to tell if abrupt start/stop or if there is a a warm up phenomenon. Sometimes will feel out of breath, not really nausea or diaphoresis. Mother states near syncopal. Patient states chest sx are separate. Located mid-sternal and L pectoral. Does not awakened, but with or w/o exertion. Not sure about severity. Fatigue is present, not much changed. Past Medical History: Past Medical History: Diagnosis Date Fibrocystic breast Heart murmur at Hypoglycemia Ovarian cyst Past Surgical History No past surgical history on file. Family History Family History Problem Relation Name Age of Onset No Known Problems Father High Blood Pressure Mother Social History Social History Tobacco Use Smoking status: Former Packs/day: 0.50 Types: Cigarettes Quit date: 11/18/2020 Years since quittin.0 Smokeless tobacco: Never Vaping Use Vaping Use: Former Substance Use Topics Alcohol use: Not Currently Alcohol/week: 0.0 standard drinks of alcohol Drug use: No Allergies: No Known Allergies Medications: No current outpatient medications on file. Review of Systems: Review of Systems Constitutional: Positive for fatigue. Negative for activity change, chills, diaphoresis and fever. HENT: Negative for nosebleeds. Eyes: Positive for visual disturbance (sees black when she feels presyncopal). Respiratory: Negative for apnea, cough, chest tightness, shortness of breath and wheezing. Cardiovascular: Positive for chest pain (occasional; sharp; brief) and palpitations (occasional). Negative for leg swelling. In bed; one pillow; no PND; no RF/ SF; no activity limits in youth; no routine dental prophylaxis; no murmur Gastrointestinal: Positive for nausea (with dizziness). Negative for abdominal distention, abdominal pain, blood in stool, diarrhea and vomiting. Endocrine: Negative for cold intolerance and heat intolerance. Genitourinary: Negative for hematuria. Musculoskeletal: Negative for arthralgias, gait problem and myalgias. Skin: Negative for color change and rash. Allergic/Immunologic: Positive for environmental allergies (nothing OTC). Neurological: Positive for dizziness (with position changes), syncope (feels presyncopal at times) and headaches (alot of BRAVO). Negative for facial asymmetry, speech difficulty, weakness and light-headedness. Hematological: Does not bruise/bleed easily. No blood tx; no DVT, no PE; no miscarraiges Psychiatric/Behavioral: Negative for dysphoric mood and sleep disturbance (8 hours; interupted). The patient is not nervous/anxious. Physical Examination: Vitals: Vitals: 12/07/22 0828 BP: 112/76 BP Location: Left arm Patient Position: Sitting BP Cuff Size: Adult Pulse: 64 Resp: 16 Weight: 150 lb (68 kg) Height: 5' 6 (1.676 m) Body mass index is 24.21 kg/m . Physical Exam Vitals and nursing note reviewed. Constitutional: Appearance: Normal appearance. She is not ill-appearing. Comments: The patient presents in the company of her mother, and her infant daughter. She looks generally well. Eyes: General: Right eye: No discharge. Left eye: No discharge. Neck: Vascular: No carotid bruit. Comments: ++ jugular venous hum Cardiovascular: Rate and Rhythm: Normal rate and regular rhythm. Heart sounds: Murmur (Very low pitched 1/6 to 2/6 systolic murmur, right upper sternal border; no diastolic murmur.) heard. No friction rub. No gallop. Comments: 110/74 mm Hg Pulmonary: Effort: Pulmonary effort is normal. No respiratory distress. Breath sounds: Normal breath sounds. No stridor. No wheezing, rhonchi or rales. Musculoskeletal: Cervical back: Neck supple. Right lower leg: No edema. Left lower leg: No edema. Skin: General: Skin is warm and dry. Neurological: Mental Status: She is alert. Psychiatric: Mood and Affect: Mood normal. Behavior: Behavior normal. Thought Content: Thought content normal. Laboratory Tests: Lab Results Component Value Date WBC 7.0 10/31/2021 HGB 12.4 10/31/2021 MCV 88.1 10/31/2021 Lab Results Component Value Date GLUCOSE 95 02/05/2022 CALCIUM 9.5 02/05/2022 NA 138 02/05/2022 K 4.2 02/05/2022 CO2 20 (L) 02/05/2022 CL 107 02/05/2022 BUN 13 02/05/2022 CREATININE 0.53 02/05/2022 @LASTCMP@ Lab Results Component Value Date CHOL 158 02/05/2022 Lab Results Component Value Date TRIG 96 02/05/2022 Lab Results Component Value Date HDL 38 (L) 02/05/2022 No results found for: LDLCALC No results found for: BNP Cardiac Tests: ECG: August 2022; sinus tach; NSST-T wave changes Last Echo: October 2022; [facility], EF 55%, no WMA; no valve disease Last stress test: NA Last cardiac catheterization: NA Assessment and Plan: 1. Dizziness 2. Idiopathic hypotension 3. Precordial pain 4. MORSE (dyspnea on exertion) 5. Palpitations Patient continues to have a plethora of symptoms . The echocardiogram revealed no LV dysfunction, and no concerning valve disease. At this point, it is safe to proceed with ambulatory stress test for provocative Tory assessment of heart rate response, blood pressure, and arrhythmia. I may need to consider a 30-day event monitor in the future-but I think the first thing to do is the ambulatory stress test. No medication changes at this time. documented in this encounter [facility] 11-30-2022 History of Present illness Narrative [facility]cher offered: Patient declines. [place] presents today for IUD insertion for contraception. Patient's last menstrual period was 01/01/2022 (exact date). GC/chlamydia: Negative on 06/08/22 test: negative Side effects including irregular bleeding were discussed with the patient. The patient understands that it should be removed in 10 years or sooner if the patient desires a . IUD source: office provided IUD lot #: [id number] Exp date: 08/30/28 UNIVERSAL PROTOCOL / SAFETY CHECKLIST Procedure to be Performed: Intrauterine Device (IUD) Insertion ParaGard Sign In: A Moment of CARE was completed. Personnel directly involved with the procedure wore the appropriate PPE (Personal Protective Equipment). Patient/Surrogate Stated/Verified: PATIENT VERIFIED(optional for EMERGENT procedures): Patient name, Date of , Relevant allergies, and The intended procedure Time Out Communication: Intended patient and procedure match the source documents. Consent documented and matches the intended procedure. Sign Out: SIGN OUT (optional for EMERGENT procedures): All specimen containers correctly labeled. The cervix was prepped with betadine. The uterus sounded to 8 cm and the uterus is Anteverted.. Using sterile technique, the ParaGard IUD was inserted without difficulty and the string was cut to 2.5cm from the external os of the cervix. Patient tolerated procedure well. PLAN: Patient was advised to observe for signs and symptoms of infection including but not limited to fever, malodorous vaginal discharge and/or pain. The patient was told to check the string monthly for accurate placement. Bleeding expectations were reviewed. Follow up in one month. Fu std screening Nadia Schwartz MD documented in this encounter [facility] 11-30-2022 Instructions Peg Xie Ma - 11/30/2022 10:07 AM EDT POST IUD INSTRUCTIONS You may have irregular bleeding during the first 3 months of use. You may have mild-severe cramping for the next 48 hours. You may use over the counter medication (Motrin, Tylenol) as needed. Your IUD must be removed or replaced based on the following table: IUD Type Removed or replaced within: Kita 3 years Kyleena 5 years Mirena 8 years Paragard 10 years Call my office for signs/symptoms of infection such as severe cramping, fever, or unusual bleeding. Check for string placement as instructed by your doctor. If you have any additional questions, please contact the office. documented in this encounter [facility] 10-27-2022 History of Present illness Narrative EARLY VISIT Obstetric History T2 L2 SAB0 IAB0 Ectopic0 Multiple0 Live Births2 Name of Baby 1: Charmaine Date: 09/06/21 GA: 40w3d Delivery: Vaginal, Spontaneous Apgar1: 8 Apgar5: 9 Living: Living Name of Baby 2: Polina Date: 10/10/22 GA: 40w2d Delivery: Vaginal, Spontaneous Apgar1: 8 Apgar5: 9 Living: Living Xiomara Delgado is a 26 year old here for 2 week visit. Delivery Summary: ROS: General: Denies any fever or chills Hypertension Screening: Headache? She reports intermittent headaches. Tylenol or ibuprofen relieves them. Visual Changes? No Epigastric Pain? No Increased Swelling? No Taking any BP medications at home? No If applicable, monitoring BP at home? (If Yes, include results) NA Mood: normal Depression: denies symptoms of depression. OB Depression and Anxiety Screening- This Encounter (since 10/26/2022) None Feeding: Bottle feeding problems: None Bladder: No dysuria, gross hematuria, urinary frequency, urinary urgency, or incontinence Bowel symptoms: Negative for abdominal discomfort, blood in stools or black stools and change in bowel habits Abdomen: N/A Bleeding: light flow Bottom and Perineum: No issues PHYSICAL EXAMINATION: BP 104/70 Wt 149 lb 9.6 oz (67.9 kg) LMP 01/01/2022 (Exact Date) Yes BMI 25.08 kg/m General: pleasant,female in no apparent distress, A&O x 3. Skin warm and intact. Breast: Deferred Abdomen: Deferred /Incision: N/A Pelvic: Deferred Bimanual: Deferred ASSESSMENT AND PLAN: 26 year old status post with normal course. Contraception plan: undecided counseled on options and Mirena IUD referral placed. Reinforced 6-week pelvic rest. Encouraged condom usage should patient deviate. Education: resources provided - see MA/RN note Headaches - mild & intermittent headaches. Patient will follow up with pcp as no evidence elevated BP. Reviewed headache precautions. Follow up: Return to Clinic for 6 week visit and as needed Mary Mclaughlin MD documented in this encounter [facility] 10-12-2022 History of Present illness Narrative Patient delivered via by Raphael on 10/10/22 at [facility]. See OB history. Kim Land RN documented in this encounter [facility] 10-06-2022 Miscellaneous Notes Patient now scheduled for today and 10/08/22 for first IV iron infusions at [facility]. Kim Land RN Francis requires prior auth for iron infusion - still waiting for response from insurance. Per blood management they will schedule at [facility] location once approved. [employer] message was sent by blood management department too regarding scheduling at [place]. Kim Land RN Will forward to blood management to see if it can be expedited. Kim Land RN ----- Message from Sarmad Britt MD sent at 09/22/2022 8:31 AM EDT ----- plese notify patient I would like her to get in for IVFE GERARDO. blood management order placed, by Dr. Smith, may be a duplicate message. Please assist. Sarmad Britt MD documented in this encounter [facility] 10-06-2022 Miscellaneous Notes Called and spoke to patient re: orders for IV iron infusions. I was able to get her an appointment today at 2 pm ([facility] infusion) and at 845 am. She stated she can get there today - her due date is . I advised her to keep appointment for is she doesn't deliver before then. She expressed understanding. documented in this encounter [facility] 10-05-2022 Miscellaneous Notes Xiomara Delgado is a 26 year old female who presents at 39w4d for a routine visit. Good movement. Continues to feel irregular contractions. Lost mucus plug after last visit. Denies headache, visual changes, chest pain, shortness of breath, vaginal bleeding, leakage of fluid, or dysuria. Requesting CE with membrane sweep. Verbal consent obtained. Size equal to dates. 10 lbs TWG. CE- /-2- membranes swept easily ASSESSMENT/PLAN: 1. Supervision of high risk in third trimester - ICD9: V23.9, ICD10: O09.93 (primary diagnosis) 2. 39 weeks gestation of - ICD9: V22.2, ICD10: Z3A.39 3. anemia during in third trimester - ICD9: 648.23, ICD10: O99.012 Labor precautions reviewed. RTC Wednesday10/09/22 if not delivered for CE with membrane sweeping. Patient desires physiological onset of labor. Offered induction at 41 weeks. She declines at this time but will reevaluate after 40 weeks gestation. Naye Sepulveda APRN.CNM documented in this encounter [facility] 10-05-2022 Instructions Peg Xie Ak - 10/05/2022 12:53 PM EDT SEQUENTIAL SCREENINGS The [facility] offers sequential screenings for women who are interested in screenings for chromosomal abnormalities and certain defects during a . The sequential screen combines ultrasound and blood tests to determine the risk of chromosomal abnormalities, including Down's Syndrome (Trisomy 21) and Trisomy 18, as well as open neural tube defects including spina bifida. Ultrasound examination is performed between 11 weeks and 13 weeks gestational age. Blood tests are drawn after the ultrasound and again later in the between 15 and 21 weeks gestational age. Please let your physician know if you are interested in this testing. It will require an appointment with our hemodialysis technician. This is not an ultrasound performed by a physician in our office during a routine visit. SIGNS AND SYMPTOMS OF LABOR 1. Contractions every 10 minutes or more often 2. Clear, pink, or brownish fluid (water) leaking from vagina 3. Feeling that baby is pushing down, pressure 4. Low, dull backache 5. Cramps that feel like a period 6. Cramps with or without diarrhea If you notice any of the above symptoms, contact our office at [phone] and ask to speak with a nurse. After hours, you can call [facility] at [phone] OR call [facility] at [phone] and ask to have the doctor flowers salesperson paged. If you consider this an emergency, dial 9-1 or go to your nearest emergency department. NEED HELP? Are you dealing with a violent or abusive relationship? Are you a victim of rape or sexual assult? Call [facility] ([place]) 24 hour Crisis Hotline: 584.242.9724 or 805-809-0308. MANUAL Your Guide to a Healthy manual is now on-line. Visit [email or web address] to download your free copy documented in this encounter [facility] 09-30-2022 Telephone encounter Note I called pt, advised that echo has been authorized to be scheduled at [facility]. Pt will call [facility] sched to schedule and call office to let me know test date. [facility] 09-30-2022 Miscellaneous Notes I called pt, advised that echo has been authorized to be scheduled at [facility]. Pt will call [facility] sched to schedule and call office to let me know test date. documented in this encounter [facility] 09-30-2022 Miscellaneous Notes Xiomara Delgado is a 26 year old female who presents at 38w6d for a routine visit. Good movement. Continues to have irregular contractions. Last weekend contractions increased in frequency and strength but stopped after 2 hours. Denies headache, visual changes, chest pain, shortness of breath, vaginal bleeding, leakage of fluid, or dysuria. Patient has not received iron transfusions. She was given the number to call and schedule. Requesting CE today with membrane sweep. Verbal consent obtained. Size equal to dates. 4 lbs TWG. CE- 2/70/-2 soft ASSESSMENT/PLAN: 1. 38 weeks gestation of - ICD9: V22.2, ICD10: Z3A.38 (primary diagnosis) - URINE OB DIP B/O 2. Anemia during in third trimester - ICD9: 648.23, ICD10: O99.013 - Patient to call and schedule infusion Labor precautions and kick counts reviewed. RTC in 1 week or sooner if needed. Naye Sepulveda APRN.CNM documented in this encounter [facility] 09-30-2022 Instructions Masha Burgos MA - 09/30/2022 10:05 AM EDT SEQUENTIAL SCREENINGS The [facility] offers sequential screenings for women who are interested in screenings for chromosomal abnormalities and certain defects during a . The sequential screen combines ultrasound and blood tests to determine the risk of chromosomal abnormalities, including Down's Syndrome (Trisomy 21) and Trisomy 18, as well as open neural tube defects including spina bifida. Ultrasound examination is performed between 11 weeks and 13 weeks gestational age. Blood tests are drawn after the ultrasound and again later in the between 15 and 21 weeks gestational age. Please let your physician know if you are interested in this testing. It will require an appointment with our hemodialysis technician. This is not an ultrasound performed by a physician in our office during a routine visit. SIGNS AND SYMPTOMS OF LABOR 1. Contractions every 10 minutes or more often 2. Clear, pink, or brownish fluid (water) leaking from vagina 3. Feeling that baby is pushing down, pressure 4. Low, dull backache 5. Cramps that feel like a period 6. Cramps with or without diarrhea If you notice any of the above symptoms, contact our office at [phone] and ask to speak with a nurse. After hours, you can call [facility] at [phone] OR call [facility] at [phone] and ask to have the doctor flowers salesperson paged. If you consider this an emergency, dial or go to your nearest emergency department. NEED HELP? Are you dealing with a violent or abusive relationship? Are you a victim of rape or sexual assult? Call [facility] ([place]) 24 hour Crisis Hotline: 398.499.1614 or 401-281-3929. MANUAL Your Guide to a Healthy manual is now on-line. Visit [email or web address] to download your free copy documented in this encounter [facility] 09-21-2022 Miscellaneous Notes SW- Pt doing well. Some lightheadedness and tunnel vision with prolonged standing. She does not have these symptoms unless she is standing for prolonged periods of time. No CP or SOB. No syncope or pre syncope. No ctx, vb, lof. Good FM. PE: Gen- NAD, well appearing Abd- Soft, gravid, NT Ext- No edema See flowsheet A/p 38 wk gestation - Lightheadedness: Only with prolnged standing. Most likely secondary to normal physiologic changes of . Cardiology referral placed last visit - Anemia: Blood management referral for IV iron - Weekly visits Bernarda Smith DO documented in this encounter [facility] 09-21-2022 Instructions Masha Burgos MA - 09/21/2022 2:49 PM EDT SEQUENTIAL SCREENINGS The [facility] offers sequential screenings for women who are interested in screenings for chromosomal abnormalities and certain defects during a . The sequential screen combines ultrasound and blood tests to determine the risk of chromosomal abnormalities, including Down's Syndrome (Trisomy 21) and Trisomy 18, as well as open neural tube defects including spina bifida. Ultrasound examination is performed between 11 weeks and 13 weeks gestational age. Blood tests are drawn after the ultrasound and again later in the between 15 and 21 weeks gestational age. Please let your physician know if you are interested in this testing. It will require an appointment with our hemodialysis technician. This is not an ultrasound performed by a physician in our office during a routine visit. SIGNS AND SYMPTOMS OF LABOR 1. Contractions every 10 minutes or more often 2. Clear, pink, or brownish fluid (water) leaking from vagina 3. Feeling that baby is pushing down, pressure 4. Low, dull backache 5. Cramps that feel like a period 6. Cramps with or without diarrhea If you notice any of the above symptoms, contact our office at [phone] and ask to speak with a nurse. After hours, you can call doctors registry at [phone] OR call [facility] at [phone] and ask to have the doctor flowers salesperson paged. If you consider this an emergency, dial 9-1-2 or go to your nearest emergency department. NEED HELP? Are you dealing with a violent or abusive relationship? Are you a victim of rape or sexual assult? Call [facility] ([place]) 24 hour Crisis Hotline: 972.868.3348 or 526-703-2802. MANUAL Your Guide to a Healthy manual is now on-line. Visit [email or web address] to download your free copy documented in this encounter [facility] 09-14-2022 Miscellaneous Notes Xiomara Delgado is a 26 year old female who presents at 36w4d Estimated Date of Delivery: 10/08/22 for a routine visit. Good movement. Continues to have irregular contractions. Increased back pain as well. Seen by Cardiology last week and will be having an ECHO completed. Thinks she may have a heart murmer that could be causing her symptoms of dizziness, tunnel vision and feeling like she is going to pass out. Denies headache, visual changes, chest pain, shortness of breath, vaginal bleeding, leakage of fluid, or dysuria. Taking oral iron but needs follow up CBC. Stated having difficulty getting lab scheduled. Discussed importance of repeat CBC with diagnosis of anemia. Requesting CE today. Size equal to dates. 5 lbs TWG. TAUS- confirms vertex PTL precautions reviewed. RTC in 1 week or sooner if needed. Naye Sepulveda APRN.CNM documented in this encounter [facility] 09-14-2022 Paula Choe LPN - 09/14/2022 4:21 PM EDT SEQUENTIAL SCREENINGS The [facility] offers sequential screenings for women who are interested in screenings for chromosomal abnormalities and certain defects during a . The sequential screen combines ultrasound and blood tests to determine the risk of chromosomal abnormalities, including Down's Syndrome (Trisomy 21) and Trisomy 18, as well as open neural tube defects including spina bifida. Ultrasound examination is performed between 11 weeks and 13 weeks gestational age. Blood tests are drawn after the ultrasound and again later in the between 15 and 21 weeks gestational age. Please let your physician know if you are interested in this testing. It will require an appointment with our hemodialysis technician. This is not an ultrasound performed by a physician in our office during a routine visit. SIGNS AND SYMPTOMS OF LABOR 1. Contractions every 10 minutes or more often 2. Clear, pink, or brownish fluid (water) leaking from vagina 3. Feeling that baby is pushing down, pressure 4. Low, dull backache 5. Cramps that feel like a period 6. Cramps with or without diarrhea If you notice any of the above symptoms, contact our office at [phone] and ask to speak with a nurse. After hours, you can call doctors registry at [phone] OR call [facility] at [phone] and ask to have the doctor flowers salesperson paged. If you consider this an emergency, dial 0-5-2 or go to your nearest emergency department. NEED HELP? Are you dealing with a violent or abusive relationship? Are you a victim of rape or sexual assult? Call [facility] ([place]) 24 hour Crisis Hotline: 293.353.3059 or 296-001-2681. MANUAL Your Guide to a Healthy manual is now on-line. Visit [email or web address] to download your free copy documented in this encounter [facility] 09-07-2022 History of Present illness Narrative [facility] [address] [facility] [address] Dept: [phone] Dept Loc: [phone] Visit type: New : 1995 Chief Complaint: Chief Complaint Patient presents with New Patient History of Present Illness: Xiomara Delgado is a 26 year old lady in her 3rd trimester of referred for sensation of dizziness and pre-syncope. The pt has known longstanding iron deficiency anemia, last Hgb in July 10.3 gm/dl. No other labs, no EKG tracing. Very little to offer during with exception of supportive care (liberalize salt, support hose, slowly changing position). Echo will likely not be able to be obtained prior to delivery, but would be indicated for completeness sake as well. In light on young age and a single , and white mother, a bit lower risk for pilo- LV dsyfunction. Records suggest idiopathic hypotension, last BP's I see running 100-115 mm Hg systolic, not impressive for a young woman, and not impressive in . Has not had true LOC, nothing vagal. Noted in the the third trimester, not noted with previous baby. Noted daily, and noted with standing. Noted with upright position, states she feels tingling, tunnel vision, and then nausea, and sits. No real notation of palps when this occurs. Otherwise not much with positional changes. Not vertiginous dizziness, more lightheaded. Duration is minutes for recovery. Not really SOB with the events. No chest sx associated. Delivery date 10/08 tentative. Past Medical History: Past Medical History: Diagnosis Date Fibrocystic breast Heart murmur at Hypoglycemia Ovarian cyst Past Surgical History No past surgical history on file. Family History Family History Problem Relation Name Age of Onset No Known Problems Father High Blood Pressure Mother Social History Social History Tobacco Use Smoking status: Former Packs/day: 0.50 Types: Cigarettes Quit date: 11/18/2020 Years since quittin.8 Smokeless tobacco: Never Vaping Use Vaping Use: Former Substance Use Topics Alcohol use: Not Currently Alcohol/week: 0.0 standard drinks Drug use: No Allergies: No Known Allergies Medications: Current Outpatient Medications: ferrous sulfate 325 (65 Fe) MG tablet, Take 325 mg by mouth daily (with breakfast)., Disp: , Rfl: Vit-Fe Fumarate-FA ( Vitamin Plus Low Iron) 27-1 MG tablet, Take 1 tablet by mouth in the morning., Disp: , Rfl: kpgmqphysg-ikuhrnnhdkhdi-mixpchwv 50-325-40 MG tablet, Take 1 tablet by mouth every 4 hours as needed for headaches., Disp: 30 tablet, Rfl: 0 Review of Systems: Review of Systems Constitutional: Negative for activity change, chills, diaphoresis, fatigue and fever. HENT: Negative for nosebleeds. Eyes: Positive for visual disturbance (tunnel vision with dizziness). Respiratory: Negative for apnea, cough, chest tightness, shortness of breath and wheezing. Cardiovascular: Negative for chest pain, palpitations and leg swelling. In bed; one pillow; no PND; no RF/ SF; no activity limits in youth; no routine dental prophylaxis; no murmur Gastrointestinal: Positive for nausea (with dizziness). Negative for abdominal distention, abdominal pain, blood in stool, diarrhea and vomiting. Endocrine: Negative for cold intolerance and heat intolerance. Genitourinary: Negative for hematuria. Musculoskeletal: Negative for arthralgias, gait problem and myalgias. Skin: Negative for color change and rash. Allergic/Immunologic: Positive for environmental allergies (nothing OTC). Neurological: Positive for dizziness, syncope (feels presyncopal at times) and headaches (some BRAVO). Negative for speech difficulty, weakness and light-headedness. Hematological: Does not bruise/bleed easily. No blood tx; no DVT, no PE; no miscarraiges Psychiatric/Behavioral: Negative for dysphoric mood and sleep disturbance (8 hours). The patient is not nervous/anxious. Physical Examination: Vitals: Vitals: 09/07/22 0813 BP: 102/58 BP Location: Left arm Patient Position: Sitting BP Cuff Size: Adult Pulse: 101 Resp: 18 Weight: 169 lb (76.7 kg) Height: 5' 6 (1.676 m) Body mass index is 27.28 kg/m . Physical Exam Vitals and nursing note reviewed. Constitutional: Appearance: Normal appearance. She is not ill-appearing. Eyes: General: Right eye: No discharge. Left eye: No discharge. Conjunctiva/sclera: Conjunctivae normal. Neck: Vascular: No carotid bruit. Comments: ++ jugular venous hum Cardiovascular: Rate and Rhythm: Normal rate and regular rhythm. Heart sounds: Murmur (2/6 systolic murmur at the base) heard. No friction rub. No gallop. Comments: 116/60 mm Hg R and 110/58 mm Hg L sitting, R handed, reg cuff Pulmonary: Effort: Pulmonary effort is normal. No respiratory distress. Breath sounds: Normal breath sounds. No stridor. No wheezing, rhonchi or rales. Abdominal: General: Abdomen is flat. Bowel sounds are normal. There is no distension. Palpations: Abdomen is soft. There is no mass. Tenderness: There is no abdominal tenderness. There is no guarding. Musculoskeletal: Cervical back: Neck supple. Right lower leg: No edema. Left lower leg: No edema. Skin: General: Skin is warm and dry. Neurological: Mental Status: She is alert. Psychiatric: Mood and Affect: Mood normal. Behavior: Behavior normal. Thought Content: Thought content normal. Laboratory Tests: Lab Results Component Value Date WBC 7.0 10/31/2021 HGB 12.4 10/31/2021 MCV 88.1 10/31/2021 Lab Results Component Value Date GLUCOSE 95 02/05/2022 CALCIUM 9.5 02/05/2022 NA 138 02/05/2022 K 4.2 02/05/2022 CO2 20 (L) 02/05/2022 CL 107 02/05/2022 BUN 13 02/05/2022 CREATININE 0.53 02/05/2022 @LASTP@ Lab Results Component Value Date CHOL 158 02/05/2022 Lab Results Component Value Date TRIG 96 02/05/2022 Lab Results Component Value Date HDL 38 (L) 02/05/2022 No results found for: LDLCALC No results found for: BNP Cardiac Tests: ECG: August 2022; sinus tach; NSST-T wave changes Last Echo: NA Last stress test: NA Last cardiac catheterization: NA Assessment and Plan: 1. Idiopathic hypotension 2. Hypoglycemia 3. Iron deficiency anemia secondary to inadequate dietary iron intake 4. Dizziness 5. Sinus tachycardia 6. Abnormal EKG She has a grade 2/6 systolic murmur at the RUSB, which really does not vary with respiration. This may be tricuspid regurgitation, or potentially flow through the aortic valve that is dynamic. Normally TR would vary with respiration, but in the volume loaded state of , it is possible that it may not. She also demonstrates a very nice jugular venous hum. The symptoms are benign. We do nothing in light of what sounds to be venous pooling. We suggested maintenance of fluid intake, support hose, and liberalization of salt intake. She has absolutely no edema, so all these maneuvers are completely reasonable. She has a otherwise unremarkable history and exam. Echocardiogram is totally reasonable. This will look at LV size and function, diastolic function, and of course getting an assessment of the tricuspid valve and RVSP. Her due date is early October, I will be out of the office at that time. I need the echocardiogram prior to delivery, [facility] is the closest facility. If abnormal, I will see her within the next couple of weeks, otherwise I will plan on seeing her in about 3 months postdelivery as a matter of routine. documented in this encounter [facility] 08-25-2022 Miscellaneous Notes S: Xiomara Delgado is a 26 year old female who presents at 33.5 weeks gestation for a routine visit. Reports having episodes daily of dizziness, feeling like she is going to pass out, and tunnel vision. She has to frequently sit down and immediately feels nauseous. These episodes have increased in frequency over the past couple of weeks and are not occurring daily. Denies every passing out or loosing consciousness. No longer working on feet or standing. Denies any cardiac history. Positive movement. Denies headache, chest pain, shortness of breath, vaginal bleeding, leakage of fluid, or dysuria. Patient never completed repeat CBC after starting oral iron. O: See flow sheet Gen: No apparent distress Abd: Gravid, non tender S=D ASSESSMENT/PLAN: 1. 33 weeks gestation of - ICD9: V22.2, ICD10: Z3A.33 (primary diagnosis) 2. Dizziness - ICD9: 780.4, ICD10: R42 3. Tunnel vision, bilateral - ICD9: 368.45, ICD10: H53.483 4. Pre- syncope Plan: - URINE OB DIP - CONSULT TO CARDIOLOGY - Repeat CBC today - PTL precautions reviewed and when to call - RTO 2 weeks or sooner if needed Naye Sepulveda APRN.CNM documented in this encounter [facility] 08-25-2022 Instructions Kameron Moreira Cma - 08/25/2022 12:57 PM EDT SEQUENTIAL SCREENINGS The [facility] offers sequential screenings for women who are interested in screenings for chromosomal abnormalities and certain defects during a . The sequential screen combines ultrasound and blood tests to determine the risk of chromosomal abnormalities, including Down's Syndrome (Trisomy 21) and Trisomy 18, as well as open neural tube defects including spina bifida. Ultrasound examination is performed between 11 weeks and 13 weeks gestational age. Blood tests are drawn after the ultrasound and again later in the between 15 and 21 weeks gestational age. Please let your physician know if you are interested in this testing. It will require an appointment with our hemodialysis technician. This is not an ultrasound performed by a physician in our office during a routine visit. SIGNS AND SYMPTOMS OF LABOR 1. Contractions every 10 minutes or more often 2. Clear, pink, or brownish fluid (water) leaking from vagina 3. Feeling that baby is pushing down, pressure 4. Low, dull backache 5. Cramps that feel like a period 6. Cramps with or without diarrhea If you notice any of the above symptoms, contact our office at [phone] and ask to speak with a nurse. After hours, you can call doctors registry at [phone] OR call [facility] at [phone] and ask to have the doctor flowers salesperson paged. If you consider this an emergency, dial 9-1-1 or go to your nearest emergency department. NEED HELP? Are you dealing with a violent or abusive relationship? Are you a victim of rape or sexual assult? Call [facility] ([place]) 24 hour Crisis Hotline: 580.116.2835 or 354-049-9443. MANUAL Your Guide to a Healthy manual is now on-line. Visit [email or web address] to download your free copy documented in this encounter [facility] 07-21-2022 History of Present illness Narrative Xiomara Delgado 26 year old is here for her injection of Rhophylac. Xiomara Delgado ABO/RH(D) (no units) Date Value 06/13/2021 A NEGATIVE Antibody Screen (no units) Date Value 07/07/2022 Negative 06/13/2021 NEG Xiomara Delgado is RH Negative Rhophylac was given without incident. See immunizations for details of immunizations administered today. Provider Naye Sepulveda APRN.CNM was present in office at time of injection Xiomara Delgado was given her Rhophylac pocket card. Kim Land RN documented in this encounter [facility] 07-21-2022 Miscellaneous Notes Xiomara Delgado is a 26 year old female who presents at 28w5d for a routine visit. Good movement. C/O occasional tianna menchaca/ cramps with increased activity. Discussed increased hydration. She is able to sleep and cramps resolve. Denies headache, visual changes, chest pain, shortness of breath, vaginal bleeding, leakage of fluid, or dysuria. Increased overall fatigue. Started oral iron supplementation 2 weeks ago- will repeat CBC in 2 weeks. Rhogam today. Size equal to dates. -2 lbs TWG. PTL precautions reviewed. RTC in 2 weeks or sooner if needed. Naye Sepulveda APRN.CNM documented in this encounter [facility] 07-21-2022 Paula Moreira Cma - 07/21/2022 11:14 AM EDT SEQUENTIAL SCREENINGS The [facility] offers sequential screenings for women who are interested in screenings for chromosomal abnormalities and certain defects during a . The sequential screen combines ultrasound and blood tests to determine the risk of chromosomal abnormalities, including Down's Syndrome (Trisomy 21) and Trisomy 18, as well as open neural tube defects including spina bifida. Ultrasound examination is performed between 11 weeks and 13 weeks gestational age. Blood tests are drawn after the ultrasound and again later in the between 15 and 21 weeks gestational age. Please let your physician know if you are interested in this testing. It will require an appointment with our hemodialysis technician. This is not an ultrasound performed by a physician in our office during a routine visit. SIGNS AND SYMPTOMS OF LABOR 1. Contractions every 10 minutes or more often 2. Clear, pink, or brownish fluid (water) leaking from vagina 3. Feeling that baby is pushing down, pressure 4. Low, dull backache 5. Cramps that feel like a period 6. Cramps with or without diarrhea If you notice any of the above symptoms, contact our office at [phone] and ask to speak with a nurse. After hours, you can call doctors registry at [phone] OR call [facility] at [phone] and ask to have the doctor flowers salesperson paged. If you consider this an emergency, dial 6-6-5 or go to your nearest emergency department. NEED HELP? Are you dealing with a violent or abusive relationship? Are you a victim of rape or sexual assult? Call [facility] ([place]) 24 hour Crisis Hotline: 301.543.9889 or 886-934-4301. MANUAL Your Guide to a Healthy manual is now on-line. Visit [email or web address] to download your free copy Please select the following link to access the [facility] Your Guide to a Healthy . [email or web address] documented in this encounter [facility] 07-07-2022 Miscellaneous Notes Xiomara Delgado is a 26 year old female who presents at 26w5d for a routine visit. Seen in L&D last week for monitoring after falling at friends house. Denies direct abdominal trauma but fell and hit side. Denies any vaginal bleeding or loss of fluid. Good movement. Denies headache, visual changes, chest pain, shortness of breath, vaginal bleeding, leakage of fluid, or dysuria. ASSESSMENT/PLAN: 1. 26 weeks gestation of - ICD9: V22.2, ICD10: Z3A.26 (primary diagnosis 2. Short interval between pregnancies affecting , antepartum - ICD9: V23.89, ICD10: O09.899 3. Rh negative state in antepartum period - ICD9: 646.83, ICD10: O26.899, Z67.9 PLAN: - 1 hour GCT, CBC, and RPR today - Rh negative / A-, Rhogam at 28 weeks gestation - TDAP next visit - LARC form reviewed and signed. Patient declines- would like OCP - Depression screen negative - Opioid screen negative - plan form discussed and given to patient. Patient desires epidural and bottle feeding - PTL precautions and kick counts reviewed - RTO- 2 weeks or sooner if needed Naye Sepulveda APRN.CNM documented in this encounter [facility] 07-07-2022 Paula Moreira Cma - 07/07/2022 1:15 PM EST SEQUENTIAL SCREENINGS The [facility] offers sequential screenings for women who are interested in screenings for chromosomal abnormalities and certain defects during a . The sequential screen combines ultrasound and blood tests to determine the risk of chromosomal abnormalities, including Down's Syndrome (Trisomy 21) and Trisomy 18, as well as open neural tube defects including spina bifida. Ultrasound examination is performed between 11 weeks and 13 weeks gestational age. Blood tests are drawn after the ultrasound and again later in the between 15 and 21 weeks gestational age. Please let your physician know if you are interested in this testing. It will require an appointment with our hemodialysis technician. This is not an ultrasound performed by a physician in our office during a routine visit. SIGNS AND SYMPTOMS OF LABOR 1. Contractions every 10 minutes or more often 2. Clear, pink, or brownish fluid (water) leaking from vagina 3. Feeling that baby is pushing down, pressure 4. Low, dull backache 5. Cramps that feel like a period 6. Cramps with or without diarrhea If you notice any of the above symptoms, contact our office at [phone] and ask to speak with a nurse. After hours, you can call [facility] registry at [phone] OR call [facility] at [phone] and ask to have the doctor flowers salesperson paged. If you consider this an emergency, dial 9-1-1 or go to your nearest emergency department. NEED HELP? Are you dealing with a violent or abusive relationship? Are you a victim of rape or sexual assult? Call [facility] ([place]) 24 hour Crisis Hotline: 700.119.3930 or 220-433-2688. MANUAL Your Guide to a Healthy manual is now on-line. Visit [email or web address] to download your free copy documented in this encounter [facility] 06-29-2022 Miscellaneous Notes Contacted pt and notified her that CP has requested that she go to L&D to be evaluated. Pt is A-. L&D notified. Katheryn Leal LPN Attempted to contact pt x2 via phone after CP stated pt is to go into L&D to be evaluated following fall. Unable to leave a voicemail message. [employer] message sent to pt. Will try to reach pt again. Katheryn Leal LPN Pt calling and stated that she slipped going down steps and missed the last step. Pt stated that she landed on her side. Did not hit her abdomin. Pt reported that this happened about 3pm. Pt has felt baby move since episode happened. Pt not aware of any bleeding or fluid leakage. Pt is heading into work for a meeting but is wanting to know if she needs to do anything at this point? Katheryn Leal LPN documented in this encounter [facility] 06-15-2022 Miscellaneous Notes Xiomara Delgado is a 26 year old female who presents at 23w4d for an add on visit. She was seen in L&D over the weekend for pelvic pain. UTI and labor ruled out. Urine negative. Here today for follow up. Continues to have lower back pain that wraps around to front. Pain shooting down legs at times. Stated she has days where daily activities are hard to complete. Again discussed resident care spec. She has not looked into it yet. Denies any cramping or contractions. Positive movement. routine visit. Good movement. S=D ASSESSMENT/PLAN: 1. Encounter for supervision of other normal in second trimester - ICD9: V22.1, ICD10: Z34.82 2. 23 weeks gestation of - ICD9: V22.2, ICD10: Z3A.23 3. Generalized abdominal pain - ICD9: 789.07, ICD10: R10.84 4. Pain of round ligament affecting , antepartum - ICD9: 646.83, 625.9, ICD10: O26.899, R10.2 5. Bilateral low back pain with bilateral sciatica, unspecified chronicity - ICD9: 724.3, 724.2, ICD10: M54.42, M54.41 Plan: - Heat and ice to lower back - Tylenol 1000 mg PO every 6 hours as needed for pain - Chiropractic and Massage therapy RTO-3 weeks for JODY with GCT Naye Sepulveda APRN.CNM documented in this encounter [facility] 06-15-2022 Paula Choe LPN - 06/15/2022 11:24 AM EST SEQUENTIAL SCREENINGS The [facility] offers sequential screenings for women who are interested in screenings for chromosomal abnormalities and certain defects during a . The sequential screen combines ultrasound and blood tests to determine the risk of chromosomal abnormalities, including Down's Syndrome (Trisomy 21) and Trisomy 18, as well as open neural tube defects including spina bifida. Ultrasound examination is performed between 11 weeks and 13 weeks gestational age. Blood tests are drawn after the ultrasound and again later in the between 15 and 21 weeks gestational age. Please let your physician know if you are interested in this testing. It will require an appointment with our hemodialysis technician. This is not an ultrasound performed by a physician in our office during a routine visit. SIGNS AND SYMPTOMS OF LABOR 1. Contractions every 10 minutes or more often 2. Clear, pink, or brownish fluid (water) leaking from vagina 3. Feeling that baby is pushing down, pressure 4. Low, dull backache 5. Cramps that feel like a period 6. Cramps with or without diarrhea If you notice any of the above symptoms, contact our office at [phone] and ask to speak with a nurse. After hours, you can call doctors registry at [phone] OR call [facility] at [phone] and ask to have the doctor flowers salesperson paged. If you consider this an emergency, dial 5-3-2 or go to your nearest emergency department. NEED HELP? Are you dealing with a violent or abusive relationship? Are you a victim of rape or sexual assult? Call [facility] ([place]) 24 hour Crisis Hotline: 467.874.3458 or 254-255-3024. MANUAL Your Guide to a Healthy manual is now on-line. Visit [email or web address] to download your free copy documented in this encounter [facility] 06-08-2022 Miscellaneous Notes DANITA-S: Xiomara Delgado is a 26 year old female who presents at 22w4d with [place]:10/08/2022, by Last Menstrual Period Gestational for a problem visit. Good FM.Denies headache, visual changes, chest pain, shortness of breath, vaginal bleeding, leakage of fluid, or dysuria. Complaint of lower pelvic pain that radiates into her back. Pain also radiates into her legs. Pain comes and goes but not frequent. On and off throughout the day. New partner since beginning of , ok with STD screening. Urinary frequency and incomplete emptying. O: See flow sheet Gen: No apparent distress Abd: Gravid, nontender, No CVAT. Lower back pain URINE POC GLUCOSE UA (POCT) Negative 06/08/2022 BILIRUBIN UA (POCT) Negative 06/08/2022 KETONE UA (POCT) Negative 06/08/2022 SPECIFIC GRAVITY UA (POCT) 1.015 06/08/2022 HEMOGLOBIN/BLOOD UA (POCT) Negative 06/08/2022 PH UA (POCT) 6.5 06/08/2022 PROTEIN UA (POCT) Negative 06/08/2022 UROBILINOGEN UA (POCT) 1.0 06/08/2022 NITRITE UA (POCT) Negative 06/08/2022 LEUKOCYTES UA (POCT) Trace 06/08/2022 COLOR UA (POCT) Yellow 06/08/2022 CLARITY UA (POCT) Clear 06/08/2022 ASSESSMENT/PLAN: 1. 22 weeks gestation of 2. Encounter for supervision of other normal in second trimester 3. Urine frequency P: 1) PTL precautions reviewed and when to call 2) RTO as scheduled 3) Will treat with macrobid 100mg PO BID x 7 days for possible UTI due to symptoms. Urine culture sent. Discussed UTI vs PTL vs normal discomforts. To call if pain worsens or increases in intensity. Madeleine Pettit APRN.CNM documented in this encounter [facility] 06-08-2022 Instructions Kameron Moreira Cma - 06/08/2022 2:56 PM EST SEQUENTIAL SCREENINGS The [facility] offers sequential screenings for women who are interested in screenings for chromosomal abnormalities and certain defects during a . The sequential screen combines ultrasound and blood tests to determine the risk of chromosomal abnormalities, including Down's Syndrome (Trisomy 21) and Trisomy 18, as well as open neural tube defects including spina bifida. Ultrasound examination is performed between 11 weeks and 13 weeks gestational age. Blood tests are drawn after the ultrasound and again later in the between 15 and 21 weeks gestational age. Please let your physician know if you are interested in this testing. It will require an appointment with our hemodialysis technician. This is not an ultrasound performed by a physician in our office during a routine visit. SIGNS AND SYMPTOMS OF LABOR 1. Contractions every 10 minutes or more often 2. Clear, pink, or brownish fluid (water) leaking from vagina 3. Feeling that baby is pushing down, pressure 4. Low, dull backache 5. Cramps that feel like a period 6. Cramps with or without diarrhea If you notice any of the above symptoms, contact our office at [phone] and ask to speak with a nurse. After hours, you can call doctors registry at [phone] OR call [facility] at [phone] and ask to have the doctor flowers salesperson paged. If you consider this an emergency, dial 9-1-1 or go to your nearest emergency department. NEED HELP? Are you dealing with a violent or abusive relationship? Are you a victim of rape or sexual assult? Call [facility] ([place]) 24 hour Crisis Hotline: 976.308.9420 or 754-713-8328. MANUAL Your Guide to a Healthy manual is now on-line. Visit [email or web address] to download your free copy [facility] [facility] 06-08-2022 Miscellaneous Notes Patient called and appointment given. Melyssa Mosqueda RN We can see her here, please schedule. Thank you, Madeleine Pettit APRN.CNM Patient 22w4d calling with complaints of severe cramping in her lower abdomen that extends to her lower back. Patient is constant and has been going on for the last hour. Currently rating pain at a 7 out of 10. Denies any bleeding or leaking of fluid. Denies any dysuria or urinary issues. Per patient she is unable to get up and hurts to walk around. Do you want to work patient into office hours or send to ER? Melyssa Mosqueda RN documented in this encounter [facility] 05-26-2022 Miscellaneous Notes S: Xiomara Delgado is a 26 year old female who presents at 20.5 weeks gestation for a routine visit. Just completed anatomy US- awaiting final results. She never had AFP blood work completed- just forgot. Positive movement. Continues to have round ligament pain. support belt is too big and she doesn't want to buy another one so will wait until further along to wear. Denies headache, visual changes, chest pain, shortness of breath, vaginal bleeding, leakage of fluid, or dysuria. Feeling well overall. O: See flow sheet Gen: No apparent distress Abd: Gravid, nontender ASSESSMENT/PLAN: 1. 20 weeks gestation of - ICD9: V22.2, ICD10: Z3A.20 (primary diagnosis) - URINE OB DIP B/O 2. Current nicotine vaping on some days - ICD9: 305.1, ICD10: Z72.0 - Cessation encouraged. 3. Short interval between pregnancies affecting , antepartum - ICD9: V23.89, ICD10: O09.899 4. Pain of round ligament affecting , antepartum - ICD9: 646.83, 625.9, ICD10: O26.899, R10.2 - Chiropractor evaluation - Massage - support belt PTL/Bleeding precautions reviewed RTO- 4 weeks or sooner if needed Naye Sepulveda APRN.CNM documented in this encounter [facility] 05-26-2022 Instructions Masha Burgos MA - 05/26/2022 8:38 AM EST SEQUENTIAL SCREENINGS The [facility] offers sequential screenings for women who are interested in screenings for chromosomal abnormalities and certain defects during a . The sequential screen combines ultrasound and blood tests to determine the risk of chromosomal abnormalities, including Down's Syndrome (Trisomy 21) and Trisomy 18, as well as open neural tube defects including spina bifida. Ultrasound examination is performed between 11 weeks and 13 weeks gestational age. Blood tests are drawn after the ultrasound and again later in the between 15 and 21 weeks gestational age. Please let your physician know if you are interested in this testing. It will require an appointment with our hemodialysis technician. This is not an ultrasound performed by a physician in our office during a routine visit. SIGNS AND SYMPTOMS OF LABOR 1. Contractions every 10 minutes or more often 2. Clear, pink, or brownish fluid (water) leaking from vagina 3. Feeling that baby is pushing down, pressure 4. Low, dull backache 5. Cramps that feel like a period 6. Cramps with or without diarrhea If you notice any of the above symptoms, contact our office at [phone] and ask to speak with a nurse. After hours, you can call doctors registry at [phone] OR call [facility] at [phone] and ask to have the doctor flowers salesperson paged. If you consider this an emergency, dial 6-3-1 or go to your nearest emergency department. NEED HELP? Are you dealing with a violent or abusive relationship? Are you a victim of rape or sexual assult? Call [facility] ([place]) 24 hour Crisis Hotline: 823.962.7495 or 140-726-7472. MANUAL Your Guide to a Healthy manual is now on-line. Visit [email or web address] to download your free copy documented in this encounter [facility] 05-14-2022 Miscellaneous Notes Patient calling regarding and having tunnel vision. Conferenced to SEE SUPERVISOR Answering Service [ ] to speak with provider flowers salesperson for Dr. Mary Mclaughlin at phone number ( - - ). documented in this encounter [facility] 04-30-2022 Miscellaneous Notes KJ - VB No. LOF No. CTXS No. Movement: present. Other c/o: Yes: Other: slight cramps. She still having intermittent headaches. She hasn't started the zyrtec. Medication list reviewed. Physical Exam See Flow Sheet Gen: no accute distress, well appearing Abd: soft, nontender, gravid A/P 17w0d Estimated Date of Delivery: 10/08/22 Schedule Anatomy [facility] today Headaches - rx magnesium sulfate given Mary Mclaughlin MD documented in this encounter [facility] 04-30-2022 Instructions Peg Xie Ma - 04/30/2022 11:16 AM EST SEQUENTIAL SCREENINGS The [facility] offers sequential screenings for women who are interested in screenings for chromosomal abnormalities and certain defects during a . The sequential screen combines ultrasound and blood tests to determine the risk of chromosomal abnormalities, including Down's Syndrome (Trisomy 21) and Trisomy 18, as well as open neural tube defects including spina bifida. Ultrasound examination is performed between 11 weeks and 13 weeks gestational age. Blood tests are drawn after the ultrasound and again later in the between 15 and 21 weeks gestational age. Please let your physician know if you are interested in this testing. It will require an appointment with our hemodialysis technician. This is not an ultrasound performed by a physician in our office during a routine visit. SIGNS AND SYMPTOMS OF LABOR 1. Contractions every 10 minutes or more often 2. Clear, pink, or brownish fluid (water) leaking from vagina 3. Feeling that baby is pushing down, pressure 4. Low, dull backache 5. Cramps that feel like a period 6. Cramps with or without diarrhea If you notice any of the above symptoms, contact our office at [phone] and ask to speak with a nurse. After hours, you can call doctors registry at [phone] OR call [facility] at [phone] and ask to have the doctor flowers salesperson paged. If you consider this an emergency, dial 9-1-2 or go to your nearest emergency department. NEED HELP? Are you dealing with a violent or abusive relationship? Are you a victim of rape or sexual assult? Call [facility] ([facility] 24 hour Crisis Hotline: 693.612.4078 or 222-078-8158. MANUAL Your Guide to a Healthy manual is now on-line. Visit [email or web address] to download your free copy documented in this encounter [facility] 04-30-2022 Miscellaneous Notes Patient notified. Kim Land RN OK for patient to come in but please let her know we will try to keep the appointment brief. Mary Mclaughlin MD 16w6d Patient has an OB visit with KJ on 04/30. States she was exposed to COVID on . Her mother tested positive yesterday. Patient is asymptomatic and all of her testing has been negative. Plans to take another test tomorrow AM. Advised as long as patient tests negative and remains asymptomatic she can keep her visit with KJ tomorrow unless KJ advises otherwise. Jing Erwin RN documented in this encounter [facility] 04-09-2022 Miscellaneous Notes S: Xiomara Delgado is a 26 year old female who presents at 14 weeks gestation for a routine visit. Just completed NT US- awaiting final results. C/O headache that has lasted the last 4 weeks. Reports headache is in the back left side of head. Some relief with Tylenol. Went to see PCP and was given Fioricet to take as needed. Hx of migraines but doesn't feel like this is a migraine. No visual changes but some photophobia. Having congestion in the morning and vomits after blowing nose. No other nausea or emesis. Started feeling movement. Recently left [facility] and moved back home with parents. No further smoking/vaping. O: See flow sheet Gen: No apparent distress Abd: Gravid, non tender ASSESSMENT/PLAN: 1. 14 weeks gestation of - ICD9: V22.2, ICD10: Z3A.14 - labs and MaterniT 21 today - URINE OB DIP B/O 2. Headache - Discussed resident care spec and massage - Start Zyrtec 10 mg PO daily- RX sent - Eye exam RTO- 3 weeks for JODY with anatomy US and AFP labs Naye Sepulveda APRN.CNM documented in this encounter [facility] 04-09-2022 Instructions Naye Sepulveda APRN.CNM - 04/09/2022 10:26 AM EST [facility] [address] [place] [address] [facility] [address] [place], [place] [address] [facility] [address] [place] [address] [facility] [address] [place] [address] [email or web address] [address] [place] [address] [facility] [address] [place] [address] [email or web address] Payments Anytime | [email or web address] [facility] [address], [place], [place] [id number] [email or web address] [facility] [phone] [email or web address] [email or web address] [address] [place] [address] [facility] [address] [address] [facility] [place] office also [phone] [email or web address] [facility] [phone] [address] [facility] [address] [place] [address] [facility], [facility] [place] [address] [email or web address] [facility] [address] [place] [address] [email or web address] SEQUENTIAL SCREENINGS The [facility] offers sequential screenings for women who are interested in screenings for chromosomal abnormalities and certain defects during a . The sequential screen combines ultrasound and blood tests to determine the risk of chromosomal abnormalities, including Down's Syndrome (Trisomy 21) and Trisomy 18, as well as open neural tube defects including spina bifida. Ultrasound examination is performed between 11 weeks and 13 weeks gestational age. Blood tests are drawn after the ultrasound and again later in the between 15 and 21 weeks gestational age. Please let your physician know if you are interested in this testing. It will require an appointment with our hemodialysis technician. This is not an ultrasound performed by a physician in our office during a routine visit. SIGNS AND SYMPTOMS OF LABOR 1. Contractions every 10 minutes or more often 2. Clear, pink, or brownish fluid (water) leaking from vagina 3. Feeling that baby is pushing down, pressure 4. Low, dull backache 5. Cramps that feel like a period 6. Cramps with or without diarrhea If you notice any of the above symptoms, contact our office at [phone] and ask to speak with a nurse. After hours, you can call doctors registry at [phone] OR call [facility] at [phone] and ask to have the doctor flowers salesperson paged. If you consider this an emergency, dial [phone] or go to your nearest emergency department. NEED HELP? Are you dealing with a violent or abusive relationship? Are you a victim of rape or sexual assult? Call [facility] ([place]) 24 hour Crisis Hotline: 470.808.8079 or 513-423-7358. MANUAL Your Guide to a Healthy manual is now on-line. Visit [email or web address] [email or web address] to download your free copy documented in this encounter [facility] 03-09-2022 Miscellaneous Notes NOB completed. Naye Sepulveda APRN.CNM documented in this encounter [facility] 03-09-2022 Instructions Helene Partida Ma - 03/09/2022 12:52 PM EST Please select the following link to access the [facility] Your Guide to a Healthy . [email or web address] documented in this encounter [facility] 03-09-2022 History of Present illness Narrative INITIAL OB ASSESSMENT OB Provider: Naye Sepulveda CNM HPI: Xiomara Delgado is a 26 year old female here to establish Obstetrical Care. Patient's last menstrual period was 01/01/2022 (exact date). from OB Dating Form. Cycles since delivery- were irregular. Patient was seen in ED due to stomach pain and cramps- she thought it was her appendix and was told she was . was not planned. Has 6 month old daughter. Complaints: nausea without vomiting and abdominal pain - mild cramping was not planned but accepted OB History T1 L1 SAB0 IAB0 Ectopic0 Multiple0 Live Births1 Prior : never History of 4th degree laceration: No Patient's Risk Screening for delivery: n/a History of abnormal pap: No Prior treatment for cervical dysplasia: none. History of STDs: None Tobacco use: Yes- vaping off and on Caffeine use: No Drug use: No Alcohol use: No Multivitamin with Folic acid: Yes Occupation: [employer] Shinto or heritage: No Would refuse blood transfusion if medically necessary: No BMI 27.49 kg/(m^2) Patient BMI over 30? NO Marital Status:Co-habitating Partner: Name: Conrad Hinojosa Age: 32 Occupation: [employer] Gender: male History of STDs: None PAST MEDICAL HISTORY Diagnosis Date Anemia during in third trimester 06/26/2021 Depression depression Hypoglycemia diagnosed age 9 depression PAST SURGICAL HISTORY Procedure Laterality Date NONE Current Outpatient Medications on File Prior to Visit Medication Sig nitrofurantoin monohydrate and macrocrystal (MACROBID) 100 mg capsule Take 100 mg by mouth twice daily. Norethindrone Acet-Ethinyl Est (05/22, ,) 1-20 mg-mcg per tablet Take 1 tablet by mouth once daily. (Patient not taking: Reported on 01/20/2022) ferrous sulfate 325 mg (65 mg iron) tablet Take 1 tablet by mouth daily with breakfast. Every other day (Patient not taking: Reported on 01/20/2022) acetaminophen (TYLENOL EXTRA STRENGTH) 500 mg tablet Take 2 tablets by mouth every 6 hours as needed (back pain). FOR PAIN. (Patient not taking: Reported on 10/28/2021 ) Wvnsjwzi-Kh-Bkc-Fe-FA ( VITAMIN) tab Take 1 tablet by mouth. No current facility-administered medications on file prior to visit. Review of Systems: GENERAL: Negative for: Fever or Chills and Positive for: Fatigue HEENT: Negative for: Headache, Impaired Vision, Ringing in Ears, Nosebleeds NECK: Negative for: Swelling, Pain, Stiffness RESPIRATORY: Negative for: Cough, Shortness of breath, Wheezing GASTROINTESTINAL: Negative for: Heartburn, Constipation, Diarrhea, Blood in stool, Vomiting and Positive for: Heartburn MUSCULOSKELETAL: Negative for: Muscle or joint pain, stiffness, Joint swelling NEUROLOGIC/PSYCHIATRIC: Negative for: Weakness, Paralysis, Numbness, Tingling, Tremor, Memory loss Post depression- interested in counseling SKIN: Negative for: Rash, Itching GENITOURINARY: Negative for: vaginal itching, vaginal discharge, hematuria or dysuria PHYSICAL EXAM: BP 102/58 Wt 164 lb (74.4kg) LMP 01/01/2022 GENERAL: pleasant female in no apparent distress DERMATOLOGY: Normal and without lesions NECK: Supple and full range of motion CHEST: Normal inspiratory effort BREAST: soft, non-tender, symmetric, no dominant mass, normal nipple-areolar complex, no lymphadenopathy, and no nipple discharge ABDOMEN: soft, non-tender, and no masses NEURO: alert and oriented x3,exam grossly non-focal PELVIS: External genitalia normal without lesions. Perineal body intact. No vaginal or cervical lesions. Cervix closed. Uterus 9 week size. No adnexal masses or tenderness. Clinical Pelvimetry: Pelvimetry clinically assessed as adequate Limited OB ultrasound exam: single intrauterine , positive cardiac activity, and crown-rump length 9.3 OB Risk Screening: Completed, no positive findings documented. ASSESSMENT/PLAN: 1. 9 weeks gestation of - ICD9: V22.2, ICD10: Z3A.09 (primary diagnosis) - Desires MaterniT 21 screen 2. Short interval between pregnancies affecting , antepartum - ICD9: V23.89, ICD10: O09.899 - Has 6 month old daughter 3. H/O depression, currently - ICD9: 646.80, V11.8, ICD10: O99.891, Z86.59 - Previous consult placed to [facility] behavioral health- patient did not follow up - MH services handout provided- patient to start counseling 4. UTI (urinary tract infection) in , antepartum - ICD9: 646.63, 599.0, ICD10: O23.40 - Complete Macrobid 100 mg PO course 5. Current nicotine vaping - Reviewed cessation with patient Follow up in 3 weeks for NT, lab work and JODY. Naye Sepulveda APRN.CNM documented in this encounter [facility] 03-05-2022 History of Past i llness Narrative Problem Noted Date Resolved Date UTI (urinary tract infection) in , ante 03/05/2022 07/31/2022 Overview: 03/05/2022atient was seen in the [facility] ER on February 25 with lower abdominal pain and a positive test. An ultrasound was done that showed an intrauterine with positive cardiac activity at 7 weeks 2 days. She was treated for a urinary tract infection during the ER visit. Patient states that she did not start taking the Macrobid until March 02 because she was not sure where the antibiotic was called into so she said she had to search pharmacies. She still notes some mild cramping that she says is annoying. She denies any fever or bleeding. I have advised her that if the pain gets worse, she develops any bleeding, the development of a fever or as needed problems she is to be seen immediately. TKRN Spotting in early 01/16/202104/03 Overview: 01/16/2021 Patient had called in on January 07 complaining of peach colored blood on the toilet paper and mild cramping after intercourse. Quance were done. Patient states that she still notes occasional spotting when she wipes. She states that she occasionally has some left-sided pain when she changes position too quickly. Miscarriage/ectopic precautions given. Patient is to call/come in if bleeding or pain increases or as needed problems.TKRN Tobacco use during , antepartum 021 04/30/2022 Overview: 06/26/21-No further tobacco use. Stopped at beginning of then was hitting a cigarette on and off for first 2 months. Nothing since. Advised continued smoking cessation. Madeleine Pettit APRN.AURELIANO 01/16/2021t smokes 1 to 2 cigarettes a day down from 1-1/2 packs/day. Discussed risks of smoking during . Advised pt to quit. Patient states she stopped vaping in December. Information on the [place] tobacco quit line given to patient. TKRN Patient request for diagnostic testing 07/31/2022 Overview: 03/05/2022 Patient desires aneuploidy screening. Contact information for [employer] genetics given to patient to check on insurance coverage. Patient considering genetic carrier screening testing. Contact information for [facility] given to patient to check on insurance coverage.Valerie Catalan RN documented as of this encounter (statuses as of 08/25/2022) [facility] History of Past illness Narrative* Problem Noted Date Resolved Date UTI (urinary tract infection) in , ante 03/05/2022 07/31/2022 Overview: 03/05/2022atient was seen in the [facility] ER on February 25 with lower abdominal pain and a positive test. An ultrasound was done that showed an intrauterine with positive cardiac activity at 7 weeks 2 days. She was treated for a urinary tract infection during the ER visit. Patient states that she did not start taking the Macrobid until March 02 because she was not sure where the antibiotic was called into so she said she had to search pharmacies. She still notes some mild cramping that she says is annoying. She denies any fever or bleeding. I have advised her that if the pain gets worse, she develops any bleeding, the development of a fever or as needed problems she is to be seen immediately. TKRN Spotting in early 01/16/202104/03 Overview: 01/16/2021 Patient had called in on January 07 complaining of peach colored blood on the toilet paper and mild cramping after intercourse. Quance were done. Patient states that she still notes occasional spotting when she wipes. She states that she occasionally has some left-sided pain when she changes position too quickly. Miscarriage/ectopic precautions given. Patient is to call/come in if bleeding or pain increases or as needed problems.TKRN Tobacco use during , antepartum 021 04/30/2022 Overview: 06/26/21-No further tobacco use. Stopped at beginning of then was hitting a cigarette on and off for first 2 months. Nothing since. Advised continued smoking cessation. Madeleine Pettit APRN.CNM 1Pt smokes 1 to 2 cigarettes a day down from 1-1/2 packs/day. Discussed risks of smoking during . Advised pt to quit. Patient states she stopped vaping in December. Information on the [place] tobacco quit line given to patient. TKRN Patient request for diagnostic testing 07/31/2022 Overview: 03/05/2022 Patient desires aneuploidy screening. Contact information for [employer] genetics given to patient to check on insurance coverage. Patient considering genetic carrier screening testing. Contact information for [facility] given to patient to check on insurance coverage.Valerie Catalan RN documented as of this encounter (statuses as of 09/15/2022) [facility] History of Past illness Narrative* Problem Noted Date Resolved Date UTI (urinary tract infection) in , ante 03/05/2022 07/31/2022 Overview: 03/05/2022atient was seen in the [facility] ER on February 25 with lower abdominal pain and a positive test. An ultrasound was done that showed an intrauterine with positive cardiac activity at 7 weeks 2 days. She was treated for a urinary tract infection during the ER visit. Patient states that she did not start taking the Macrobid until March 02 because she was not sure where the antibiotic was called into so she said she had to search pharmacies. She still notes some mild cramping that she says is annoying. She denies any fever or bleeding. I have advised her that if the pain gets worse, she develops any bleeding, the development of a fever or as needed problems she is to be seen immediately. TKRN Spotting in early 01/16/202104/03 Overview: 01/16/2021 Patient had called in on January 07 complaining of peach colored blood on the toilet paper and mild cramping after intercourse. Quance were done. Patient states that she still notes occasional spotting when she wipes. She states that she occasionally has some left-sided pain when she changes position too quickly. Miscarriage/ectopic precautions given. Patient is to call/come in if bleeding or pain increases or as needed problems.TKRN Tobacco use during , antepartum 021 04/30/2022 Overview: 06/26/21-No further tobacco use. Stopped at beginning of then was hitting a cigarette on and off for first 2 months. Nothing since. Advised continued smoking cessation. Madeleine Pettit APRN.AURELIANO 01/16/2021t smokes 1 to 2 cigarettes a day down from 1-1/2 packs/day. Discussed risks of smoking during . Advised pt to quit. Patient states she stopped vaping in December. Information on the [place] tobacco quit line given to patient. TKRN Patient request for diagnostic testing 07/31/2022 Overview: 03/05/2022 Patient desires aneuploidy screening. Contact information for [facility] given to patient to check on insurance coverage. Patient considering genetic carrier screening testing. Contact information for [facility] given to patient to check on insurance coverage.Valerie Catalan RN documented as of this encounter (statuses as of 09/22/2022) [facility] History of Past illness Narrative* Problem Noted Date Resolved Date UTI (urinary tract infection) in , ante 03/05/2022 07/31/2022 Overview: 03/05/2022atient was seen in the [facility] ER on February 25 with lower abdominal pain and a positive test. An ultrasound was done that showed an intrauterine with positive cardiac activity at 7 weeks 2 days. She was treated for a urinary tract infection during the ER visit. Patient states that she did not start taking the Macrobid until March 02 because she was not sure where the antibiotic was called into so she said she had to search pharmacies. She still notes some mild cramping that she says is annoying. She denies any fever or bleeding. I have advised her that if the pain gets worse, she develops any bleeding, the development of a fever or as needed problems she is to be seen immediately. TKRN Spotting in early 01/16/202104/03 Overview: 01/16/2021 Patient had called in on January 07 complaining of peach colored blood on the toilet paper and mild cramping after intercourse. Quance were done. Patient states that she still notes occasional spotting when she wipes. She states that she occasionally has some left-sided pain when she changes position too quickly. Miscarriage/ectopic precautions given. Patient is to call/come in if bleeding or pain increases or as needed problems.TKRN Tobacco use during , antepartum 021 04/30/2022 Overview: 06/26/21-No further tobacco use. Stopped at beginning of then was hitting a cigarette on and off for first 2 months. Nothing since. Advised continued smoking cessation. Madeleine Pettit APRN.CN 01/16/2021t smokes 1 to 2 cigarettes a day down from 1-1/2 packs/day. Discussed risks of smoking during . Advised pt to quit. Patient states she stopped vaping in December. Information on the [place] tobacco quit line given to patient. TKRN Patient request for diagnostic testing 07/31/2022 Overview: 03/05/2022 Patient desires aneuploidy screening. Contact information for [employer] given to patient to check on insurance coverage. Patient considering genetic carrier screening testing. Contact information for [employer] given to patient to check on insurance coverage.Valerie Catalan RN documented as of this encounter (statuses as of 09/26/2022) [facility]11-03-2022 History of Past illness Narrative* Problem Noted Date Resolved Date UTI (urinary tract infection) in , ante 03/05/2022 07/31/2022 Overview: 03/05/2022atient was seen in the [facility] ER on February 25 with lower abdominal pain and a positive test. An ultrasound was done that showed an intrauterine with positive cardiac activity at 7 weeks 2 days. She was treated for a urinary tract infection during the ER visit. Patient states that she did not start taking the Macrobid until March 02 because she was not sure where the antibiotic was called into so she said she had to search pharmacies. She still notes some mild cramping that she says is annoying. She denies any fever or bleeding. I have advised her that if the pain gets worse, she develops any bleeding, the development of a fever or as needed problems she is to be seen immediately. TKRN Spotting in early 01/16/202104/03 Overview: 01/16/2021 Patient had called in on January 07 complaining of peach colored blood on the toilet paper and mild cramping after intercourse. Quance were done. Patient states that she still notes occasional spotting when she wipes. She states that she occasionally has some left-sided pain when she changes position too quickly. Miscarriage/ectopic precautions given. Patient is to call/come in if bleeding or pain increases or as needed problems.TKRN Tobacco use during , antepartum 021 04/30/2022 Overview: 06/26/21-No further tobacco use. Stopped at beginning of then was hitting a cigarette on and off for first 2 months. Nothing since. Advised continued smoking cessation. Madeleine Pettit APRN.AURELIANO 1Pt smokes 1 to 2 cigarettes a day down from 1-1/2 packs/day. Discussed risks of smoking during . Advised pt to quit. Patient states she stopped vaping in December. Information on the [place] tobacco quit line given to patient. TKRN Patient request for diagnostic testing 07/31/2022 Overview: 03/05/2022 Patient desires aneuploidy screening. Contact information for [employer] given to patient to check on insurance coverage. Patient considering genetic carrier screening testing. Contact information for [employer] given to patient to check on insurance coverage.Valerie Catalan RN documented as of this encounter (statuses as of 09/30/2022) [facility]11-03-2022 History of Past illness Narrative* Problem Noted Date Resolved Date UTI (urinary tract infection) in , ante 03/05/2022 07/31/2022 Overview: 03/05/2022atient was seen in the [facility] ER on February 25 with lower abdominal pain and a positive test. An ultrasound was done that showed an intrauterine with positive cardiac activity at 7 weeks 2 days. She was treated for a urinary tract infection during the ER visit. Patient states that she did not start taking the Macrobid until March 02 because she was not sure where the antibiotic was called into so she said she had to search pharmacies. She still notes some mild cramping that she says is annoying. She denies any fever or bleeding. I have advised her that if the pain gets worse, she develops any bleeding, the development of a fever or as needed problems she is to be seen immediately. TKRN Spotting in early 01/16/202104/03 Overview: 01/16/2021 Patient had called in on January 07 complaining of peach colored blood on the toilet paper and mild cramping after intercourse. Quance were done. Patient states that she still notes occasional spotting when she wipes. She states that she occasionally has some left-sided pain when she changes position too quickly. Miscarriage/ectopic precautions given. Patient is to call/come in if bleeding or pain increases or as needed problems.TKRN Tobacco use during , antepartum 021 04/30/2022 Overview: 06/26/21-No further tobacco use. Stopped at beginning of then was hitting a cigarette on and off for first 2 months. Nothing since. Advised continued smoking cessation. Madeleine Pettit APRN.CNM 01/16/2021t smokes 1 to 2 cigarettes a day down from 1-1/2 packs/day. Discussed risks of smoking during . Advised pt to quit. Patient states she stopped vaping in December. Information on the [place] tobacco quit line given to patient. TKRN Patient request for diagnostic testing 07/31/2022 Overview: 03/05/2022 Patient desires aneuploidy screening. Contact information for [employer] [facility] given to patient to check on insurance coverage. Patient considering genetic carrier screening testing. Contact information for [employer] [facility] given to patient to check on insurance coverage.Valerie Catalan RN documented as of this encounter (statuses as of 10/05/2022) [facility]11-03-2022 History of Past illness Narrative* Problem Noted Date Resolved Date UTI (urinary tract infection) in , ante 03/05/2022 07/31/2022 Overview: 03/05/2022atient was seen in the [facility] ER on February 25 with lower abdominal pain and a positive test. An ultrasound was done that showed an intrauterine with positive cardiac activity at 7 weeks 2 days. She was treated for a urinary tract infection during the ER visit. Patient states that she did not start taking the Macrobid until March 02 because she was not sure where the antibiotic was called into so she said she had to search pharmacies. She still notes some mild cramping that she says is annoying. She denies any fever or bleeding. I have advised her that if the pain gets worse, she develops any bleeding, the development of a fever or as needed problems she is to be seen immediately. TKRN Spotting in early 01/16/202104/03 Overview: 01/16/2021 Patient had called in on January 07 complaining of peach colored blood on the toilet paper and mild cramping after intercourse. Quance were done. Patient states that she still notes occasional spotting when she wipes. She states that she occasionally has some left-sided pain when she changes position too quickly. Miscarriage/ectopic precautions given. Patient is to call/come in if bleeding or pain increases or as needed problems.TKRN Tobacco use during , antepartum 021 04/30/2022 Overview: 06/26/21-No further tobacco use. Stopped at beginning of then was hitting a cigarette on and off for first 2 months. Nothing since. Advised continued smoking cessation. Madeleine Pettit APRN.CNM 01/16/2021t smokes 1 to 2 cigarettes a day down from 1-1/2 packs/day. Discussed risks of smoking during . Advised pt to quit. Patient states she stopped vaping in December. Information on the [place] tobacco quit line given to patient. TKRN Patient request for diagnostic testing 07/31/2022 Overview: 03/05/2022 Patient desires aneuploidy screening. Contact information for [employer] [facility] given to patient to check on insurance coverage. Patient considering genetic carrier screening testing. Contact information for [employer] [facility] given to patient to check on insurance coverage.Valerie Catalan RN documented as of this encounter (statuses as of 10/06/2022) [facility]11-03-2022 History of Past illness Narrative* Problem Noted Date Resolved Date UTI (urinary tract infection) in , ante 03/05/2022 07/31/2022 Overview: 03/05/2022atient was seen in the [facility] ER on February 25 with lower abdominal pain and a positive test. An ultrasound was done that showed an intrauterine with positive cardiac activity at 7 weeks 2 days. She was treated for a urinary tract infection during the ER visit. Patient states that she did not start taking the Macrobid until March 02 because she was not sure where the antibiotic was called into so she said she had to search pharmacies. She still notes some mild cramping that she says is annoying. She denies any fever or bleeding. I have advised her that if the pain gets worse, she develops any bleeding, the development of a fever or as needed problems she is to be seen immediately. TKRN Spotting in early 01/16/202104/03 Overview: 01/16/2021 Patient had called in on January 07 complaining of peach colored blood on the toilet paper and mild cramping after intercourse. Quance were done. Patient states that she still notes occasional spotting when she wipes. She states that she occasionally has some left-sided pain when she changes position too quickly. Miscarriage/ectopic precautions given. Patient is to call/come in if bleeding or pain increases or as needed problems.TKRN Tobacco use during , antepartum 021 04/30/2022 Overview: 06/26/21-No further tobacco use. Stopped at beginning of then was hitting a cigarette on and off for first 2 months. Nothing since. Advised continued smoking cessation. Madeleine Pettit APRN.AURELIANO 1Pt smokes 1 to 2 cigarettes a day down from 1-1/2 packs/day. Discussed risks of smoking during . Advised pt to quit. Patient states she stopped vaping in December. Information on the [place] tobacco quit line given to patient. TKRN Patient request for diagnostic testing 1 07/31/2022 Overview: 03/05/2022 Patient desires aneuploidy screening. Contact information for [employer] given to patient to check on insurance coverage. Patient considering genetic carrier screening testing. Contact information for [employer] given to patient to check on insurance coverage.Valerie Catalan RN documented as of this encounter (statuses as of 10/07/2022) [facility]11-03-2022 History of Past illness Narrative* Problem Noted Date Resolved Date UTI (urinary tract infection) in , ante 03/05/2022 07/31/2022 Overview: 03/05/2022atient was seen in the [facility] ER on February 25 with lower abdominal pain and a positive test. An ultrasound was done that showed an intrauterine with positive cardiac activity at 7 weeks 2 days. She was treated for a urinary tract infection during the ER visit. Patient states that she did not start taking the Macrobid until March 02 because she was not sure where the antibiotic was called into so she said she had to search pharmacies. She still notes some mild cramping that she says is annoying. She denies any fever or bleeding. I have advised her that if the pain gets worse, she develops any bleeding, the development of a fever or as needed problems she is to be seen immediately. TKRN Spotting in early 01/16/202104/03 Overview: 01/16/2021 Patient had called in on January 07 complaining of peach colored blood on the toilet paper and mild cramping after intercourse. Quance were done. Patient states that she still notes occasional spotting when she wipes. She states that she occasionally has some left-sided pain when she changes position too quickly. Miscarriage/ectopic precautions given. Patient is to call/come in if bleeding or pain increases or as needed problems.TKRN Tobacco use during , antepartum 021 04/30/2022 Overview: 06/26/21-No further tobacco use. Stopped at beginning of then was hitting a cigarette on and off for first 2 months. Nothing since. Advised continued smoking cessation. Madeleine Pettit APRN.AURELIANO 1Pt smokes 1 to 2 cigarettes a day down from 1-1/2 packs/day. Discussed risks of smoking during . Advised pt to quit. Patient states she stopped vaping in December. Information on the [place] tobacco quit line given to patient. TKRN Patient request for diagnostic testing 07/31/2022 Overview: 03/05/2022 Patient desires aneuploidy screening. Contact information for [facility] given to patient to check on insurance coverage. Patient considering genetic carrier screening testing. Contact information for [employer] [facility] given to patient to check on insurance coverage.Valerie Catalan RN documented as of this encounter (statuses as of 10/12/2022) [facility]11-03-[facility] History of Past illness Narrative* Problem Noted Date Resolved Date Short interval between pregn ancies affecting , antepartum 03/05/2022 10/27/2022 Overview: 03/05/2022nixon delivered her previous child on September 06, 2021. She states this is an unplanned and she feels confused and shocked and like I am still wrapping my head around it. Plans on keeping the baby. No plans for adopting out. The father the baby is the father of her other child. TKRN H/O depression, currently 10/27/2022 Overview: 03/05/2022nixon has a history of depression and was seen on January 20, 2022 by Naye. A referral was given for behavioral health and that has not been done. Patient states she did not have a contact number and they did not call her to schedule appointment. I have provided her with the phone number for her to schedule. Patient states she is not taking any medication to treat the depression. Believes she is doing well but would benefit from counseling.Discussed increased risks of depression during and and importance of reporting the development or worsening of symptoms should they occur. Pt denies ever having any suicidal thoughts or tendencies or thoughts of hurting others. TKRN UTI (urinary tract infection) in , ante 03/05/2022 07/31/2022 Overview: 03/05/2022nixon was seen in the [facility] ER on February 25 with lower abdominal pain and a positive test. An ultrasound was done that showed an intrauterine with positive cardiac activity at 7 weeks 2 days. She was treated for a urinary tract infection during the ER visit. Patient states that she did not start taking the Macrobid until March 02 because she was not sure where the antibiotic was called into so she said she had to search pharmacies. She still notes some mild cramping that she says is annoying. She denies any fever or bleeding. I have advised her that if the pain gets worse, she develops any bleeding, the development of a fever or as needed problems she is to be seen immediately. TKRN Anemia during in second trimester 06/0410/27/2022 Overview: 07/09/22- starting oral iron- repeat CBC in 4 weeks. Naye Sepulveda APRN.CNM 06/26/21-Repeat CBC in 4 weeks. Madeleine Pettit APRN.CNM Supervision of high risk in third trim [facility] 06/13/2021 10/27/2022 Rh negative state in antepartum period 10/27/2022 Spotting in early 01/16/202104/03 Overview: 01/16/2021 Patient had called in on January 07 complaining of peach colored blood on the toilet paper and mild cramping after intercourse. Quance were done. Patient states that she still notes occasional spotting when she wipes. She states that she occasionally has some left-sided pain when she changes position too quickly. Miscarriage/ectopic precautions given. Patient is to call/come in if bleeding or pain increases or as needed problems.TKRN Tobacco use during , antepartum 021 04/30/2022 Overview: 06/26/21-No further tobacco use. Stopped at beginning of then was hitting a cigarette on and off for first 2 months. Nothing since. Advised continued smoking cessation. Madeleine Pettit APRN.CNM 01/16/2021t smokes 1 to 2 cigarettes a day down from 1-1/2 packs/day. Discussed risks of smoking during . Advised pt to quit. Patient states she stopped vaping in December. Information on the [place] tobacco quit line given to patient. TKRN Patient request for diagnostic testing 07/31/2022 Overview: 03/05/2022 Patient desires aneuploidy screening. Contact information for [facility] given to patient to check on insurance coverage. Patient considering genetic carrier screening testing. Contact information for [employer] given to patient to check on insurance coverage.Valerie Catalan RN documented as of this encounter (statuses as of 10/28/2022) [facility] History of Past illness Narrative* Problem Noted Date Diagnosed Date Resolved Date Short interval between pregn ancies affecting , antepartum 03/05/2022 10/27/2022 Overview: 03/05/2022nioxn delivered her previous child on September 06, 2021. She states this is an unplanned and she feels confused and shocked and like I am still wrapping my head around it. Plans on keeping the baby. No plans for adopting out. The father the baby is the father of her other child. TKRN H/O depression, currently 03/05/20 22 10/27/2022 Overview: 03/05/2022nixon has a history of depression and was seen on January 20, 2022 by Naye. A referral was given for behavioral health and that has not been done. Patient states she did not have a contact number and they did not call her to schedule appointment. I have provided her with the phone number for her to schedule. Patient states she is not taking any medication to treat the depression. Believes she is doing well but would benefit from counseling.Discussed increased risks of depression during and and importance of reporting the development or worsening of symptoms should they occur. Pt denies ever having any suicidal thoughts or tendencies or thoughts of hurting others. TKRN UTI (urinary tract infection ) in , antepartum 03/05/2022 07/31/2022 Overview: 03/05/2022nixon was seen in the [facility] ER on February 25 with lower abdominal pain and a positive test. An ultrasound was done that showed an intrauterine with positive cardiac activity at 7 weeks 2 days. She was treated for a urinary tract infection during the ER visit. Patient states that she did not start taking the Macrobid until March 02 because she was not sure where the antibiotic was called into so she said she had to search pharmacies. She still notes some mild cramping that she says is annoying. She denies any fever or bleeding. I have advised her that if the pain gets worse, she develops any bleeding, the development of a fever or as needed problems she is to be seen immediately. TKRN Anemia during in second trimester 06/26/2021 10/27/2022 Overview: 07/09/22- starting oral iron- repeat CBC in 4 weeks. Naye Sepulveda APRN.CNM 06/26/21-Repeat CBC in 4 weeks. Madeleine Pettit APRN.CNM Supervision of high risk pre gnancy in third trimester 06/13/2021 10/27/2022 Rh negative state in antepartum period 01/20/2021 10/27/2022 Spotting in early 01/16/2021 04/30/2022 Overview: 01/16/2021 Patient had called in on January 07 complaining of peach colored blood on the toilet paper and mild cramping after intercourse. Quance were done. Patient states that she still notes occasional spotting when she wipes. She states that she occasionally has some left-sided pain when she changes position too quickly. Miscarriage/ectopic precautions given. Patient is to call/come in if bleeding or pain increases or as needed problems.TKRN Tobacco use during , antepartum 01/16/2021 04/30/2022 Overview: 06/26/21-No further tobacco use. Stopped at beginning of then was hitting a cigarette on and off for first 2 months. Nothing since. Advised continued smoking cessation. Madeleine Pettit APRN.CNM 01/16/2021t smokes 1 to 2 cigarettes a day down from 1-1/2 packs/day. Discussed risks of smoking during . Advised pt to quit. Patient states she stopped vaping in December. Information on the [place] tobacco quit line given to patient. TKRN Patient request for diagnostic testing 01/16/2021 07/31/2022 Overview: 03/05/2022 Patient desires aneuploidy screening. Contact information for [facility] given to patient to check on insurance coverage. Patient considering genetic carrier screening testing. Contact information for [employer] [facility] given to patient to check on insurance coverage.Valerie Catalan RN documented as of this encounter (statuses as of 11/30/2022) [facility] History of Past illness Narrative* Problem Noted Date Diagnosed Date Resolved Date Short interval between pregn ancies affecting , antepartum 03/05/2022 10/27/2022 Overview: 03/05/2022nixon delivered her previous child on September 06, 2021. She states this is an unplanned and she feels confused and shocked and like I am still wrapping my head around it. Plans on keeping the baby. No plans for adopting out. The father the baby is the father of her other child. TKRN H/O depression, currently 03/05/20 22 10/27/2022 Overview: 03/05/2022nixon has a history of depression and was seen on January 20, 2022 by Naye. A referral was given for behavioral health and that has not been done. Patient states she did not have a contact number and they did not call her to schedule appointment. I have provided her with the phone number for her to schedule. Patient states she is not taking any medication to treat the depression. Believes she is doing well but would benefit from counseling.Discussed increased risks of depression during and and importance of reporting the development or worsening of symptoms should they occur. Pt denies ever having any suicidal thoughts or tendencies or thoughts of hurting others. TKRN UTI (urinary tract infection ) in , antepartum 03/05/2022 07/31/2022 Overview: 03/05/2022nixon was seen in the [facility] ER on February 25 with lower abdominal pain and a positive test. An ultrasound was done that showed an intrauterine with positive cardiac activity at 7 weeks 2 days. She was treated for a urinary tract infection during the ER visit. Patient states that she did not start taking the Macrobid until March 02 because she was not sure where the antibiotic was called into so she said she had to search pharmacies. She still notes some mild cramping that she says is annoying. She denies any fever or bleeding. I have advised her that if the pain gets worse, she develops any bleeding, the development of a fever or as needed problems she is to be seen immediately. TKRN Anemia during in second trimester 06/26/2021 10/27/2022 Overview: 07/09/22- starting oral iron- repeat CBC in 4 weeks. Naye Sepulveda APRN.CNM 06/26/21-Repeat CBC in 4 weeks. Madeleine Pettit APRN.CNM Supervision of high risk pre gnancy in third trimester 06/13/2021 10/27/2022 Rh negative state in antepartum period 01/20/2021 10/27/2022 Spotting in early 01/16/2021 04/30/2022 Overview: 01/16/2021 Patient had called in on January 07 complaining of peach colored blood on the toilet paper and mild cramping after intercourse. Quance were done. Patient states that she still notes occasional spotting when she wipes. She states that she occasionally has some left-sided pain when she changes position too quickly. Miscarriage/ectopic precautions given. Patient is to call/come in if bleeding or pain increases or as needed problems.TKRN Tobacco use during , antepartum 01/16/2021 04/30/2022 Overview: 06/26/21-No further tobacco use. Stopped at beginning of then was hitting a cigarette on and off for first 2 months. Nothing since. Advised continued smoking cessation. Madeleine Pettit APRN.CNM 01/16/2021t smokes 1 to 2 cigarettes a day down from 1-1/2 packs/day. Discussed risks of smoking during . Advised pt to quit. Patient states she stopped vaping in December. Information on the [place] tobacco quit line given to patient. TKRN Patient request for diagnostic testing 01/16/2021 07/31/2022 Overview: 03/05/2022 Patient desires aneuploidy screening. Contact information for integrated genetics given to patient to check on insurance coverage. Patient considering genetic carrier screening testing. Contact information for Estefani godinez given to patient to check on insurance coverage.Valerie Catalan RN documented as of this encounter (statuses as of 02/05/2023) [facility]11-03-[facility] History of Present illness Narrative* Valerie Catalan RN - 03/05/2022 12:09 PM EDT # 1 - Date: 09/06/21, Sex: Female, Weight: 6 lb 3 oz (2.807 kg), GA: 40w3d, Delivery: Vaginal, Spontaneous, Apgar1: 8, Apgar5: 9, Living: Living, Comments: SROM, Pitocin augmentation, EBL 300mL, loose nuchal cord, 1st degree vaginal laceration # 2 - Date: None, Sex: None, Weight: None, GA: None, Delivery: None, Apgar1: None, Apgar5: None, Living: None, Comments: None documented in this encounterOhiohealth Berger Hospital11-03-2022 Miscellaneous Notes* Quick Notes - Valerie Catalan RN - 03/05/2022 12:09 PM EDT DISTANCE HEALTH VISIT This Team Access Model visit is a phone encounter. It required patient-provider interaction for themedical decision making as documented below. Patient delivered her previous child on September 06, 2021. She states this is an unplanned and she feels confused and shocked and like I am still wrapping my head around it. Plans on keeping the baby. No plans for adopting out. The father the baby is the father of her other child. Patient has a history of depression and was seen on January 20, 2022 by Naye. A referral was given for behavioral health and that has not been done. Patient states she did have a contact number and they did not call her to schedule appointment. I have provided her with the phone number for her to schedule. Patient states she is not taking any medication to treat the depression. Believes she is doing well but would benefit from counseling.Discussed increased risks of depression during and and importance of reporting the development or worsening of symptoms should they occur. Pt denies ever having any suicidal thoughts or tendencies or thoughts of hurting others. Patient was seen in the [facility] ER on February 25 with lower abdominal pain and a positive test. An ultrasound was done that showed an intrauterine with positive cardiac activity at 7 weeks 2 days. She was treated for a urinary tract infection during the ER visit. Patient states that she did not start taking the Macrobid until March 02 because she was not sure where the antibiotic was called into so she said she had to search pharmacies. She still notes some mild cramping that she says is annoying. She denies any fever or bleeding. I have advised her that if the pain gets worse, she develops any bleeding, thedevelopment of a fever or as needed problems she is to be seen immediately. Patient states her sister was born with a hole in her heart. No corrective surgery was done. Patient quit vaping February 25when she found out she was . Discussed risks of vaping during and advised patient to continue not vaping. Patient desires aneuploidy screening. Contact information for integrated genetics given to patient to check on insurance coverage. Patient considering genetic carrier screening testing. Contact information for Estefani godinez given to patient to check on insurance coverage.Nino CABRERA documented in this encounterOhiohealth Berger Hospital09-20-2022 Instructions* Patient Instructions* Naye Sepulveda APRN.CNM - 01/20/2022 2:35 PM EDT Here are some links for wonderful Providers here in the community and surrounding areas. Do not hesitate to contact their offices, many are offering virtual visits during this time. 4-875-3-QKQI9QTKQ - [place] Maternal Mental Health Hotline If you are in suicidal crisis, please call or text 5-405-568-TALK ( ) or visit the National Suicide Prevention Lifeline website. mchb.[facility].gov [facility] Psychology, Psychiatry, Counseling Connect with therapist/ can do virtual visits [phone] Referral to the [facility] To schedule an appointment, please call the Center for Behavioral Health Appointment Line: [phone] option 1 Counseling Center - [place], [place] [address] [place] [address] [facility] [address] [place] [address] [facility] [address] [place] [address] [facility] [address] [place] [address] Digna Lopez MD [address] [place] [address] [facility] [address], [address] [place] [address] [facility] [address] [place] [address] [facility] [place] / [place] [phone]/ [phone] Michelle Pillai [address] [facility] [address] [facility] [phone] [facility] [place] / [place] [phone] Behavioral health services of [facility] [address] [place] [address]/ [facility] [place] [phone] Tiffani Curiel, JESSENIA, CLC [facility] Workshops, telehealth and at home visits. [phone] Humanistic counseling center 20 locations [place], [place], [place], [place], [place], [place], [place], [facility], [place], [place], [place], [place], [place], [place], [facility], [place], [place] ,[facility], [place], [place],[facility], [facility], [place], [facility], [place], [place] [email or web address] [phone] Psychotherapy resources outside of [facility] are listed below FLIP4NEW Psychotherapy Web: https://www.adhoclabs/ Support International Online Provider Directory https://MobiKwik/ Insight Counseling https://insightcounsCedar Point Communications.ScriptRx/ Partners for Behavioral Health and Wellness Web: https://VUID, Inc./ [place] for Effective Living Web: https://BrootaeffectiveGenArtsliving.ScriptRx/ LifeStance Web: https://Demibooks/location/state/[place]/ [facility] Web: https://www.In[facility] Pharm[facility].org/ The Centers Web: https://Step Labs.WhiteSmoke/ Recovery Resources Mental health and substance abuse help Web: https://www.[place] WinerysJell Creative & RESOURCES Support International Direct peer support and connection to professional resources Non-Emergency Helpline Phone: / Text: [phone] Web: https://www..net/ Online Provider Directory: https://MobiKwik/ Online Support Meetings: https://www..net/get-help/hbk-thrdix-mruccne-meetings/ PITER Baby and Toggle Press Folder And Feeder Services Web: https://Pairin/ MotherToBaby Expert information on medication use during and Text: [phone] Web: https://motherTicketLabs/ NATIONAL REGISTRY FOR PSYCHIATRIC MEDICATIONS Currently studying the safety of antidepressants, ADHD medications and atypical antipsychotics taken during TO PARTICIPATE CALL TOLL-FREE: Web: https://womensmentalhealth.org/research/pregnancyregistry/ Support Groups: [facility]- Follow on facebook Baby Bistro support group led by [facility] department Resilient Mamas - Support Group [facility].org The POEM support group [phone] Www.poemonline.org Follow on facebook - JONNIE craig Online support meetings PSI https://www..net/get-help/heq-jjnbgw-tuxcims-meetings/ [facility] mommy and me virtual support group 11:30-1pm Support for mothers and new babies and toddlers [place] childbirth education: Childbirth @cc.org or call [phone] CRISIS: CRISIS HOTLINE [phone], 911 or go to the nearest ER. [facility] [phone] / [facility] [phone] https://www.[facility].org Crisis text line text the word HOME to [id number] documented in this encounterOhiohealth Berger Hospital09-20-2022 History of Present illness Narrative* Naye Sepulveda APRN.CNM - 01/20/2022 2:25 PM EDT Xiomara Delgado is a 26 year old female who presents for a follow up visit for OCP. Started on OCP 10/2021. Patient reports not taking OCP. Her and discussed it and she did not want the hormones. Using condoms for control. Stated would be accepting of if occurred. Patient reports was seen at [facility] clerk's office and based off of PPD screening, she needed to follow up with provider. She feels like she has a history of depression. Denies SI/HI. Reports feeling tired, no energy, not interested in doing anything. She also feels anxiety and worry daily. She is able to care for self and infant. She has good support system at home and feels comfortable talking with . She isinterested in starting counseling. T1 L1 SAB0 IAB0 Ectopic0 Multiple0 Live Births1 [employer] History LMP: 01/01/2022 (Exact Date), Unknown Age at Menarche: Age at First : Age at Menopause: [employer] History Comments: Sexual Activity: Yes; No partner data on record Contraception: No contraception data on record PAST MEDICAL HISTORY Diagnosis Date Anemia during in third trimester 06/26/2021 Known health problems: none PAST SURGICAL HISTORY Procedure Laterality Date NONE FAMILY HISTORY Problem Relation Age of Onset Hypertension Mother No Known Problems Father No Known Problems Sister No Known Problems Sister No Known Problems Brother No Known Problems Maternal Grandmother No Known Problems Paternal Grandmother Hypertension Paternal Grandfather Social History Tobacco Use Smoking status: Former Packs/day: 1.00 Years: 10.00 Pack years: 10.00 Types: Cigarettes Smokeless tobacco: Never Tobacco comments: 1-2 cigarettes a day Vaping Use Vaping Use: Former Substances: Nicotine, Flavoring Substance Use Topics Alcohol use: Not Currently Comment: on special occasions Drug use: No Current Outpatient Medications Medication Sig Norethindrone Acet-Ethinyl Est (,) 1-20 mg-mcg per tablet Take 1 tablet by mouth oncedaily. (Patient not taking: Reported on 01/20/2022) ferrous sulfate 325 mg (65 mg iron) tablet Take 1 tablet by mouth daily with breakfast. Every otherday (Patient not taking: Reported on 01/20/2022) acetaminophen (TYLENOL EXTRA STRENGTH) 500 mg tablet Take 2 tablets by mouth every 6 hours as needed (back pain). FOR PAIN. (Patient not taking: Reported on 10/28/2021 ) Vxqarcks-Ko-Nzj-Fe-FA ( VITAMIN) tab Take 1 tablet by mouth. (Patient not taking: Reported on 01/20/2022) No current facility-administered medications for this visit. Allergies As of Date: 01/20/2022 (No Known Allergies) Fully Assessed 01/20/2022 REVIEW OF SYSTEMS Abdomen: No bloating, early satiety, indigestion, or increased flatulence. No abdominal pain, nausea, vomiting, diarrhea, or constipation. Bladder: No dysuria, gross hematuria, urinary frequency, urinary urgency, or incontinence. Breast: No breast lumps, nipple d/c, overlying skin changes, redness or skin retraction. Expanded ROS: N/A Allergies and current medication updated:Yes EXAM: BP 100/62 Wt 165 lb 3.2 oz (74.9kg) LMP 01/01/2022 GENERAL: pleasant, female in no apparent distress HEENT: Normocephalic NECK: Supple and full range of motion DERMATOLOGY: Normal and without lesions BREAST: deferred CHEST: Normal inspiratory effort ABDOMEN: Deferred PELVIC: deferred BIMANUAL: deferred NEURO: alert and oriented x3,exam grossly non-focal EXTREMITIES: normal OB Depression and Anxiety Screening- This Encounter (since 01/19/2022) Over the past 2 weeks have you felt down, depressed, or hopeless? Positive - Further Testing Indicated Over the past two weeks, have you felt little interest or pleasure in doing things? Positive - Further Testing Indicated I have been able to laugh and see the funny side of things. As much as I always could I have looked forward with enjoyment to things. As much as I ever did I have blamed myself unnecessarily when things went wrong. Not very often I have been anxious or worried for no good reason. Yes, sometimes I have felt scared or panicky for no good reason. Yes, sometimes Things have been getting on top of me. Yes, most of the time I haven't been able to cope at all I have been so unhappy that I have had difficulty sleeping. Not at all I have felt sad or miserable. Not very often I have been so unhappy that I have been crying. No, never The thought of harming myself has occurred to me. Never [place] Depression Scale Total 9 Feeling nervous, anxious or on edge 2-More than half the days Not being able to stop or control worrying 2-More than half the days Anxiety Pre-Screening Total (If >/= 3 additional questions will be reviewed) 4 Worrying too much about different things 1-Several days Trouble relaxing 1-Several days Being so restless that it is hard to sit still 0-Not al all Becoming easily annoyed or irritable 2-More than half the days Feeling afraid, as if something awful might happen 0-Not al all Anxiety (SEN) Full Screening Total 8 ASSESSMENT/PLAN: 1. Anxiety - ICD9: 300.00, ICD10: F41.9 (primary diagnosis) - CONSULT TO WOMEN'S BEHAVIORAL HEALTH 2. depression - ICD9: 648.44, 311, ICD10: F53.0 - CONSULT TO WOMEN'S BEHAVIORAL HEALTH MH services hand out provided. RTO- 3 months for follow up Naye Sepulveda APRN.CNM I spent a total of 25 minutes on the date of the service which included preparing to see the patient, [id number] patient care, completing clinical documentation, obtaining and/or reviewing separately obtained history, counseling and educating the patient/family/caregiver, and ordering medications, tests, or procedures. Depression: denies, admits to symptoms of depression. documented in this encounterOhiohealth [facility] Hospital06-28-2022 History of Present illness Narrative* Naye Sepulveda APRN.CNM - 10/28/2021 2:19 PM EDT VISIT Xiomara Delgado is a 25 year old year old here for visit. Delivery Summary: 09/06/2021- COVID + while in hospital- asymptomatic- found on routine screen ROS/ Recovery: Feeding: Bottle feeding problems: None Menses since delivery: none Menstrual pattern prior to : Irregular periods [place] since delivery: Resumed Depression: denies symptoms of depression. OB Depression and Anxiety Screening- This Encounter (since 10/27/2021) Over the past 2 weeks have you felt down, depressed, or hopeless? Negative Over the past two weeks, have you felt little interest or pleasure in doing things? Negative Feeling nervous, anxious or on edge 1-Several days Not being able to stop or control worrying 0-Not al all Anxiety Pre-Screening Total (If >/= 3 additional questions will be reviewed) 1 Emotional support: Yes Bowel symptoms: Negative for abdominal discomfort, blood in stools or black stools and change in bowel habits Abdomen: N/A Bladder symptoms: some discomfort with urination Other issues: None Last Pap: 2019 normal HPV: N/A PAST MEDICAL HISTORY Diagnosis Date Anemia during in third trimester 06/26/2021 Known health problems: none PAST SURGICAL HISTORY Procedure Laterality Date NONE FAMILY HISTORY Problem Relation Age of Onset Hypertension Mother No Known Problems Father No Known Problems Sister No Known Problems Sister No Known Problems Brother No Known Problems Maternal Grandmother No Known Problems Paternal Grandmother Hypertension Paternal Grandfather Social History Tobacco Use Smoking status: Former Smoker Packs/day: 1.00 Years: 10.00 Pack years: 10.00 Smokeless tobacco: Never Used Tobacco comment: 1-2 cigarettes a day Vaping Use Vaping Use: Former Substances: Nicotine, Flavoring Substance Use Topics Alcohol use: Not Currently Comment: on special occasions Drug use: No PHYSICAL EXAMINATION: BP 104/68 Wt 163 lb 9.6 oz (74.2kg) LMP 11/27/2020 GENERAL: pleasant, female in no apparent distress HEENT: Normocephalic, atraumatic, mucus membranes moist and no lesions NECK: Supple, full range of motion, no adenopathy and thyroid normal DERMATOLOGY: Normal, without lesions, non-icteric and non-hirsute BREAST: soft, non-tender, symmetric, no dominant mass, normal nipple-areolar complex, no lymphadenopathy and no nipple discharge CHEST: Normal inspiratory effort ABDOMEN: soft, non-tender and no masses. INCISION: N/A PELVIC: external genitalia normal, normal Bartholin's glands, urethra, [place]'s glands, no vulvar lesions, no cervical lesions, good vaginal support, physiologic discharge present, normal appearing perineal body and perianal region. laceration repair intact- no erythema BIMANUAL: uterus normal size, shape and consistency, no adnexal masses, non- tender and no cervical motion tenderness. Perineal muscles intact felt with exam NEURO: alert and oriented x3,exam grossly non-focal EXTREMITIES: normal ASSESSMENT AND PLAN: 25 year old status post with normal course. Contraception plan: Oral contraceptives R/B/A to OCP reviewed with patient including reporting any s/s of ACHES or to stop OCP if having surgery. Patient voiced understanding. Follow up: RTO 3 months for follow up OCP or sooner if needed Naye Sepulveda APRN.CNM documented in this encounterOhiohealth Berger Hospital05-25-2022 History of Present illness Narrative* Nadia Burton MD - 09/24/2021 4:10 PM EDT EARLY VISIT Xiomara Delgado is a 25 year old here for 2 week visit. Delivery Summary: ROS: General: Denies any fever or chills Hypertension Screening: Headache? No. Visual Changes? No E Mood: normal- some baby blues Depression: denies symptoms of depression. OB Depression and Anxiety Screening- This Encounter (since 09/23/2021) Over the past 2 weeks have you felt down, depressed, or hopeless? Positive - Further Testing Indicated I have been able to laugh and see the funny side of things. 0 I have looked forward with enjoyment to things. 0 I have blamed myself unnecessarily when things went wrong. 1 I have been anxious or worried for no good reason. 1 I have felt scared or panicky for no good reason. 0 Things have been getting on top of me. 0 I have been so unhappy that I have had difficulty sleeping. 2 I have felt sad or miserable. 1 I have been so unhappy that I have been crying. 1 The thought of harming myself has occurred to me. 0 [place] Depression Scale Total 6 Feeding: Bottle feeding problems: None Bladder: No dysuria, gross hematuria, urinary frequency, urinary urgency, or incontinence Bowel symptoms: Negative for abdominal discomfort, blood in stools or black stools and change in bowel habits Abdomen: N/A Bleeding: light flow Bottom and Perineum: No issues Sleep: no sleep concerns, feels rested [place] since delivery: Not resumed Emotional support: Yes Exercise: N/A Other issues: None PHYSICAL EXAMINATION: BP 100/64 Wt 159 lb (72.1 kg) LMP 11/27/2020 (Exact Date) No BMI 26.65 kg/m General: pleasant,female in no apparent distress, A&O x 3. Skin warm and intact. Breast: Deferred Abdomen: Deferred /Incision: N/A Pelvic: Deferred Bimanual: Deferred ASSESSMENT AND PLAN: 1. 25 year old status post with normal course. 2. Contraception plan: Oral contraceptives . Reinforced 6-week pelvic rest. Encouraged condom usageshould patient deviate. 3. Education: resources provided - see MA/RN note 4. Follow up: Return to Clinic for 6 week visit and as needed Medical Decision Making Nadia Schwartz MD documented in this encounterOhiohealth Berger Hospital05-09-2022 History of Present illness Narrative* Kim Land RN - 09/08/2021 4:31 PM EDT Patient delivered via by Raphael on 09[facility] at [facility]. See OB history. Kim Land RN documented in this encounterOhiohealth Berger Hospital04-27-2022 Miscellaneous Notes* Quick Notes - Bernarda Smith MD - 08/27/2021 4:30 PM EDT SW- Pt doing well. No ctx, vb, lof. Good FM. Having swelling and went to L&D for this. She reports the swelling has improved. No severe BRAVO's or vision changes. No upper abd pain or malaise. PE: Gen- NAD, well appearing Abd- Soft, gravid, NT See flowsheet A/p 39 wk gestation - Swelling: Discussed compression socks, elevation of legs, hydration. No evidence of pre eclampsiatoday but discussed warning signs/symptoms and reasons to call - Discussed ~41 wk IOL - RTO 1 wk Bernarda Smith DO documented in this encounterOhiohealth Berger Hospital04-27-2022 Instructions* Patient Instructions* Masha Burgos MA - 08/27/2021 4:05 PM EDT SEQUENTIAL SCREENINGS The [facility] offers sequential screenings for women who are interested in screenings for chromosomal abnormalities and certain defects during a . The sequential screen combinesultrasound and blood tests to determine the risk of chromosomal abnormalities, including Down's Syndrome (Trisomy 21) and Trisomy 18, as well as open neural tube defects including spina bifida. Ultrasound examination is performed between 11 weeks and 13 weeks gestational age. Blood tests are drawn after the ultrasound and again later in the between 15 and 21 weeks gestational age. Please let your physician know if you are interested in this testing. It will require an appointment withour hemodialysis technician. This is not an ultrasound performed by a physician in our office during a routine visit. SIGNS AND SYMPTOMS OF LABOR 1. Contractions every 10 minutes or more often 2. Clear, pink, or brownish fluid (water) leaking from vagina 3. Feeling that baby is pushing down, pressure 4. Low, dull backache 5. Cramps that feel like a period 6. Cramps with or without diarrhea If you notice any of the above symptoms, contact our office at [phone] and ask to speak with anurse. After hours, you can call doctors registry at [phone] OR call [facility] at [phone] ask to have the doctor flowers salesperson paged. If you consider this an emergency, dial 9-1-7 or go to your nearest emergency department. NEED HELP? Are you dealing with a violent or abusive relationship? Are you a victim of rape or sexual assult? Call [facility] ([place]) 24 hour Crisis Hotline: 490.971.6183 or 864-266-4647. MANUAL Your Guide to a Healthy manual is now on-line. Visit [facility].org/HealthyPregnancyGuide to download your free copy documented in this encounterOhiohealth Berger Hospital04-26-2022 History of Present illness Narrative* Masha Zheng MA - 08/26/2021 1:13 PM EDT POPULATION HEALTH NAVIGATION OUTREACH Action/I 1st attempt: Called and left message to call back to discuss [facility]dere[facility] clerk. MC message sent. Pt identified by name and : NO Outreach Outcome/Action Unable to reach patient: Left message MyChart message sent Reason for Outreach Payer: Payor: [place] [employer] / Plan: [employer] [employer] / Product Type: Medicaid / Masha Painting MA August 26, 2021 1:13 PM documented in this encounterOhiohealth Berger Hospital04-13-2022 Miscellaneous Notes* Quick Notes - Naye Sepulveda APRN.CNM - 08/13/2021 2:22 PM EDT S: Xiomara Delgado is a 25 year old female who presents 37.0 weeks gestation for a routine visit. Positive movement. Positive for round ligament pain with position changes. Denies headache, visual changes, chest pain, shortness of breath, vaginal bleeding, leakage of fluid, or dysuria. O: See flow sheet Gen: No apparent distress Abd: Gravid, non tender S=D ASSESSMENT/PLAN: 1. Anemia during in third trimester - ICD9: 648.23, ICD10: O99.013 (primary diagnosis) - Continues to take oral iron - CBC + DIFF- Repeat at next visit 2. 37 weeks gestation of - ICD9: V22.2, ICD10: Z3A.37 - URINE OB DIP B/O P: 1) Labor precautions reviewed and when to call 2) RTO 1 week or sooner if needed Naye Sepulveda APRN.CNM documented in this encounterOhiohealth Berger Hospital04-13-2022 Instructions* Patient Instructions* Katelin Molina MA - 08/13/2021 2:03 PM EDT SEQUENTIAL SCREENINGS [facility] offers sequential screenings for women who are interested in screenings for chromosomal abnormalities and certain defects during a . The sequential screen combinesultrasound and blood tests to determine the risk of chromosomal abnormalities, including Down's Syndrome (Trisomy 21) and Trisomy 18, as well as open neural tube defects including spina bifida. Ultrasound examination is performed between 11 weeks and 13 weeks gestational age. Blood tests are drawn after the ultrasound and again later in the between 15 and 21 weeks gestational age. Please let your physician know if you are interested in this testing. It will require an appointment withour hemodialysis technician. This is not an ultrasound performed by a physician in our office during a routine visit. SIGNS AND SYMPTOMS OF LABOR 1. Contractions every 10 minutes or more often 2. Clear, pink, or brownish fluid (water) leaking from vagina 3. Feeling that baby is pushing down, pressure 4. Low, dull backache 5. Cramps that feel like a period 6. Cramps with or without diarrhea If you notice any of the above symptoms, contact our office at [phone] and ask to speak with anurse. After hours, you can call doctors registry at [phone] OR call [facility] at [phone] ask to have the doctor flowers salesperson paged. If you consider this an emergency, dial 9-- or go to your nearest emergency department. NEED HELP? Are you dealing with a violent or abusive relationship? Are you a victim of rape or sexual assult? Call [facility] ([place]) 24 hour Crisis Hotline: 502.497.8477 or 723-880-1833. MANUAL Your Guide to a Healthy manual is now on-line. Visit [email or web address] to download your free copy documented in this encounterOhio[facility]22 Miscellaneous Notes* Quick Notes - Nadia Burton MD - 08/07/2021 9:02 AM EDT DM-Pt doing well. Denies vaginal Bleeding, Leaking fluid, or regular Contractions. Pt reports good movement Physical Exam: Gen: female in no apparent distress Abd: soft, Gravid. Non tender to palpation. See flow sheet A/P: @ 36.1 weeks 1) vertex on ultrasound today 2) GBS today 3) Kick counts and labor reviewed 4) RTO 1 week 5) continue Iron supplementation Nadia Schwartz MD documented in this encounterOhio[facility]04-07-2022 Instructions* Patient Instructions* Helene Partida Ma - 08/07/2021 8:46 AM EDT SEQUENTIAL SCREENINGS [facility] offers sequential screenings for women who are interested in screenings for chromosomal abnormalities and certain defects during a . The sequential screen combinesultrasound and blood tests to determine the risk of chromosomal abnormalities, including Down's Syndrome (Trisomy 21) and Trisomy 18, as well as open neural tube defects including spina bifida. Ultrasound examination is performed between 11 weeks and 13 weeks gestational age. Blood tests are drawn after the ultrasound and again later in the between 15 and 21 weeks gestational age. Please let your physician know if you are interested in this testing. It will require an appointment withour hemodialysis technician. This is not an ultrasound performed by a physician in our office during a routine visit. SIGNS AND SYMPTOMS OF LABOR 1. Contractions every 10 minutes or more often 2. Clear, pink, or brownish fluid (water) leaking from vagina 3. Feeling that baby is pushing down, pressure 4. Low, dull backache 5. Cramps that feel like a period 6. Cramps with or without diarrhea If you notice any of the above symptoms, contact our office at [phone] and ask to speak with anurse. After hours, you can call doctors registry at [phone] OR call [facility] at [phone] ask to have the doctor flowers salesperson paged. If you consider this an emergency, dial 9-1-8 or go to your nearest emergency department. NEED HELP? Are you dealing with a violent or abusive relationship? Are you a victim of rape or sexual assult? Call [facility] ([place]) 24 hour Crisis Hotline: 834.213.9212 or 184-078-1136. MANUAL Your Guide to a Healthy manual is now on-line. Visit [email or web address] to download your free copy documented in this encounterOhiohealth Berger Hospital03-24-2022 Miscellaneous Notes* Telephone Encounter - Jing Erwin RN - 07/24/2021 12:07 PM EDT Faxed * Telephone Encounter - Jing Erwin RN - 07/16/2021 2:23 PM EDT Received fax from [employer] for support bands. To DANITA to sign. Jing Erwin RN documented in this encounterOhiohealth Berger Hospital03-24-2022 Miscellaneous Notes* Quick Notes - Bernarda Smith MD - 07/24/2021 9:16 AM EDT SW- No ctx, vb, lof. Good FM. Having some pelvic discomfort. PE: Gen- NAD, well appearing Abd- Soft, gravid, S=D Ext- No edema See flowsheet A/p 34 wk gestation - PTL precautions reviewed - CBC ordered - OB consent signed - Discussed upcoming expectations - RTO 2 wks Bernarda Smith DO documented in this encounterOhiohealth [facility] Hospital03-24-2022 Instructions* Patient Instructions* Masha Burgos MA - 07/24/2021 8:43 AM EDT SEQUENTIAL SCREENINGS [facility] offers sequential screenings for women who are interested in screenings for chromosomal abnormalities and certain defects during a . The sequential screen combinesultrasound and blood tests to determine the risk of chromosomal abnormalities, including Down's Syndrome (Trisomy 21) and Trisomy 18, as well as open neural tube defects including spina bifida. Ultrasound examination is performed between 11 weeks and 13 weeks gestational age. Blood tests are drawn after the ultrasound and again later in the between 15 and 21 weeks gestational age. Please let your physician know if you are interested in this testing. It will require an appointment withour hemodialysis technician. This is not an ultrasound performed by a physician in our office during a routine visit. SIGNS AND SYMPTOMS OF LABOR 1. Contractions every 10 minutes or more often 2. Clear, pink, or brownish fluid (water) leaking from vagina 3. Feeling that baby is pushing down, pressure 4. Low, dull backache 5. Cramps that feel like a period 6. Cramps with or without diarrhea If you notice any of the above symptoms, contact our office at [phone] and ask to speak with anurse. After hours, you can call doctors registry at [phone] OR call [facility] at [phone] ask to have the doctor flowers salesperson paged. If you consider this an emergency, dial 3--6 or go to your nearest emergency department. NEED HELP? Are you dealing with a violent or abusive relationship? Are you a victim of rape or sexual assult? Call [facility] ([place]) 24 hour Crisis Hotline: 246.806.5923 or 488-662-9469. MANUAL Your Guide to a Healthy manual is now on-line. Visit [email or web address] to download your free copy documented in this encounterOhiohealth [facility] Hospital02-24-2022 History of Past illness Narrative* Problem Noted Date Resolved Date Anemia during in third trimester 06/2604/30/2022 Overview: 06/26/21-Repeat CBC in 4 weeks. Madeleine Pettit APRN.CNM Spotting in early 01/16/202104/03 Overview: 01/16/2021 Patient had called in on January 07 complaining of peach colored blood on the toilet paper and mild cramping after intercourse. Quance were done. Patient states that she still notes occasional spotting when she wipes. She states that she occasionally has some left-sided pain when she changes position too quickly. Miscarriage/ectopic precautions given. Patient is to call/come in if bleeding or pain increases or as needed problems.TKRN Tobacco use during , antepartum 021 04/30/2022 Overview: 06/26/21-No further tobacco use. Stopped at beginning of then was hitting a cigarette on and off for first 2 months. Nothing since. Advised continued smoking cessation. Madeleine Pettit APRN.CNM 01/16/2021t smokes 1 to 2 cigarettes a day down from 1-1/2 packs/day. Discussed risks of smoking during . Advised pt to quit. Patient states she stopped vaping in December. Information on the [place] tobacco quit line given to patient. TKRN documented as of this encounter (statuses as of 05/06/2022) [facility] History of Past illness Narrative* Problem Noted Date Resolved Date Anemia during in third trimester 06/2604/30/2022 Overview: 06/26/21-Repeat CBC in 4 weeks. Madeleine Pettit APRN.CNM Spotting in early 01/16/202104/03 Overview: 01/16/2021 Patient had called in on January 07 complaining of peach colored blood on the toilet paper and mild cramping after intercourse. Quance were done. Patient states that she still notes occasional spotting when she wipes. She states that she occasionally has some left-sided pain when she changes position too quickly. Miscarriage/ectopic precautions given. Patient is to call/come in if bleeding or pain increases or as needed problems.TKRN Tobacco use during , antepartum 021 04/30/2022 Overview: 06/26/21-No further tobacco use. Stopped at beginning of then was hitting a cigarette on and off for first 2 months. Nothing since. Advised continued smoking cessation. Madeleine Pettit APRN.CNM 01/16/2021t smokes 1 to 2 cigarettes a day down from 1-1/2 packs/day. Discussed risks of smoking during . Advised pt to quit. Patient states she stopped vaping in December. Information on the [place] tobacco quit line given to patient. TKRN documented as of this encounter (statuses as of 05/06/2022) [facility] History of Past illness Narrative* Problem Noted Date Resolved Date Anemia during in third trimester 06/2604/30/2022 Overview: 06/26/21-Repeat CBC in 4 weeks. Madeleine Pettit APRN.CNM Spotting in early 01/16/202104/03 Overview: 01/16/2021 Patient had called in on January 07 complaining of peach colored blood on the toilet paper and mild cramping after intercourse. Quance were done. Patient states that she still notes occasional spotting when she wipes. She states that she occasionally has some left-sided pain when she changes position too quickly. Miscarriage/ectopic precautions given. Patient is to call/come in if bleeding or pain increases or as needed problems.TKRN Tobacco use during , antepartum 021 04/30/2022 Overview: 06/26/21-No further tobacco use. Stopped at beginning of then was hitting a cigarette on and off for first 2 months. Nothing since. Advised continued smoking cessation. Madeleine Pettit APRN.CNM 1Pt smokes 1 to 2 cigarettes a day down from 1-1/2 packs/day. Discussed risks of smoking during . Advised pt to quit. Patient states she stopped vaping in December. Information on the [place] tobacco quit line given to patient. TKRN documented as of this encounter (statuses as of 05/15/2022) [facility] of Past illness Narrative* Problem Noted Date Resolved Date Anemia during in third trimester 06/2604/30/2022 Overview: 06/26/21-Repeat CBC in 4 weeks. Madeleine Pettit APRN.CNM Spotting in early 01/16/202104/03 Overview: 01/16/2021 Patient had called in on January 07 complaining of peach colored blood on the toilet paper and mild cramping after intercourse. Quance were done. Patient states that she still notes occasional spotting when she wipes. She states that she occasionally has some left-sided pain when she changes position too quickly. Miscarriage/ectopic precautions given. Patient is to call/come in if bleeding or pain increases or as needed problems.TKRN Tobacco use during , antepartum 021 04/30/2022 Overview: 06/26/21-No further tobacco use. Stopped at beginning of then was hitting a cigarette on and off for first 2 months. Nothing since. Advised continued smoking cessation. Madeleine Pettit APRN.CNM 1Pt smokes 1 to 2 cigarettes a day down from 1-1/2 packs/day. Discussed risks of smoking during . Advised pt to quit. Patient states she stopped vaping in December. Information on the [place] tobacco quit line given to patient. TKRN documented as of this encounter (statuses as of 05/26/2022) [facility] of Past illness Narrative* Problem Noted Date Resolved Date Anemia during in third trimester 06/2604/30/2022 Overview: 06/26/21-Repeat CBC in 4 weeks. Madeleine Pettit APRN.CNM Spotting in early 01/16/202104/03 Overview: 01/16/2021 Patient had called in on January 07 complaining of peach colored blood on the toilet paper and mild cramping after intercourse. Quance were done. Patient states that she still notes occasional spotting when she wipes. She states that she occasionally has some left-sided pain when she changes position too quickly. Miscarriage/ectopic precautions given. Patient is to call/come in if bleeding or pain increases or as needed problems.TKRN Tobacco use during , antepartum 021 04/30/2022 Overview: 06/26/21-No further tobacco use. Stopped at beginning of then was hitting a cigarette on and off for first 2 months. Nothing since. Advised continued smoking cessation. Madeleine Pettit APRN.CNM 01/16/2021t smokes 1 to 2 cigarettes a day down from 1-1/2 packs/day. Discussed risks of smoking during . Advised pt to quit. Patient states she stopped vaping in December. Information on the [place] tobacco quit line given to patient. TKRN documented as of this encounter (statuses as of 05/26/2022) [facility] of Past illness Narrative* Problem Noted Date Resolved Date Anemia during in third trimester 06/2604/30/2022 Overview: 06/26/21-Repeat CBC in 4 weeks. Madeleine Pettit APRN.CNM Spotting in early 01/16/202104/03 Overview: 01/16/2021 Patient had called in on January 07 complaining of peach colored blood on the toilet paper and mild cramping after intercourse. Quance were done. Patient states that she still notes occasional spotting when she wipes. She states that she occasionally has some left-sided pain when she changes position too quickly. Miscarriage/ectopic precautions given. Patient is to call/come in if bleeding or pain increases or as needed problems.TKRN Tobacco use during , antepartum 021 04/30/2022 Overview: 06/26/21-No further tobacco use. Stopped at beginning of then was hitting a cigarette on and off for first 2 months. Nothing since. Advised continued smoking cessation. Madeleine Pettit APRN.CNM 1Pt smokes 1 to 2 cigarettes a day down from 1-1/2 packs/day. Discussed risks of smoking during . Advised pt to quit. Patient states she stopped vaping in December. Information on the [place] tobacco quit line given to patient. TKRN documented as of this encounter (statuses as of 06/08/2022) [facility] of Past illness Narrative* Problem Noted Date Resolved Date Anemia during in third trimester 06/2604/30/2022 Overview: 06/26/21-Repeat CBC in 4 weeks. Madeleine Pettit APRN.CNM Spotting in early 01/16/202104/03 Overview: 01/16/2021 Patient had called in on January 07 complaining of peach colored blood on the toilet paper and mild cramping after intercourse. Quance were done. Patient states that she still notes occasional spotting when she wipes. She states that she occasionally has some left-sided pain when she changes position too quickly. Miscarriage/ectopic precautions given. Patient is to call/come in if bleeding or pain increases or as needed problems.TKRN Tobacco use during , antepartum 021 04/30/2022 Overview: 06/26/21-No further tobacco use. Stopped at beginning of then was hitting a cigarette on and off for first 2 months. Nothing since. Advised continued smoking cessation. Madeleine Pettit APRN.CNM 1Pt smokes 1 to 2 cigarettes a day down from 1-1/2 packs/day. Discussed risks of smoking during . Advised pt to quit. Patient states she stopped vaping in December. Information on the [place] tobacco quit line given to patient. TKRN documented as of this encounter (statuses as of 06/13/2022) [facility] of Past illness Narrative* Problem Noted Date Resolved Date Anemia during in third trimester 06/2604/30/2022 Overview: 06/26/21-Repeat CBC in 4 weeks. Madeleine Pettit APRN.CNM Spotting in early 01/16/202104/03 Overview: 01/16/2021 Patient had called in on January 07 complaining of peach colored blood on the toilet paper and mild cramping after intercourse. Quance were done. Patient states that she still notes occasional spotting when she wipes. She states that she occasionally has some left-sided pain when she changes position too quickly. Miscarriage/ectopic precautions given. Patient is to call/come in if bleeding or pain increases or as needed problems.TKRN Tobacco use during , antepartum 021 04/30/2022 Overview: 06/26/21-No further tobacco use. Stopped at beginning of then was hitting a cigarette on and off for first 2 months. Nothing since. Advised continued smoking cessation. Madeleine Pettit APRN.CNM 1Pt smokes 1 to 2 cigarettes a day down from 1-1/2 packs/day. Discussed risks of smoking during . Advised pt to quit. Patient states she stopped vaping in December. Information on the [place] tobacco quit line given to patient. TKRN documented as of this encounter (statuses as of 06/15/2022) [facility] of Past illness Narrative* Problem Noted Date Resolved Date Anemia during in third trimester 06/2604/30/2022 Overview: 06/26/21-Repeat CBC in 4 weeks. Madeleine Pettit APRN.CNM Spotting in early 01/16/202104/03 Overview: 01/16/2021 Patient had called in on January 07 complaining of peach colored blood on the toilet paper and mild cramping after intercourse. Quance were done. Patient states that she still notes occasional spotting when she wipes. She states that she occasionally has some left-sided pain when she changes position too quickly. Miscarriage/ectopic precautions given. Patient is to call/come in if bleeding or pain increases or as needed problems.TKRN Tobacco use during , antepartum 021 04/30/2022 Overview: 06/26/21-No further tobacco use. Stopped at beginning of then was hitting a cigarette on and off for first 2 months. Nothing since. Advised continued smoking cessation. Madeleine Pettit APRN.CNM 01/16/2021t smokes 1 to 2 cigarettes a day down from 1-1/2 packs/day. Discussed risks of smoking during . Advised pt to quit. Patient states she stopped vaping in December. Information on the [place] tobacco quit line given to patient. POONAM documented as of this encounter (statuses as of 06/30/2022) [facility] History of Past illness Narrative* Problem Noted Date Resolved Date Anemia during in third trimester 06/2604/30/2022 Overview: 06/26/21-Repeat CBC in 4 weeks. Madeleine Pettit APRN.CNM Spotting in early 01/16/202104/03 Overview: 01/16/2021 Patient had called in on January 07 complaining of peach colored blood on the toilet paper and mild cramping after intercourse. Quance were done. Patient states that she still notes occasional spotting when she wipes. She states that she occasionally has some left-sided pain when she changes position too quickly. Miscarriage/ectopic precautions given. Patient is to call/come in if bleeding or pain increases or as needed problems.TKRN Tobacco use during , antepartum 021 04/30/2022 Overview: 06/26/21-No further tobacco use. Stopped at beginning of then was hitting a cigarette on and off for first 2 months. Nothing since. Advised continued smoking cessation. Madeleine Pettit APRN.AURELIANO 1Pt smokes 1 to 2 cigarettes a day down from 1-1/2 packs/day. Discussed risks of smoking during . Advised pt to quit. Patient states she stopped vaping in December. Information on the [place] tobacco quit line given to patient. TKRN documented as of this encounter (statuses as of 07/08/2022) [facility] of Past illness Narrative* Problem Noted Date Resolved Date Spotting in early 01/16/202104/03 Overview: 01/16/2021 Patient had called in on January 07 complaining of peach colored blood on the toilet paper and mild cramping after intercourse. Quance were done. Patient states that she still notes occasional spotting when she wipes. She states that she occasionally has some left-sided pain when she changes position too quickly. Miscarriage/ectopic precautions given. Patient is to call/come in if bleeding or pain increases or as needed problems.TKRN Tobacco use during , antepartum 021 04/30/2022 Overview: 06/26/21-No further tobacco use. Stopped at beginning of then was hitting a cigarette on and off for first 2 months. Nothing since. Advised continued smoking cessation. Madeleine Pettit APRN.CNM 1Pt smokes 1 to 2 cigarettes a day down from 1-1/2 packs/day. Discussed risks of smoking during . Advised pt to quit. Patient states she stopped vaping in December. Information on the [place] tobacco quit line given to patient. TKRN documented as of this encounter (statuses as of 07/21/2022) [facility] Diagnosis 34 weeks gestation of - Primary state, incidental Tobacco use during , antepartum Anemia during in third trimester Supervision of high risk in third trimester Unspecified high-risk documented in this encounter [facility] noteNo assessment information availableWCrystal Clinic [facility] Work Phone: evGloucester Pharm[employer]ation note* Diagnosis Encounter for supervision of normal first in third trimester- Primary Supervision of normal first Anemia during in third trimester 36 weeks gestation of state, incidental documented in this encounter [facility] note* Diagnosis Anemia during in third trimester- Primary 37 weeks gestation of state, incidental documented in this encounter [facility] note* Diagnosis 39 weeks gestation of - Primary state, incidental Anemia during in third trimester Encounter for supervision of normal first in third trimester Supervision of normal first documented in this encounter [facility] note* Diagnosis Onset Date Resolution Status 38 weeks gestation of acute Edema during acute Supervision of normal first in third trimest er acute 40 weeks gestation of acute Anemia affecting a cute Rh negative state in antepartum period [facility] Work Phone: evaluation note* Diagnosis Onset Date Resolution Status 38 weeks gestation of acute Edema during acute Supervision of normal first in third trimest er acute 40 weeks gestation of acute Anemia affecting a cute Rh negative state in antepartum period acute 40 weeks gestation of acute Anemia affecting a cute COVID-19 virus RNA test resu lt positive at limit of detection acute Elevated blood pressure reading acute Laceration, obstetrical, first degree acute Rh negative state in antepartum period acute Spontaneous rupture of amniotic membranes acute (spontaneous vaginal delivery) [facility] Work Phone: evaluation note* Diagnosis care and examination immediately after delivery- Primary documented in this encounter [facility] note* Diagnosis care and examination- Primary Routine follow-up Menorrhagia with regular cycle Excessive or frequent menstruation Encounter for initial prescription of contraceptive pills General counseling for prescription of oral contraceptives documented in this encounter [facility] note* Diagnosis Anxiety- Primary Anxiety state, unspecified depression Mental disorders of mother, documented in this encounter [facility] note* Diagnosis Supervision of high risk , antepartum- Primary Short interval between pregnancies affecting , antepartum H/O depression, currently with other poor obstetric history UTI (urinary tract infection) in , antepartum Infections of genitourinary tract antepartum Patient request for diagnostic testing Other specified examination History of nicotine vaping [facility] Diagnosis 9 weeks gestation of - Primary state, incidental Short interval between pregnancies affecting , antepartum H/O depression, currently with other poor obstetric history UTI (urinary tract infection) in , antepartum Infections of genitourinary tract antepartum Anxiety Anxiety state, unspecified Current nicotine vaping on some days [facility]* Diagnosis Encounter for supervision of other normal in first trimester- Primary [facility]* Diagnosis Encounter for (NT) nuchal translucency scan- Primary Other specified screening 14 weeks gestation of state, incidental [facility] Diagnosis 14 weeks gestation of - Primary state, incidental Headache in back of head Headache [facility]* Diagnosis Short interval between pregnancies affecting , antepartum- Primary 17 weeks gestation of state, incidental [facility] Diagnosis Encounter for anatomic survey- Primary 20 weeks gestation of state, incidental [facility]* Diagnosis 20 weeks gestation of - Primary state, incidental Current nicotine vaping on some days Short interval between pregnancies affecting , antepartum Pain of round ligament affecting , antepartum [facility]* Diagnosis 22 weeks gestation of - Primary state, incidental Encounter for supervision of other normal in second trimester Urine frequency Urinary frequency [facility] Diagnosis Encounter for supervision of other normal in second trimester- Primary 23 weeks gestation of state, incidental Generalized abdominal pain Abdominal pain, generalized Pain of round ligament affecting , antepartum Bilateral low back pain with bilateral sciatica, unspecified chronicity [facility]* Diagnosis 26 weeks gestation of - Primary state, incidental Short interval between pregnancies affecting , antepartum Rh negative state in antepartum period Rhesus isoimmunization affecting management of mother, antepartum condition [facility] Diagnosis 28 weeks gestation of - Primary state, incidental Rh negative state in antepartum period Rhesus isoimmunization affecting management of mother, antepartum condition documented in this encounter [facility] note* Diagnosis 33 weeks gestation of - Primary state, incidental Dizziness Dizziness and giddiness Tunnel vision, bilateral Pre-syncope Syncope and collapse documented in this encounter [facility] note* Diagnosis Idiopathic hypotension- Primary Unspecified hypotension Hypoglycemia Hypoglycemia, unspecified Iron deficiency anemia secondary to inadequate dietary iron intake Dizziness Dizziness and giddiness Sinus tachycardia Other specified cardiac dysrhythmias Abnormal EKG Nonspecific abnormal electrocardiogram (ECG) (EKG) documented in this encounter [facility] note* Diagnosis 36 weeks gestation of - Primary state, incidental documented in this encounter [facility] note* Diagnosis Maternal iron deficiency anemia complicating , third trimester Malabsorption of iron Other specified intestinal malabsorption documented in this encounter [facility] note* Diagnosis 37 weeks gestation of - Primary state, incidental Anemia during in third trimester documented in this encounter [facility] note* Diagnosis 38 weeks gestation of - Primary state, incidental Anemia during in third trimester documented in this encounter [facility] note* Diagnosis Supervision of high risk in third trimester- Primary Unspecified high-risk 39 weeks gestation of state, incidental anemia during in third trimester documented in this encounter [facility] note* Diagnosis Maternal iron deficiency anemia complicating , third trimester- Primary Malabsorption of iron Other specified intestinal malabsorption documented in this encounter [facility] note* Diagnosis Onset Date Resolution Status 25 weeks gestation of acute Status post fall acute Spontaneous rupture of amniotic membranes resolved [facility] Work Phone: Evaluation note* Diagnosis control counseling- Primary General counseling for initiation of other contraceptive measures care and examination immediately after delivery documented in this encounter [facility] note* Diagnosis Encounter for IUD insertion- Primary Encounter for insertion of intrauterine contraceptive device Screening examination for STD (sexually transmitted disease) Screening examination for venereal disease documented in this encounter [facility] note* Diagnosis Dizziness- Primary Dizziness and giddiness Idiopathic hypotension Unspecified hypotension Precordial pain MORSE (dyspnea on exertion) Other dyspnea and respiratory abnormality Palpitations documented in this encounter [facility] note* Diagnosis Dizziness Dizziness and giddiness Precordial pain MORSE (dyspnea on exertion) Other dyspnea and respiratory abnormality Palpitations documented in this encounter [facility] note* Diagnosis Surveillance of previously prescribed intrauterine contraceptive device- Primary Screening for cervical cancer Screening for malignant neoplasm of the cervix [facility]* Diagnosis Annual physical exam- Primary Routine general medical examination at a health care facility Iron deficiency anemia secondary to inadequate dietary iron intake Hair loss Unspecified alopecia Diminished reflexes on examination Screening for diabetes mellitus Screening for lipid disorders documented in this encounter [facility] note* Diagnosis Viral URI with cough- Primary Idiopathic hypotension- Primary Unspecified hypotension Dizziness Dizziness and giddiness documented in this encounter [facility] note* Diagnosis Idiopathic hypotension- Primary Unspecified hypotension Dizziness Dizziness and giddiness Near syncope Palpitations Precordial pain documented in this encounter [facility] note* Diagnosis Dermatitis- Primary Contact dermatitis and other eczema, due to unspecified cause documented in this encounter [facility] note* Diagnosis Dermatitis- Primary Contact dermatitis and other eczema, due to unspecified cause documented in this encounter [facility] note* Diagnosis Acute non intractable tension-type headache- Primary Tinnitus, bilateral Unspecified tinnitus documented in this encounter [facility] note* Diagnosis Idiopathic hypotension Unspecified hypotension Dizziness and giddiness Palpitations Syncope and collapse documented in this encounter [facility] note* Diagnosis Idiopathic hypotension Unspecified hypotension Dizziness and giddiness Palpitations Syncope and collapse documented in this encounter [facility] note* Diagnosis Migraine without aura and with status migrainosus, not intractable- Primary documented in this encounter [facility] note* Diagnosis Acute non-recurrent maxillary sinusitis- Primary documented in this encounter [facility] note* Diagnosis Idiopathic hypotension- Primary Unspecified hypotension Dizziness and giddiness Other fatigue documented in this encounter [facility] note* Diagnosis Chronic migraine without aura without status migrainosus, not intractable- Primary Encounter for smoking cessation counseling Occipital neuralgia of left side documented in this encounter [facility] note* Diagnosis Chronic migraine without aura without status migrainosus, not intractable- Primary documented in this encounter [facility] note* Diagnosis Chronic migraine without aura without status migrainosus, not intractable [facility] Diagnosis Chronic migraine without aura without status migrainosus, not intractable- Primary [facility]* Diagnosis Chronic migraine without aura without status migrainosus, not intractable- Primary POTS (postural orthostatic tachycardia syndrome) Unspecified tachycardia [facility]* Diagnosis Tremor of both hands- Primary Difficulty sleeping Unspecified sleep disturbance Chronic migraine without aura without status migrainosus, not intractable [facility]* Diagnosis Chronic migraine without aura without status migrainosus, not intractable- Primary [facility]* Diagnosis Encounter for gynecological examination (general) (routine) without abnormal findings- Primary Encounter for routine checking of intrauterine contraceptive device (IUD) Personal history of contraception Personal history of contraception, presenting hazards to health [facility] Diagnosis Autonomic dysfunction documented in this encounter [facility] Work Phone: Evaluation note* Diagnosis Annual physical exam- Primary Routine general medical examination at a [facility] Iron deficiency anemia secondary to inadequate dietary iron intake Migraine without aura and with status migrainosus, not intractable Hip instability, unspecified laterality Pure hypercholesterolemia Screening for diabetes mellitus Influenza vaccine refused Idiopathic hypotension- Primary Unspecified hypotension Dizziness and giddiness Other fatigue [facility]* Diagnosis Idiopathic hypotension- Primary Unspecified hypotension Dizziness and giddiness Other fatigue [facility]* Diagnosis Migraine without aura and with status migrainosus, not intractable- Primary Annual physical exam- Primary Routine general medical examination at a [facility] Iron deficiency anemia secondary to inadequate dietary iron intake Hair loss Unspecified alopecia Diminished reflexes on examination Screening for diabetes mellitus Screening for lipid disorders Acute non intractable tension-type headache- Primary Tinnitus, bilateral Unspecified tinnitus Migraine without aura and with status migrainosus, not intractable- Primary Annual physical exam- Primary Routine general medical examination at a [facility] Iron deficiency anemia secondary to inadequate dietary iron intake Migraine without aura and with status migrainosus, not intractable Hip instability, unspecified laterality Pure hypercholesterolemia Screening for diabetes mellitus Influenza vaccine refused Upper respiratory tract infection, unspecified type- Primary Wheezing Acute cough Fever, unspecified fever cause Idiopathic hypotension- Primary Unspecified hypotension Other fatigue Pure hypercholesterolemia [facility]* Diagnosis Migraine without aura and with status migrainosus, not intractable- Primary Annual physical exam- Primary Routine general medical examination at a [facility] Iron deficiency anemia secondary to inadequate dietary iron intake Hair loss Unspecified alopecia Diminished reflexes on examination Screening for diabetes mellitus Screening for lipid disorders Acute non intractable tension-type headache- Primary Tinnitus, bilateral Unspecified tinnitus Migraine without aura and with status migrainosus, not intractable- Primary Annual physical exam- Primary Routine general medical examination at a [facility] Iron deficiency anemia secondary to inadequate dietary iron intake Migraine without aura and with status migrainosus, not intractable Hip instability, unspecified laterality Pure hypercholesterolemia Screening for diabetes mellitus Influenza vaccine refused Upper respiratory tract infection, unspecified type- Primary Wheezing Acute cough Fever, unspecified fever cause Idiopathic hypotension- Primary Unspecified hypotension Other fatigue Pure hypercholesterolemia [facility]* Diagnosis Migraine without aura and with status migrainosus, not intractable- Primary Annual physical exam- Primary Routine general medical examination at a [facility] Iron deficiency anemia secondary to inadequate dietary iron intake Hair loss Unspecified alopecia Diminished reflexes on examination Screening for diabetes mellitus Screening for lipid disorders Acute non intractable tension-type headache- Primary Tinnitus, bilateral Unspecified tinnitus Migraine without aura and with status migrainosus, not intractable- Primary Annual physical exam- Primary Routine general medical examination at a [facility] Iron deficiency anemia secondary to inadequate dietary iron intake Migraine without aura and with status migrainosus, not intractable Hip instability, unspecified laterality Pure hypercholesterolemia Screening for diabetes mellitus Influenza vaccine refused Chronic migraine without aura without status migrainosus, not intractable- Primary POTS (postural orthostatic tachycardia syndrome) Unspecified tachycardia Idiopathic hypotension- Primary Unspecified hypotension Other fatigue Pure hypercholesterolemia [facility]* Diagnosis Migraine without aura and with status migrainosus, not intractable- Primary Annual physical exam- Primary Routine general medical examination at a [facility] care [facility] Iron deficiency anemia secondary to inadequate dietary iron intake Hair loss Unspecified alopecia Diminished reflexes on examination Screening for diabetes mellitus Screening for lipid disorders Acute non intractable tension-type headache- Primary Tinnitus, bilateral Unspecified tinnitus Migraine without aura and with status migrainosus, not intractable- Primary Annual physical exam- Primary Routine general medical examination at a [facility] Iron deficiency anemia secondary to inadequate dietary iron intake Migraine without aura and with status migrainosus, not intractable Hip instability, unspecified laterality Pure hypercholesterolemia Screening for diabetes mellitus Influenza vaccine refused Idiopathic hypotension- Primary Unspecified hypotension Other fatigue Pure hypercholesterolemia [facility]* Diagnosis Migraine without aura and with status migrainosus, not intractable- Primary Annual physical exam- Primary Routine general medical examination at a [facility] Iron deficiency anemia secondary to inadequate dietary iron intake Hair loss Unspecified alopecia Diminished reflexes on examination Screening for diabetes mellitus Screening for lipid disorders Acute non intractable tension-type headache- Primary Tinnitus, bilateral Unspecified tinnitus Migraine without aura and with status migrainosus, not intractable- Primary Annual physical exam- Primary Routine general medical examination at a [facility] Iron deficiency anemia secondary to inadequate dietary iron intake Migraine without aura and with status migrainosus, not intractable Hip instability, unspecified laterality Pure hypercholesterolemia Screening for diabetes mellitus Influenza vaccine refused URI with cough and congestion- Primary [facility]* Diagnosis Migraine without aura and with status migrainosus, not intractable- Primary Annual physical exam- Primary Routine general medical examination at a [facility] Iron deficiency anemia secondary to inadequate dietary iron intake Hair loss Unspecified alopecia Diminished reflexes on examination Screening for diabetes mellitus Screening for lipid disorders Acute non intractable tension-type headache- Primary Tinnitus, bilateral Unspecified tinnitus Migraine without aura and with status migrainosus, not intractable- Primary Annual physical exam- Primary Routine general medical examination at a [facility] Iron deficiency anemia secondary to inadequate dietary iron intake Migraine without aura and with status migrainosus, not intractable Hip instability, unspecified laterality Pure hypercholesterolemia Screening for diabetes mellitus Influenza vaccine refused Chronic migraine without aura without status migrainosus, not intractable- Primary [facility]* Diagnosis Pain, dental- Primary Unspecified disorder of the teeth and supporting structures [facility] Diagnosis Irregular bleeding- Primary Irregular menstrual cycle [facility] Diagnosis Migraine without aura and with status migrainosus, not intractable- Primary Annual physical exam- Primary Routine general medical examination at a [facility] Iron deficiency anemia secondary to inadequate dietary iron intake Hair loss Unspecified alopecia Diminished reflexes on examination Screening for diabetes mellitus Screening for lipid disorders Acute non intractable tension-type headache- Primary Tinnitus, bilateral Unspecified tinnitus Migraine without aura and with status migrainosus, not intractable- Primary Annual physical exam- Primary Routine general medical examination at a [facility] Iron deficiency anemia secondary to inadequate dietary iron intake Migraine without aura and with status migrainosus, not intractable Hip instability, unspecified laterality Pure hypercholesterolemia Screening for diabetes mellitus Influenza vaccine refused Chronic migraine without aura without status migrainosus, not intractable documented in this encounter [facility] note* Diagnosis Irregular bleeding- Primary Irregular menstrual cycle Malpositioned intrauterine device (IUD), initial encounter PCO (polycystic ovaries) Polycystic ovaries [facility]* Diagnosis Malpositioned intrauterine device (IUD), initial encounter- Primary Encounter for removal and reinsertion of intrauterine contraceptive device (IUD) documented [facility]* Diagnosis Malpositioned intrauterine device (IUD), initial encounter- Primary Encounter for IUD insertion Encounter for insertion of intrauterine contraceptive device Encounter for IUD removal Encounter for removal of intrauterine contraceptive device [facility]* Diagnosis Polycystic ovaries- Primary documented in this encounter [facility] note* Diagnosis Migraine without aura and with status migrainosus, not intractable- Primary Annual physical exam- Primary Routine general medical examination at [email or web address] Iron deficiency anemia secondary to inadequate dietary iron intake Hair loss Unspecified alopecia Diminished reflexes on examination Screening for diabetes mellitus Screening for lipid disorders Acute non intractable tension-type headache- Primary Tinnitus, bilateral Unspecified tinnitus Migraine without aura and with status migrainosus, not intractable- Primary Annual physical exam- Primary Routine general medical examination at [email or web address] Iron deficiency anemia secondary to inadequate dietary iron intake Migraine without aura and with status migrainosus, not intractable Hip instability, unspecified laterality Pure hypercholesterolemia Screening for diabetes mellitus Influenza vaccine refused Herpes zoster without complication- Primary Pure hypercholesterolemia Other insomnia documented in this encounter [facility] note* Diagnosis Migraine without aura and with status migrainosus, not intractable- Primary Annual physical exam- Primary Routine general medical examination at a [facility] Iron deficiency anemia secondary to inadequate dietary iron intake Hair loss Unspecified alopecia Diminished reflexes on examination Screening for diabetes mellitus Screening for lipid disorders Acute non intractable tension-type headache- Primary Tinnitus, bilateral Unspecified tinnitus Migraine without aura and with status migrainosus, not intractable- Primary Annual physical exam- Primary Routine general medical examination at a [facility] Iron deficiency anemia secondary to inadequate dietary iron intake Migraine without aura and with status migrainosus, not intractable Hip instability, unspecified laterality Pure hypercholesterolemia Screening for diabetes mellitus Influenza vaccine refused Herpes zoster without complication- Primary Pure hypercholesterolemia Other insomnia [facility]* Diagnosis Migraine without aura and with status migrainosus, not intractable- Primary Annual physical exam- Primary Routine general medical examination at a [facility] Iron deficiency anemia secondary to inadequate dietary iron intake Hair loss Unspecified alopecia Diminished reflexes on examination Screening for diabetes mellitus Screening for lipid disorders Acute non intractable tension-type headache- Primary Tinnitus, bilateral Unspecified tinnitus Migraine without aura and with status migrainosus, not intractable- Primary Annual physical exam- Primary Routine general medical examination at a [facility] Iron deficiency anemia secondary to inadequate dietary iron intake Migraine without aura and with status migrainosus, not intractable Hip instability, unspecified laterality Pure hypercholesterolemia Screening for diabetes mellitus Influenza vaccine refused Herpes zoster without complication- Primary Pure hypercholesterolemia Other insomnia POTS (postural orthostatic tachycardia syndrome)- Primary Unspecified tachycardia Chronic migraine without aura without status migrainosus, not intractable [facility]* Diagnosis Pelvic pain in female- Primary Unspecified symptom associated with female genital organs Difficulty in urination Other symptoms involving urinary system [facility] Diagnosis Pelvic pain in female Unspecified symptom associated with female genital organs documented in this encounter [facility] note* Diagnosis Migraine without aura and with status migrainosus, not intractable- Primary Annual physical exam- Primary Routine general medical examination at a [facility] Iron deficiency anemia secondary to inadequate dietary iron intake Hair loss Unspecified alopecia Diminished reflexes on examination Screening for diabetes mellitus Screening for lipid disorders Acute non intractable tension-type headache- Primary Tinnitus, bilateral Unspecified tinnitus Migraine without aura and with status migrainosus, not intractable- Primary Annual physical exam- Primary Routine general medical examination at a [facility] Iron deficiency anemia secondary to inadequate dietary iron intake Migraine without aura and with status migrainosus, not intractable Hip instability, unspecified laterality Pure hypercholesterolemia Screening for diabetes mellitus Influenza vaccine refused Herpes zoster without complication- Primary Pure hypercholesterolemia Other insomnia Chronic migraine without aura without status migrainosus, not intractable [facility]* Diagnosis Corneal irritation, right- Primary documented in this encounter [facility] Work Phone: Evaluation note* Diagnosis Abrasion of ear canal, right, initial encounter- Primary Nausea Nausea alone Dry skin Other symptoms involving skin and integumentary tissues [facility] Diagnosis Migraine without aura and with status migrainosus, not intractable- Primary Annual physical exam- Primary Routine [email or web address] Iron deficiency anemia secondary to inadequate dietary iron intake Hair loss Unspecified alopecia Diminished reflexes on examination Screening for diabetes mellitus Screening for lipid disorders Acute non intractable tension-type headache- Primary Tinnitus, bilateral Unspecified tinnitus Migraine without aura and with status migrainosus, not intractable- Primary Annual physical exam- Primary Routine general medical [facility] at [facility] Iron deficiency anemia secondary to inadequate dietary iron intake Migraine without aura and with status migrainosus, not intractable Hip instability, unspecified laterality Pure hypercholesterolemia Screening for diabetes mellitus Influenza vaccine refused Herpes zoster without complication- Primary Pure hypercholesterolemia Other insomnia Elevated glucose- Primary Other abnormal glucose [facility]* Diagnosis Migraine without aura and with status migrainosus, not intractable- Primary Annual physical exam- Primary Routine general medical [facility] Iron deficiency anemia secondary to inadequate dietary iron intake Hair loss Unspecified alopecia Diminished reflexes on examination Screening for diabetes mellitus Screening for lipid disorders Acute non intractable tension-type headache- Primary Tinnitus, bilateral Unspecified tinnitus Migraine without aura and with status migrainosus, not intractable- Primary Annual physical exam- Primary Routine general medical examination at [email or web address] Iron deficiency anemia secondary to inadequate dietary iron intake Migraine without aura and with status migrainosus, not intractable Hip instability, unspecified laterality Pure hypercholesterolemia Screening for diabetes mellitus Influenza vaccine refused Herpes zoster without complication- Primary Pure hypercholesterolemia Other insomnia POTS (postural orthostatic tachycardia syndrome) Unspecified tachycardia [facility] Attachments The following attachments cannot be sent through Care Everywhere. * Dermatitis (Faroese) [facility] Attachments The following attachments cannot be sent through Care Everywhere. * Dermatitis (Faroese) [facility] Attachments The following attachments cannot be sent through Care Everywhere. * Amitriptyline, ADULT (Faroese) [facility] Diagnostic Procedure Only (Routine) - Pending Review Specialty Diagnoses / Procedures Referred By Jose dallas Referred To [facility] Diagnoses 9 weeks gestation of Procedures NUCHAL TRANSLUCENCY WHI US NUCHAL TRANSLUCENCY 1ST GESTATION Plotts, Naye, MEDICAL SERVICES ASSISTANT.CNM [address] [place] [address] [address] Referral ID Status Reason Start Date Expiration Date Visits Requested Visits Authorized [id number] Pending Review Auto-Generat ed Referral 03/09/2022 03/09/2023 1 1 * Diagnostic Procedure Only (Routine) - Pending Review Specialty Diagnoses / Procedures Referred By Contac t Referred To Contact [facility] Diagnoses 9 weeks gestation of Procedures OBSTETRIC ULTRASOUND WHI US PREG UTERUS AFTER 1ST TRIMEST GESTATION Naye Sepulveda APRN.CNM [address] [place] [address] [address] Referral ID Status Reason Start Date Expiration Date Visits Requested Visits Authorized [id number] Pending Review Auto-Generat ed Referral 03/09/2022 03/09/2023 1 1 [facility] for referral (narrative)* Outpatient Procedure (Routine) - Pending Review Specialty Diagnoses / Procedures Referred By Contac t Referred To Contact [facility] Diagnoses control counseling Procedures INSERT INTRAUTERINE DEVICE LEVONORGESTREL IU 52MG 5 YR INSERT INTRAUTERINE DEVICE Mary Mclaughlin MD [address] [place] [address] [address] Referral ID Status Reason Start Date Expiration Date Visits Requested Visits Authorized [id number] Pending Review Auto-Generat ed Referral 10/27/2022 10/27/2023 1 1 [facility] for referral (narrative)* Consultation (Routine) - Pending Review Specialty Diagnoses / Procedures Referred By Contac t Referred To Contact Otolaryngology Diagnoses Tinnitus, bilateral Procedures [place] OFFICE/OUTPATIENT NEW HIGH MDM 60 MINUTES Sarmad Ceballos APRN - CNP [address] [facility] [place] [address] [place] [address] Willi Pimentel MD [address] [place] [address] Referral ID Status Reason Start Date Expiration Date Visits Requested Visits Authorized [id number] Pending Review Specialty Services Required 05/10/2023 05/09/2024 1 1 [facility])* Consultation (Routine) - Pending Review Specialty Diagnoses / Procedures Referred By Contac t Referred To Contact Neurology Diagnoses Migraine without aura and with status migrainosus, not intractable Procedures [place] OFFICE/OUTPATIENT NEW HIGH MDM 60 MINUTES Sarmad Ceballos APRN - THERMODYNAMICIST [address] [place] [address] [place] [address] [facility] [address] [place] [address] Referral ID Status Reason Start Date Expiration Date Visits Requested Visits Authorized [id number] Pending Review Specialty Services Required 07/01/2023 06/30/2024 1 1 [facility])No reason for referral information availableWCrystal Clinic [facility] Work Phone: Reason for visit Narrative* Diagnostic Procedure Only (Routine) - Closed Specialty Diagnoses / Procedures Referred By Contac t Referred To Contact [facility] Diagnoses Irregular bleeding Procedures PELVIC US WHI US PELVIC NONOBSTETRIC REAL-TIME IMAGE COMPLETE Davina Polk APRN.CNP [address] [place] [address] Phone: tel: fax: [facility] [place] [address] Referral ID Status Reason Start Date Expiration Date V isits Requested Visits Authorized [id number] Closed Auto-Generate d Referral 07/03/2024 07/03/2025 1 1 [facility] Summary Purpose Family History No Family History Records Found Relationship Condition Age at Onset Recorded Date/T teri grandfather Cardiac disease Unknown Advance Directives No Advanced Directives Records FoundDocuments on File Type Date Recorded 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 Expl 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 Advance Directive(s) 02/06/2020 7:55 PM Advance Directive(s) 09/28/2017 9:35 PM Advance Directive Response Recorded Date/ Time Living Will No August 08, 2015 1:56pm Power of Blend Plant Operator No August 07 1:56pm Advance Directive Response Recorded Date/ Time Living Will No September 06, 2021 2: 36am Power of Blend Plant Operator No September 06, 2021 2:36am Advance Directive Response Recorded Date/ Time Living Will No February 25 6:00pm Power of Blend Plant Operator No February 25, 2022 6:00pm Advance Directive Response Recorded Date/ Time Living Will No October 09, 2022 1 0:22pm Power of Blend Plant Operator No October 09, 2022 10:22pm Advance Directive Response Recorded Date/ Time Living Will No July 25, 2024 4:34am Do you have a [facility] Power of Blend Plant Operator? No July 25, 2024 4:34am Chief Complaint and Reason for Visit Chief Complaint RULE OUT PRE E Chief Complaint RULE OUT PRE E RULE OUT LABOR Reason for Visit 38 weeks gestation o f Edema during Supervision of normal first in third trimester 40 weeks gestation of Anemia affecting Rh negative state in antepartum period Chief Complaint RULE OUT PRE E RULE OUT LABOR VAG DELIVERY Reason for Visit 38 weeks gestation o f Edema during Supervision of normal first in third trimester 40 weeks gestation of Anemia affecting Rh negative state in antepartum period 40 weeks gestation of Anemia affecting COVID-19 virus RNA test result positive at limit of detection Elevated blood pressure reading Laceration, obstetrical, first degree Rh negative state in antepartum period Spontaneous rupture of amniotic membranes (spontaneous vaginal delivery) Chief Complaint PREG Chief Complaint FALL VAGINAL DELIVERY TACHY, ABN EKG, DIZZINESS Reason for Visit 25 weeks gestation o f Status post fall Spontaneous rupture of amniotic membranes Chief Complaint Admit Date Rib pain, rash July 25, 2024 4:3 0am Health Concerns Problem Noted Date OB Reminders 03/09/2022 Problem Noted Date OB Reminders 03/09/2022 Problem Noted Date OB Reminders 03/09/2022 Problem Noted Date OB Reminders 03/09/2022 Problem Noted Date OB Reminders 03/09/2022 Problem Noted Date OB Reminders 03/09/2022 Problem Noted Date OB Reminders 03/09/2022 Problem Noted Date OB Reminders 03/09/2022 Problem Noted Date OB Reminders 03/09/2022 Problem Noted Date OB Reminders 03/09/2022 Problem Noted Date OB Reminders 03/09/2022 Problem Noted Date OB Reminders 03/09/2022 Problem Noted Date OB Reminders 03/09/2022 Problem Noted Date OB Reminders 03/09/2022 Problem Noted Date OB Reminders 03/09/2022 Problem Noted Date Diagnosed Date OB Reminders 03/09/2022 Problem Noted Date Diagnosed Date OB Reminders 03/09/2022 Reason for Referral Specialty Diagnoses / Procedures Referred By Avilaac t Referred To Contact Cardiology Diagnoses 33 weeks gestation of Dizziness Tunnel vision, bilateral Procedures CONSULT TO CARDIOLOGY OFFICE/OUTPATIENT [facility] 60-74 MINUTES Naye Sepulveda APRN.CN [address] [place] [address] Referral ID Status Reason Start Date Expiration Date Visits Requested Visits Authorized [id number] Authorized PCP Requested Referral 08/25/2022 08/25/2023 1 1 Specialty Diagnoses / Procedures Referred By Contac t Referred To Contact Cardiology Diagnoses Hypoglycemia Dizziness Sinus tachycardia Abnormal EKG Procedures Transthoracic echocardiogram (TTE) complete with contrast, bubble, strain, and 3D PRN WI ECHO TTHRC R-T 2D W/WOM-MODE COMPL SPEC&COLR D WI TTE W OR WO FOL WCON,Evita Kirkpatrick MD [address] [address] Referral ID Status Reason Start Date Expiration Date Visits Requested Visits Authorized [id number] Pending Review Perform Procedure 09/07/2022 03/06/2023 1 1 Specialty Diagnoses / Procedures Referred By Contac t Referred To Contact Diagnoses Dizziness Precordial pain MORSE (dyspnea on exertion) Palpitations Procedures Exercise stress test Evita Benjamin MD [address] [address] Referral ID Status Reason Start Date Expiration Date V isits Requested Visits Authorized [id number] Incomplete 12/07/2022 06/05/2023 1 1 Specialty Diagnoses / Procedures Referred By Contac t Referred To Contact Cardiology Diagnoses Dizziness Precordial pain MORSE (dyspnea on exertion) Palpitations Procedures Exercise stress test Evita Benjamin MD [address] [address] Referral ID Status Reason Start Date Expiration Date Visits Re quested Visits Authorized [id number] Closed 12/07/2022 06/05/2023 1 1 Specialty Diagnoses / Procedures Referred By Contac t Referred To Contact Radiology Diagnoses Dizziness Near syncope Palpitations Precordial pain Procedures CTA HEART CORONARY ANGIOGRAM WITH PROV FFR-CT Evita Benjamin MD [address] [address] Referral ID Status Reason Start Date Expiration Date V isits Requested Visits Authorized [id number] Pending Review 03/08/2023 03/07/2024 1 1 Specialty Diagnoses / Procedures Referred By Contac t Referred To Contact Cardiology Diagnoses Dizziness Near syncope Palpitations Procedures Vamp Stitcher (all types: Event, Holter, MCOT) ORDER ALGORITHM Evita Benjamin MD [address] [address] Referral ID Status Reason Start Date Expiration Date V isits Requested Visits Authorized [id number] Pending Review 03/08/2023 09/04/2023 1 1 Specialty Diagnoses / Procedures Referred By Contac t Referred To Contact Cardiology Diagnoses Idiopathic hypotension Dizziness and giddiness Palpitations Syncope and collapse Procedures Cardiac holter monitor (8- 15 days) WI EXTERNAL ECG REC>48HR<7D REVIEW & INTERPRETATION WI EXTERNAL ECG REC>48HR<7D RECORDING WI EXTERNAL ECG REC>7D<15D RECORDING WI EXTERNAL ECG REC>7D<15D REVIEW & INTERPRETATION Evita Benjamin MD 1 [facility] [address] [place] [address] Referral ID Status Reason Start Date Expiration Date V isits Requested Visits Authorized [id number] Pending Review 05/20/2023 05/14/2024 1 1 Referral ID Status Reason Start Date Expiration Date Visits Re quested Visits Authorized [id number] Closed 05/20/2023 05/14/2024 1 1 Specialty Diagnoses / Procedures Referred By Contac t Referred To Contact Radiology Diagnoses Chronic migraine without aura without status migrainosus, not intractable Procedures CTA head angio w and wo IV contrast Omar Gunn MD [address] [facility] [address] [place] [address] Referral ID Status Reason Start Date Expiration Date V isits Requested Visits Authorized [id number] Pending Review 09/16/2023 09/15/2024 1 1 Referral ID Status Reason Start Date Expiration Date Visits Re quested Visits Authorized [id number] Closed 09/16/2023 09/15/2024 1 1 Specialty Diagnoses / Procedures Referred By Contac t Referred To Contact Diagnoses Chronic migraine without aura without status migrainosus, not intractable Omar Gunn MD [address] [facility] [address] [place] [address] Referral ID Status Reason Start Date Expiration Date V isits Requested Visits Authorized [id number] Pending Review 01/20/2024 07/18/2024 1 1 Specialty Diagnoses / Procedures Referred By Contac t Referred To Contact Diagnoses Autonomic dysfunction Procedures Autonomic Testing Omar Gunn MD [address] [facility] [address] [place] [address] Referral ID Status Reason Start Date Expiration Date V isits Requested Visits Authorized [id number] Authorized 12/17/2023 12/16/2024 1 1 Medications Administered Section Inactive Administered Medications - up to 3 most recent administrations Medication Order MAR Action Action Date Dose Rate Site iron sucrose 200 mg in NaCl 0.9% 100 mL (VENOFER) 200 mg, INTRAVENOUS, at 400 mL/hr, Administer over 15 Minutes, ONCE, 1 dose, On Wed10/06/22 at 1430, Please conduct a 30 minute post-dose observation. TV = 120mL New Bag/Syringe/Bottle 10/06/2022 2:25 PM EDT 200 mg 400 mL/hr Inactive Administered Medications - up to 3 most recent administrations Medication Order MAR Action Action Date Dose Rate Site copper intrauterine device 380 square mm (PARAGARD) 1 Intra Uterine Device, INTRAUTERINE, ONCE (UP TO 30 DAYS AMB), 1 dose, On 11/30/22 at 1030 Given 11/30/2022 11:08 AM EDT 1 Intra Uterine Device Additional Source Comments INFORMATION SOURCE (unrecogn ized section and content) DATE CREATED AUTHOR 10/22/2017 [facility] DATE CREATED AUTHOR AUTHOR'S ORGANIZ ATION 07/08/2018 [facility] DATE CREATED AUTHOR AUTHOR'S ORGANIZ ATION 08/01/2018 [facility] DATE CREATED AUTHOR AUTHOR'S ORGANIZ ATION 02/07/2020 [facility] DATE CREATED AUTHOR AUTHOR'S ORGANIZ ATION 04/07/2021 [facility] DATE CREATED AUTHOR AUTHOR'S ORGANIZ ATION 10/16/2022 [facility] DATE CREATED AUTHOR AUTHOR'S ORGANIZ ATION 04/15/2024 [facility] DATE CREATED AUTHOR AUTHOR'S ORGANIZ ATION 07/29/2024 [facility] DATE CREATED AUTHOR AUTHOR'S ORGANIZ ATION 08/01/2024 [facility] DATE CREATED AUTHOR AUTHOR'S ORGANIZ ATION 09/04/2024 [facility] DATE CREATED AUTHOR AUTHOR'S ORGANIZ ATION 11/13/2024 [facility] DATE CREATED AUTHOR AUTHOR'S ORGANIZ ATION 11/19/2024 [facility] DATE CREATED AUTHOR AUTHOR'S ORGANIZ ATION 11/30/2024 [facility] DATE CREATED AUTHOR AUTHOR'S ORGANIZ ATION 12/04/2024 [facility] Comments (unrecognize d section and content) In the event this informatio n is protected by the Federal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 alternate section Care Teams (unrecognized sec tion and content) Supervisor Lead Refinery Relationship Specialty Start Date End Date Jairo Garcia MD [address] [place] [address] [id number] PCP - General 06/17/18 Supervisor Lead Refinery Relationship Specialty Start Date End Date Jairo Garcia MD [address] [place] [address] [id number] PCP - General 06/17/18 Team Status: Active Member Role Status Dates No Primary Care Physician Family Provider Active Dr. Jairo Garcia MD Primary Care Provider Active Team Status: Active Member Role Status Dates Dr. Jairo Garcia MD Primary Care Provider Active Dr. Jasbir Saab MD Attending Provider Active Team Status: Inactive Member Role Status Dates Dr. Jairo Garcia MD Primary Care Provider Active Naye Sepulveda CNM Attending Provider, Referring Pr ovider Active Team Status: Inactive Member Role Status Dates Dr. Jairo Garcia MD Primary Care Provider Active CASSIDY JAMA Attending Provider, Referring Provider Active Team Status: Inactive Member Role Status Dates Dr. Jairo Garcia MD Primary Care Provider Active Naye Sepulveda CNM Admit Provider, Attending Provid er Active Supervisor Lead Refinery Relationship Specialty Start Date End Date Jairo Garcia MD [address] [place] [address] [phone] PCP - General 06/17/18 Supervisor Lead Refinery Relationship Specialty Start Date End Date Jairo Garcia MD [facility] [place] [address] PCP - General 06/17/18 Supervisor Lead Refinery Relationship Specialty Start Date End Date Jairo Garcia MD [facility] [place] [address] PCP - General 06/17/18 Supervisor Lead Refinery Relationship Specialty Start Date End Date Jairo Garcia MD [facility] [place] [address] PCP - General 06/17/18 Supervisor Lead Refinery Relationship Specialty Start Date End Date Jairo Garcia MD [facility] [place] [address] PCP - General 06/17/18 Supervisor Lead Refinery Relationship Specialty Start Date End Date Jairo Garcia MD 25 [facility] [place] [address] PCP - General 06/17/18 Supervisor Lead Refinery Relationship Specialty Start Date End Date Jairo Garcia MD 25 [facility] [place] [address] PCP - General 06/17/18 Supervisor Lead Refinery Relationship Specialty Start Date End Date Jairo Garcia MD 25 [facility] [place] [address] PCP - General 06/17/18 Supervisor Lead Refinery Relationship Specialty Start Date End Date Jairo Garcia MD 25 [facility] [place] [address] PCP - General 06/17/18 Supervisor Lead Refinery Relationship Specialty Start Date End Date Jairo Garcia MD [address] [facility] [place] [address] PCP - General 06/17/18 Supervisor Lead Refinery Relationship Specialty Start Date End Date Jairo Garcia MD [address] [facility] [place] [address] PCP - General 06/17/18 Supervisor Lead Refinery Relationship Specialty Start Date End Date Jairo Garcia MD [address] [facility] [place] [address] PCP - General 06/17/18 Supervisor Lead Refinery Relationship Specialty Start Date End Date Jairo Garcia MD [address] [facility] [place] [address] PCP - General 06/17/18 Supervisor Lead Refinery Relationship Specialty Start Date End Date Jairo Garcia MD 25 [facility] [place] [address] PCP - General 06/17/18 Supervisor Lead Refinery Relationship Specialty Start Date End Date Jairo Garcia MD [address] [facility] [place] [address] PCP - General 06/17/18 Supervisor Lead Refinery Relationship Specialty Start Date End Date Jairo Garcia MD [address] [facility] [place] [address] PCP - General 06/17/18 Supervisor Lead Refinery Relationship Specialty Start Date End Date Jairo Garcia MD [facility] [place] [address] PCP - General 06/17/18 Supervisor Lead Refinery Relationship Specialty Start Date End Date Jairo Garcia MD [address] [place] [address] PCP - General 06/17/18 Supervisor Lead Refinery Relationship Specialty Start Date End Date Jairo Garcia MD [address] [place] [address] PCP - General 06/17/18 Supervisor Lead Refinery Relationship Specialty Start Date End Date Jairo Garcia MD 25 [facility] [place] [address] PCP - General 06/17/18 Supervisor Lead Refinery Relationship Specialty Start Date End Date Jairo Garcia MD 25 [facility] [place] [address] PCP - General 06/17/18 Supervisor Lead Refinery Relationship Specialty Start Date End Date Jairo Garcia MD 25 [facility] [place] [address] PCP - General 06/17/18 Supervisor Lead Refinery Relationship Specialty Start Date End Date Jairo Garcia MD [address] [place] [address] PCP - General 06/17/18 Supervisor Lead Refinery Relationship Specialty Start Date End Date Jairo Garcia MD 25 [facility] [place] [address] PCP - General 06/17/18 Supervisor Lead Refinery Relationship Specialty Start Date End Date Jairo Garcia MD 25 [facility] [place] [address] PCP - General 06/17/18 Supervisor Lead Refinery Relationship Specialty Start Date End Date Jairo Garcia MD 25 [facility] [place] [address] PCP - General 06/17/18 Supervisor Lead Refinery Relationship Specialty Start Date End Date Jairo Garcia MD 25 [facility] [place] [address] PCP - General 06/17/18 Supervisor Lead Refinery Relationship Specialty Start Date End Date Jairo Garcia MD 25 [facility] [place] [address] PCP - General 06/17/18 Supervisor Lead Refinery Relationship Specialty Start Date End Date Jairo Garcia MD 25 [facility] [place] [address] PCP - General 06/17/18 Supervisor Lead Refinery Relationship Specialty Start Date End Date Jairo Garcia MD 25 [facility] [place] [address] PCP - General 06/17/18 Supervisor Lead Refinery Relationship Specialty Start Date End Date Jairo Garcia MD [address] [place] [address] PCP - General 06/17/18 Supervisor Lead Refinery Relationship Specialty Start Date End Date Jairo Garcia MD [address] [place] [address] [place] [address] PCP - General 06/17/18 Supervisor Lead Refinery Relationship Specialty Start Date [place] [address] PCP - General 06/17/18 Supervisor Lead Refinery Relationship Specialty Start Date [place] [address] PCP - General 06/17/18 Supervisor Lead Refinery Relationship Specialty Start Date End Date Moon Garcia MD [address] [place] [address] PCP - General Orthopedics 04/12/24 Supervisor [employer] Relationship Specialty Start Date End Date Moon Garcia MD [address] [place] [address] PCP - General Orthopedics 04/12/24 Supervisor Lead [employer] Relationship Specialty Start Date End Date Moon Garcia MD [address] [place] [address] PCP - General Orthopedics 04/12/24 Supervisor Lead [employer] Relationship Specialty Start Date End Date Moon Garcia MD [address] [place] [address] PCP - General Orthopedics 04/12/24 Supervisor Lead [employer] Relationship Specialty Start Date End Date Moon Garcia MD [address] [place], [place] [address] PCP - General Orthopedics 04/12/24 Team Status: Active Member Role Status Dates Dr. Jairo Garcia MD Primary Care Provider Active Team Status: Inactive Member Role Status Dates Dr. Jairo Garcia MD Primary Care Provider Active Start: July 25, 2024 End: July 25, 2024 Dr. Willi Rogers DO Emergency Provider Active Start: July 25, 2024 End: July 25, 2024 Supervisor [employer] Relationship Specialty Start Date End Date Jairo Garcia MD [address] [place], [place] [id number] PCP - General 06/17/18 Supervisor [employer] Relationship Specialty Start Date End Date Jairo Garcia MD [address], [place] [phone] PCP - General 06/17/18 Supervisor [employer] Relationship Specialty Start Date End Date Jairo Garcia MD [address], [place] [phone] PCP - General 06/17/18 Supervisor [employer] Relationship Specialty Start Date End Date Moon Garcia MD [address] [place], [place] [address] PCP - General Orthopedics 04/12/24 Supervisor Lead [employer] Relationship Specialty Start Date End Date Moon Garcia MD [address] [place], [place] [phone] PCP - General Orthopedics 04/12/24 Supervisor Lead [employer] Relationship Specialty Start Date End Date Moon Garcia MD [address] [address] PCP - General Orthopedics 04/12/24 Supervisor [employer] Relationship Specialty Start Date End Date Jairo Garcia MD [address] [place] [address] PCP - General Family Medicine 11/03/24 Supervisor Lead [employer] Relationship Specialty Start Date End Date Jairo Garcia MD [address] [place] [address] PCP - General Family Medicine 04/11/24 Supervisor Lead [employer] Relationship Specialty Start Date End Date Jairo Garcia MD [address] [place] [address] PCP - General 06/17/18 Scheduled Active and Recently Administ ered Medications (unrecognized section and content) Medication Order 11/02/2024 11/03/2024 11/04/2024 fluorescein 1 mg ophthalmic strip 1 strip (COMPLETED) 1 strip, Right Eye, Once, On Wed11/03/24 at 2335, For 1 dose 2337 (Given - Provider: Margarita Decker RN - Comment: given to the dr) tetracaine (PF) 0.5 % ophthalmic solution 1 drop (COMPLETED) 1 drop, Right Eye, Once, On Wed11/03/24 at 2335, For 1 dose 2336 (Given - Provider: Margarita Decker RN - Comment: given to the dr) tobramycin-dexamethasone (Tobradex) ophthalmic suspension 2 drop (COMPLETED) 2 drop, Right Eye, Once, On Wed11/04/24 at 0025, For 1 dose, Every 4 hours 0028 (Given - Provid er: Margarita Decker RN) FOR RECORDS PERTAINING TO PATIENTS WHO ARE OR HAVE BEEN ENROLLED IN A CHEMICAL DEPENDENCY/SUBSTANCEABUSE PROGRAM, SOME INFORMATION MAY BE OMITTED. This clinical summary was aggregated from multiple sources. Caution should be exercised in using it in the provision of clinical care. This summary normalizes information from multiple sources, and as a consequence, information in this document may materially change the coding, format and clinical context of patient data. In addition, data may be omitted in some cases. CLINICAL DECISIONS SHOULD BE BASED ON THE PRIMARY CLINICAL RECORDS. [facility]. provides no warranty or guarantee of the accuracy or completeness of information in this document."
[2024-12-05 22:29] LABS: Hematocrit 36.0 % (37-47); Hemoglobin 12.6 g/dL (12.0-15.0); Immature Granulocytes Count 0.020 X10^3/uL (0.0-0.0); Mean Corp Hgb Conc 35.0 g/dL (32-36); Mean Corpuscular Volume 84.7 fL (81-99); Mean Platelet Vol. 10.4 fl (6.2-12.0); NRBC Flagged by Analyzer 0 % (0-5); Platelet Count 230 K/mm3 (150-450); RBC Distribution Width CV 12.0 % (11.6-14.6); RBC Distribution Width SD 36.7 fl (35.1-43.9); Red Blood Count 4.25 M/mm3 (4.2-5.4); White Blood Count 8.2 K/mm3 (4.4-11.0)
[2024-12-05 22:44] LABS: Anion Gap 12 (5-15); BUN 10 mg/dL (4-19); BUN/Creat Ratio 16.7 RATIO (10-20); Calcium,Total 9.8 mg/dL (7.6-11.0); Carbon Dioxide 23.4 mmol/L (21.0-32.0); Chloride 104 mmol/L (98-108); Estimated Creatinine Clearance 141.54 ml/min (50-250); Glucose 110 mg/dL (70-99); Internal QC Validated? YES +Cl - CLEAR BKGD; Magnesium 2.0 mg/dL (1.5-2.2); Potassium 3.4 mmol/L (3.3-5.1); Pregnancy, Serum, hCG Quali. NEGATIVE Negative; Record Kit Lot#, Serum Preg. 0000962302
[2024-12-05 23:22] VITALS: BP 121/61; PULSE 75; RESP 19; TEMP 36.6; O2SAT 100
== END 2024-12-05 23:35 | disposition home or self-care (01) ==
PROVIDERS: Emergency Provider Emergency Medicine; PCP Family Medicine; Visit Provider Emergency Medicine
DX: G90.A Postural orthostatic tachycardia syndrome [POTS] (principal); R55 Syncope and collapse; F17.290 Nicotine dependence, other tobacco product, uncomplicated
CPT/HCPCS: 80048; 83735; 84703; 85025; 93005; 96360; 99284; A4216